=== PATIENT | male | born 1945 | race Caucasian/White ===

== ENCOUNTER → 2019-08-14 16:03 | Outpatient (CLI) | payer MEDICARE, SELFPAY ==
[2019-08-14 22:02] LABS: COVID19 -Nasal RAPID Negative (Negative)
== END ==
PROVIDERS: Family Provider Internal Medicine; PCP Internal Medicine; Visit Provider Family Medicine
DX: R06.02 Shortness of breath (principal)
CPT/HCPCS: 87635

== ENCOUNTER → 2019-08-14 16:20 | Outpatient (CLI) | payer MEDICARE, SELFPAY ==
--- NOTE | 2019-08-14 16:25 | DI.RAD.S_ITS ---
PROCEDURE: XR CHEST 2V INDICATIONS: shortness of breath, LE edema TECHNIQUE: 2 views of the chest were acquired. COMPARISON: None. FINDINGS: Surgical changes and devices: None. Lungs and pleura: Interstitial elements and small effusions suggesting pulmonary edema. No pneumothorax. Mediastinum: Mediastinal contours are normal. Heart size is normal. Bones and chest wall: No suspicious bony abnormalities. Soft tissues appear unremarkable. IMPRESSION: Suspect pulmonary edema. Dictated by: Edgar Lui M.D. on 08/14/2019 at 16:46 Approved by: Edgar Lui M.D. on 08/14/2019 at 16:48
== END ==
PROVIDERS: Family Provider Internal Medicine; PCP Internal Medicine; Referring Provider Family Medicine; Visit Provider Family Medicine
DX: R06.02 Shortness of breath (principal); R60.0 Localized edema
CPT/HCPCS: 71046

== ENCOUNTER 2019-08-14 16:48 | Inpatient (IN) | payer MEDICARE, SELFPAY ==
[2019-08-14] VITALS (8 sets, daily range): BP systolic 138–185; BP diastolic 65–117; PULSE 62–94; RESP 17–26; TEMP 36.2–36.8; O2SAT 92–96; BMI 33.2
--- NOTE | 2019-08-14 | DI.ECHO.S_ITS ---
[facility]---------+ [facility] +---------+ : : [address] : [address] : : : : [id number] : : : : Phone: [phone]+ Echocardiogram Report + + :Name: ISRRAEL ROSALES Study Date: 08/15/2019 Height: 69 in : :[facility] Weight: 225 lb : : Gender: Male BSA: 2.2 m2 : :: 1945 Age: 74 yrs BP: 138/65 mmHg: :Reason For Study: CHF : :Ordering Physician: Kena : :Hospitalist Performed By: Mishel Shah : :Referring: SON VEGA : + + Interpretation Summary Left ventricular systolic function is mildly reduced with an estimated ejection fraction of 45 to 55% with [id number] variability because of atrial fibrillation. There is mild global hypokinesis but no obvious focal abnormality. The left ventricle is mildly enlarged, with an end-diastolic volume of 151 mL and there is borderline concentric LVH. The right ventricle is mildly enlarged with mildly reduced systolic function. Right ventricular systolic pressure is estimated at 38 mmHg based on a right atrial pressure of 15 mmHg. There is severe left atrial enlargement. The mitral valve is heavily calcified but the leaflets appear to open adequately. There is likely moderate to severe mitral regurgitation. There is mild tricuspid and mild pulmonic valve regurgitation. The aortic valve is moderately calcified with significant reduction in leaflet mobility with at least moderately severe, perhaps severe, aortic stenosis with a peak transvalvular velocity of 3.0 m/s and a mean gradient of 22 mmHg although the calculated valve area is 0.7-0.8 body straightener? with a severity ratio is 0.19, suggesting severe aortic stenosis. Clinical correlation is recommended. The patient was in atrial fibrillation at 50 to 60 bpm during the study. Procedure: A two-dimensional transthoracic echocardiogram with color flow and Doppler was performed. The study quality was technically adequate. There is no prior echocardiogram noted for this patient. The patient was in atrial fibrillation with heart rates between 50-60 bpm during the exam. Left Ventricle: The left ventricle is mildly dilated. The estimated left ventricular end diastolic volume is 151 ml. There is borderline concentric left ventricular hypertrophy. Left ventricular ejection fraction is estimated to be 50 +/- 5%. Left ventricular systolic function is mildly reduced. Left ventricular ejection fraction is estimated to be 45 to 55% with [id number] variability because of atrial fibrillation. There is mild global hypokinesis of the left ventricle. There are no focal wall motion abnormalities. Diastolic function could not be accurately assessed due to atrial fibrillation. Right Ventricle: The right ventricle is mildly dilated. Right ventricular systolic function is mildly reduced. Atria: The left atrium is severely dilated. Right atrial size is normal. There is no Doppler evidence for an interatrial shunt. Mitral Valve: There is moderate mitral annular calcification. The mitral valve leaflets appear moderately thickened, but open well. The mitral valve leaflets are moderately calcified. There is moderate to severe mitral regurgitation. Aortic Valve: The aortic valve is trileaflet. The aortic valve is moderately calcified. There is moderate to severely reduced leaflet mobility. There is moderate to severe aortic stenosis. There is trace aortic regurgitation. Tricuspid Valve: The tricuspid valve is not well visualized, but is grossly normal. There is mild tricuspid regurgitation. The right ventricular systolic pressure is estimated to be at least 38 mmHg based on an estimated right atrial pressure of 15 mm Hg. Pulmonic Valve: The pulmonic valve is normal in structure and function. There is mild pulmonic regurgitation. Great Vessels: The aortic root is normal size. The dimensions of the ascending aorta are normal. The IVC is dilated (diameter is greater than 2.1 cm) and it collapses less than 50% with a sniff. This suggests a high right atrial pressure of 15 mm Hg. Pericardium/ Pleura There is no pericardial effusion. There is no pleural effusion. MMode/2D Measurements & Calculations LVIDd: 5.4 cm LVOT diam: 2.2 cm LVIDs: 4.3 cm Ao root diam: 3.1 cm FS: 21.0 % asc Aorta Diam: 3.0 cm IVSd: 1.3 cm LVPWd: 1.0 cm LV dempsey. diameter/BSA (cm/m^2): 2.5 LV sys. diameter/BSA (cm/m^2): 2.0 LA A2 area: 37.7 cm2 RA long axis: 6.2 cm LA A4 area: 30.5 cm2 RA area: 21.2 cm2 LA length (vol): 7.0 cm RA vol: 61.5 ml LA vol: 139.9 ml RA : 28.3 ml/m2 LA vol index: 64.4 ml/m2 IVC diam: 3.0 cm RVD1 (basal): 4.4 cm TAPSE: 2.0 cm Doppler Measurements & Calculations Ao V2 max: 304.0 cm/sec LVOT Max Michael: 62.9 cm/sec Ao V2 mean: 223.7 cm/sec LV V1 max P.6 mmHg Ao max P.0 mmHg LV V1 VTI: 13.6 cm Ao mean P.2 mmHg SUZAN(I,D): 0.71 cm2 Ao V2 VTI: 72.1 cm SUZAN(V,D): 0.78 cm2 sev ratio: 0.19 SUZAN indexed to BSA (cm^2/m^2): 0.33 MV E max michael: 91.6 cm/sec TR max michael: 241.6 cm/sec MV A max michael: 2.9 cm/sec TR max P.3 mmHg MV E/A: 32.0 Med Peak E' Michael: 8.3 cm/sec E/E' med: 11.1 Lat Peak E' Michael: 7.1 cm/sec E/E' lat: 12.9 E/e' average: 12.0 MV dec time: 0.19 sec MR ERO: 0.25 cm2 MR PISA: 4.0 cm2 SV(LVOT): 51.4 ml MR flow rate: 148.4 cm3/sec MR PISA radius: 0.80 cm Reading Physician:PM
--- NOTE | 2019-08-14 17:15 | ED_ITS ---
HPI - SOB/Dyspnea <Wendy Leung SPECIAL EVENTS FUNDRAISER-BC - Last Filed: 08/14/19 20:35> General Chief Complaint: Shortness of Breath/Dyspnea Stated Complaint: sent from DI Time Seen by Provider: 08/14/19 16:59 Source: patient Mode of arrival: Wheelchair Limitations: no limitations History of Present Illness HPI Narrative: The patient is a delightful 74-year-old male nonsmoker with history of type 2 diabetes and atrial fibrillation on Pradaxa presents with a chief complaint of fatigue, swollen legs, shortness of breath that is getting progressively worse over the past 2 weeks. He states he is having trouble sleeping lately, has been sleeping only 4 hours a night as opposed to 8. The patient does note that he has had some difficulty sleeping. He presents from the respiratory clinic, has already had a chest x-ray at this point time. He was swabbed for coronavirus. He denies any chest pain, fevers, nausea vomiting diarrhea or abdominal pain. He states he has been taking his medications. He presents with his of 37 years. Related Data Home Medications Medication Instructions Recorded Confirmed aspirin 81 mg tablet,delayed 81 mg PO QAM 08/14/19 08/14/19 release atenolol 50 mg tablet 50 mg PO BID 08/14/19 08/14/19 cholecalciferol (vitamin D3) 1,000 unit PO QPM 08/14/19 08/14/19 dabigatran etexilate 150 mg capsule 150 mg PO BID 08/14/19 08/15/19 digoxin 125 mcg (0.125 mg) tablet 125 mcg PO QPM 08/14/19 08/14/19 doxazosin 4 mg tablet 4 mg PO QPM 08/14/19 08/15/19 lisinopril 40 mg tablet 40 mg PO QPM 08/14/19 08/14/19 metformin 750 mg tablet,extended 750 mg PO BID 08/14/19 08/14/19 release 24 hr multivitamin 1 tab PO QPM 08/14/19 08/15/19 simvastatin 20 mg tablet 20 mg PO QPM 08/14/19 08/15/19 Previous Rx's Medication Instructions Recorded hydroxyzine HCl 25 mg tablet 25 mg PO TID PRN #30 tab 08/14/19 Allergies Allergy/AdvReac Type Severity Reaction Status Date / Time No Known Drug Allergies Allergy Verified 08/14/19 17:04 Review of Systems <Wendy Leung MARGE- - Last Filed: 08/14/19 20:35> Review of Systems Narrative: GENERAL: Denies chills, fatigue, malaise, fever, sweats. HEENT: Denies sinus pain, ear pain, sore throat, difficulty swallowing, dizziness. RESPIRATORY: See HPI CARDIOVASCULAR see HPI GASTROINTESTINAL: Denies nausea, vomiting, abdominal pain, diarrhea, constipati on, melena. : Denies dysuria, frequency, incontinence, hematuria, urinary retention. MUSCULOSKELETAL: denies weakness, joint pain, or bony pain SKIN: Denies rash, skin lesions, or other NEUROLOGIC: Denies weakness, headache, numbness, change in speech, confusion, seizures, incoordination. PSYCHIATRIC: No concerning psychosocial issues. 12 point review of systems is negative except for those stated above Patient History <Wendy LeungCANDY - Last Filed: 08/14/19 20:35> Medical History Atrial fibrillation, chronic (Acute) Diabetes type 2, controlled (Chronic) Essential hypertension (Chronic) Social History household members: spouse Smoking Status: Never smoker alcohol intake: current Smoking Status: Never smoker alcohol intake frequency: 3 or more drinks per day Substance Use Type: does not use Exam <Wendy LeungCANDY - Last Filed: 08/14/19 20:35> Narrative Exam Narrative: GENERAL: This is a well-nourished, well-developed patient, in no acute distress HEAD: Atraumatic. Normocephalic. No temporal or scalp tenderness. EYES: Pupils equal round and reactive. Extraocular motions intact. No scleral icterus. No injection or drainage. ENT: Nose without bleeding, purulent drainage or septal hematoma. Throat without erythema, tonsillar hypertrophy or exudate. Uvula midline. Airway patent. NECK: Trachea midline. No JVD or lymphadenopathy. Supple, nontender, no meningeal signs. CARDIOVASCULAR: Regular rate and irregular rhythm RESPIRATORY: Decreased bilaterally with crackles at the bases. Breath sounds eq ual bilaterally. No wheezes, rales, or rhonchi. No cough. No increased respiratory effort. No accessory muscle use. GASTROINTESTINAL: Abdomen soft, non-tender, nondistended. No hepato-splenomegaly, or palpable masses. No guarding. EXTREMITIES: 2+ edema bilateral lower legs. Positive pedal pulses bilaterally. BACK: Nontender without deformity or crepitance. No flank tenderness. NEURO: AOx3. SKIN: No rash or erythema on visible skin Initial Vital Signs Initial Vital Signs: Vital Signs Temperature 98.1 F 08/14/19 16:58 Pulse Rate 79 08/14/19 16:58 Respiratory Rate 26 H 08/14/19 16:58 Blood Pressure 167/92 H 08/14/19 16:58 Pulse Oximetry 96 08/14/19 16:58 <Terry Tracey MD - Last Filed: 09/15/19 07:09> Initial Vital Signs Initial Vital Signs: Vital Signs Temperature 98.1 F 08/14/19 16:58 Pulse Rate 79 08/14/19 16:58 Respiratory Rate 26 H 08/14/19 16:58 Blood Pressure 167/92 H 08/14/19 16:58 Pulse Oximetry 96 08/14/19 16:58 Scores <RAJIV Driver - Last Filed: 08/14/19 20:35> GCS Bowers coma scale eye opening: Spontaneous Bowers coma scale verbal response: Orientated Bowers coma scale motor response: Obey commands Sacha coma scale total score: 15 HEART Score Heart Score history: Slightly Suspicious Heart Score EKG: Non-Specific repolarization disturbance Heart Score Age: > or = 65 years old Heart Score risk factors: > 3 risk factors or hx of atherosclerotic disease Heart Score troponin: < or = to normal limit Heart Score Total: 5 Course <RAJIV Driver - Last Filed: 08/14/19 20:35> Orders Ordered: Discontinued Medications Acetaminophen (Tylenol) 650 mg PO Q6HR PRN PRN Reason: Fever/Mild Pain (1-3) Aspirin (Aspirin Ec) 81 mg PO DAILY [facility] Last Admin: 08/17/19 08:56 Dose: 81 mg Documented by: Admin: 08/16/19 08:50 Dose: 81 mg Documented by: Admin: 08/15/19 08:58 Dose: 81 mg Documented by: Admin: 08/15/19 00:58 Dose: 81 mg Documented by: MALICK Atenolol (Tenormin) 50 mg PO BID [facility] Last Admin: 08/16/19 12:00 Dose: Not Given Documented by: Admin: 08/15/19 20:46 Dose: 50 mg Documented by: Admin: 08/15/19 08:52 Dose: 50 mg Documented by: Admin: 08/15/19 01:15 Dose: Not Given Documented by: MALICK Dabigatran (Pradaxa) 150 mg PO BID [facility] Last Admin: 08/16/19 08:50 Dose: 150 mg Documented by: Admin: 08/15/19 20:45 Dose: 150 mg Documented by: Admin: 08/15/19 08:52 Dose: 150 mg Documented by: Admin: 08/15/19 00:58 Dose: 150 mg Documented by: MALICK Dextrose (D50w) 25 gm IV PRN PRN PRN Reason: Hypoglycemia Digoxin (Lanoxin) 0.125 mg PO DAILY [facility] Last Admin: 08/15/19 08:52 Dose: 0.125 mg Documented by: ALIVIA Doxazosin Mesylate (Cardura) 4 mg PO DAILY [facility] Last Admin: 08/17/19 08:56 Dose: 4 mg Documented by: Admin: 08/16/19 08:54 Dose: 4 mg Documented by: Admin: 08/15/19 09:08 Dose: 4 mg Documented by: ALIVIA Furosemide (Lasix) 10 mg IV NOW ONE Stop: 08/14/19 17:55 Last Admin: 08/14/19 19:03 Dose: 10 mg Documented by: MEISENLiliana Furosemide (Lasix) 20 mg IV NOW ONE Stop: 08/15/19 09:25 Last Admin: 08/15/19 08:54 Dose: 20 mg Documented by: ALIVIA Furosemide (Lasix) 40 mg IV NOW ONE Stop: 08/15/19 14:10 Last Admin: 08/15/19 15:07 Dose: 40 mg Documented by: ALIVIA Furosemide (Lasix) 40 mg IV BID [facility] Last Admin: 08/16/19 08:50 Dose: 40 mg Documented by: Admin: 08/15/19 20:46 Dose: 40 mg Documented by: RON Furosemide (Lasix) 40 mg IV DAILY [facility] Last Admin: 08/17/19 10:37 Dose: Not Given Documented by: MARANDA Hydroxyzine Pamoate (Vistaril) 25 mg PO TID PRN PRN Reason: anxiety Insulin Aspart (Novolog Flexpen) 0 unit SUBCUT ACHS [facility], [facility]; Protocol Last Admin: 08/17/19 08:43 Dose: Not Given Documented by: Admin: 08/16/19 20:49 Dose: Not Given Documented by: Admin: 08/16/19 17:40 Dose: Not Given Documented by: Admin: 08/16/19 12:02 Dose: 1 unit Documented by: ALIVIA Cosigned by: LARISA Admin: 08/16/19 08:33 Dose: Not Given Documented by: Admin: 08/15/19 20:45 Dose: Not Given Documented by: Admin: 08/15/19 17:02 Dose: Not Given Documented by: Admin: 08/15/19 13:30 Dose: Not Given Documented by: Admin: 08/15/19 13:30 Dose: Not Given Documented by: ALIVIA Lisinopril (Zestril) 40 mg PO DAILY [facility] Last Admin: 08/17/19 08:56 Dose: 40 mg Documented by: Admin: 08/16/19 08:50 Dose: 40 mg Documented by: Admin: 08/15/19 08:52 Dose: 40 mg Documented by: ALIVIA Metoprolol Succinate (Toprol Xl) 25 mg PO BID [facility] Last Admin: 08/17/19 08:55 Dose: 25 mg Documented by: Admin: 08/16/19 21:09 Dose: 25 mg Documented by: NOEMI Naloxone HCl (Narcan) 0.2 mg IV Q2MIN PRN PRN Reason: Opiate Reversal Simvastatin (Zocor) 20 mg PO BEDTIME [facility] Last Admin: 08/16/19 21:09 Dose: 20 mg Documented by: Admin: 08/15/19 20:45 Dose: 20 mg Documented by: Admin: 08/15/19 01:15 Dose: Not Given Documented by: MALICK Sodium Chloride (Normal Saline 0.9% Flush) 10 ml IV PRN PRN PRN Reason: Flush Sodium Chloride (Normal Saline 0.9% Flush) 10 ml IV BID [facility] Last Admin: 08/17/19 08:55 Dose: 10 ml Documented by: Admin: 08/16/19 21:10 Dose: 10 ml Documented by: Admin: 08/16/19 08:57 Dose: 10 ml Documented by: Admin: 08/15/19 21:01 Dose: 10 ml Documented by: RON Vital Signs Vital signs: Vital Signs - 8 hr 08/14/19 16:58 08/14/19 17:38 08/14/19 18:00 Temperature 98.1 F Pulse Rate 79 62 66 Respiratory Rate 26 H 17 18 Blood Pressure 167/92 H Blood Pressure [Left Arm] 178/87 H 143/85 H Blood Pressure [Right Arm] Pulse Oximetry 96 95 93 08/14/19 19:01 08/14/19 19:05 Temperature Pulse Rate 83 79 Respiratory Rate 23 24 Blood Pressure Blood Pressure [Left Arm] 185/91 H Blood Pressure [Right Arm] 182/101 H Pulse Oximetry 95 95 <Terry Tracey MD - Last Filed: 09/15/19 07:09> Orders Ordered: Discontinued Medications Acetaminophen (Tylenol) 650 mg PO Q6HR PRN PRN Reason: Fever/Mild Pain (1-3) Aspirin (Aspirin Ec) 81 mg PO DAILY [facility] Admin: 08/17/19 08:56 Dose: 81 mg Documented by: Admin: 08/16/19 08:50 Dose: 81 mg Documented by: Admin: 08/15/19 08:58 Dose: 81 mg Documented by: Admin: 08/15/19 00:58 Dose: 81 mg Documented by: MALICK Atenolol (Tenormin) 50 mg PO BID [facility] Admin: 08/16/19 12:00 Dose: Not Given Documented by: Admin: 08/15/19 20:46 Dose: 50 mg Documented by: Admin: 08/15/19 08:52 Dose: 50 mg Documented by: Admin: 08/15/19 01:15 Dose: Not Given Documented by: MALICK Dabigatran (Pradaxa) 150 mg PO BID [facility] Admin: 08/16/19 08:50 Dose: 150 mg Documented by: Admin: 08/15/19 20:45 Dose: 150 mg Documented by: Admin: 08/15/19 08:52 Dose: 150 mg Documented by: Admin: 08/15/19 00:58 Dose: 150 mg Documented by: MALICK Dextrose (D50w) 25 gm IV PRN PRN PRN Reason: Hypoglycemia Digoxin (Lanoxin) 0.125 mg PO DAILY [facility] Last Admin: 08/15/19 08:52 Dose: 0.125 mg Documented by: ALIVIA Doxazosin Mesylate (Cardura) 4 mg PO DAILY [facility] Last Admin: 08/17/19 08:56 Dose: 4 mg Documented by: Admin: 08/16/19 08:54 Dose: 4 mg Documented by: Admin: 08/15/19 09:08 Dose: 4 mg Documented by: ALIVIA Furosemide (Lasix) 10 mg IV NOW ONE Stop: 08/14/19 17:55 Last Admin: 08/14/19 19:03 Dose: 10 mg Documented by: KRISHNA Furosemide (Lasix) 20 mg IV NOW ONE Stop: 08/15/19 09:25 Last Admin: 08/15/19 08:54 Dose: 20 mg Documented by: ALIVIA Furosemide (Lasix) 40 mg IV NOW ONE Stop: 08/15/19 14:10 Last Admin: 08/15/19 15:07 Dose: 40 mg Documented by: ALIVIA Furosemide (Lasix) 40 mg IV BID [facility] Last Admin: 08/16/19 08:50 Dose: 40 mg Documented by: Admin: 08/15/19 20:46 Dose: 40 mg Documented by: RON Furosemide (Lasix) 40 mg IV DAILY [facility] Last Admin: 08/17/19 10:37 Dose: Not Given Documented by: MARANDA Hydroxyzine Pamoate (Vistaril) 25 mg PO TID PRN PRN Reason: anxiety Insulin Aspart (Novolog Flexpen) 0 unit SUBCUT ACHS [facility]; Protocol Last Admin: 08/17/19 08:43 Dose: Not Given Documented by: Admin: 08/16/19 20:49 Dose: Not Given Documented by: Admin: 08/16/19 17:40 Dose: Not Given Documented by: Admin: 08/16/19 12:02 Dose: 1 unit Documented by: ALIVIA Cosigned by: LARISA Admin: 08/16/19 08:33 Dose: Not Given Documented by: Admin: 08/15/19 20:45 Dose: Not Given Documented by: Admin: 08/15/19 17:02 Dose: Not Given Documented by: Admin: 08/15/19 13:30 Dose: Not Given Documented by: Admin: 08/15/19 13:30 Dose: Not Given Documented by: ALIVIA Lisinopril (Zestril) 40 mg PO DAILY [facility] Admin: 08/17/19 08:56 Dose: 40 mg Documented by: Admin: 08/16/19 08:50 Dose: 40 mg Documented by: Admin: 08/15/19 08:52 Dose: 40 mg Documented by: ALIVIA Metoprolol Succinate (Toprol Xl) 25 mg PO BID [facility] Admin: 08/17/19 08:55 Dose: 25 mg Documented by: Admin: 08/16/19 21:09 Dose: 25 mg Documented by: NOEMI Naloxone HCl (Narcan) 0.2 mg IV Q2MIN PRN PRN Reason: Opiate Reversal Simvastatin (Zocor) 20 mg PO BEDTIME [facility] Admin: 08/16/19 21:09 Dose: 20 mg Documented by: Admin: 08/15/19 20:45 Dose: 20 mg Documented by: Admin: 08/15/19 01:15 Dose: Not Given Documented by: MALICK Sodium Chloride (Normal Saline 0.9% Flush) 10 ml IV PRN PRN PRN Reason: Flush Sodium Chloride (Normal Saline 0.9% Flush) 10 ml IV BID [facility] Admin: 08/17/19 08:55 Dose: 10 ml Documented by: Admin: 08/16/19 21:10 Dose: 10 ml Documented by: Admin: 08/16/19 08:57 Dose: 10 ml Documented by: Admin: 08/15/19 21:01 Dose: 10 ml Documented by: RON Vital Signs Vital signs: Vital Signs - 8 hr 08/14/19 16:58 08/14/19 17:38 08/14/19 18:00 Temperature 98.1 F Pulse Rate 79 62 66 Respiratory Rate 26 H 17 18 Blood Pressure 167/92 H Blood Pressure [Left Arm] 178/87 H 143/85 H Blood Pressure [Right Arm] Pulse Oximetry 96 95 93 08/14/19 19:01 08/14/19 19:05 Temperature Pulse Rate 83 79 Respiratory Rate 23 24 Blood Pressure Blood Pressure [Left Arm] 185/91 H Blood Pressure [Right Arm] 182/101 H Pulse Oximetry 95 95 MDM - SOB/Dyspnea <Wendy LeungMINOP-BC - Last Filed: 08/14/19 20:35> Differential Diagnosis Differential diagnosis: Likely congestive heart failure, community acquired p neumonia and pulmonary embolism Lab Data Result diagrams: 08/16/19 06:07 08/17/19 08:07 Labs: Lab Results 08/14/19 08/14/19 08/14/19 Range/Units 17:05 17:05 17:05 WBC 5.4 (4.5-11.0) X10^3/uL RBC 3.70 L (4.5-5.9) X10^6/uL Hgb 12.7 L (13.5-17.5) g/dL Hct 37.4 L (41-53) % MCV 100.9 H (80-100) fL MCH 34.3 H (26-34) PG MCHC 34.0 (30-36) % RDW 14.0 (11.6-14.8) % Plt Count 281 (150-400) X10^3/uL Neut % (Auto) 72.3 (50-75) % Lymph % (Auto) 15.4 L (25-40) % [place] % (Auto) 11.2 (3-14) % Eos % (Auto) 0.7 L (2-4) % Baso % (Auto) 0.4 (0-2) % Neut # (Auto) 3900 (1096-7763) /uL Lymph # (Auto) 800 L (2533-0806) /uL [place] # (Auto) 600 (0-900) /uL Eos # (Auto) 0 (0-450) /uL Baso # (Auto) 0 (0-100) /uL PT 15.6 H (10.1-12.7) SECONDS INR 1.4 H (0.9-1.3) APTT 38 H (26.4-36.2) SECONDS D-Dimer < 200 (<230) ng/mL Sodium 125 L (137-145) mmol/L Potassium 4.6 (3.4-5.1) mmol/L Chloride 88 L (98-107) mmol/L Carbon Dioxide 27 (22-32) mmol/L BUN 10 (9-20) mg/dL Creatinine 0.53 L (0.66-1.25) mg/dL Estimated GFR > 60.0 (>60) mL/min BUN/Creatinine Ratio 18.9 (6-22) Glucose 139 H (80-110) mg/dL Hemoglobin A1c (4.0-6.0) % Lactate (0.7-2.1) mmol/L Calcium 9.1 (8.4-10.2) mg/dL Magnesium 1.7 (1.6-2.3) mg/dL Total Bilirubin 1.2 (0.2-1.3) mg/dL AST 35 (17-59) IU/L ALT 44 (<50) IU/L Alkaline Phosphatase 103 (38-126) U/L Total Creatine Kinase 66 (55-170) U/L CK-MB (CK-2) TNP CK-MB (CK-2) Rel Index TNP Troponin I < 0.012 (0.01-0.034) ng/mL NT-Pro-B Natriuret Pep 1700 H (<125) pg/mL Total Protein 7.5 (6.3-8.2) g/dL Albumin 4.4 (3.5-5.0) g/dL Globulin 3.1 (1.7-4.1) g/dL Albumin/Globulin Ratio 1.4 (1.0-2.8) Procalcitonin (<0.5) ng/mL 08/14/19 08/14/19 08/14/19 Range/Units 17:05 17:05 17:05 WBC (4.5-11.0) X10^3/uL RBC (4.5-5.9) X10^6/uL Hgb (13.5-17.5) g/dL Hct (41-53) % MCV (80-100) fL MCH (26-34) PG MCHC (30-36) % RDW (11.6-14.8) % Plt Count (150-400) X10^3/uL Neut % (Auto) (50-75) % Lymph % (Auto) (25-40) % [place] % (Auto) (3-14) % Eos % (Auto) (2-4) % Baso % (Auto) (0-2) % Neut # (Auto) (4607-0883) /uL Lymph # (Auto) (3940-3290) /uL [place] # (Auto) (0-900) /uL Eos # (Auto) (0-450) /uL Baso # (Auto) (0-100) /uL PT (10.1-12.7) SECONDS INR (0.9-1.3) APTT (26.4-36.2) SECONDS D-Dimer (<230) ng/mL Sodium (137-145) mmol/L Potassium (3.4-5.1) mmol/L Chloride (98-107) mmol/L Carbon Dioxide (22-32) mmol/L BUN (9-20) mg/dL Creatinine (0.66-1.25) mg/dL Estimated GFR (>60) mL/min BUN/Creatinine Ratio (6-22) Glucose (80-110) mg/dL Hemoglobin A1c 6.4 H (4.0-6.0) % Lactate 1.4 (0.7-2.1) mmol/L Calcium (8.4-10.2) mg/dL Magnesium (1.6-2.3) mg/dL Total Bilirubin (0.2-1.3) mg/dL AST (17-59) IU/L ALT (<50) IU/L Alkaline Phosphatase (38-126) U/L Total Creatine Kinase (55-170) U/L CK-MB (CK-2) CK-MB (CK-2) Rel Index Troponin I (0.01-0.034) ng/mL NT-Pro-B Natriuret Pep (<125) pg/mL Total Protein (6.3-8.2) g/dL Albumin (3.5-5.0) g/dL Globulin (1.7-4.1) g/dL Albumin/Globulin Ratio (1.0-2.8) Procalcitonin < 0.05 (<0.5) ng/mL Urine Dip Bedside Urine Glucose Negative Bedside Urine Bilirubin - Negative Bedside Urine Ketone - Negative Urine Specific [place] 1.020 Bedside Urine Occult Blood - Negative Bedside Urine pH 6.5 Bedside Urine Protein - Negative Bedside Urine Urobilinogen - Negative Bedside Urine Nitrite - Negative Bedside Urine Leukocytes - Negative Esterase Imaging Data Chest x-ray: Radiologist's Impression: [address] [place] [id number] XRay Report Signed Patient: Terry Pack RMR#: [id number] : 8Acct:[id number] Age/Sex: 74 / MDate of Service: 08/14/19 Loc: RAD Accession Number: [id number] Procedure: XR chest 2V Ordering Provider: Ana Sweeney MD PROCEDURE: XR CHEST 2V INDICATIONS: shortness of breath, LE edema TECHNIQUE: 2 views of the chest were acquired. COMPARISON: None. FINDINGS: Surgical changes and devices: None. Lungs and pleura: Interstitial elements and small effusions suggesting pulmonary edema. No pneumothorax. Mediastinum: Mediastinal contours are normal. Heart size is normal. Bones and chest wall: No suspicious bony abnormalities. Soft tissues appear unremarkable. IMPRESSION: Suspect pulmonary edema. Dictated by: Edgar Lui M.D. on 08/14/2019 at 16:46 Approved by: Edgar Lui M.D. on 08/14/2019 at 16:48 ECG Data Attestation: I personally reviewed and interpreted this ECG as follows: Interpretation: Atrial fibrillation. Ventricular rate 67. QRS 170. Left bundle branch block noted. Viewed by Dr. Tracey 17:50 Atrial fibrillation. Ventricular rate 69. QRS 105. viewed By Dr Tracey 17:00 [facility] Narrative Medical decision making narrative: The patient is a 74-year-old male with cardiac risk factors including hypertension, hyperlipidemia, type 2 diabetes who presents with a chief complaint of worsening shortness of breath as well as lower extremity edema. D-dimer helps rule out acute pulmonary embolism. The patient has slight crackles on exam, combined with +2 edema bilateral lower extremities, raising suspicion for CHF exacerbation. This is confirmed with elevated BNP 1700. The patient is noted to be hyponatremic, with low sodium at 125. As per Dr. Tracey the patient was given a 10 mg IV dose of Lasix in the emergency department as he has never had any diuretics before. EKGs viewed by Dr. Tracey as well. I spoke at length with the patient regarding further evaluation. Patient was kindly accepted by Hospitalist VALDO Manrique for observat ion. <Terry Tracey MD - Last Filed: 09/15/19 07:09> Lab Data Labs: Lab Results 08/14/19 08/14/19 08/14/19 Range/Units 17:05 17:05 17:05 WBC 5.4 (4.5-11.0) X10^3/uL RBC 3.70 L (4.5-5.9) X10^6/uL Hgb 12.7 L (13.5-17.5) g/dL Hct 37.4 L (41-53) % MCV 100.9 H (80-100) fL MCH 34.3 H (26-34) PG MCHC 34.0 (30-36) % RDW 14.0 (11.6-14.8) % Plt Count 281 (150-400) X10^3/uL Neut % (Auto) 72.3 (50-75) % Lymph % (Auto) 15.4 L (25-40) % [place] % (Auto) 11.2 (3-14) % Eos % (Auto) 0.7 L (2-4) % Baso % (Auto) 0.4 (0-2) % Neut # (Auto) 3900 (4966-7181) /uL Lymph # (Auto) 800 L (3915-3677) /uL [place] # (Auto) 600 (0-900) /uL Eos # (Auto) 0 (0-450) /uL Baso # (Auto) 0 (0-100) /uL PT 15.6 H (10.1-12.7) SECONDS INR 1.4 H (0.9-1.3) APTT 38 H (26.4-36.2) SECONDS D-Dimer < 200 (<230) ng/mL Sodium 125 L (137-145) mmol/L Potassium 4.6 (3.4-5.1) mmol/L Chloride 88 L (98-107) mmol/L Carbon Dioxide 27 (22-32) mmol/L BUN 10 (9-20) mg/dL Creatinine 0.53 L (0.66-1.25) mg/dL Estimated GFR > 60.0 (>60) mL/min BUN/Creatinine Ratio 18.9 (6-22) Glucose 139 H (80-110) mg/dL Hemoglobin A1c (4.0-6.0) % Lactate (0.7-2.1) mmol/L Calcium 9.1 (8.4-10.2) mg/dL Magnesium 1.7 (1.6-2.3) mg/dL Total Bilirubin 1.2 (0.2-1.3) mg/dL AST 35 (17-59) IU/L ALT 44 (<50) IU/L Alkaline Phosphatase 103 (38-126) U/L Total Creatine Kinase 66 (55-170) U/L CK-MB (CK-2) TNP CK-MB (CK-2) Rel Index TNP Troponin I < 0.012 (0.01-0.034) ng/mL NT-Pro-B Natriuret Pep 1700 H (<125) pg/mL Total Protein 7.5 (6.3-8.2) g/dL Albumin 4.4 (3.5-5.0) g/dL Globulin 3.1 (1.7-4.1) g/dL Albumin/Globulin Ratio 1.4 (1.0-2.8) Procalcitonin (<0.5) ng/mL 08/14/19 08/14/19 08/14/19 Range/Units 17:05 17:05 17:05 WBC (4.5-11.0) X10^3/uL RBC (4.5-5.9) X10^6/uL Hgb (13.5-17.5) g/dL Hct (41-53) % MCV (80-100) fL MCH (26-34) PG MCHC (30-36) % RDW (11.6-14.8) % Plt Count (150-400) X10^3/uL Neut % (Auto) (50-75) % Lymph % (Auto) (25-40) % [place] % (Auto) (3-14) % Eos % (Auto) (2-4) % Baso % (Auto) (0-2) % Neut # (Auto) (7857-0936) /uL Lymph # (Auto) (7659-6139) /uL [place] # (Auto) (0-900) /uL Eos # (Auto) (0-450) /uL Baso # (Auto) (0-100) /uL PT (10.1-12.7) SECONDS INR (0.9-1.3) APTT (26.4-36.2) SECONDS D-Dimer (<230) ng/mL Sodium (137-145) mmol/L Potassium (3.4-5.1) mmol/L Chloride (98-107) mmol/L Carbon Dioxide (22-32) mmol/L BUN (9-20) mg/dL Creatinine (0.66-1.25) mg/dL Estimated GFR (>60) mL/min BUN/Creatinine Ratio (6-22) Glucose (80-110) mg/dL Hemoglobin A1c 6.4 H (4.0-6.0) % Lactate 1.4 (0.7-2.1) mmol/L Calcium (8.4-10.2) mg/dL Magnesium (1.6-2.3) mg/dL Total Bilirubin (0.2-1.3) mg/dL AST (17-59) IU/L ALT (<50) IU/L Alkaline Phosphatase (38-126) U/L Total Creatine Kinase (55-170) U/L CK-MB (CK-2) CK-MB (CK-2) Rel Index Troponin I (0.01-0.034) ng/mL NT-Pro-B Natriuret Pep (<125) pg/mL Total Protein (6.3-8.2) g/dL Albumin (3.5-5.0) g/dL Globulin (1.7-4.1) g/dL Albumin/Globulin Ratio (1.0-2.8) Procalcitonin < 0.05 (<0.5) ng/mL Urine Dip Bedside Urine Glucose Negative Bedside Urine Bilirubin - Negative Bedside Urine Ketone - Negative Urine Specific [place] 1.020 Bedside Urine Occult Blood - Negative Bedside Urine pH 6.5 Bedside Urine Protein - Negative Bedside Urine Urobilinogen - Negative Bedside Urine Nitrite - Negative Bedside Urine Leukocytes - Negative Esterase Discharge Plan Departure Patient Disposition: Admitted as Observation Clinical Impression: Breath shortness, Elevated brain natriuretic peptide (BNP) level Edema Qualifiers: Edema type: unspecified Qualified Code(s): R60.9 - Edema, unspecified Discharge Date/Time: 08/14/19 20:31 Instructions: DI for Heart Failure, DI for Atrial Fibrillation Referrals: Stanton Louis MD [Primary Care Provider] - Admit Date/Time: 05/05/20 20:40 Admit Provider: Rowena Manrique <Terry Tracey MD - Last Filed: 09/15/19 07:09> Cosign ED Attending Cosignature Attestation: I was immediately available in the department for consultation. This documentation has been reviewed and I agree with assessment and plan. Supervised by Terry Tracey MD
[2019-08-14 17:20] LABS: Add Manual Diff / Slide Review NO; Basophils Absolute Auto 0 /uL (0-100); Basophils Percent Auto 0.4 % (0-2); Eosinophils Absolute Auto 0 /uL (0-450); Eosinophils Percent Auto 0.7 % (2-4); Hematocrit 37.4 % (41-53); Hemoglobin 12.7 g/dL (13.5-17.5); Lymphocytes Absolute Auto 800 /uL (1100-4500); Lymphocytes Percent Auto 15.4 % (25-40); Mean Corpuscular Hemoglobin 34.3 PG (26-34); Mean Corpuscular Volume 100.9 fL (80-100); Monocytes Absolute Auto 600 /uL (0-900); Monocytes Percent Auto 11.2 % (3-14); Neutrophils Absolute Auto 3900 /uL (1500-7000); Neutrophils Percent Auto 72.3 % (50-75); Platelet Count 281 X10^3/uL (150-400); White Blood Cell Count 5.4 X10^3/uL (4.5-11.0)
--- NOTE | 2019-08-14 17:24 | PC.NURSE ---
pt report shortness of breath at rest and on exertion, sxs for 2 weeks, with lower bilateral legs with edema. denies chest pain, denies feverr,coughing,vomiting, diarrhea. denies exposure to covid 19 before arrival, pt went to resp clinic, had covid swab,chest xray and ekg done .
[2019-08-14 17:25] LABS: INR 1.4 (0.9-1.3); Prothrombin Time 15.6 SECONDS (10.1-12.7)
[2019-08-14 17:26] LABS: Lactate (Lactic Acid) 1.4 mmol/L (0.7-2.1)
[2019-08-14 17:28] LABS: Alanine Aminotransferase 44 IU/L (<50); Albumin 4.4 g/dL (3.5-5.0); Albumin Globulin Ratio 1.4 (1.0-2.8); Alkaline Phosphatase 103 U/L (38-126); Aspartate Aminotransferase 35 IU/L (17-59); BUN Creatinine Ratio 18.9 (6-22); Bilirubin Total 1.2 mg/dL (0.2-1.3); Blood Urea Nitrogen 10 mg/dL (9-20); Calcium 9.1 mg/dL (8.4-10.2); Carbon Dioxide 27 mmol/L (22-32); Chloride 88 mmol/L (98-107); Creatine Kinase 66 U/L (55-170); Estimated Glomerular Filt Rate > 60.0 mL/min (>60); Globulin 3.1 g/dL (1.7-4.1); Glucose 139 mg/dL (80-110); HEMOLYSIS < 15 (0-50); Magnesium 1.7 mg/dL (1.6-2.3); PTT Partial Thromboplastin Tim 38 SECONDS (26.4-36.2); Potassium 4.6 mmol/L (3.4-5.1); Sodium 125 mmol/L (137-145); Total Protein 7.5 g/dL (6.3-8.2)
[2019-08-14 17:30] LABS: D Dimer < 200 ng/mL (<230)
[2019-08-14 17:40] LABS: NT-proBNP (BNP-Adult 18+) 1700 pg/mL (<125); Troponin I < 0.012 ng/mL (0.01-0.034)
[2019-08-14 17:44] LABS: Procalcitonin < 0.05 ng/mL (<0.5)
[2019-08-14] MEDS: FUROSEMIDE 20 MG/2 ML VIAL 10 MG IV (19:03)
[2019-08-14 23:00] LABS: Hemoglobin A1C% w Est Avg Glu 6.4 % (4.0-6.0)
--- NOTE | 2019-08-14 23:55 | PC.NURSE ---
A&OX4. SOB w/exertion. 94%RA. meds verified w/Jolie. 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 pt denied pain. independent in room. oriented pt to room. call light in reach.
[2019-08-15] VITALS (7 sets, daily range): BP systolic 137–159; BP diastolic 63–96; PULSE 53–85; RESP 18–20; TEMP 36.3–36.7; O2SAT 95–99
[2019-08-15] MEDS: DABIGATRAN 75 MG CAPSULE 150 MG PO ×3 (00:58→20:45)
[2019-08-15] MEDS: ASPIRIN EC 81 MG TABLET PO ×2 (00:58→08:58)
--- NOTE | 2019-08-15 04:42 | PM.HP.1 ---
History of Present Illness History of Present Illness Date Patient Seen: 08/14/19 Time Patient Seen: 22:00 Chief complaint: LE swelling, shortness of breath Narrative: Terry Pack is a 74-year-old male with a history of atrial fibrillation anticoagulation on Pradaxa, hypertension, hyperlipidemia, and diabetes type 2 who was seen at the respiratory clinic today for lower extremity swelling, shortness of breath with activity. He was seen by Dr. Higgins and referred to the emergency department for further evaluation of a new onset congestive heart failure. Patient states he has been feeling poorly for the past several weeks and has not improved. He states that he does not appear to get short of breath when at rest. He has some nasal congestion as well as isolated episodes of nausea. He denies vomiting, chest pain, weight gain even though he has had swelling in his lower extremities, dysuria, and diarrhea constipation, or neuropathy. In the Respiratory Clinic they swabbed him for COVID-19 and by the time he reached the floor the swab resulted negative. He was found to have a drainage retic peptide of 1700, negative D-dimer, and is requested for admission for further workup of a new onset CHF. Patient History Medical History Atrial fibrillation, chronic (Acute) Diabetes type 2, controlled (Chronic) Essential hypertension (Chronic) Family & Social History Social History: household members spouse Prior Living Arrangements House Safety & Behavioral: Feels Safe in Current Yes Environment Been Physically Hurt or No Threatened By a Person Suicidal Ideation Description None Suicide Plan Description No Plan Tobacco & Substance use: Smoking Status Never smoker alcohol intake current alcohol intake frequency 3 or more drinks per day Substance Use Type does not use Meds Home Medications and Allergies Home Medications Medication Instructions Recorded Confirmed Type aspirin 81 mg tablet,delayed 81 mg PO QAM 08/14/19 08/14/19 History release atenolol 50 mg tablet 50 mg PO BID 08/14/19 08/14/19 History cholecalciferol (vitamin D3) 1,000 1,000 unit PO QPM 08/14/19 08/14/19 History unit/drop oral drops dabigatran etexilate 150 mg capsule 150 mg PO BID 08/14/19 08/15/19 History digoxin 125 mcg (0.125 mg) tablet 125 mcg PO QPM 08/14/19 08/14/19 History doxazosin 4 mg tablet 4 mg PO QPM 08/14/19 08/15/19 History hydroxyzine HCl 25 mg tablet 25 mg PO TID PRN #30 tab 08/14/19 08/15/19 Rx lisinopril 40 mg tablet 40 mg PO QPM 08/14/19 08/14/19 History metformin 750 mg tablet,extended 750 mg PO BID 08/14/19 08/14/19 History release 24 hr multivitamin 1 tab PO QPM 08/14/19 08/15/19 History simvastatin 20 mg tablet 20 mg PO QPM 08/14/19 08/15/19 History Allergies Allergy/AdvReac Type Severity Reaction Status Date / Time No Known Drug Allergies Allergy Verified 08/14/19 17:04 Review of Systems Review of Systems ROS: Yes All systems reviewed with the patient and are negative except as otherwise documented Exam Vital Signs (past 8 hours): - 08/14/19 23:00 08/14/19 23:57 Temperature 97.2 F L Pulse Rate 94 H Respiratory Rate 18 Blood Pressure 138/65 Pulse Oximetry 92 92 Oxygen Delivery Method Room Air Oxygen Flow Rate 0 Narrative Exam Narrative: Gen: Alert, oriented, well-neuro 74 y.o. male, NAD HEENT: normocephalic, atraumatic, conjunctiva clear, sclera non-icteric, oral mucosa pink and moist Neck: supple, full ROM, no JVD Resp: Lungs CTA, non-labored breathing CV: RRR, no murmur or rubs Abd: soft, non-tender, normoactive BTs Skin: no lesions or rashes, dry and intact Neuro: Alert and oriented X 4 w/no focal deficits Extremities: Bilateral lower extremities with +2 pitting edema moves all 4 extremities, is ambulatory, negative Enedina?s sign Psyche: normal mood and affect. Objective Labs Result Diagrams: 08/14/19 17:05 08/14/19 17:05 Labs: Laboratory Results - last 24 hr 08/14/19 08/14/19 08/14/19 17:05 17:05 17:05 WBC 5.4 RBC 3.70 L Hgb 12.7 L Hct 37.4 L MCV 100.9 H MCH 34.3 H MCHC 34.0 RDW 14.0 Plt Count 281 Neut % (Auto) 72.3 Lymph % (Auto) 15.4 L Slope % (Auto) 11.2 Eos % (Auto) 0.7 L Baso % (Auto) 0.4 Neut # (Auto) 3900 Lymph # (Auto) 800 L Slope # (Auto) 600 Eos # (Auto) 0 Baso # (Auto) 0 PT 15.6 H INR 1.4 H APTT 38 H D-Dimer < 200 Sodium 125 L Potassium 4.6 Chloride 88 L Carbon Dioxide 27 BUN 10 Creatinine 0.53 L Estimated GFR > 60.0 BUN/Creatinine Ratio 18.9 Glucose 139 H Hemoglobin A1c Lactate Calcium 9.1 Magnesium 1.7 Total Bilirubin 1.2 AST 35 ALT 44 Alkaline Phosphatase 103 Total Creatine Kinase 66 CK-MB (CK-2) TNP CK-MB (CK-2) Rel Index TNP Troponin I < 0.012 NT-Pro-B Natriuret Pep 1700 H Total Protein 7.5 Albumin 4.4 Globulin 3.1 Albumin/Globulin Ratio 1.4 Procalcitonin 08/14/19 08/14/19 08/14/19 17:05 17:05 17:05 WBC RBC Hgb Hct MCV MCH MCHC RDW Plt Count Neut % (Auto) Lymph % (Auto) Slope % (Auto) Eos % (Auto) Baso % (Auto) Neut # (Auto) Lymph # (Auto) Slope # (Auto) Eos # (Auto) Baso # (Auto) PT INR APTT D-Dimer Sodium Potassium Chloride Carbon Dioxide BUN Creatinine Estimated GFR BUN/Creatinine Ratio Glucose Hemoglobin A1c 6.4 H Lactate 1.4 Calcium Magnesium Total Bilirubin AST ALT Alkaline Phosphatase Total Creatine Kinase CK-MB (CK-2) CK-MB (CK-2) Rel Index Troponin I NT-Pro-B Natriuret Pep Total Protein Albumin Globulin Albumin/Globulin Ratio Procalcitonin < 0.05 Assessment & Plan Assessment & Plan narrative: Terry Pack is a 74-year-old male who will be placed into observation for further assessment of a new onset CHF exacerbation. New onset CHF exacerbation, acute, present on admission -patient received IV Lasix 10 mg in the ED -he received another 20 mg of IV Lasix after he arrived to the floor -patient will be on telemetry over night -he is ordered for a echocardiogram in the morning Atrial fibrillation anticoagulated on a DOAC, chronic, present on admission -continue home dose of dabigatran 150 mg p.o. b.i.d. -continue home dose of atenolol 50 mg p.o. b.i.d. to start in the morning -continue home dose of digoxin 125 mcg p.o. at bedtime Essential hypertension, chronic, present on admission -continue home dose of lisinopril 40 mg p.o. at bedtime Diabetes type 2, chronic, present on admission -A1c is 6.4 -metformin is held and he will receive regular insulin correctional dosing at [facility] Hyperlipidemia, chronic, present on admission -continue home dose of simvastatin 20 mg p.o. at bedtime Anxiety, chronic, present on admission -Continue home dose of hydroxyzine 25 mg p.o. at bedtime BPH, chronic, present on admission -continue home dose of doxazosin 4 mg p.o. at bedtime Consults: none Patient is placed into an observation bed. Stay is not likely to exceed 2 midnights. FEN: IV saline lock, low-sodium diet with a 1500 mL fluid restriction, BMP in the am. VTE prophylaxis: Continue home anticoagulation Dispo: Probable discharge home with outpatient follow-up Code Status: Full code as discussed with patient COVID-19 COVID-19 status: Negative Result date/Date tested (Pos, Neg/Pending): 08/14/19
[2019-08-15 06:16] LABS: Add Manual Diff / Slide Review NO; Basophils Absolute Auto 0 /uL (0-100); Basophils Percent Auto 0.4 % (0-2); Eosinophils Absolute Auto 0 /uL (0-450); Eosinophils Percent Auto 0.6 % (2-4); Hematocrit 37.2 % (41-53); Hemoglobin 12.8 g/dL (13.5-17.5); Lymphocytes Absolute Auto 900 /uL (1100-4500); Lymphocytes Percent Auto 13.3 % (25-40); Mean Corpuscular HGB Conc 34.5 % (30-36); Mean Corpuscular Hemoglobin 34.6 PG (26-34); Mean Corpuscular Volume 100.3 fL (80-100); Monocytes Absolute Auto 700 /uL (0-900); Monocytes Percent Auto 10.1 % (3-14); Neutrophils Absolute Auto 5300 /uL (1500-7000); Neutrophils Percent Auto 75.6 % (50-75); Platelet Count 278 X10^3/uL (150-400); Red Cell Distribution Width 13.8 % (11.6-14.8); White Blood Cell Count 7.1 X10^3/uL (4.5-11.0)
[2019-08-15 06:26] LABS: BUN Creatinine Ratio 23.1 (6-22); Blood Urea Nitrogen 12 mg/dL (9-20); Calcium 9.1 mg/dL (8.4-10.2); Carbon Dioxide 29 mmol/L (22-32); Chloride 88 mmol/L (98-107); Estimated Glomerular Filt Rate > 60.0 mL/min (>60); Glucose 135 mg/dL (80-110); HEMOLYSIS < 15 (0-50); Potassium 4.3 mmol/L (3.4-5.1); Sodium 126 mmol/L (137-145)
[2019-08-15] MEDS: atenoloL 50 MG TABLET PO ×2 (08:52→20:46)
[2019-08-15] MEDS: DIGOXIN 0.125 MG TABLET PO (08:52)
[2019-08-15] MEDS: lisinopriL 20 MG TABLET 40 MG PO (08:52)
[2019-08-15] MEDS: FUROSEMIDE 20 MG/2 ML VIAL IV (08:54)
[2019-08-15] MEDS: DOXAZOSIN 4 MG TABLET PO (09:08)
--- NOTE | 2019-08-15 11:08 | PC.NURSE ---
Addendum entered by Michelle Duffy R.N. 08/15/19 15:42: Patient has voided about 1300cc of urine this shift. He just received another 40mg of iv lasix and has already starting to void. His bp runs around 150s/80s. Tele AFIB. Original Note: Assess- Patient is A&Ox3, he denies pain. Up with 1 person assist to use the bathroom or stand using the urinal. Given IV lasix 20mg, which did help patients sob. His lungs sounds are clear to auscultation. He is on tele and his heart rate did go down to 42 earlier. Patient was given his bp meds, and digoxin. His blood pressure was on the higher side. When digoxin given, patients heart rate 84.
--- NOTE | 2019-08-15 14:11 | PM.PN.1 ---
Subjective Subjective Date Patient Seen: 08/15/19 Interval history: Patient is a 74-year-old male with history of chronic AFib, type 2 diabetes, hypertension presented with dyspnea and lower extremity swelling. He was started on IV Lasix for CHF. Patient reports improvement in dyspnea though still has significant edema in his legs. Also noted to have low heart rate on tele with ventricular rate in the high 40s to 50 range persistently. Exam Vital Signs (past 8 hours): - 08/15/19 08:00 08/15/19 12:00 Temperature 97.9 F 97.6 F Pulse Rate 85 53 L Respiratory Rate 18 18 Blood Pressure 155/96 H 137/63 Pulse Oximetry 95 95 Oxygen Delivery Method Room Air Oxygen Flow Rate 0 Narrative Exam Narrative: General: Alert pleasant male no acute distress sitting in chair Lungs: Few bibasilar crackles, breathing nonlabored Heart: Irregularly irregular rhythm, systolic murmur Extremities: At least 2+ bilateral pitting edema lower legs Neurological: Sensorium intact, nonfocal Objective Labs Result Diagrams: 08/15/19 05:38 08/15/19 05:38 Labs: Laboratory Results - last 24 hr 08/14/19 08/14/19 08/14/19 17:05 17:05 17:05 WBC 5.4 RBC 3.70 L Hgb 12.7 L Hct 37.4 L MCV 100.9 H MCH 34.3 H MCHC 34.0 RDW 14.0 Plt Count 281 Neut % (Auto) 72.3 Lymph % (Auto) 15.4 L Carbon % (Auto) 11.2 Eos % (Auto) 0.7 L Baso % (Auto) 0.4 Neut # (Auto) 3900 Lymph # (Auto) 800 L Carbon # (Auto) 600 Eos # (Auto) 0 Baso # (Auto) 0 PT 15.6 H INR 1.4 H APTT 38 H D-Dimer < 200 Sodium 125 L Potassium 4.6 Chloride 88 L Carbon Dioxide 27 BUN 10 Creatinine 0.53 L Estimated GFR > 60.0 BUN/Creatinine Ratio 18.9 Glucose 139 H Hemoglobin A1c Lactate Calcium 9.1 Magnesium 1.7 Total Bilirubin 1.2 AST 35 ALT 44 Alkaline Phosphatase 103 Total Creatine Kinase 66 CK-MB (CK-2) TNP CK-MB (CK-2) Rel Index TNP Troponin I < 0.012 NT-Pro-B Natriuret Pep 1700 H Total Protein 7.5 Albumin 4.4 Globulin 3.1 Albumin/Globulin Ratio 1.4 Procalcitonin 08/14/19 08/14/19 08/14/19 17:05 17:05 17:05 WBC RBC Hgb Hct MCV MCH MCHC RDW Plt Count Neut % (Auto) Lymph % (Auto) Carbon % (Auto) Eos % (Auto) Baso % (Auto) Neut # (Auto) Lymph # (Auto) Carbon # (Auto) Eos # (Auto) Baso # (Auto) PT INR APTT D-Dimer Sodium Potassium Chloride Carbon Dioxide BUN Creatinine Estimated GFR BUN/Creatinine Ratio Glucose Hemoglobin A1c 6.4 H Lactate 1.4 Calcium Magnesium Total Bilirubin AST ALT Alkaline Phosphatase Total Creatine Kinase CK-MB (CK-2) CK-MB (CK-2) Rel Index Troponin I NT-Pro-B Natriuret Pep Total Protein Albumin Globulin Albumin/Globulin Ratio Procalcitonin < 0.05 08/15/19 08/15/19 08/15/19 05:38 05:38 05:38 WBC 7.1 RBC 3.70 L Hgb 12.8 L Hct 37.2 L MCV 100.3 H MCH 34.6 H MCHC 34.5 RDW 13.8 Plt Count 278 Neut % (Auto) 75.6 H Lymph % (Auto) 13.3 L Carbon % (Auto) 10.1 Eos % (Auto) 0.6 L Baso % (Auto) 0.4 Neut # (Auto) 5300 Lymph # (Auto) 900 L Carbon # (Auto) 700 Eos # (Auto) 0 Baso # (Auto) 0 PT INR APTT D-Dimer Sodium 126 L Potassium 4.3 Chloride 88 L Carbon Dioxide 29 BUN 12 Creatinine 0.52 L Estimated GFR > 60.0 BUN/Creatinine Ratio 23.1 H Glucose 135 H Hemoglobin A1c Lactate Calcium 9.1 Magnesium 2.0 Total Bilirubin AST ALT Alkaline Phosphatase Total Creatine Kinase CK-MB (CK-2) CK-MB (CK-2) Rel Index Troponin I NT-Pro-B Natriuret Pep Total Protein Albumin Globulin Albumin/Globulin Ratio Procalcitonin Assessment & Plan Assessment & Plan narrative: Patient is a 74-year-old male with history of chronic AFib, type 2 diabetes, hypertension presented with dyspnea and lower extremity swelling. 1. Acute systolic and diastolic congestive heart failure, present on admission -symptoms began 2 weeks [employer] -ECHO: LVEF 45-55%, mild global hypokinesis, mild decreased RV systolic function, moderate to severe MR, and severe aortic stenosis -severe valvular heart disease likely precipitating his heart failure -Lasix 40 mg IV b.i.d. through 08/15 a.m. -BMP in a.m. 2. Severe aortic stenosis, new diagnosis -patient will likely need a valve replacement in the near future -results of echo were related to patient, he will need to establish with a associate trainer 3. Chronic atrial fibrillation -noted persistently bradycardic with rate around 50 -check digoxin level -discontinue digoxin due to bradycardia -continue atenolol 50 mg b.i.d. for rate control -continue dabigatran 150 mg b.i.d. for anticoagulation 4. Diabetes type 2, chronic, present on admission -A1c is 6.4 -metformin is held and he will receive regular insulin correctional dosing at [facility] 5. Hypertension and hyperlipidemia, chronic -continue home routine of lisinopril 40 mg HS and simvastatin 20 mg HS 6. COVID-19 negative status on this admission Patient requires 1 more day in hospital for IV diuresis. Likely discharge tomorrow on oral Lasix. He will need close follow-up with PCP Dr. Louis and referral to associate trainer.
--- NOTE | 2019-08-15 14:17 | CM.DANOTE ---
Patient is a 74 year old male who was admitted on 08/14/19 for SOB. Pt has [facility] for insurance and his PCP is Dr. Stanton Louis. EMR was reviewed. Per MD, pt to have Echo today and pending results can likely d/c home later today. SW met bedside with pt after Echo complete and explained role and pt confirms that he lives at home in [place] with his spouse and is independent with ADL's at baseline and drives and spouse is his DPOA. Pt denies any hx of HH or SNF and preference is to d/c home today if possible and is available to provide transport home when discharged. Pt does not anticipate any needs. Plan: SW to follow after Echo results read to confirm pt safe for d/c home via spouse POV later today and any further identified discharge planning needs. RATNA Pelayo Discharge Planning/Care Management CM Discharge Assessment Start: 08/15/19 14:13 Freq: Status: Active Protocol: Document 08/15/19 14:13 BF (Rec: 08/15/19 14:17 BF [id number]) Discharge Planning Assessment Assigned Manager Integrated RATNA Garcai DPOA/Assigned Designee Name spouse Arianna Contact Information [phone] Advance Directives? No History Provided By Patient,Medical Record Has Patient been admitted in last 30 No days? Prior Living Arrangements House Household Members spouse Type of transporation used prior to Drives own vehicle admit Independent with ADL's Yes Is patient alert and oriented? Yes Caregiver for Another No Comment Likely home pending Echo results Barriers to Discharge No Discharge Plan Home Transportation Arrangement Spouse available and local to provide transport home at d/c Referrals Initiated None needed Review Status In Process Please Provide Date Initial DC 08/15/19 Assessment Was Performed Next Review Type Continued Stay Review
[2019-08-15] MEDS: FUROSEMIDE 40 MG/4 ML VIAL IV (15:07)
[2019-08-15 16:14] LABS: Digoxin 0.5 ng/mL (0.8-2.0)
--- NOTE | 2019-08-15 17:02 | CM.DPC ---
DCP continues: EMR reviewed: Patient had echo and d/c plan held off for one more day to help remove excess fluid. Patient requires 1 more day in hospital for IV diuresis. Likely discharge tomorrow on oral Lasix. Ina Rico RN
[2019-08-15] MEDS: SIMVASTATIN 20 MG TABLET PO (20:45)
[2019-08-15] MEDS: FUROSEMIDE 20 MG/2 ML VIAL 40 MG IV (20:46)
[2019-08-15] MEDS: SODIUM CHLORIDE 0.9% FLUSH 10 ML IV (21:01)
--- NOTE | 2019-08-15 21:33 | PC.NURSE ---
2100- Patient had sustained slow VTach at a rate of 99. Patient was sitting up eating ice cream not distress noted. Discussed with Portia STEARNS and ROSEMARY Manrique.
[2019-08-16] VITALS (12 sets, daily range): BP systolic 140–162; BP diastolic 71–99; PULSE 56–105; RESP 16–20; TEMP 36.1–36.8; O2SAT 96–99
--- NOTE | 2019-08-16 04:08 | PC.NURSE ---
AxOx3, can make needs known. Independent in the room, no hx of recent falls, does not use assistive device. Patient voiced irritation with this RN at time of assessment regarding being woken up. Explained the purpose of a shift assessment, patient answered questions appropriately. At time of Q4 vitals, DIGITAL STRATEGY DIRECTOR went into the room as patient was noted to be awake. Became verbally aggressive with DIGITAL STRATEGY DIRECTOR regarding her attempts to take vitals and check for voids, using profanity. DIGITAL STRATEGY DIRECTOR recorded vitals, performed safety checks and left room. Patient voiding directly into toilet despite need for accurate output, do not feel that patient would be receptive to education at this time and will attempt to approach later if opportunity presents. Tele: Afib with prolonged QT and Afib with BBB. No s/sx of cardiac dysfunction even with bradycardia, no complaints of chest pain or SOB. 3+ pitting edema to bilateral ankles and legs.
[2019-08-16 06:17] LABS: Add Manual Diff / Slide Review NO; Basophils Absolute Auto 0 /uL (0-100); Basophils Percent Auto 0.6 % (0-2); Eosinophils Absolute Auto 100 /uL (0-450); Eosinophils Percent Auto 1.4 % (2-4); Hematocrit 39.4 % (41-53); Hemoglobin 13.6 g/dL (13.5-17.5); Lymphocytes Absolute Auto 1000 /uL (1100-4500); Lymphocytes Percent Auto 17.9 % (25-40); Mean Corpuscular HGB Conc 34.5 % (30-36); Mean Corpuscular Hemoglobin 34.6 PG (26-34); Mean Corpuscular Volume 100.5 fL (80-100); Monocytes Absolute Auto 700 /uL (0-900); Monocytes Percent Auto 13.5 % (3-14); Neutrophils Absolute Auto 3600 /uL (1500-7000); Neutrophils Percent Auto 66.6 % (50-75); Platelet Count 281 X10^3/uL (150-400); Red Blood Cell Count 3.92 X10^6/uL (4.5-5.9); Red Cell Distribution Width 13.6 % (11.6-14.8); White Blood Cell Count 5.4 X10^3/uL (4.5-11.0)
[2019-08-16 06:27] LABS: BUN Creatinine Ratio 18.6 (6-22); Blood Urea Nitrogen 11 mg/dL (9-20); Calcium 9.3 mg/dL (8.4-10.2); Carbon Dioxide 32 mmol/L (22-32); Chloride 86 mmol/L (98-107); Estimated Glomerular Filt Rate > 60.0 mL/min (>60); Glucose 139 mg/dL (80-110); HEMOLYSIS < 15 (0-50); Sodium 129 mmol/L (137-145)
[2019-08-16] MEDS: FUROSEMIDE 20 MG/2 ML VIAL 40 MG IV (08:50)
[2019-08-16] MEDS: ASPIRIN EC 81 MG TABLET PO (08:50)
[2019-08-16] MEDS: lisinopriL 20 MG TABLET 40 MG PO (08:50)
[2019-08-16] MEDS: DABIGATRAN 75 MG CAPSULE 150 MG PO (08:50)
[2019-08-16] MEDS: DOXAZOSIN 4 MG TABLET PO (08:54)
[2019-08-16] MEDS: SODIUM CHLORIDE 0.9% FLUSH 10 ML IV ×2 (08:57→21:10)
--- NOTE | 2019-08-16 10:59 | PC.NURSE ---
Addendum entered by Michelle Duffy R.N. 08/16/19 14:12: Patient showered himself, new tele leads placed. Denies any sob or problems breathing. HR has been steady in the 70s-80s Original Note: Assess- Patient is given 40mg of iv lasix and has voided 1850cc of clear yellow urine. His heart rate has remained in the 80s. Yesterday after giving patient his medication his heart rate did go down in the 30s, is aware of this and she did talk to his nurse and patient will be transferring to [facility] either later today or tomorrow. He has been doing well today, bs cta, and he is on ra in the high 90s.
[2019-08-16] MEDS: INSULIN ASPART 100 UNIT/ML INSULN PEN SUBCUT (12:02)
--- NOTE | 2019-08-16 15:27 | P.PN_ITS ---
Subjective Subjective Date Patient Seen: 08/16/19 Interval history: The patient is a 74-year-old male who was admitted to the hospital for increasing shortness of breath. The patient was found to have new onset congestive heart failure. He has chronic atrial fibrillation for which she was on Pradaxa. Patient underwent cardiac echo. This revealed critical aortic stenosis, with valve area of about 0.7 cm. Case was discussed with Dr. Madrid. She reviewed the echo and confirmed critical aortic stenosis. The patient had Alexandro cardia last evening despite a atenolol at 50 b.i.d.. Recommendations were made for him to be transferred to another facility for definitive aortic valve replacement. Exam Vital Signs (past 8 hours): - 08/16/19 08:00 08/16/19 12:00 Temperature 97.5 F L 97.5 F L Pulse Rate 63 69 Respiratory Rate 16 16 Blood Pressure 155/87 H 156/85 H Pulse Oximetry 96 96 Oxygen Delivery Method Room Air Oxygen Flow Rate 0 Narrative Exam Narrative: Pleasant elderly male in no obvious distress, patient reports breathing is better today. Lungs: Clear to auscultation Cardiac exam: Irregularly irregular, normal S1-S2, 2/6 systolic ejection murmur Abdomen: Soft nontender nondistended Extremities: 2+ pitting edema bilaterally Objective Labs Result Diagrams: 08/16/19 06:07 08/16/19 06:07 Labs: Laboratory Results - last 24 hr 08/15/19 08/16/19 08/16/19 14:19 06:07 06:07 WBC 5.4 RBC 3.92 L Hgb 13.6 Hct 39.4 L MCV 100.5 H MCH 34.6 H MCHC 34.5 RDW 13.6 Plt Count 281 Neut % (Auto) 66.6 Lymph % (Auto) 17.9 L [place] % (Auto) 13.5 Eos % (Auto) 1.4 L Baso % (Auto) 0.6 Neut # (Auto) 3600 Lymph # (Auto) 1000 L [place] # (Auto) 700 Eos # (Auto) 100 Baso # (Auto) 0 Sodium 129 L Potassium 4.0 Chloride 86 L Carbon Dioxide 32 BUN 11 Creatinine 0.59 L Estimated GFR > 60.0 BUN/Creatinine Ratio 18.6 Glucose 139 H Calcium 9.3 Digoxin 0.5 L Assessment & Plan Assessment & Plan narrative: Acute systolic and diastolic congestive heart failure, present on admission -symptoms began 2 weeks [employer] -ECHO: LVEF 45-55%, mild global hypokinesis, mild decreased RV systolic function, moderate to severe MR, and severe aortic stenosis -severe valvular heart disease likely precipitating his heart failure -Lasix 40 mg IV b.i.d. through 08/15 a.m. -BMP in a.m. -given critical aortic stenosis patient to be transferred for definitive aortic valve replacement 2. Severe aortic stenosis, new diagnosis -transfer to [facility] tomorrow morning for aortic valve replacement 3. Chronic atrial fibrillation -noted persistently bradycardic with rate around 50 -check digoxin level -discontinue digoxin due to bradycardia -continue atenolol 50 mg daily -discontinue dabigatran 150 mg b.i.d. for anticoagulation given anticipation of cardiac catheterization and aortic valve replacement 4. Diabetes type 2, chronic, present on admission -A1c is 6.4 -metformin is held and he will receive regular insulin correctional dosing at [facility] 5. Hypertension and hyperlipidemia, chronic -continue home routine of lisinopril 40 mg HS and simvastatin 20 mg HS 6. COVID-19 negative status on this admission Patient has been accepted by Cardiovascular surgery at [facility], Sandra shen patient will be transferred in the morning once a bed is available
[2019-08-16] MEDS: SIMVASTATIN 20 MG TABLET PO (21:09)
[2019-08-16] MEDS: METOPROLOL ER 25 MG TABLET PO (21:09)
[2019-08-17 05:05] VITALS: BP 140/100; PULSE 72; RESP 19; TEMP 36.7; O2SAT 95
--- NOTE | 2019-08-17 08:09 | CM.DPC ---
DCP Hospital Transfer Per MD, pt's Echo showed new onset CHF and upon review and consultation decision made for pt to have a hospital transfer for higher level of care for cardiovascular surgery. secured bed at [facility] and will likely transfer today when bed available at [facility]. Plan: SW to follow for likely transfer to [facility] for higher level of care for cardiovascular surgery needs. RATNA Pelayo
[2019-08-17 08:31] LABS: Blood Urea Nitrogen 11 mg/dL (9-20); Calcium 9.4 mg/dL (8.4-10.2); Carbon Dioxide 32 mmol/L (22-32); Chloride 91 mmol/L (98-107); Estimated Glomerular Filt Rate > 60.0 mL/min (>60); Glucose 143 mg/dL (80-110); HEMOLYSIS < 15 (0-50); Potassium 3.9 mmol/L (3.4-5.1); Sodium 130 mmol/L (137-145)
[2019-08-17] MEDS: METOPROLOL ER 25 MG TABLET PO (08:55)
[2019-08-17] MEDS: SODIUM CHLORIDE 0.9% FLUSH 10 ML IV (08:55)
[2019-08-17] MEDS: ASPIRIN EC 81 MG TABLET PO (08:56)
[2019-08-17] MEDS: lisinopriL 20 MG TABLET 40 MG PO (08:56)
[2019-08-17] MEDS: DOXAZOSIN 4 MG TABLET PO (08:56)
[2019-08-17 09:00] VITALS: BP 116/86; PULSE 90; RESP 18; TEMP 36.7; O2SAT 97
[2019-08-17 09:08] VITALS: O2SAT 97
--- NOTE | 2019-08-17 10:19 | P.DS_ITS ---
History of Present Illness History of Present Illness Date Patient Seen: 08/17/19 Time Patient Seen: 10:20 Chief complaint: LE swelling, shortness of breath Narrative: As per VALDO Arellano: Terry Pack is a 74-year-old male with a history of atrial fibrillation anticoagulation on Pradaxa, hypertension, hyperlipidemia, and diabetes type 2 who was seen at the respiratory clinic today for lower extremity swelling, shortness of breath with activity. He was seen by Dr. Higgins and referred to the emergency department for further evaluation of a new onset congestive heart failure. Patient states he has been feeling poorly for the past several weeks and has not improved. He states that he does not appear to get short of breath when at rest. He has some nasal congestion as well as isolated episodes of nausea. He denies vomiting, chest pain, weight gain even though he has had swelling in his lower extremities, dysuria, and diarrhea constipation, or neuropathy. In the Respiratory Clinic they swabbed him for COVID-19 and by the time he reached the floor the swab resulted negative. He was found to have a drainage retic peptide of 1700, negative D-dimer, and is requested for admission for further workup of a new onset CHF. Discharge Providers Provider Date of admission: 08/14/19 20:40 Discharge Date: 08/17/19 Primary care physician: Stanton Louis MD Discharge provider: Jean Woody DO Summary Hospital Course Discharge Diagnosis: Please see hospital course by problem list noted below Hospital Course: Terry Pack is a 74-year-old male with a history of atrial fibrillation anticoagulation on Pradaxa, hypertension, hyperlipidemia, and diabetes type 2 who was admitted for shortness of breath over the past few weeks. He is found to have acute systolic heart failure and severe aortic stenosis. He was diuresed with IV Lasix and was net -4.3 L at the time of discharge. Patient is currently being transferred for aortic valve replacement evaluation at [facility]. Accepting physician is Dr. Hernandez. 1. Acute systolic and diastolic congestive heart failure, present on admission -symptoms began 2 weeks prior to arrival -ECHO: LVEF 45-55%, mild global hypokinesis, mild decreased RV systolic function, moderate to severe MR, and severe aortic stenosis -severe valvular heart disease likely precipitating his heart failure -patient has significant improvement in his shortness of breath with diuresis. He still has bibasilar crackles and lower extremity edema. He was diuresed with 40 mg b.i.d. while inpatient. He will receive a dose prior to transfer as well this morning. -given critical aortic stenosis patient to be transferred for definitive aortic valve replacement to [facility], accepting physician Dr. Hernandez 2. Severe aortic stenosis, new diagnosis -transfer to [facility] tomorrow morning for aortic valve replacement -Aortic Valve area 0.7 3. Chronic atrial fibrillation -noted persistently bradycardic with rate around 50 to as low as 38. -digoxin level 0.5 -discontinue digoxin due to bradycardia -atenolol was converted to metoprolol 25 mg b.i.d. -discontinued dabigatran 150 mg b.i.d. for anticoagulation given anticipation of cardiac catheterization and aortic valve replacement 4. Diabetes type 2, chronic, present on admission -A1c is 6.4 on admission -metformin is held and he will receive regular insulin correctional dosing at [facility] 5. Hypertension and hyperlipidemia, chronic -continue home routine of lisinopril 40 mg HS and simvastatin 20 mg HS 6. COVID-19 negative status on this admission Patient has been accepted by Cardiovascular surgery at [facility] with accepting physician Dr. Hernandez. Exam Vital Signs (past 8 hours): - 08/17/19 05:05 08/17/19 09:00 08/17/19 09:08 Temperature 98.0 F 98.0 F Pulse Rate 72 90 Respiratory Rate 19 18 Blood Pressure 140/100 H 116/86 Pulse Oximetry 95 97 97 Oxygen Delivery Method Room Air Oxygen Flow Rate 0 Narrative Exam Narrative: GENERAL APPEARANCE: Elderly male, Well developed, well nourished, in no acute distress. SKIN: Inspection of the skin reveals no rashes, ulcerations or petechiae. HEENT: Normocephalic atraumatic, extraocular muscles are intact, oropharynx is clear and mucous membranes are moist, neck is supple without adenopathy NECK: Supple and symmetric. There was no thyroid enlargement, and no tenderness, or masses were felt. CHEST: Normal AP diameter and normal contour without any kyphoscoliosis. LUNGS: Bibasilar rales, without wheezes. Upper lungs clear to auscultation bilaterally. CARDIOVASCULAR: Irregularly irregular with a 3/6 systolic murmur ABDOMEN: Soft and nontender with normal bowel sounds. No ascites was noted. MUSCULOSKELETAL: There was no tenderness or effusions noted. Muscle strength and tone were normal. EXTREMITIES: No cyanosis, clubbing. 2+ pitting edema bilaterally in the lower extremities NEUROLOGIC: Alert and oriented x 3. Normal affect. Gait was normal. Strength is +5/5 in the Upper Extremities and Lower Extremities Bilaterally. Sensation to touch was normal. Objective Labs Result Diagrams: 08/16/19 06:07 08/17/19 08:07 Labs: Laboratory Results - last 24 hr 08/17/19 08/17/19 08:07 08:07 Sodium 130 L Potassium 3.9 Chloride 91 L Carbon Dioxide 32 BUN 11 Creatinine 0.44 L Estimated GFR > 60.0 BUN/Creatinine Ratio 25.0 H Glucose 143 H Calcium 9.4 Magnesium 2.0 Discharge Plan Discharge Plan Disposition: [facility] Discharge orders & Medications Follow up/Referrals: Stanton Louis MD [Primary Care Provider] - Discharge Health Status Health Concerns: Systolic heart failure Severe Aortic Stenosis Discharge Data Primary Care Provider: Stanton Louis V
[2019-08-17 10:55] VITALS: BP 146/71; PULSE 68; RESP 18; TEMP 36.8; O2SAT 96
--- NOTE | 2019-08-17 11:01 | PC.NURSE ---
Addendum entered by Stephany Salazar R.N. 08/17/19 12:38: LATE ENTRY: @1100 REPORT GIVEN TO [facility] AND PATIENT DISCHARGED BY STRETCHER FOR TRANSF TO [facility] Original Note: REPORT GIVEN TO NURSE GILLIS AT [facility]. ALL QUESTIONS ANSWERED TO SATISFACTION. NOTIFIED PATIENT DECLINED AM [facility] WITH MD PERMISSION AND MAY NEED DIURESIS THERE. NOTIFIED PATIENT DID EAT BREAKFAST THIS AM. NOTIFIED OF ALL AM MEDS GIVEN.
== END 2019-08-17 11:00 | disposition short-term general hospital (02) | DRG 292 ==
LOC: ED 16:59 → AC 20:55
PROVIDERS: Internal Medicine; Admitting Provider Nurse Practitioner Family; Emergency Provider Nurse Practitioner Family; Family Provider Internal Medicine; PCP Internal Medicine; Referring Provider Nurse Practitioner Family; Visit Provider Nurse Practitioner Family
DX: I11.0 Hypertensive heart disease with heart failure (principal); I48.20 Chronic atrial fibrillation, unspecified; E87.1 Hypo-osmolality and hyponatremia; I50.41 Acute combined systolic (congestive) and diastolic (congestive) heart failure; Z79.01 Long term (current) use of anticoagulants; I35.0 Nonrheumatic aortic (valve) stenosis; R00.1 Bradycardia, unspecified; E78.5 Hyperlipidemia, unspecified; E11.9 Type 2 diabetes mellitus without complications; F41.9 Anxiety disorder, unspecified; N40.0 Benign prostatic hyperplasia without lower urinary tract symptoms; Z79.84 Long term (current) use of oral hypoglycemic drugs; Z03.818 Encounter for observation for suspected exposure to other biological agents ruled out
CPT/HCPCS: 36415; 71046; 80048; 80053; 80162; 81003; 82550; 82962; 83036; 83605; 83735; 83880; 84145; 84484; 85025; 85379; 85610; 85730; 87635; 93005; 93306; 96374; 99284; J1940

== ENCOUNTER → 2019-08-29 14:19 | Outpatient (CLI) | payer MEDICARE, SELFPAY ==
[2019-08-14 21:10] VITALS: BMI 33.2
[2019-08-29 16:10] LABS: BUN Creatinine Ratio 20.3 (6-22); Blood Urea Nitrogen 15 mg/dL (9-20); Calcium 9.7 mg/dL (8.4-10.2); Carbon Dioxide 30 mmol/L (22-32); Chloride 95 mmol/L (98-107); Estimated Glomerular Filt Rate > 60.0 mL/min (>60); Glucose 111 mg/dL (80-110); HEMOLYSIS < 15 (0-50); Potassium 4.2 mmol/L (3.4-5.1); Sodium 136 mmol/L (137-145)
== END ==
PROVIDERS: Family Provider Internal Medicine; PCP Internal Medicine; Referring Provider Internal Medicine; Visit Provider Internal Medicine
DX: I10 Essential (primary) hypertension (principal)
CPT/HCPCS: 36415; 80048

== ENCOUNTER → 2019-09-04 14:27 | Outpatient (CLI) | payer MEDICARE, SELFPAY ==
[2019-08-14 21:10] VITALS: BMI 33.2
[2019-09-04 16:36] LABS: BUN Creatinine Ratio 22.2 (6-22); Blood Urea Nitrogen 16 mg/dL (9-20); Calcium 10.1 mg/dL (8.4-10.2); Carbon Dioxide 28 mmol/L (22-32); Chloride 95 mmol/L (98-107); Estimated Glomerular Filt Rate > 60.0 mL/min (>60); Glucose 140 mg/dL (80-110); HEMOLYSIS < 15 (0-50); Potassium 5.2 mmol/L (3.4-5.1); Sodium 134 mmol/L (137-145)
[2019-09-04 16:43] LABS: NT-proBNP (BNP-Adult 18+) 653 pg/mL (<125)
== END ==
PROVIDERS: Family Provider Internal Medicine; PCP Internal Medicine; Visit Provider Internal Medicine Interventional Cardiology
DX: I48.21 Permanent atrial fibrillation (principal); I50.31 Acute diastolic (congestive) heart failure; I35.0 Nonrheumatic aortic (valve) stenosis
CPT/HCPCS: 36415; 80048; 83880

== ENCOUNTER → 2019-09-11 14:15 | Outpatient (CLI) | payer MEDICARE, SELFPAY ==
[2019-08-14 21:10] VITALS: BMI 33.2
[2019-09-11 15:51] LABS: BUN Creatinine Ratio 30.8 (6-22); Blood Urea Nitrogen 20 mg/dL (9-20); Calcium 9.8 mg/dL (8.4-10.2); Carbon Dioxide 26 mmol/L (22-32); Chloride 94 mmol/L (98-107); Estimated Glomerular Filt Rate > 60.0 mL/min (>60); Glucose 139 mg/dL (80-110); HEMOLYSIS < 15 (0-50); Potassium 4.6 mmol/L (3.4-5.1); Sodium 132 mmol/L (137-145)
== END ==
PROVIDERS: Family Provider Internal Medicine; PCP Internal Medicine; Referring Provider Internal Medicine Interventional Cardiology; Visit Provider Internal Medicine Interventional Cardiology
DX: I50.20 Unspecified systolic (congestive) heart failure (principal); I50.31 Acute diastolic (congestive) heart failure; I10 Essential (primary) hypertension
CPT/HCPCS: 36415; 80048

== ENCOUNTER → 2020-01-07 14:01 | Outpatient (CLI) | payer MEDICARE, SELFPAY ==
[2019-08-14 21:10] VITALS: BMI 33.2
[2020-01-09 08:22] LABS: COVID19 Sendout Not Detected (Not Detect)
== END ==
PROVIDERS: Family Provider Internal Medicine; PCP Internal Medicine; Visit Provider Physician Assistant
DX: Z11.59 Encounter for screening for other viral diseases (principal)
CPT/HCPCS: 87635

== ENCOUNTER 2020-01-10 07:27 | Day surgery (SDC) | payer MEDICARE, SELFPAY ==
[2019-08-14 21:10] VITALS: BMI 33.2
[2020-01-10] VITALS (9 sets, daily range): BP systolic 117–145; BP diastolic 78–98; PULSE 84–114; RESP 13–20; TEMP 36–36.7; O2SAT 93–99; BMI 32.5
--- NOTE | 2020-01-10 | PATH_ITS ---
[facility] Accession Number: [id number] . 01 Material submitted: . PART A: colon - RIGHT COLON POLYPS X3 PART B: colon - 70CM COLON POLYP PART C: colon - 15CM FLAT RED LESION COLON . 02 Diagnosis: A. Right Colon, Polyps x3, Biopsies: Tubular adenoma in 2 of 4 fragments. Inflammatory polyp in one fragment. . B. Colon, 70 cm Polyp, Biopsy: Benign lymphoid aggregate. . C. Colon, 15 cm Flat Red Lesion, Biopsy: Serrated lesion, favor hyperplastic polyp. Additional levels were examined. [facility] 01/15/2020 1533 Local . 02 Electronically signed: . Cat Mittal MD, Pathologist NPI- [id number] . 01 Gross description: . Part A: RIGHT COLON POLYPS X3: Received in formalin are 4 fragment(s) of bustamante, soft tissue measuring 0.1 x 0.1 x 0.1 cm to 0.4 x 0.4 x 0.2 cm submitted entirely in 1 cassette(s) Part B: 70CM COLON POLYP: Received in formalin is 1 fragment(s) of bustamante, soft tissue measuring 0.3 x 0.3 x 0.3 cm submitted entirely in 1 cassette(s) Part C: 15CM FLAT RED LESION COLON: Received in formalin are 2 fragment(s) of bustamante, soft tissue measuring 0.1 x 0.1 x 0.1 cm to 0.3 x 0.2 x 0.2 cm submitted entirely in 1 cassette(s) /[facility] 01/11/2020 0144 Local . 02 Pathologist provided ICD-10: D12.6 . 02 CPT . 676066, 484116, 937003 Performed at: [address] [place] [address] [address], [place], [place] [id number] MD Forest Diamond MD Phone: [phone] Performed at: [address] [id number] MD Cat Mittal MD Phone: [phone]
--- NOTE | 2020-01-10 08:49 | PM.HP.1 ---
History of Present Illness History of Present Illness Date Patient Seen: 01/10/20 Time Patient Seen: 08:49 Chief complaint: SCREENING COLONOSCOPY Narrative: The patient is a gentleman here for a screening colonoscopy. He has had polyps removed in the past. Last exam was 5 years ago. No family history of colon cancer. Patient History Medical History Atrial fibrillation, chronic (Acute) Diabetes type 2, controlled (Chronic) Enlarged prostate (Acute) Essential hypertension (Chronic) Heart failure (Acute) Wears glasses (Acute) Family & Social History Social History: household members spouse Tobacco & Substance use: Smoking Status Never smoker alcohol intake current alcohol intake frequency 0-2 drinks per day Substance Use Type does not use Meds Home Medications and Allergies Home Medications Medication Instructions Recorded Confirmed Type aspirin 81 mg tablet,delayed 81 mg PO QAM 08/14/19 01/10/20 History release cholecalciferol (vitamin D3) 1,000 unit PO QPM 08/14/19 01/10/20 History dabigatran etexilate 150 mg capsule 150 mg PO BID 08/14/19 01/10/20 History lisinopril 40 mg tablet 40 mg PO QPM 08/14/19 01/10/20 History metformin 750 mg tablet,extended 750 mg PO BID 08/14/19 01/10/20 History release 24 hr multivitamin 1 tab PO QPM 08/14/19 01/10/20 History atorvastatin 80 mg PO BEDTIME 01/10/20 01/10/20 History metoprolol succinate [Toprol XL] 50 mg PO BID 01/10/20 01/10/20 History potassium chloride 10 meq PO DAILY 01/10/20 01/10/20 History spironolactone [Aldactone] 25 mg PO DAILY 01/10/20 01/10/20 History torsemide 20 mg PO DAILY 01/10/20 01/10/20 History Allergies Allergy/AdvReac Type Severity Reaction Status Date / Time No Known Drug Allergies Allergy Verified 08/14/19 17:04 Review of Systems Review of Systems Narrative: Patient in AFib. He did not take his beta-maykel this morning and he stopped his Pradaxa 2 days ago last dose being taken on Tuesday. He wears glasses. He is diabetic and his sugar this morning was 153. ROS: Yes All systems reviewed with the patient and are negative except as otherwise documented Exam Vital Signs (past 8 hours): - 01/10/20 08:04 Temperature 96.8 F L Pulse Rate 114 H Respiratory Rate 17 Blood Pressure 145/91 H Pulse Oximetry 99 Oxygen Delivery Method Room Air Narrative Exam Narrative: Pleasant cooperative patient no apparent distress. Lungs are clear to auscultation. No rales or rhonchi. Heart irregular rate and rhythm. no murmur the patient appears to have a gallop. Abdomen is soft nontender without mass. Umbilical hernia and diastasis recti noted. Patient is alert and oriented x3. Assessment & Plan Assessment & Plan narrative: The patient for a screening colonoscopy. I have discussed the procedure with them. Risks of bleeding, perforation which would necessitate major operation, failure to find remove all lesions, the potential tattoo were all discussed. All questions were answered. They wished to proceed.
--- NOTE | 2020-01-10 08:52 | PM.PREOP ---
Pre-operative Note Interval Note History & Physical reviewed/Exam performed by Physician: Yes Changes to H&P: No ASA Class (for procedural sedation): III
--- NOTE | 2020-01-10 08:53 | PM.PREOP ---
Pre-operative Note COVID-19 COVID-19 status: Negative Result date/Date tested (Pos, Neg/Pending): 01/07/20 Interval Note History & Physical reviewed/Exam performed by Physician: Yes Changes to H&P: No ASA Class (for procedural sedation): III
[2020-01-10] MEDS: METOPROLOL TARTRATE 5 MG/5 ML INJ IV (08:58)
[2020-01-10] MEDS: MIDAZOLAM 5 MG/5 ML VIAL IV (09:02)
[2020-01-10] MEDS: fentaNYL 250 MCG/5 ML INJ IV (09:02)
--- NOTE | 2020-01-10 09:06 | SUR.OPER ---
oxygen sats in mid 80's O2 increased with verbal stimulations. Dr Mack placed nasal airway. sats returned into mid to upper 90's.
--- NOTE | 2020-01-10 09:26 | PM.OP.ENDO ---
Operative Date/Time/Diagnoses Date of procedure: 01/10/20 Time of procedure: 09:26 Pre-op diagnosis: Screening exam. Last exam 5 years ago. Patient has a history of polyps. Post-op diagnosis: same (Small polyps removed. Sigmoid diverticulosis. Narrowing of the anal verge.) Procedure & Clinicians Study performed: Colonoscopy with cold biopsy Same procedure as scheduled: Yes Indications: Screening Surgeon: Kunal Mack Procedure Notes SCOAP/Timeout: Performed Procedure in detail: The patient was placed in the left lateral decubitus position and underwent IV sedation directed by the surgeon consisting of fentanyl and Versed. Digital exam was remarkable for narrowing of the anal verge. The scope was inserted and advanced through the rectum into the sigmoid, descending, transverse, and ascending colon. Patient was noted to have sigmoid diverticulosis. There was a small red lesion in the transverse colon near the hepatic flexure which was biopsied and removed.. The cecum was reached identified by the ileocecal valve and the appendiceal opening. The ileocecal valve was not cannulated. The scope was gradually brought out. Additional Polyps were found at the ascending colon and it was placed with the 1st biopsy specimen. Polyps were also removed at 70 and 15 cm from the anal verge. All of these were small lesions and appeared to be completely removed.. The scope ultimately was retroflexed in the rectum. The appearance was normal. The scope was removed and the patient tolerated the procedure well. Bowel prep was good. Scope withdrawal time: 8 minutes(12 total) Sedation minutes: 25 Findings: diverticulosis (Sigmoid) and polyp (Very small lesions) Specimen(s): other (Polyps) Complications: none Post-procedure Recommendations: Colonscopy in 5 years Follow up: as needed Disposition: PACU
--- NOTE | 2020-01-10 10:01 | SUR.PHASEI ---
Acute onset of diaphoresis, pt denied pain pressure nausea, CBG checked- 141, cool wash rag to forehead and diaphoresis resolved.
--- NOTE | 2020-01-10 10:02 | SUR.PHASEI ---
To opd stable.
--- NOTE | 2020-01-10 10:03 | SUR.PHASEII ---
Pt brought to [facility], on arrival pt again had acute onset of diaphoresis and started dry heaving, no voming, pt's color paled. VSS- see flowchart, pt denied chest pain or pressure, cool wash rag to forehead and symptoms gradually resolved. Bed low, locked and call light placed with in reach.
[2020-01-10] MEDS: ONDANSETRON 4 MG/2 ML INJ IV (10:28)
--- NOTE | 2020-01-10 10:30 | SUR.PHASEII ---
pt c/o feeling nausated again. Received verbal order from Dr. Mack to give 4mg IV zofran no and if not effective may give compazine 10mg IV. IV Zofran given and pt appears comfortable at this time. Will continue to monitor.
== END 2020-01-10 10:58 | disposition home or self-care (01) ==
PROVIDERS: Family Provider Internal Medicine; PCP Internal Medicine; Referring Provider Internal Medicine; Visit Provider Specialist
PROC: 0DJD8ZZ Inspection of Lower Intestinal Tract, Via Natural or Artificial Opening Endoscopic (ICD-10-PCS; CPT 45378; principal; 2020-01-10 08:30)
DX: Z12.11 Encounter for screening for malignant neoplasm of colon (principal); Z86.010 Personal history of colon polyps; K57.30 Diverticulosis of large intestine without perforation or abscess without bleeding; I48.91 Unspecified atrial fibrillation; E11.9 Type 2 diabetes mellitus without complications; I10 Essential (primary) hypertension; I50.9 Heart failure, unspecified; Z79.84 Long term (current) use of oral hypoglycemic drugs; D12.6 Benign neoplasm of colon, unspecified
CPT/HCPCS: 45380; 99152; J2250; J2405; J3010

== ENCOUNTER 2020-01-12 15:51 | Inpatient (IN) | payer MEDICARE, SELFPAY ==
[2019-08-14 21:10] VITALS: BMI 33.2
[2020-01-12] VITALS (10 sets, daily range): BP systolic 117–133; BP diastolic 67–91; PULSE 61–102; RESP 10–20; TEMP 35.7–36.6; O2SAT 95–100; BMI 33.3
--- NOTE | 2020-01-12 16:10 | DI.RAD.S_ITS ---
PROCEDURE: XR CHEST 2V INDICATIONS: shortness of breath TECHNIQUE: 2 views of the chest were acquired. COMPARISON: [facility], CR, XR CHEST 2V, 08/14/2019, 16:20. FINDINGS: Surgical changes and devices: None. Lungs and pleura: Lungs are clear. No pleural effusions or pneumothorax. Mediastinum: Mild enlargement of the cardiac silhouette. Bones and chest wall: No acute bony abnormalities. Unchanged compression deformity yet the thoracolumbar junction. Soft tissues appear unremarkable. IMPRESSION: Mild cardiomegaly. No acute pulmonary findings. Dictated by: Philipp Vargas M.D. on 01/12/2020 at 15:59 Approved by: Philipp Vargas M.D. on 01/12/2020 at 16:00
[2020-01-12 16:38] LABS: Add Manual Diff / Slide Review NO; Basophils Absolute Auto 0 /uL (0-100); Basophils Percent Auto 0.4 % (0-2); Eosinophils Absolute Auto 0 /uL (0-450); Eosinophils Percent Auto 0.1 % (2-4); Hematocrit 42.8 % (41-53); Hemoglobin 14.3 g/dL (13.5-17.5); Lymphocytes Absolute Auto 900 /uL (1100-4500); Lymphocytes Percent Auto 8.9 % (25-40); Mean Corpuscular HGB Conc 33.4 % (30-36); Mean Corpuscular Hemoglobin 32.8 PG (26-34); Mean Corpuscular Volume 98.2 fL (80-100); Monocytes Absolute Auto 900 /uL (0-900); Monocytes Percent Auto 9.2 % (3-14); Neutrophils Absolute Auto 8400 /uL (1500-7000); Neutrophils Percent Auto 81.4 % (50-75); Platelet Count 325 X10^3/uL (150-400); Red Blood Cell Count 4.35 X10^6/uL (4.5-5.9); Red Cell Distribution Width 13.8 % (11.6-14.8); White Blood Cell Count 10.3 X10^3/uL (4.5-11.0)
[2020-01-12 16:57] LABS: Alanine Aminotransferase 512 IU/L (<50); Albumin 4.1 g/dL (3.5-5.0); Albumin Globulin Ratio 1.3 (1.0-2.8); Alkaline Phosphatase 220 U/L (38-126); Aspartate Aminotransferase 335 IU/L (17-59); BUN Creatinine Ratio 39.8 (6-22); Bilirubin Total 1.4 mg/dL (0.2-1.3); Blood Urea Nitrogen 35 mg/dL (9-20); Calcium 8.7 mg/dL (8.4-10.2); Carbon Dioxide 28 mmol/L (22-32); Chloride 81 mmol/L (98-107); Estimated Glomerular Filt Rate > 60.0 mL/min (>60); Globulin 3.2 g/dL (1.7-4.1); Glucose 161 mg/dL (80-110); HEMOLYSIS 17 (0-50); Potassium 4.3 mmol/L (3.4-5.1); Sodium 120 mmol/L (137-145); Total Protein 7.3 g/dL (6.3-8.2)
[2020-01-12 17:06] LABS: Lactate (Lactic Acid) 3.6 mmol/L (0.7-2.1); NT-proBNP (BNP-Adult 18+) 7340 pg/mL (<125)
--- NOTE | 2020-01-12 17:10 | ED.SOB ---
HPI - SOB/Dyspnea <Brooke SwainVALDO - Last Filed: 01/12/20 21:32> General Chief Complaint: Shortness of Breath/Dyspnea Stated Complaint: fluid build up in lwr legs Time Seen by Provider: 01/12/20 16:04 Source: patient Mode of arrival: Ambulatory Limitations: no limitations History of Present Illness HPI Narrative: 74-year-old male with a history of CHF, diabetes, AFib on Pradaxa, presenting to the emergency department for increased weight gain, loss of appetite, and swelling in his lower extremities. Patient states he was diagnosed with CHF in August and transported to [facility]. His furniture repairer at [facility] is initially concerning you may need an aortic valve replacement but then stated he can wait approximately 3-5 years. He reports they recently increased his toresmide to 2 times a day last week, he is supposed to call his furniture repairer on Tuesday for follow-up. However, he states his leg continued to swell and believes it is not working. Patient denies any other symptoms such as fevers, chills, chest pain, shortness of breath, cough, vomiting, diarrhea, or any other concerns. Related Data Home Medications Medication Instructions Recorded Confirmed aspirin 81 mg tablet,delayed 81 mg PO QAM 08/14/19 01/12/20 release cholecalciferol (vitamin D3) 1,000 unit PO QPM 08/14/19 01/12/20 lisinopril 40 mg tablet 10 mg PO QPM 08/14/19 01/12/20 metformin 750 mg tablet,extended 750 mg PO BID 08/14/19 01/12/20 release 24 hr atorvastatin 80 mg PO BEDTIME 01/10/20 01/12/20 potassium chloride 10 meq PO DAILY 01/10/20 01/12/20 torsemide 20 mg PO DAILY 01/10/20 01/12/20 cyanocobalamin (vitamin B-12) 2,500 mcg PO DAILY 01/12/20 01/12/20 dabigatran etexilate [Pradaxa] 150 mg PO BID 01/12/20 01/12/20 metoprolol succinate [Toprol XL] 50 mg PO DAILY 01/12/20 01/12/20 omega 4-ilh-nei-fish oil [Fish Oil] 1 cap PO TID 01/12/20 01/12/20 spironolactone [Aldactone] 25 mg PO DAILY 01/12/20 01/12/20 Allergies Allergy/AdvReac Type Severity Reaction Status Date / Time No Known Drug Allergies Allergy Verified 01/12/20 16:11 Review of Systems <VALDO Delvalle - Last Filed: 01/12/20 21:32> Review of Systems Narrative: REVIEW OF SYSTEMS: GENERAL: Denies fever or chills. HENT: No head trauma, hearing loss or sore throat. EYES: No loss of vision, double vision, eye pain, or irritation. CARDIOVASCULAR: No chest pain. Complains of bilateral lower extremity swelling, see HPI RESPIRATORY: No shortness of breath or cough. GASTROINTESTINAL: No nausea, vomiting, diarrhea, or constipation. GENITOURINARY: No flank pain. MUSCULOSKELETAL: No pain. INTEGUMENTARY: No rash, lesions, or pruritus. NEURO: No numbness, tingling. PSYCH: No behavior or mood changes. Patient History <VALDO Delvalle - Last Filed: 01/12/20 21:32> Medical History Atrial fibrillation, chronic (Acute) Diabetes type 2, controlled (Chronic) Enlarged prostate (Acute) Essential hypertension (Chronic) Heart failure (Acute) Wears glasses (Acute) Family History (Updated 01/13/20 @ 01:31 by VALDO Emanuel) Mother CVA (cerebral vascular accident) Father Heart disease Social History household members: spouse Smoking Status: Never smoker alcohol intake: current Smoking Status: Never smoker alcohol intake frequency: holidays/special occasions only Substance Use Type: does not use Exam <VALDO Delvalle - Last Filed: 01/12/20 21:32> Initial Vital Signs Initial Vital Signs: Vital Signs Temperature 96.3 F L 01/12/20 16:05 Pulse Rate 80 01/12/20 16:05 Respiratory Rate 18 01/12/20 16:05 Blood Pressure 133/89 01/12/20 16:05 Pulse Oximetry 100 01/12/20 16:05 PHYSICAL EXAMINATION: GENERAL: Well groomed, alert, and cooperative. Answers questions promptly and appropriately. Vital signs noted. HENT: Normocephalic, atraumatic. Ear canals patent. Oral mucosa is pink and moist. EYES: Conjunctiva pink, sclera white, no periorbital swelling. CHEST: Normal to inspection and without deformities. CARDIOVASCULAR: S1 and S2 sounds normal. Regular rate and rhythm, no murmurs, clicks, or bruits. No pedal edema. RESPIRATORY: Normal respiratory rate, trachea midline, airway patent. No stridor, nasal flaring or accessory muscle use. Lungs are clear in all jackson without wheeze, rhonchi, or crackles. GASTROINTESTINAL: Bowel sounds normoactive. Abdomen is soft and non-tender. No organomegaly. MUSCULOSKELETAL: Normal gait and coordination. Equal tone and mass bilaterally. EXTREMITIES: CMS intact. 3+ pitting edema bilaterally. SKIN: Warm, dry, soft, appropriate color for ethnicity. No lesions, rashes, or wounds. NEURO: Alert and Oriented X 3. Good coordination. No ataxia, or sensory deficits, or cognitive issues. PSYCH: Appropriate affect and mood. <Jennifer Vaz DO - Last Filed: 01/13/20 08:34> Initial Vital Signs Initial Vital Signs: Vital Signs Temperature 96.3 F L 01/12/20 16:05 Pulse Rate 80 01/12/20 16:05 Respiratory Rate 18 01/12/20 16:05 Blood Pressure 133/89 01/12/20 16:05 Pulse Oximetry 100 01/12/20 16:05 Course <VALDO Delvalle - Last Filed: 01/12/20 21:32> Course Course Narrative: 1816: I spoke with furniture repairer Dr. Pate who recommends a Lasix drip 10mg/hr and admission for hyponatremia. 1843: I spoke with Dr. Garza who except for inpatient admission, requesting repeat lactate, troponin, and procalcitonin. Labs ordered at this time Orders Ordered: Acetaminophen (Tylenol) 650 mg PO Q6HR PRN PRN Reason: Fever/Mild Pain (1-3) Aspirin (Aspirin Ec) 81 mg PO DAILY [facility] Last Admin: 01/12/20 22:05 Dose: 81 mg Documented by: LINDSAY Atorvastatin Calcium (Lipitor) 80 mg PO BEDTIME [facility] Last Admin: 01/12/20 22:04 Dose: 80 mg Documented by: LINDSAY Dabigatran (Pradaxa) 150 mg PO BID [facility] Last Admin: 01/12/20 22:04 Dose: 150 mg Documented by: LINDSAY Dextrose (D50w) 25 gm IV PRN PRN PRN Reason: Hypoglycemia Furosemide 100 mg/ Sodium (Chloride) 50 mls @ 5 mls/hr IV CONT [facility]; Protocol Last Admin: 01/12/20 22:46 Dose: 5 ml/hr, 5 mls/hr Documented by: LINDSAY Insulin Aspart (Novolog Flexpen) 0 unit SUBCUT [facility]; Protocol Lisinopril (Zestril) 10 mg PO QPM [facility] Metoprolol Succinate (Toprol Xl) 50 mg PO DAILY [facility] Last Admin: 01/12/20 22:04 Dose: 50 mg Documented by: LINDSAY Ondansetron HCl (Zofran) 4 mg IV Q8HR PRN PRN Reason: Nausea And Vomiting Consultations Consultation #1: Patient staffed with Dr. vaz discussed test, test results, and plan of care. Vital Signs Vital signs: Vital Signs - 8 hr 01/12/20 16:05 01/12/20 16:30 01/12/20 17:45 Temperature 96.3 F L Pulse Rate 80 95 H 97 H Respiratory Rate 18 18 18 Blood Pressure 133/89 133/89 121/81 Pulse Oximetry 100 99 98 <Jennifer Vaz, DO - Last Filed: 01/13/20 08:34> Orders Ordered: Acetaminophen (Tylenol) 650 mg PO Q6HR PRN PRN Reason: Fever/Mild Pain (1-3) Aspirin (Aspirin Ec) 81 mg PO DAILY [facility] Last Admin: 01/12/20 22:05 Dose: 81 mg Documented by: LINDSAY Atorvastatin Calcium (Lipitor) 80 mg PO BEDTIME [facility] Last Admin: 01/12/20 22:04 Dose: 80 mg Documented by: LINDSAY Dabigatran (Pradaxa) 150 mg PO BID [facility] Last Admin: 01/12/20 22:04 Dose: 150 mg Documented by: LINDSAY Dextrose (D50w) 25 gm IV PRN PRN PRN Reason: Hypoglycemia Furosemide 100 mg/ Sodium (Chloride) 50 mls @ 5 mls/hr IV CONT [facility]; Protocol Last Admin: 01/12/20 22:46 Dose: 5 ml/hr, 5 mls/hr Documented by: LINDSAY Insulin Aspart (Novolog Flexpen) 0 unit SUBCUT ACHS [facility]; Protocol Lisinopril (Zestril) 10 mg PO QPM [facility] Metoprolol Succinate (Toprol Xl) 50 mg PO DAILY [facility] Last Admin: 01/12/20 22:04 Dose: 50 mg Documented by: LINDSAY Ondansetron HCl (Zofran) 4 mg IV Q8HR PRN PRN Reason: Nausea And Vomiting Vital Signs Vital signs: Vital Signs - 8 hr 01/12/20 16:05 01/12/20 16:30 01/12/20 17:45 Temperature 96.3 F L Pulse Rate 80 95 H 97 H Respiratory Rate 18 18 18 Blood Pressure 133/89 133/89 121/81 Pulse Oximetry 100 99 98 MDM - SOB/Dyspnea <VALDO Delvalle - Last Filed: 01/12/20 21:32> Medical Records Attestation: I reviewed the patient's medical records. Lab Data Attestation: I reviewed the patient's lab results. Result diagrams: 01/13/20 05:00 01/13/20 05:00 Labs: Lab Results 01/12/20 01/12/20 01/12/20 Range/Units 16:25 16:25 16:25 WBC 10.3 (4.5-11.0) X10^3/uL RBC 4.35 L (4.5-5.9) X10^6/uL Hgb 14.3 (13.5-17.5) g/dL Hct 42.8 (41-53) % MCV 98.2 (80-100) fL MCH 32.8 (26-34) PG MCHC 33.4 (30-36) % RDW 13.8 (11.6-14.8) % Plt Count 325 (150-400) X10^3/uL Neut % (Auto) 81.4 H (50-75) % Lymph % (Auto) 8.9 L (25-40) % [place] % (Auto) 9.2 (3-14) % Eos % (Auto) 0.1 L (2-4) % Baso % (Auto) 0.4 (0-2) % Neut # (Auto) 8400 H (6103-0058) /uL Lymph # (Auto) 900 L (0475-3772) /uL [place] # (Auto) 900 (0-900) /uL Eos # (Auto) 0 (0-450) /uL Baso # (Auto) 0 (0-100) /uL Sodium 120 L (137-145) mmol/L Potassium 4.3 (3.4-5.1) mmol/L Chloride 81 L (98-107) mmol/L Carbon Dioxide 28 (22-32) mmol/L BUN 35 H (9-20) mg/dL Creatinine 0.88 (0.66-1.25) mg/dL Estimated GFR > 60.0 (>60) mL/min BUN/Creatinine Ratio 39.8 H (6-22) Glucose 161 H (80-110) mg/dL Hemoglobin A1c (4.0-6.0) % Lactate 3.6 H (0.7-2.1) mmol/L Calcium 8.7 (8.4-10.2) mg/dL Total Bilirubin 1.4 H (0.2-1.3) mg/dL AST 335 H (17-59) IU/L ALT 512 H (<50) IU/L Alkaline Phosphatase 220 H (38-126) U/L NT-Pro-B Natriuret Pep (<125) pg/mL Total Protein 7.3 (6.3-8.2) g/dL Albumin 4.1 (3.5-5.0) g/dL Globulin 3.2 (1.7-4.1) g/dL Albumin/Globulin Ratio 1.3 (1.0-2.8) COVID-19 PCR (Negative) 01/12/20 01/12/20 01/12/20 Range/Units 16:25 16:25 18:30 WBC (4.5-11.0) X10^3/uL RBC (4.5-5.9) X10^6/uL Hgb (13.5-17.5) g/dL Hct (41-53) % MCV (80-100) fL MCH (26-34) PG MCHC (30-36) % RDW (11.6-14.8) % Plt Count (150-400) X10^3/uL Neut % (Auto) (50-75) % Lymph % (Auto) (25-40) % [place] % (Auto) (3-14) % Eos % (Auto) (2-4) % Baso % (Auto) (0-2) % Neut # (Auto) (8945-6765) /uL Lymph # (Auto) (8877-4362) /uL [place] # (Auto) (0-900) /uL Eos # (Auto) (0-450) /uL Baso # (Auto) (0-100) /uL Sodium (137-145) mmol/L Potassium (3.4-5.1) mmol/L Chloride (98-107) mmol/L Carbon Dioxide (22-32) mmol/L BUN (9-20) mg/dL Creatinine (0.66-1.25) mg/dL Estimated GFR (>60) mL/min BUN/Creatinine Ratio (6-22) Glucose (80-110) mg/dL Hemoglobin A1c 6.3 H (4.0-6.0) % Lactate (0.7-2.1) mmol/L Calcium (8.4-10.2) mg/dL Total Bilirubin (0.2-1.3) mg/dL AST (17-59) IU/L ALT (<50) IU/L Alkaline Phosphatase (38-126) U/L NT-Pro-B Natriuret Pep 7340 H (<125) pg/mL Total Protein (6.3-8.2) g/dL Albumin (3.5-5.0) g/dL Globulin (1.7-4.1) g/dL Albumin/Globulin Ratio (1.0-2.8) COVID-19 PCR Negative (Negative) Imaging Data Chest x-ray: Radiologist's Impression: [address] [address] XRay Report Signed Patient: Terry Pack RMR#: [id number] : 8Acct:[id number] Age/Sex: 74 / MDate of Service: 01/12/20 Loc: ED Accession Number: [id number] Procedure: XR chest 2V Ordering Provider: Brooke Swain PROCEDURE: XR CHEST 2V INDICATIONS: shortness of breath TECHNIQUE: 2 views of the chest were acquired. COMPARISON: [facility], CR, XR CHEST 2V, 08/14/2019, 16:20. FINDINGS: Surgical changes and devices: None. Lungs and pleura: Lungs are clear. No pleural effusions or pneumothorax. Mediastinum: Mild enlargement of the cardiac silhouette. Bones and chest wall: No acute bony abnormalities. Unchanged compression deformity yet the thoracolumbar junction. Soft tissues appear unremarkable. IMPRESSION: Mild cardiomegaly. No acute pulmonary findings. Dictated by: Philipp Vargas M.D. on 01/12/2020 at 15:59 Approved by: Philipp Vargas M.D. on 01/12/2020 at 16:00 ECG Data Interpretation: 1616: Atrial fibrillation, rate 95, QTC 517. Left bundle-branch block which is consistent from past EKG on 08/2019. No ST elevation or ST depression. EKG also viewed by Dr. Vaz per protocol MDM Narrative Medical decision making narrative: 74yo male history of CHF and AFib, presents emergency department for increasing waking in swelling in his lower extremities. Patient is clinically fluid overloaded with pitting edema to his lower extremities, no concerns for pulmonary edema given clear lung sounds, no reports of shortness of breath, and clear x-ray. Patient has significant hyponatremia, Na 120, and BNP is significantly elevated despite taking his torsemide per instruction of his furniture repairer. Patient see Dr. Meera Caputo for cardiology in [place]. Dr. Pate was on-call for the service at that time, recommended admission and Lasix drip at 10mg/hr. Less concern for other acute etiology such as MN given unremarkable EKG and negative troponin. Lactate was elevated at 3.5, repeat was also elevated but no intervention was done at this time. I suspect this is most likely due to 3rd spacing versus infection given lack of white blood cell count or suspicious findings of infection such as shortness of breath, pneumonia chest x-ray, lack of abdominal pain, patient is afebrile non tachycardic. Additionally, I suspect liver enzymes are elevated due to hepatic congestion related to CHF, less likely cirrhosis given lack of history, less likely acute abdominal etiology given benign examination, no vomiting, no fevers. Patient was admitted to inpatient for further evaluation and treatment. <Jennifer Vaz, DO - Last Filed: 01/13/20 08:34> Lab Data Labs: Lab Results 01/12/20 01/12/20 01/12/20 Range/Units 16:25 16:25 16:25 WBC 10.3 (4.5-11.0) X10^3/uL RBC 4.35 L (4.5-5.9) X10^6/uL Hgb 14.3 (13.5-17.5) g/dL Hct 42.8 (41-53) % MCV 98.2 (80-100) fL MCH 32.8 (26-34) PG MCHC 33.4 (30-36) % RDW 13.8 (11.6-14.8) % Plt Count 325 (150-400) X10^3/uL Neut % (Auto) 81.4 H (50-75) % Lymph % (Auto) 8.9 L (25-40) % [place] % (Auto) 9.2 (3-14) % Eos % (Auto) 0.1 L (2-4) % Baso % (Auto) 0.4 (0-2) % Neut # (Auto) 8400 H (9679-9895) /uL Lymph # (Auto) 900 L (7507-3936) /uL [place] # (Auto) 900 (0-900) /uL Eos # (Auto) 0 (0-450) /uL Baso # (Auto) 0 (0-100) /uL Sodium 120 L (137-145) mmol/L Potassium 4.3 (3.4-5.1) mmol/L Chloride 81 L (98-107) mmol/L Carbon Dioxide 28 (22-32) mmol/L BUN 35 H (9-20) mg/dL Creatinine 0.88 (0.66-1.25) mg/dL Estimated GFR > 60.0 (>60) mL/min BUN/Creatinine Ratio 39.8 H (6-22) Glucose 161 H (80-110) mg/dL Hemoglobin A1c (4.0-6.0) % Lactate 3.6 H (0.7-2.1) mmol/L Calcium 8.7 (8.4-10.2) mg/dL Total Bilirubin 1.4 H (0.2-1.3) mg/dL AST 335 H (17-59) IU/L ALT 512 H (<50) IU/L Alkaline Phosphatase 220 H (38-126) U/L NT-Pro-B Natriuret Pep (<125) pg/mL Total Protein 7.3 (6.3-8.2) g/dL Albumin 4.1 (3.5-5.0) g/dL Globulin 3.2 (1.7-4.1) g/dL Albumin/Globulin Ratio 1.3 (1.0-2.8) COVID-19 PCR (Negative) 01/12/20 01/12/20 01/12/20 Range/Units 16:25 16:25 18:30 WBC (4.5-11.0) X10^3/uL RBC (4.5-5.9) X10^6/uL Hgb (13.5-17.5) g/dL Hct (41-53) % MCV (80-100) fL MCH (26-34) PG MCHC (30-36) % RDW (11.6-14.8) % Plt Count (150-400) X10^3/uL Neut % (Auto) (50-75) % Lymph % (Auto) (25-40) % [place] % (Auto) (3-14) % Eos % (Auto) (2-4) % Baso % (Auto) (0-2) % Neut # (Auto) (0213-1535) /uL Lymph # (Auto) (4712-6866) /uL [place] # (Auto) (0-900) /uL Eos # (Auto) (0-450) /uL Baso # (Auto) (0-100) /uL Sodium (137-145) mmol/L Potassium (3.4-5.1) mmol/L Chloride (98-107) mmol/L Carbon Dioxide (22-32) mmol/L BUN (9-20) mg/dL Creatinine (0.66-1.25) mg/dL Estimated GFR (>60) mL/min BUN/Creatinine Ratio (6-22) Glucose (80-110) mg/dL Hemoglobin A1c 6.3 H (4.0-6.0) % Lactate (0.7-2.1) mmol/L Calcium (8.4-10.2) mg/dL Total Bilirubin (0.2-1.3) mg/dL AST (17-59) IU/L ALT (<50) IU/L Alkaline Phosphatase (38-126) U/L NT-Pro-B Natriuret Pep 7340 H (<125) pg/mL Total Protein (6.3-8.2) g/dL Albumin (3.5-5.0) g/dL Globulin (1.7-4.1) g/dL Albumin/Globulin Ratio (1.0-2.8) COVID-19 PCR Negative (Negative) Discharge Plan Departure Patient Disposition: Admitted As Inpatient Clinical Impression: Acute hyperkalemia Acute CHF Qualifiers: Heart failure type: unspecified Qualified Code(s): I50.9 - Heart failure, unspecified Discharge Date/Time: 01/12/20 20:21 Referrals: Stanton Louis MD [Primary Care Provider] - Admit Date/Time: 01/12/20 18:44 Admit Provider: Cherie Garza <Jennifer Vaz DO - Last Filed: 01/13/20 08:34> Cosign ED Attending Cosignature Attestation: I was immediately available in the department for consultation. Documentation has been reviewed. I agree with assessment and plan.
[2020-01-12 18:34] LABS: Reflexed Lactate in 2 Hours Y
[2020-01-12 18:56] LABS: COVID19 -Nasal RAPID Negative (Negative)
[2020-01-12 19:22] LABS: Creatine Kinase 103 U/L (55-170)
[2020-01-12 19:23] LABS: Lactate 2HR (Lactic Acid Rflx) 3.5 mmol/L (0.7-2.1)
[2020-01-12 19:35] LABS: Troponin I 0.031 ng/mL (0.01-0.034)
[2020-01-12 19:37] LABS: CKMB % Relative Index 4.2 % (1.5-5.0); Creatine Kinase MB 4.33 ng/mL (<2.37)
[2020-01-12 19:43] LABS: Procalcitonin 0.12 ng/mL (<0.5)
--- NOTE | 2020-01-12 21:40 | PM.HP.1 ---
History of Present Illness History of Present Illness Date Patient Seen: 01/12/20 Time Patient Seen: 21:00 Chief complaint: fluid build up in lwr legs Narrative: Terry Pack is a 74-year-old male with a history of atrial fibrillation, hypertension, diabetes type 2, and hyperlipidemia, previously admitted by dc and early August for a new onset congestive heart failure diagnosis. He presents today to the ED with a 2-3 week history of lower extremity swelling. He was previously taking Lasix and changed over to torsemide and does not believe that has been helping. He is complaining of having low energy, diminished appetite and only eating 1 or 2 meals a day consisting of a smoothie in the morning and something light for dinner, since then, hiccups, nausea but no vomiting, he also complains of having mild constipation that he is having to take a stool softener 4. He denies chest pain but does have exertional dyspnea. On August 14 I admitted him for a new onset CHF exacerbation and he underwent an echocardiogram which showed that he had a dysfunction of the aortic valve. He was transferred to [facility] for further evaluation of having of valve replacement done and per his report was discharged home stating that he had another couple of years lasting on his aortic valve. We do not have those records at this time. Chest x-ray ordered in the ED indicated mild cardiomegaly. Patient is afebrile, blood pressure 132/79, heart rate of 102, respiratory rate 20, oxygen saturation 97% on room air, he weighs 97 kg with a BMI of 33.3. WBC 10.3, RBC 4.35, hemoglobin 14.3, hematocrit 42.8, platelet count 325, sodium 120, potassium 4.3, chloride 81, bicarb 28, BUN 35, creatinine 0.88, with a GFR of greater than 60, glucose 161, hemoglobin A1c 6.3, lactate 3.5, total bilirubin 1.4, AST 335, ALT 512, alk-phos 220, troponin at 0.031, BNP 73 40, procalcitonin is 0.12, and COVID-19 is negative. Just received records from [facility]. The patient was admitted to [facility] on August 16 day of our discharge and met with the cardiothoracic surgical team. They then transferred him for evaluation of surgical aortic valve replacement and this was not done and instead recommended medical optimization. They performed a limited echocardiogram which indicated and Aleve EF of 44% with pulmonary artery systolic pressures of 88 mm-Hg. He was volume overloaded and diuresed. He underwent coronary angiogram right and left cath that showed nonobstructive coronary disease and a hemodynamically significant lesion was noted and ostial OM 2 by pressure wire. He was recommended for a VATS left atrial appendage ligation and per their note, the patient wanted to defer this decision at the time of discharge. Per their history, the patient at that time was drinking 4 glasses of wine at that time, today he indicated in our social history he had greatly reduced his wine intake. Patient History Medical History Atrial fibrillation, chronic (Acute) Diabetes type 2, controlled (Chronic) Enlarged prostate (Acute) Essential hypertension (Chronic) Heart failure (Acute) Wears glasses (Acute) Family & Social History Family History (Updated 01/13/20 @ 01:31 by VALDO Emanuel) Mother CVA (cerebral vascular accident) Father Heart disease Social History: household members spouse Safety & Behavioral: Feels Safe in Current Yes Environment Been Physically Hurt or No Threatened By a Person Tobacco & Substance use: Smoking Status Never smoker alcohol intake current alcohol intake frequency holiday/special occasion Substance Use Type does not use Meds Home Medications and Allergies Home Medications Medication Instructions Recorded Confirmed Type aspirin 81 mg tablet,delayed 81 mg PO QAM 08/14/19 01/12/20 History release cholecalciferol (vitamin D3) 1,000 unit PO QPM 08/14/19 01/12/20 History lisinopril 40 mg tablet 10 mg PO QPM 08/14/19 01/12/20 History metformin 750 mg tablet,extended 750 mg PO BID 08/14/19 01/12/20 History release 24 hr atorvastatin 80 mg PO BEDTIME 01/10/20 01/12/20 History potassium chloride 10 meq PO DAILY 01/10/20 01/12/20 History torsemide 20 mg PO DAILY 01/10/20 01/12/20 History cyanocobalamin (vitamin B-12) 2,500 mcg PO DAILY 01/12/20 01/12/20 History dabigatran etexilate [Pradaxa] 150 mg PO BID 01/12/20 01/12/20 History metoprolol succinate [Toprol XL] 50 mg PO DAILY 01/12/20 01/12/20 History omega 9-[id number]-rty-fish oil [Fish Oil] 1 cap PO TID 01/12/20 01/12/20 History spironolactone [Aldactone] 25 mg PO DAILY 01/12/20 01/12/20 History Allergies Allergy/AdvReac Type Severity Reaction Status Date / Time No Known Drug Allergies Allergy Verified 01/12/20 16:11 Review of Systems Review of Systems ROS: Yes All systems reviewed with the patient and are negative except as otherwise documented Exam Vital Signs (past 8 hours): - 01/12/20 16:05 01/12/20 16:30 01/12/20 17:45 Temperature 96.3 F L Pulse Rate 80 95 H 97 H Respiratory Rate 18 18 18 Blood Pressure 133/89 133/89 121/81 Pulse Oximetry 100 99 98 01/12/20 18:48 01/12/20 18:49 01/12/20 19:00 Temperature Pulse Rate 98 H 93 H 97 H Respiratory Rate 10 L 20 Blood Pressure 117/79 Pulse Oximetry 95 97 100 01/12/20 19:05 Temperature Pulse Rate 97 H Respiratory Rate 14 Blood Pressure 125/91 H Pulse Oximetry 100 Oxygen Delivery Method Room Air Narrative Exam Narrative: Gen: Alert, oriented, well-developed 74 y.o. male, appears fatigued HEENT: normocephalic, atraumatic, conjunctiva clear, scleral icteris, oral mucosa pink and moist Neck: supple, full ROM, no JVD, trachea is midline Resp: Lungs CTA, non-labored breathing CV: RRR, no murmur or rubs Abd: obese, soft, non-tender, normoactive BTs, no hepatomegaly Skin: Mild jaundice, no lesions or rashes, dry and intact Neuro: Alert and oriented X 4 w/no focal deficits. Speech clear and coherent. Extremities: moves all 4 extremities, is ambulatory, negative Enedina?s sign Psyche: very pleasant, normal mood and affect. Objective Labs Result Diagrams: 01/12/20 16:25 01/12/20 16:25 Labs: Laboratory Results - last 24 hr 01/12/20 01/12/20 01/12/20 16:25 16:25 16:25 WBC 10.3 RBC 4.35 L Hgb 14.3 Hct 42.8 MCV 98.2 MCH 32.8 MCHC 33.4 RDW 13.8 Plt Count 325 Neut % (Auto) 81.4 H Lymph % (Auto) 8.9 L Roane % (Auto) 9.2 Eos % (Auto) 0.1 L Baso % (Auto) 0.4 Neut # (Auto) 8400 H Lymph # (Auto) 900 L Roane # (Auto) 900 Eos # (Auto) 0 Baso # (Auto) 0 Sodium 120 L Potassium 4.3 Chloride 81 L Carbon Dioxide 28 BUN 35 H Creatinine 0.88 Estimated GFR > 60.0 BUN/Creatinine Ratio 39.8 H Glucose 161 H Lactate 3.6 H Calcium 8.7 Total Bilirubin 1.4 H AST 335 H ALT 512 H Alkaline Phosphatase 220 H Total Creatine Kinase CK-MB (CK-2) CK-MB (CK-2) Rel Index Troponin I NT-Pro-B Natriuret Pep Total Protein 7.3 Albumin 4.1 Globulin 3.2 Albumin/Globulin Ratio 1.3 Procalcitonin COVID-19 PCR 01/12/20 01/12/20 01/12/20 16:25 18:30 19:05 WBC RBC Hgb Hct MCV MCH MCHC RDW Plt Count Neut % (Auto) Lymph % (Auto) Roane % (Auto) Eos % (Auto) Baso % (Auto) Neut # (Auto) Lymph # (Auto) Roane # (Auto) Eos # (Auto) Baso # (Auto) Sodium Potassium Chloride Carbon Dioxide BUN Creatinine Estimated GFR BUN/Creatinine Ratio Glucose Lactate 3.5 H Calcium Total Bilirubin AST ALT Alkaline Phosphatase Total Creatine Kinase CK-MB (CK-2) CK-MB (CK-2) Rel Index Troponin I NT-Pro-B Natriuret Pep 7340 H Total Protein Albumin Globulin Albumin/Globulin Ratio Procalcitonin COVID-19 PCR Negative 01/12/20 01/12/20 19:05 19:05 WBC RBC Hgb Hct MCV MCH MCHC RDW Plt Count Neut % (Auto) Lymph % (Auto) Roane % (Auto) Eos % (Auto) Baso % (Auto) Neut # (Auto) Lymph # (Auto) Roane # (Auto) Eos # (Auto) Baso # (Auto) Sodium Potassium Chloride Carbon Dioxide BUN Creatinine Estimated GFR BUN/Creatinine Ratio Glucose Lactate Calcium Total Bilirubin AST ALT Alkaline Phosphatase Total Creatine Kinase 103 CK-MB (CK-2) 4.33 H CK-MB (CK-2) Rel Index 4.2 Troponin I 0.031 NT-Pro-B Natriuret Pep Total Protein Albumin Globulin Albumin/Globulin Ratio Procalcitonin 0.12 COVID-19 PCR Assessment & Plan Assessment & Plan narrative: Terry Pack is admitted for further evaluation of a presumed congestive heart failure exacerbation. CHF exacerbation, acute, present on admission with a BNP of 7340 -he has chads Vasc 2 score 5 -troponin so far been negative -per cardiology he was put on a 10 mL/hour Lasix drip -I have held his spironolactone and torsemide -cardiac telemetry -1200 mL fluid restriction and strict I&Os -I have ordered limited echocardiogram for comparison with the 1 done in August -have requested records from [facility] Atrial fibrillation anticoagulated on dabigatran -continue dabigatran 150 mg p.o. b.i.d. -continue metoprolol succinate 50 mg p.o. daily Elevated transaminases, acute, present on admission -ordered a CT of the chest abdomen and pelvis for the morning -I have ordered a lipase and an acute hepatitis panel Diabetes type 2 well controlled with an hemoglobin A1c of 6.3, present on admission -he will have low-dose correctional insulin -I have held his metformin Essential hypertension, chronic -Continue home dose of lisinopril 40 mg p.o. daily -continue home dose of aspirin 81 mg p.o. daily Hyperlipidemia, chronic -continue home dose of atorvastatin 80 mg p.o. at bedtime VTE prophylaxis: Wells risk score: [] [] Enoxaparin 40 mg subQ daily [] Bilateral SCDs Consults: none. 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 FEN: IV saline lock w/a 1200 cc fluid restriction, low sodium low carb diet, CMP and magnesium in the am. Dispo: Unknown at this time Code Status: Full code as discussed with patient Scores CHADS-VASc Congestive heart failure: yes Hypertension: yes Age 75 years or older: no Diabetes mellitus: yes Stroke, TIA, or TE: no Vascular disease: yes Age 65 to 74 years: yes Sex category (female): Male CHADS-VASc Score: 5 Wells' Criteria for PE Clinical signs and symptoms of DVT: No PE is #1 Dx or equally likely: No Heart rate > 100: No Immobilization at least 3 days or surg in previous 4 weeks: No History of PE or DVT: No Hemoptysis: No Malignancy w/Treatment within 6 months or palliative: No Wells' PE Score total: 0 Quality VTE Deep Vein Thrombosis/Pulmonary Embolism Present on Admission: No
--- NOTE | 2020-01-12 21:47 | PC.NURSE ---
Pt arrived on unit from ER via stretcher. He is A and O x 4, VSS. He denies pain and N. He is I in the room. He has + 3 pitting edema bilat LE. LS clear, HRR. 2145 blood glucose = 158. Pt states he was unable to eat today, has an appetite now and has eaten one whole sandwich, some crackers and 1 cookie. He denies SOB and chest px.
[2020-01-12 21:52] LABS: Hemoglobin A1C% w Est Avg Glu 6.3 % (4.0-6.0)
[2020-01-12] MEDS: ATORVASTATIN 20 MG TABLET 80 MG PO (22:04)
[2020-01-12] MEDS: DABIGATRAN 75 MG CAPSULE 150 MG PO (22:04)
[2020-01-12] MEDS: METOPROLOL ER 50 MG TABLET PO (22:04)
[2020-01-12] MEDS: ASPIRIN EC 81 MG TABLET PO (22:05)
[2020-01-12] MEDS: SODIUM CHLORIDE 0.9% IV (22:46)
[2020-01-12] MEDS: FUROSEMIDE IV (22:46)
[2020-01-13] VITALS (7 sets, daily range): BP systolic 109–121; BP diastolic 61–79; PULSE 85–109; RESP 16–18; TEMP 36.1–36.8; O2SAT 97–99
[2020-01-13 01:16] LABS: Creatine Kinase 99 U/L (55-170)
[2020-01-13 01:29] LABS: Troponin I 0.025 ng/mL (0.01-0.034)
[2020-01-13 01:47] LABS: Lipase 209 U/L (23-300)
[2020-01-13 05:23] LABS: Add Manual Diff / Slide Review NO; Basophils Absolute Auto 0 /uL (0-100); Basophils Percent Auto 0.4 % (0-2); Eosinophils Absolute Auto 0 /uL (0-450); Eosinophils Percent Auto 0.4 % (2-4); Hematocrit 39.5 % (41-53); Hemoglobin 13.3 g/dL (13.5-17.5); Lymphocytes Absolute Auto 800 /uL (1100-4500); Lymphocytes Percent Auto 8.6 % (25-40); Mean Corpuscular HGB Conc 33.6 % (30-36); Mean Corpuscular Volume 98.2 fL (80-100); Monocytes Absolute Auto 1000 /uL (0-900); Monocytes Percent Auto 10.8 % (3-14); Neutrophils Absolute Auto 7200 /uL (1500-7000); Neutrophils Percent Auto 79.8 % (50-75); Platelet Count 269 X10^3/uL (150-400); Red Blood Cell Count 4.02 X10^6/uL (4.5-5.9); Red Cell Distribution Width 13.9 % (11.6-14.8)
[2020-01-13 05:28] LABS: Alanine Aminotransferase 489 IU/L (<50); Albumin 3.6 g/dL (3.5-5.0); Albumin Globulin Ratio 1.3 (1.0-2.8); Alkaline Phosphatase 183 U/L (38-126); Aspartate Aminotransferase 298 IU/L (17-59); Bilirubin Total 1.1 mg/dL (0.2-1.3); Bilirubin Unconjugated 0.7 mg/dL (0.0-1.1); Globulin 2.8 g/dL (1.7-4.1); HEMOLYSIS < 15 (0-50); Total Protein 6.4 g/dL (6.3-8.2)
[2020-01-13 05:29] LABS: Magnesium 1.9 mg/dL (1.6-2.3)
[2020-01-13 06:07] LABS: Cortisol AM (Before 10AM) 34.7 ug/dL (4.46-22.7)
[2020-01-13 06:30] LABS: BUN Creatinine Ratio 42.5 (6-22); Blood Urea Nitrogen 37 mg/dL (9-20); Calcium 8.4 mg/dL (8.4-10.2); Carbon Dioxide 28 mmol/L (22-32); Chloride 86 mmol/L (98-107); Estimated Glomerular Filt Rate > 60.0 mL/min (>60); Glucose 150 mg/dL (80-110); HEMOLYSIS < 15 (0-50); Potassium 4.2 mmol/L (3.4-5.1); Sodium 122 mmol/L (137-145)
[2020-01-13 08:07] LABS: Lactate (Lactic Acid) 2.3 mmol/L (0.7-2.1)
[2020-01-13] MEDS: DABIGATRAN 75 MG CAPSULE 150 MG PO ×2 (09:11→21:03)
[2020-01-13] MEDS: ASPIRIN EC 81 MG TABLET PO (09:11)
[2020-01-13] MEDS: METOPROLOL ER 50 MG TABLET PO (09:11)
[2020-01-13] MEDS: INSULIN ASPART 100 UNIT/ML INSULN PEN SUBCUT ×3 (09:12→16:33)
--- NOTE | 2020-01-13 09:16 | DI.ECHO.S_ITS ---
[facility] +---------+ [facility] +---------+ : : [address] : : : [place], [place] : : : : [id number] : : : : Phone: [phone] Echocardiogram Report + + :Name: ISRRAEL ROSALES Study Date: 01/13/2020 Height: 68 in : :[facility] Weight: 213 lb : : Gender: Male BSA: 2.1 m2 : :: 1945 Age: 74 yrs BP: 132/79 mmHg: :Reason For Study: Congestive heart fialure, aortic valve : :dysfunction : :Ordering Physician: SON VEGA : :[employer] Performed By: Mishel Shah : :Referring: Son Vega [employer] : + + Interpretation Summary 1) Moderately enlarged left ventricle with moderately to severely reduced systolic function (EF 30-35%). 2) The right ventricle is moderately dilated. Right ventricular systolic function is moderately reduced. 3) The left atrium is severely dilated. The right atrium is moderately dilated. 4) There is moderate to severe mitral regurgitation. 5) There is severe aortic stenosis (valve area 0.6cm2, mean gradient 26mmHg, severity ratio 0.17). 6) There is moderate tricuspid regurgitation. 7) The right ventricular systolic pressure is estimated to be at least 55 mmHg based on an estimated right atrial pressure of 15 mm Hg. 8) Atrial fibrillation with ventricular rates in the 88-102bpm range present on this study. 9) Compared to the Echo done 08/15/2019, LVEF has decreased from 45-55% to 30- 35% on this study. Recommend cardiology consult if consistent with goals of care. Procedure: A two-dimensional transthoracic echocardiogram with color flow and Doppler was performed. The study quality was technically adequate. Comparison is made with the echocardiogram of 08/15/2019. The patient was in atrial fibrillation with heart rates between 88-102 bpm during the exam. Left Ventricle: The estimated left ventricular end diastolic volume is 193 ml. The left ventricle is moderately dilated. The ejection fraction is estimated to be 30-35%. The interventricular septum is flattened, consistent with a right ventricular pressure/volume condition. Diastolic function could not be accurately assessed due to atrial fibrillation. Right Ventricle: The right ventricle is moderately dilated. Right ventricular systolic function is moderately reduced. Atria: The left atrium is severely dilated. The right atrium is moderately dilated. There is no Doppler evidence for an interatrial shunt. Mitral Valve: The mitral valve leaflets appear moderately thickened, but open well. There is moderate mitral annular calcification. There is moderate to severe mitral regurgitation. Aortic Valve: The aortic valve is severely calcified. The peak aortic velocity is 3.1 m/sec. The aortic valve mean gradient is 26 mmHg. The calculated aortic valve area is .61 cm2. There is severe aortic stenosis. No aortic regurgitation is present. Tricuspid Valve: The tricuspid valve is not well visualized, but is grossly normal. The right ventricular systolic pressure is estimated to be at least 55 mmHg based on an estimated right atrial pressure of 15 mm Hg. There is moderate tricuspid regurgitation. Pulmonic Valve: The pulmonic valve is not well seen, but is grossly normal. There is mild pulmonic regurgitation. Great Vessels: The aortic root is normal size. The dimensions of the ascending aorta are normal. The IVC is dilated (diameter is greater than 2.1 cm) and it collapses less than 50% with a sniff. This suggests a high right atrial pressure of 15 mm Hg. Pericardium/ Pleura There is no pericardial effusion. There is no pleural effusion. MMode/2D Measurements & Calculations LVIDd: 5.0 cm LVOT diam: 2.2 cm LVIDs: 4.2 cm Ao root diam: 3.1 cm FS: 16.5 % asc Aorta Diam: 3.2 cm EPSS: 1.8 cm IVSd: 1.3 cm LVPWd: 1.0 cm LV dempsey. diameter/BSA (cm/m^2): 2.4 LV sys. diameter/BSA (cm/m^2): 2.0 LA A2 area: 40.5 cm2 RA long axis: 6.5 cm LA A4 area: 40.3 cm2 RA area: 29.2 cm2 LA length (vol): 7.8 cm RA vol: 111.3 ml LA vol: 177.4 ml RA : 53.0 ml/m2 LA vol index: 84.5 ml/m2 IVC diam: 3.2 cm RVD1 (basal): 5.1 cm TAPSE: 1.6 cm Doppler Measurements & Calculations Ao V2 max: 313.9 cm/sec LVOT Max Joana: 63.5 cm/sec Ao V2 mean: 245.0 cm/sec LV V1 max P.6 mmHg Ao max P.4 mmHg LV V1 VTI: 10.3 cm Ao mean P.0 mmHg SUZAN(I,D): 0.61 cm2 Ao V2 VTI: 62.2 cm SUZAN(V,D): 0.74 cm2 sev ratio: 0.17 SUZAN indexed to BSA (cm^2/m^2): 0.29 MV E max joana: 120.8 cm/sec TR max joana: 277.9 cm/sec MV A max joana: 1.2 cm/sec TR max P.2 mmHg MV E/A: 100.6 PA V2 max: 48.9 cm/sec Med Peak E' Joana: 4.2 cm/sec PA V2 mean: 29.7 cm/sec E/E' med: 29.1 PA mean P.43 mmHg Lat Peak E' Joana: 11.1 cm/sec PA pr(Accel): 55.0 mmHg E/E' lat: 10.9 E/e' average: 20.0 MV dec time: 0.12 sec MVA(VTI): 1.3 cm2 MV V2 mean: 66.1 cm/sec SV(LVOT): 38.0 ml MV mean P.0 mmHg MV V2 VTI: 28.9 cm Reading Physician:11:[id number] AM
[2020-01-13 09:54] LABS: Reflexed Lactate in 2 Hours Y
[2020-01-13 10:53] LABS: Lactate 2HR (Lactic Acid Rflx) 3.9 mmol/L (0.7-2.1)
[2020-01-13] MEDS: SODIUM CHLORIDE 0.9% IV ×2 (11:04→22:48)
[2020-01-13] MEDS: FUROSEMIDE IV ×2 (11:04→22:48)
--- NOTE | 2020-01-13 11:17 | DI.US.S_ITS ---
PROCEDURE: US ABDOMEN COMPLETE INDICATIONS: Elevated LFTs, Ascites? Cholecystitis vs Cirrhosis? TECHNIQUE: Real-time scanning was performed of the abdominal and retroperitoneal organs, with image documentation. COMPARISON: None. FINDINGS: Liver: Liver is normal in size and homogeneous in echotexture. Gallbladder: Partially distended. Slightly thickened wall measuring 4 mm. No demonstrated gallstones. Sonographic Romo sign is negative. Biliary ducts: Intrahepatic bile ducts are non-dilated. Extrahepatic bile duct caliber measures 3.5 mm. Normal is 6-7 mm or less in diameter, or 10 mm or less post-cholecystectomy. Pancreas: Visualized portions of the pancreas are sonographically normal. Spleen: Spleen is normal in size and homogeneous in echotexture. Kidneys: Kidneys are normal in size and echotexture. Right kidney measures 14.6 cm long; left kidney measures 13.1 cm long. No hydronephrosis or nephrolithiasis. No solid masses. Aorta: Visualized aorta is normal in caliber at less than 3 cm. Distal aorta obscured by overlying bowel gas. Iliacs: Not well visualized due to overlying bowel gas. IVC: Intrahepatic inferior vena cava is patent. Miscellaneous: Small volume of ascites adjacent to the liver and spleen. IMPRESSION: Small volume of free fluid adjacent to the liver and spleen. Non-specific mild diffuse gallbladder wall thickening without additional findings of acute cholecystitis. Additional cause of gallbladder wall thickening in addition to acute cholecystitis include hepatitis, pancreatitis, or volume overload. Dictated by: Philipp Vargas M.D. on 01/13/2020 at 12:16 Approved by: Philipp Vargas M.D. on 01/13/2020 at 12:22
--- NOTE | 2020-01-13 11:18 | PM.PN.1 ---
Subjective Subjective Date Patient Seen: 01/13/20 Interval history: Terry Pack is a 74-year-old male with a past medical history significant for systolic congestive heart failure, severe aortic stenosis, atrial fibrillation on pradaxa, hypertension, hyperlipidemia, diabetes type mellitus type 2, non-insulin using and diet controlled who presented to the ED with a 2-3 week history of lower extremity swelling, weight gain, loss of appetite failed outpatient therapy. The patient is resting in bedside chair comfortably. He continues to have peripheral edema that has slightly improved. He denies shortness of breath, dyspnea on exertion, chest pain, orthopnea, paroxysmal nocturnal dyspnea, or scrotal edema. He endorses mild abdominal distention over the last several weeks. He denies abdominal pain and has no appreciable abdominal pain on exam. Plan for abdominal ultrasound to assess liver due to LFT elevation. He endorses some mild intermittent nausea and hiccups recently. He denies vomiting pre or postprandial pain, fever, chills, dysuria, diarrhea or constipation. He is voiding and eliminating without difficulty. He is up ambulating without assistance. Exam Vital Signs (past 8 hours): - 01/13/20 03:50 01/13/20 08:00 01/13/20 09:11 Temperature 98.2 F 97.4 F L Pulse Rate 85 98 H Respiratory Rate 16 16 Blood Pressure 111/67 109/61 109/61 Pulse Oximetry 97 97 Oxygen Delivery Method Room Air Oxygen Flow Rate 0 Narrative Exam Narrative: General: Older male sitting in bedside chair and in no acute distress, well-developed, well-nourished, appropriately interactive. HEENT: Normocephalic, atraumatic. External ears without defect. Pupils equal, round, and reactive to light. Mildly icteric sclera. Moist conjunctivae and no lid lag. Oropharynx free of erythema and cobble stoning with moist mucosa. Neck: Supple with full range of motion. JVD. No lymphadenopathy or thyromegaly. Cardiovascular: Heart sounds distant but irregularly irregular without murmurs, rubs, or gallops appreciated. Pulmonary: Clear to auscultation bilaterally without crackles, wheezes, or rhonchi. Normal respiratory effort with no use of accessory muscles. Abdomen: Soft, obese, bowel sounds present, nontender, nondistended. Possible ascites with slight fluid wave. Hiccups present. Extremities: No clubbing or cyanosis. Moderate bilateral pitting edema to knees. Skin: Normal temperature, turgor, and texture; no rash, ulcers, or subcutaneous nodules appreciated. Neurological: Cranial nerves grossly intact. Psychiatric: Normal mood and affect. Alert and oriented to person, place, and time. Objective Labs Result Diagrams: 01/13/20 05:00 01/13/20 20:15 Labs: Laboratory Results - last 24 hr 01/12/20 01/12/20 01/12/20 16:25 16:25 16:25 WBC 10.3 RBC 4.35 L Hgb 14.3 Hct 42.8 MCV 98.2 MCH 32.8 MCHC 33.4 RDW 13.8 Plt Count 325 Neut % (Auto) 81.4 H Lymph % (Auto) 8.9 L [place] % (Auto) 9.2 Eos % (Auto) 0.1 L Baso % (Auto) 0.4 Neut # (Auto) 8400 H Lymph # (Auto) 900 L [place] # (Auto) 900 Eos # (Auto) 0 Baso # (Auto) 0 Sodium 120 L Potassium 4.3 Chloride 81 L Carbon Dioxide 28 BUN 35 H Creatinine 0.88 Estimated GFR > 60.0 BUN/Creatinine Ratio 39.8 H Glucose 161 H Hemoglobin A1c Lactate 3.6 H Calcium 8.7 Magnesium Total Bilirubin 1.4 H Conjugated Bilirubin Unconjugated Bilirubin AST 335 H ALT 512 H Alkaline Phosphatase 220 H Total Creatine Kinase CK-MB (CK-2) CK-MB (CK-2) Rel Index Troponin I NT-Pro-B Natriuret Pep Total Protein 7.3 Albumin 4.1 Globulin 3.2 Albumin/Globulin Ratio 1.3 Lipase Procalcitonin Cortisol AM Sample COVID-19 PCR 01/12/20 01/12/20 01/12/20 16:25 16:25 18:30 WBC RBC Hgb Hct MCV MCH MCHC RDW Plt Count Neut % (Auto) Lymph % (Auto) Madison % (Auto) Eos % (Auto) Baso % (Auto) Neut # (Auto) Lymph # (Auto) [place] # (Auto) Eos # (Auto) Baso # (Auto) Sodium Potassium Chloride Carbon Dioxide BUN Creatinine Estimated GFR BUN/Creatinine Ratio Glucose Hemoglobin A1c 6.3 H Lactate Calcium Magnesium Total Bilirubin Conjugated Bilirubin Unconjugated Bilirubin AST ALT Alkaline Phosphatase Total Creatine Kinase CK-MB (CK-2) CK-MB (CK-2) Rel Index Troponin I NT-Pro-B Natriuret Pep 7340 H Total Protein Albumin Globulin Albumin/Globulin Ratio Lipase Procalcitonin Cortisol AM Sample COVID-19 PCR Negative 01/12/20 01/12/20 01/12/20 19:05 19:05 19:05 WBC RBC Hgb Hct MCV MCH MCHC RDW Plt Count Neut % (Auto) Lymph % (Auto) [place] % (Auto) Eos % (Auto) Baso % (Auto) Neut # (Auto) Lymph # (Auto) [place] # (Auto) Eos # (Auto) Baso # (Auto) Sodium Potassium Chloride Carbon Dioxide BUN Creatinine Estimated GFR BUN/Creatinine Ratio Glucose Hemoglobin A1c Lactate 3.5 H Calcium Magnesium Total Bilirubin Conjugated Bilirubin Unconjugated Bilirubin AST ALT Alkaline Phosphatase Total Creatine Kinase 103 CK-MB (CK-2) 4.33 H CK-MB (CK-2) Rel Index 4.2 Troponin I 0.031 NT-Pro-B Natriuret Pep Total Protein Albumin Globulin Albumin/Globulin Ratio Lipase Procalcitonin 0.12 Cortisol AM Sample COVID-19 PCR 01/13/20 01/13/20 01/13/20 01:00 01:00 05:00 WBC 9.0 RBC 4.02 L Hgb 13.3 L Hct 39.5 L MCV 98.2 MCH 33.0 MCHC 33.6 RDW 13.9 Plt Count 269 Neut % (Auto) 79.8 H Lymph % (Auto) 8.6 L Madison % (Auto) 10.8 Eos % (Auto) 0.4 L Baso % (Auto) 0.4 Neut # (Auto) 7200 H Lymph # (Auto) 800 L Madison # (Auto) 1000 H Eos # (Auto) 0 Baso # (Auto) 0 Sodium Potassium Chloride Carbon Dioxide BUN Creatinine Estimated GFR BUN/Creatinine Ratio Glucose Hemoglobin A1c Lactate Calcium Magnesium Total Bilirubin Conjugated Bilirubin Unconjugated Bilirubin AST ALT Alkaline Phosphatase Total Creatine Kinase 99 CK-MB (CK-2) TNP CK-MB (CK-2) Rel Index TNP Troponin I 0.025 NT-Pro-B Natriuret Pep Total Protein Albumin Globulin Albumin/Globulin Ratio Lipase 209 Procalcitonin Cortisol AM Sample COVID-19 PCR 01/13/20 01/13/20 01/13/20 05:00 05:00 05:00 WBC RBC Hgb Hct MCV MCH MCHC RDW Plt Count Neut % (Auto) Lymph % (Auto) Madison % (Auto) Eos % (Auto) Baso % (Auto) Neut # (Auto) Lymph # (Auto) [place] # (Auto) Eos # (Auto) Baso # (Auto) Sodium Potassium Chloride Carbon Dioxide BUN Creatinine Estimated GFR BUN/Creatinine Ratio Glucose Hemoglobin A1c Lactate Calcium Magnesium 1.9 Total Bilirubin 1.1 Conjugated Bilirubin 0.0 Unconjugated Bilirubin 0.7 AST 298 H ALT 489 H Alkaline Phosphatase 183 H Total Creatine Kinase CK-MB (CK-2) CK-MB (CK-2) Rel Index Troponin I NT-Pro-B Natriuret Pep Total Protein 6.4 Albumin 3.6 Globulin 2.8 Albumin/Globulin Ratio 1.3 Lipase Procalcitonin Cortisol AM Sample 34.7 H COVID-19 PCR 01/13/20 01/13/20 01/13/20 05:00 07:51 10:17 WBC RBC Hgb Hct MCV MCH MCHC RDW Plt Count Neut % (Auto) Lymph % (Auto) Madison % (Auto) Eos % (Auto) Baso % (Auto) Neut # (Auto) Lymph # (Auto) [place] # (Auto) Eos # (Auto) Baso # (Auto) Sodium 122 L Potassium 4.2 Chloride 86 L Carbon Dioxide 28 BUN 37 H Creatinine 0.87 Estimated GFR > 60.0 BUN/Creatinine Ratio 42.5 H Glucose 150 H Hemoglobin A1c Lactate 2.3 H 3.9 H Calcium 8.4 Magnesium Total Bilirubin Conjugated Bilirubin Unconjugated Bilirubin AST ALT Alkaline Phosphatase Total Creatine Kinase CK-MB (CK-2) CK-MB (CK-2) Rel Index Troponin I NT-Pro-B Natriuret Pep Total Protein Albumin Globulin Albumin/Globulin Ratio Lipase Procalcitonin Cortisol AM Sample COVID-19 PCR Assessment & Plan Assessment & Plan narrative: Terry Pack is a 74-year-old male with a past medical history significant for systolic congestive heart failure, severe aortic stenosis, atrial fibrillation on pradaxa, hypertension, hyperlipidemia, diabetes type mellitus type 2, non-insulin using and diet controlled who presented to the ED with a 2-3 week history of lower extremity swelling, weight gain, loss of appetite failed outpatient therapy. 1. Acute systolic CHF exacerbation, present on admission. Active. -Patient presented with persistent lower extremity edema and weight gain failing outpatient diuresis. Patient denies shortness of breath, chest pain, dyspnea on exertion, orthopnea or paroxysmal nocturnal dyspnea. Chest x-ray demonstrated mild cardiomegaly and increased pulmonary vascularity consistent with mild pulmonary edema/CHF. -ProBNP elevated at 7340. -EKG demonstrated atrial fibrillation controlled rate with left bundle-branch block unchanged from previous EKG and is not meet Sgarbossa criteria. Troponin negative at 0.031 and trended down with diuresis now 0.025. Continue to monitor closely on telemetry. -Patient is followed by Cardiology at [place], Dr. Saturnino Caputo. ED provider discussed patient and plan of care with on-call protective services case worker, Dr. Pate, who recommended a Lasix gtt at 10 mg/hr for slow correction of hypervolemia and hyponatremia. -Continue strict I&Os and daily weight. Net - 500 mL. -Continue low-sodium and 1.5 L fluid restriction diet. -Continue to monitor electrolytes and replete as necessary. Goal K > 4.0. and Mg > 2.0. -Ordered repeat echocardiogram with read pending. 2. Acute hyponatremia, secondary to hypervolemia, present on admission. Active. -Initial sodium level 120. Sodium level trending up now 122. Continue to diuresis as above. -Continue to monitor sodium level daily. 3. Acute congestive hepatopathy and lactic acidosis, secondary to hypervolemia, present on admission. Active. -Abdominal ultrasound demonstrated normal size liver with homogeneous in echotexture, small volume of free fluid adjacent to the liver and spleen and non-specific mild diffuse gallbladder wall thickening without additional findings of acute cholecystitis. -Initial LFT's: Total bilirubin 1.4, AST 335, ALT 512 and alkaline phosphatase 220. LFTs trending down with diuresis. -Lactic acid persistently elevated at 2-4 likely due to decreased clearance? Not hypoxemic and no infectious source identified. -Continue to monitor LFTs and lactic acid daily. 4. Severe aortic stensosis, chronic, present on admission. Presumed stable. -Patient is followed by Cardiology at [place], Dr. Saturnino Caputo. -Previous echocardiogram demonstrated aortic valve is moderately calcified with significant reduction in leaflet mobility with at least moderately severe aortic stenosis with a peak transvalvular velocity of 3.0 m/s and a mean gradient of 22 mmHg although the calculated valve area is 0.7-0.8 final inspector motorcyles? with a severity ratio is 0.19. Ordered repeat echocardiogram with read pending. -Patient recently evaluated for aortic valve replacement at [place] in 08/2019 which he reported he was told he does not need a TAVR at that time. -Continue IV diuresis as above. 5. Chronic atrial fibrillation anticoagulated on Pradaxa, present on admission.Stable. -Continue to monitor closely on telemetry. -Continue Pradaxa 150 mg twice daily and metoprolol succinate 50 mg daily. -Continue to monitor electrolytes and replete as necessary. Goal K > 4.0. and Mg > 2.0. 6. Diabetes mellitus type 2, non-insulin using, present on admission. Stable. -Hemoglobin A1c 6.3% indicative of excellent glycemic control. -Held home metformin. -Continue [facility] blood glucose checks and low-dose correctional scale insulin. -Continue heart healthy/carbohydrate consistent diet. 7. Hypertension, chronic, present on admission. Stable. -Continue home lisinopril 40 mg daily. 8. Hyperlipidemia, chronic, present on admission. Stable. -Continue home aspirin 81 mg daily and atorvastatin 80 mg daily at bedtime. Code Status: Full code as discussed with patient VTE prophylaxis: Pradaxa, SCDs Disposition:Patient remains hospitalized. Quality VTE Deep Vein Thrombosis/Pulmonary Embolism Present on Admission: No
--- NOTE | 2020-01-13 11:57 | CM.DANOTE ---
Addendum entered by Amber Julian LPN 01/13/20 12:09: Met with pt and his Arianna, at bedside and introductions made. Pt confirms he is still functionally independent at baseline as he was in August but that his appetite has been very diminished and I started filling up with fluid, that's why I came in. Did let him know that Dr. Garza has spoken with Dr. Springer and that she would be in later today for further discussion. Radiology arrived and are currently doing abdominal ultrasound in the room. DCP team will follow for prn assist as POC unfolds. Payer: [employer] Medicare Original Note: Discharge Planning/Care Management DCP: assessment: case received, EMR reviewed and discussed in Team Rounds. Pt was receiving nursing care during Bedside Rounds so meeting with pt was deferred. Pt is a 74 year old male who admitted last night to care of hospitalist team. PCP: Dr. Heriberto Garza is seeing pt today and stated pt was here iwth hyponatremia and exacerbation of CHF. OF note: pt was here in August and did transfer to [facility] for consideration of heart valve replacement: medical management was recommended instead of surgery at that time, per the EMR documentation. Dr. Garza stated in Rounds that she was consulting with orthotist prosthetist Dr. Springer today and POC would unfold from there. Will check in now with pt for introduction of the DCPlanning role and DCP team will be following to assist with any d/c needs that may arise. CM Discharge Assessment Start: 01/13/20 11:55 Freq: Status: Active Protocol: Document 01/13/20 11:55 ITV (Rec: 01/13/20 11:56 ITV [id number]) Discharge Planning Assessment Advance Directives? No History Provided By Patient,Medical Record Household Members spouse Independent with ADL's Yes Is patient alert and oriented? Yes Review Status In Process
[2020-01-13] MEDS: lisinopriL 20 MG TABLET 10 MG PO (16:32)
[2020-01-13 16:55] LABS: Procalcitonin 0.09 ng/mL (<0.5)
[2020-01-13] MEDS: SODIUM CHLORIDE 0.9% 250 ML 16 ML IV (17:35)
[2020-01-13 20:30] LABS: BUN Creatinine Ratio 44.3 (6-22); Blood Urea Nitrogen 31 mg/dL (9-20); Calcium 8.1 mg/dL (8.4-10.2); Carbon Dioxide 34 mmol/L (22-32); Chloride 85 mmol/L (98-107); Estimated Glomerular Filt Rate > 60.0 mL/min (>60); Glucose 155 mg/dL (80-110); Magnesium 1.9 mg/dL (1.6-2.3); Potassium 4.3 mmol/L (3.4-5.1); Sodium 124 mmol/L (137-145)
[2020-01-13 20:48] LABS: HEMOLYSIS 121 (0-50)
[2020-01-13] MEDS: ATORVASTATIN 20 MG TABLET 80 MG PO (21:03)
[2020-01-13] MEDS: DOCUSATE 100 MG CAPSULE PO (21:27)
[2020-01-14] VITALS (7 sets, daily range): BP systolic 92–117; BP diastolic 54–73; PULSE 69–95; RESP 17–20; TEMP 36.4–36.6; O2SAT 98–100
[2020-01-14 05:31] LABS: Add Manual Diff / Slide Review NO; Basophils Absolute Auto 100 /uL (0-100); Basophils Percent Auto 0.9 % (0-2); Eosinophils Absolute Auto 0 /uL (0-450); Eosinophils Percent Auto 0.4 % (2-4); Hematocrit 40.5 % (41-53); Hemoglobin 13.7 g/dL (13.5-17.5); Lymphocytes Absolute Auto 1300 /uL (1100-4500); Lymphocytes Percent Auto 12.4 % (25-40); Mean Corpuscular HGB Conc 33.8 % (30-36); Mean Corpuscular Hemoglobin 33.1 PG (26-34); Mean Corpuscular Volume 97.9 fL (80-100); Monocytes Absolute Auto 1000 /uL (0-900); Monocytes Percent Auto 9.9 % (3-14); Neutrophils Absolute Auto 7700 /uL (1500-7000); Neutrophils Percent Auto 76.4 % (50-75); Platelet Count 306 X10^3/uL (150-400); Red Blood Cell Count 4.14 X10^6/uL (4.5-5.9); Red Cell Distribution Width 13.7 % (11.6-14.8); White Blood Cell Count 10.1 X10^3/uL (4.5-11.0)
[2020-01-14 05:41] LABS: Alanine Aminotransferase 470 IU/L (<50); Albumin 3.6 g/dL (3.5-5.0); Albumin Globulin Ratio 1.2 (1.0-2.8); Alkaline Phosphatase 169 U/L (38-126); Aspartate Aminotransferase 218 IU/L (17-59); BUN Creatinine Ratio 32.4 (6-22); Bilirubin Total 1.3 mg/dL (0.2-1.3); Blood Urea Nitrogen 24 mg/dL (9-20); Calcium 8.3 mg/dL (8.4-10.2); Carbon Dioxide 36 mmol/L (22-32); Chloride 87 mmol/L (98-107); Estimated Glomerular Filt Rate > 60.0 mL/min (>60); Globulin 2.9 g/dL (1.7-4.1); Glucose 121 mg/dL (80-110); HEMOLYSIS < 15 (0-50); Lactate (Lactic Acid) 1.6 mmol/L (0.7-2.1); Magnesium 1.9 mg/dL (1.6-2.3); Potassium 3.4 mmol/L (3.4-5.1); Sodium 128 mmol/L (137-145); Total Protein 6.5 g/dL (6.3-8.2)
[2020-01-14 07:40] LABS: HBsAg Screen Negative (Negative); Hepatitis A Antibody IgM Negative (Negative); Hepatitis B Core Antibody IgM Negative (Negative); Hepatitis C Antibody 0.8 s/co ratio (0.0-0.9)
[2020-01-14] MEDS: METOPROLOL ER 50 MG TABLET PO (09:48)
[2020-01-14] MEDS: DABIGATRAN 75 MG CAPSULE 150 MG PO ×2 (09:49→20:30)
[2020-01-14] MEDS: DOCUSATE 100 MG CAPSULE PO ×3 (09:49→20:36)
[2020-01-14] MEDS: ASPIRIN EC 81 MG TABLET PO (09:49)
[2020-01-14] MEDS: SODIUM CHLORIDE 0.9% IV ×2 (10:12→20:20)
[2020-01-14] MEDS: FUROSEMIDE IV ×2 (10:12→20:20)
[2020-01-14] MEDS: INSULIN ASPART 100 UNIT/ML INSULN PEN SUBCUT ×2 (12:00→20:30)
[2020-01-14] MEDS: POTASSIUM CHLORIDE 20 MEQ TAB 40 MEQ PO (13:50)
--- NOTE | 2020-01-14 15:40 | P.PN_ITS ---
Subjective Subjective Date Patient Seen: 01/14/20 Time Patient Seen: 13:00 Interval history: Terry Pack is a 74-year-old male with a past medical history significant for systolic congestive heart failure, severe aortic stenosis, atrial fibrillation on pradaxa, hypertension, hyperlipidemia, diabetes type mellitus type 2, non-insulin using and diet controlled who presented to the ED with a 2-3 week history of lower extremity swelling, weight gain, loss of appetite failed outpatient therapy. The patient is resting in bedside chair comfortably. He continues to have peripheral edema that has slightly improved. He denies shortness of breath, dyspnea on exertion, chest pain, orthopnea, paroxysmal nocturnal dyspnea. He has mild abdominal distension and nausea vomiting that is now significantly improved this morning. He is net negative about 4 L so far on a Lasix infusion. He will remain on Lasix infusion at this time. Anticipate that he potentially has another 4-6 L of diuresis to go before euvolemic. He is slightly less hyponatremic today, improving symptomatically. His congestive hepatopathy is also improving his LFTs now slowly down trending. Exam Vital Signs (past 8 hours): - 01/14/20 08:00 01/14/20 10:26 01/14/20 12:00 Temperature 97.7 F 97.6 F Pulse Rate 81 71 69 Respiratory Rate 20 18 Blood Pressure 117/73 107/63 Pulse Oximetry 100 98 Oxygen Delivery Method Room Air Oxygen Flow Rate 0 Narrative Exam Narrative: General: Older male sitting in bedside chair and in no acute distress, well-developed, well-nourished, appropriately interactive. HEENT: Normocephalic, atraumatic. External ears without defect. Pupils equal, round, and reactive to light. Mildly icteric sclera. Moist conjunctivae and no lid lag. Oropharynx free of erythema and cobble stoning with moist mucosa. Neck: Supple with full range of motion. JVD. No lymphadenopathy or thyromegaly. Cardiovascular: Heart sounds distant but irregularly irregular without murmurs, rubs, or gallops appreciated. Pulmonary: Clear to auscultation bilaterally without crackles, wheezes, or rhonchi. Normal respiratory effort with no use of accessory muscles. Abdomen: Soft, obese, bowel sounds present, nontender, nondistended. Possible ascites with slight fluid wave. Hiccups present. Extremities: No clubbing or cyanosis. 2-3+ bilateral pitting edema to knees. Skin: Normal temperature, turgor, and texture; no rash, ulcers, or subcutaneous nodules appreciated. Neurological: Cranial nerves grossly intact. Psychiatric: Normal mood and affect. Alert and oriented to person, place, and time. Objective Labs Result Diagrams: 01/14/20 05:15 01/14/20 05:15 Labs: Laboratory Results - last 24 hr 01/13/20 01/13/20 01/13/20 05:00 05:00 20:15 WBC RBC Hgb Hct MCV MCH MCHC RDW Plt Count Neut % (Auto) Lymph % (Auto) [place]bert % (Auto) Eos % (Auto) Baso % (Auto) Neut # (Auto) Lymph # (Auto) [place] # (Auto) Eos # (Auto) Baso # (Auto) Sodium 124 L Potassium 4.3 Chloride 85 L Carbon Dioxide 34 H BUN 31 H Creatinine 0.70 Estimated GFR > 60.0 BUN/Creatinine Ratio 44.3 H Glucose 155 H Lactate Calcium 8.1 L Magnesium 1.9 Total Bilirubin AST ALT Alkaline Phosphatase Total Protein Albumin Globulin Albumin/Globulin Ratio Procalcitonin 0.09 Hepatitis A IgM Ab Negative Hep Bs Antigen Negative Hep B Core IgM Ab Negative Hepatitis C Antibody 0.8 Hep C Ab Signal/Cutoff Comment 01/14/20 01/14/20 01/14/20 05:15 05:15 05:15 WBC 10.1 RBC 4.14 L Hgb 13.7 Hct 40.5 L MCV 97.9 MCH 33.1 MCHC 33.8 RDW 13.7 Plt Count 306 Neut % (Auto) 76.4 H Lymph % (Auto) 12.4 L [place]bert % (Auto) 9.9 Eos % (Auto) 0.4 L Baso % (Auto) 0.9 Neut # (Auto) 7700 H Lymph # (Auto) 1300 [place] # (Auto) 1000 H Eos # (Auto) 0 Baso # (Auto) 100 Sodium 128 L Potassium 3.4 Chloride 87 L Carbon Dioxide 36 H BUN 24 H Creatinine 0.74 Estimated GFR > 60.0 BUN/Creatinine Ratio 32.4 H Glucose 121 H Lactate 1.6 Calcium 8.3 L Magnesium 1.9 Total Bilirubin 1.3 AST 218 H ALT 470 H Alkaline Phosphatase 169 H Total Protein 6.5 Albumin 3.6 Globulin 2.9 Albumin/Globulin Ratio 1.2 Procalcitonin Hepatitis A IgM Ab Hep Bs Antigen Hep B Core IgM Ab Hepatitis C Antibody Hep C Ab Signal/Cutoff Assessment & Plan Assessment & Plan narrative: Terry Pack is a 74-year-old male with a past medical history significant for systolic congestive heart failure, severe aortic stenosis, atrial fibrillation on pradaxa, hypertension, hyperlipidemia, diabetes type mellitus type 2, non-insulin using and diet controlled who presented to the ED with a 2-3 week history of lower extremity swelling, weight gain, loss of shanell etite failed outpatient therapy. 1. Acute systolic CHF exacerbation, present on admission. Active. -Patient presented with persistent lower extremity edema and weight gain failing outpatient diuresis. Patient denies shortness of breath, chest pain, dyspnea on exertion, orthopnea or paroxysmal nocturnal dyspnea. Chest x-ray demonstrated mild cardiomegaly and increased pulmonary vascularity consistent with mild pulmonary edema/CHF. -ProBNP elevated at 7340. -EKG demonstrated atrial fibrillation controlled rate with left bundle-branch block unchanged from previous EKG and is not meet Sgarbossa criteria. Troponin negative at 0.031 and trended down with diuresis now 0.025. Continue to monitor closely on telemetry. -Patient is followed by Cardiology at [place], Dr. Saturnino Caputo. ED provider discussed patient and plan of care with on-call electronic calibration technician, Dr. Pate, who recommended a Lasix gtt at 10 mg/hr for slow correction of hypervolemia and hyponatremia. Will continue. -Continue strict I&Os and daily weight. Net - 2900 mL since admission. -Continue low-sodium and 1.5 L fluid restriction diet. -Continue to monitor electrolytes and replete as necessary. Goal K > 4.0. and Mg > 2.0. -Repeat TTE with decreased EF of 30-35% and right ventricular systolic dysfunction. Will continue to diurese and medically optimize but needs urgent follow up with his electronic calibration technician for possible valve replacement. Reportedly unremarkable coronary arteries on angiogram previously. 2. Acute hyponatremia, secondary to hypervolemia, present on admission. Active. -Initial sodium level 120. Sodium level trending up now 128 likely due to hypervolemia. Continue to follow with daily BMP and continue diuresis. 3. Acute congestive hepatopathy and lactic acidosis, secondary to hypervolemia, present on admission. Active. -Abdominal ultrasound demonstrated normal size liver with homogeneous in echotexture, small volume of free fluid adjacent to the liver and spleen and non-specific mild diffuse gallbladder wall thickening without additional findings of acute cholecystitis. -Initial LFT's: Total bilirubin 1.4, AST 335, ALT 512 and alkaline phosphatase 220. LFTs trending down with diuresis. -Lactic acid persistently elevated at 2-4 likely due to decreased clearance? Not hypoxemic and no infectious source identified. Ultimately improved to normal today. -Continue to monitor LFTs and lactic acid daily. 4. Severe aortic stensosis, chronic, present on admission. Presumed stable. -Patient is followed by Cardiology at [place], Dr. Saturnino Caputo. -Previous echocardiogram demonstrated aortic valve is moderately calcified with significant reduction in leaflet mobility with at least moderately severe aortic stenosis with a peak transvalvular velocity of 3.0 m/s and a mean gradient of 22 mmHg although the calculated valve area is 0.7-0.8 cm. Repeat with valve area 0.6cm2, mean gradient 26mmHg, severity ratio 0.17 and decreased EF as noted above. -Patient recently evaluated for aortic valve replacement at [place] in 08/2019 which he reported he was told he does not need a TAVR at that time, now with decreased EF will need urgent follow up after additional diuresis. -Continue IV diuresis as above. 5. Chronic atrial fibrillation anticoagulated on Pradaxa, present on admission.Stable. -Continue to monitor closely on telemetry. -Continue Pradaxa 150 mg twice daily and metoprolol succinate 50 mg daily. -Continue to monitor electrolytes and replete as necessary. Goal K > 4.0. and Mg > 2.0. 6. Diabetes mellitus type 2, non-insulin using, present on admission. Stable. -Hemoglobin A1c 6.3% indicative of excellent glycemic control. -Held home metformin. -Continue [facility] blood glucose checks and low-dose correctional scale insulin. -Continue heart healthy/carbohydrate consistent diet. 7. Hypertension, chronic, present on admission. Stable. -Continue home lisinopril 40 mg daily. 8. Hyperlipidemia, chronic, present on admission. Stable. -Continue home aspirin 81 mg daily and atorvastatin 80 mg daily at bedtime. Code Status: Full code as discussed with patient VTE prophylaxis: Pradaxa, SCDs Disposition: Anticipate discharge home once medically optimized, potentially in 2-3 days. Code: Full Quality VTE Deep Vein Thrombosis/Pulmonary Embolism Present on Admission: No
[2020-01-14] MEDS: lisinopriL 20 MG TABLET 10 MG PO (16:54)
[2020-01-15] VITALS (9 sets, daily range): BP systolic 111–128; BP diastolic 56–73; PULSE 82–98; RESP 14–20; TEMP 35.8–36.6; O2SAT 96–100
[2020-01-15 05:52] LABS: Add Manual Diff / Slide Review NO; Basophils Absolute Auto 0 /uL (0-100); Basophils Percent Auto 0.4 % (0-2); Eosinophils Absolute Auto 100 /uL (0-450); Eosinophils Percent Auto 1.5 % (2-4); Hematocrit 37.6 % (41-53); Hemoglobin 12.6 g/dL (13.5-17.5); Lymphocytes Absolute Auto 1200 /uL (1100-4500); Lymphocytes Percent Auto 13.3 % (25-40); Mean Corpuscular HGB Conc 33.6 % (30-36); Mean Corpuscular Hemoglobin 32.7 PG (26-34); Mean Corpuscular Volume 97.4 fL (80-100); Monocytes Absolute Auto 1000 /uL (0-900); Monocytes Percent Auto 11.8 % (3-14); Neutrophils Absolute Auto 6400 /uL (1500-7000); Platelet Count 291 X10^3/uL (150-400); Red Blood Cell Count 3.86 X10^6/uL (4.5-5.9); Red Cell Distribution Width 13.6 % (11.6-14.8); White Blood Cell Count 8.7 X10^3/uL (4.5-11.0)
[2020-01-15 06:00] LABS: Alanine Aminotransferase 317 IU/L (<50); Albumin 3.2 g/dL (3.5-5.0); Albumin Globulin Ratio 1.2 (1.0-2.8); Alkaline Phosphatase 157 U/L (38-126); Aspartate Aminotransferase 94 IU/L (17-59); BUN Creatinine Ratio 23.5 (6-22); Bilirubin Total 1.1 mg/dL (0.2-1.3); Bilirubin Unconjugated 0.8 mg/dL (0.0-1.1); Blood Urea Nitrogen 19 mg/dL (9-20); Calcium 8.2 mg/dL (8.4-10.2); Carbon Dioxide 37 mmol/L (22-32); Chloride 89 mmol/L (98-107); Estimated Glomerular Filt Rate > 60.0 mL/min (>60); Globulin 2.7 g/dL (1.7-4.1); Glucose 118 mg/dL (80-110); HEMOLYSIS < 15 (0-50); Magnesium 1.9 mg/dL (1.6-2.3); Potassium 3.4 mmol/L (3.4-5.1); Sodium 129 mmol/L (137-145); Total Protein 5.9 g/dL (6.3-8.2)
[2020-01-15] MEDS: SODIUM CHLORIDE 0.9% IV ×2 (08:46→19:07)
[2020-01-15] MEDS: FUROSEMIDE IV ×2 (08:46→19:07)
[2020-01-15] MEDS: ASPIRIN EC 81 MG TABLET PO (08:50)
[2020-01-15] MEDS: METOPROLOL ER 50 MG TABLET PO (08:51)
[2020-01-15] MEDS: DOCUSATE 100 MG CAPSULE PO ×3 (08:51→21:04)
[2020-01-15] MEDS: DABIGATRAN 75 MG CAPSULE 150 MG PO ×2 (08:51→21:04)
[2020-01-15] MEDS: BISACODYL 10 MG SUPP PR (10:09)
--- NOTE | 2020-01-15 10:17 | CM.DPC ---
DCP Cont: Met with patient during team rounds. He was sitting up in chair. He has been ambulatory. He is here for CHF. Plan is for patient to be here another day to continue with diuresis. He is pleasant, alert and oriented. Patient could potentially go home. He has supportive , Arianna. P: DCP to continue to follow for any needs. Barbara Long RN/Complaint Inspector
--- NOTE | 2020-01-15 11:13 | PM.PN.1 ---
Subjective Subjective Date Patient Seen: 01/15/20 Time Patient Seen: 11:13 Interval history: Terry Pack is a 74-year-old male with a past medical history significant for systolic congestive heart failure, severe aortic stenosis, atrial fibrillation on pradaxa, hypertension, hyperlipidemia, diabetes type mellitus type 2, non-insulin using and diet controlled who presented to the ED with a 2-3 week history of lower extremity swelling, weight gain, loss of appetite failed outpatient therapy. The patient is resting in bedside chair comfortably. He continues to have peripheral edema that has slightly improved. He denies shortness of breath, dyspnea on exertion, chest pain, orthopnea, paroxysmal nocturnal dyspnea. He has mild abdominal distension and nausea vomiting that has resolved. He has not had a bowel movement in a few days and requested a suppository today, also started on senna at night. He was only net negative about 1 L yesterday, will increase lasix gtt to 7 mL per hour (14 mg / hr). Exam Vital Signs (past 8 hours): - 01/15/20 03:46 01/15/20 07:00 01/15/20 09:46 Temperature 96.4 F L 97.1 F L Pulse Rate 89 98 H 83 Respiratory Rate 17 18 Blood Pressure 117/70 116/68 Pulse Oximetry 98 97 01/15/20 10:08 Temperature Pulse Rate 82 Respiratory Rate 18 Blood Pressure Pulse Oximetry 96 Oxygen Delivery Method Room Air Oxygen Flow Rate 0 Narrative Exam Narrative: General: Older male sitting in bedside chair and in no acute distress, well-developed, well-nourished, appropriately interactive. HEENT: Normocephalic, atraumatic. External ears without defect. Pupils equal, round, and reactive to light. Mildly icteric sclera. Moist conjunctivae and no lid lag. Oropharynx free of erythema and cobble stoning with moist mucosa. Neck: Supple with full range of motion. JVD. No lymphadenopathy or thyromegaly. Cardiovascular: Heart sounds distant but irregularly irregular without murmurs, rubs, or gallops appreciated. Pulmonary: Clear to auscultation bilaterally without crackles, wheezes, or rhonchi. Normal respiratory effort with no use of accessory muscles. Abdomen: Soft, obese, bowel sounds present, nontender, nondistended. Possible ascites with slight fluid wave. Hiccups present. Extremities: No clubbing or cyanosis. 2-3+ bilateral pitting edema to knees. Skin: Normal temperature, turgor, and texture; no rash, ulcers, or subcutaneous nodules appreciated. Neurological: Cranial nerves grossly intact. Psychiatric: Normal mood and affect. Alert and oriented to person, place, and time. Objective Labs Result Diagrams: 01/15/20 05:35 01/15/20 05:35 Labs: Laboratory Results - last 24 hr 01/15/20 01/15/20 05:35 05:35 WBC 8.7 RBC 3.86 L Hgb 12.6 L Hct 37.6 L MCV 97.4 MCH 32.7 MCHC 33.6 RDW 13.6 Plt Count 291 Neut % (Auto) 73.0 Lymph % (Auto) 13.3 L [place] % (Auto) 11.8 Eos % (Auto) 1.5 L Baso % (Auto) 0.4 Neut # (Auto) 6400 Lymph # (Auto) 1200 [place] # (Auto) 1000 H Eos # (Auto) 100 Baso # (Auto) 0 Sodium 129 L Potassium 3.4 Chloride 89 L Carbon Dioxide 37 H BUN 19 Creatinine 0.81 Estimated GFR > 60.0 BUN/Creatinine Ratio 23.5 H Glucose 118 H Calcium 8.2 L Magnesium 1.9 Total Bilirubin 1.1 Conjugated Bilirubin 0.0 Unconjugated Bilirubin 0.8 AST 94 H ALT 317 H Alkaline Phosphatase 157 H Total Protein 5.9 L Albumin 3.2 L Globulin 2.7 Albumin/Globulin Ratio 1.2 Assessment & Plan Assessment & Plan narrative: Terry Pack is a 74-year-old male with a past medical history significant for systolic congestive heart failure, severe aortic stenosis, atrial fibrillation on pradaxa, hypertension, hyperlipidemia, diabetes type mellitus type 2, non-insulin using and diet controlled who presented to the ED with a 2-3 week history of lower extremity swelling, weight gain, loss of appetite failed outpatient therapy. 1. Acute systolic CHF exacerbation, present on admission. Active. -Patient presented with persistent lower extremity edema and weight gain failing outpatient diuresis. Patient denies shortness of breath, chest pain, dyspnea on exertion, orthopnea or paroxysmal nocturnal dyspnea. Chest x-ray demonstrated mild cardiomegaly and increased pulmonary vascularity consistent with mild pulmonary edema/CHF. -ProBNP elevated at 7340. -EKG demonstrated atrial fibrillation controlled rate with left bundle-branch block unchanged from previous EKG and is not meet Sgarbossa criteria. Troponin negative at 0.031 and trended down with diuresis now 0.025. Continue to monitor closely on telemetry. -Patient is followed by Cardiology at [place], Dr. Saturnino Caputo. ED provider discussed patient and plan of care with on-call psychiatric technician, Dr. Pate, who recommended a Lasix gtt at 10 mg/hr for slow correction of hypervolemia and hyponatremia. Have increased today given only net negative 1L yesterday to 14 mg per hour. -Continue strict I&Os and daily weight. Net -3370 mL since admission. -Continue low-sodium and 1.5 L fluid restriction diet. -Continue to monitor electrolytes and replete as necessary. Goal K > 4.0. and Mg > 2.0. -Repeat TTE with decreased EF of 30-35% and right ventricular systolic dysfunction. Will continue to diurese and medically optimize but needs urgent follow up with his psychiatric technician for possible valve replacement. Reportedly unremarkable coronary arteries on angiogram previously. 2. Acute hyponatremia, secondary to hypervolemia, present on admission. Active. -Initial sodium level 120. Sodium level trending up now 128 likely due to hypervolemia. Continue to follow with daily BMP and continue diuresis. 3. Acute congestive hepatopathy and lactic acidosis, secondary to hypervolemia, present on admission. Active. -Abdominal ultrasound demonstrated normal size liver with homogeneous in echotexture, small volume of free fluid adjacent to the liver and spleen and non-specific mild diffuse gallbladder wall thickening without additional findings of acute cholecystitis. -Initial LFT's: Total bilirubin 1.4, AST 335, ALT 512 and alkaline phosphatase 220. LFTs trending down with diuresis. -Lactic acid persistently elevated at 2-4 likely due to decreased clearance? Not hypoxemic and no infectious source identified. Ultimately improved to normal today. -Continue to monitor LFTs and lactic acid daily. 4. Severe aortic stensosis, chronic, present on admission. Presumed stable. -Patient is followed by Cardiology at [place], Dr. Saturnino Caputo. -Previous echocardiogram demonstrated aortic valve is moderately calcified with significant reduction in leaflet mobility with at least moderately severe aortic stenosis with a peak transvalvular velocity of 3.0 m/s and a mean gradient of 22 mmHg although the calculated valve area is 0.7-0.8 cm. Repeat with valve area 0.6cm2, mean gradient 26mmHg, severity ratio 0.17 and decreased EF as noted above. -Patient recently evaluated for aortic valve replacement at [place] in 08/2019 which he reported he was told he does not need a TAVR at that time, now with decreased EF will need urgent follow up after additional diuresis. -Continue IV diuresis as above. 5. Chronic atrial fibrillation anticoagulated on Pradaxa, present on admission.Stable. -Continue to monitor closely on telemetry. -Continue Pradaxa 150 mg twice daily and metoprolol succinate 50 mg daily. -Continue to monitor electrolytes and replete as necessary. Goal K > 4.0. and Mg > 2.0. 6. Diabetes mellitus type 2, non-insulin using, present on admission. Stable. -Hemoglobin A1c 6.3% indicative of excellent glycemic control. -Held home metformin. -Continue ACHS blood glucose checks and low-dose correctional scale insulin. -Continue heart healthy/carbohydrate consistent diet. 7. Hypertension, chronic, present on admission. Stable. -Continue home lisinopril 40 mg daily. 8. Hyperlipidemia, chronic, present on admission. Stable. -Continue home aspirin 81 mg daily and atorvastatin 80 mg daily at bedtime. Code Status: Full code as discussed with patient VTE prophylaxis: Pradaxa, SCDs Disposition: Anticipate discharge home once medically optimized, potentially in 2-3 days. Code: Full Quality VTE Deep Vein Thrombosis/Pulmonary Embolism Present on Admission: No
--- NOTE | 2020-01-15 12:41 | DIET.PN ---
Dietary Progress Note Assessment: 74y M admitted for CHF exacerbation referred to nutrition by video production specialist to assess recent weight loss. Pt reports 2-3w LLE c weight gain of 10# with poor appetite and N/V. Pt reports having similar episode in August 2019 and has since been trying to actively lose weight and be healthier, pt was 99kg and got down to 94kg with goal of . Pt and his not drinking etoh M- and limiting intake to 0-4 glasses red wine on weekends. Pts is good cook and is being mindful of both sodium and carbs in cooking. Pt reports not salting at the table, only on corn on the cob. HT: 172.7cm WT: 94.5kg BMI: 31.7 Pt appears to be making healthy lifestyle choices and weight loss indicated in [facility] records is intentional.
[2020-01-15] MEDS: INSULIN ASPART 100 UNIT/ML INSULN PEN SUBCUT (13:07)
[2020-01-15] MEDS: INFLUENZA HD VACCINE 0.7 ML SYRINGE IM (13:12)
[2020-01-15] MEDS: lisinopriL 20 MG TABLET 10 MG PO (17:00)
[2020-01-15] MEDS: SODIUM CHLORIDE 0.9% 250 ML 16 ML IV (17:09)
[2020-01-15] MEDS: SENNOSIDES 8.6 MG TABLET PO (21:04)
[2020-01-15] MEDS: chlorproMAZINE 25 MG TABLET PO (21:04)
[2020-01-16] MEDS: FUROSEMIDE IV ×3 (02:22→17:56)
[2020-01-16] MEDS: SODIUM CHLORIDE 0.9% IV ×3 (02:22→17:56)
[2020-01-16 03:35] VITALS: BP 110/58; PULSE 93; RESP 16; TEMP 36.2; O2SAT 97
[2020-01-16 06:20] LABS: Add Manual Diff / Slide Review NO; Basophils Absolute Auto 100 /uL (0-100); Basophils Percent Auto 0.7 % (0-2); Eosinophils Absolute Auto 100 /uL (0-450); Eosinophils Percent Auto 1.6 % (2-4); Hematocrit 42.8 % (41-53); Hemoglobin 14.3 g/dL (13.5-17.5); Lymphocytes Absolute Auto 1500 /uL (1100-4500); Lymphocytes Percent Auto 19.2 % (25-40); Mean Corpuscular HGB Conc 33.3 % (30-36); Mean Corpuscular Hemoglobin 32.7 PG (26-34); Mean Corpuscular Volume 98.2 fL (80-100); Monocytes Absolute Auto 700 /uL (0-900); Monocytes Percent Auto 9.6 % (3-14); Neutrophils Absolute Auto 5400 /uL (1500-7000); Neutrophils Percent Auto 68.9 % (50-75); Platelet Count 344 X10^3/uL (150-400); Red Blood Cell Count 4.36 X10^6/uL (4.5-5.9); Red Cell Distribution Width 13.8 % (11.6-14.8); White Blood Cell Count 7.8 X10^3/uL (4.5-11.0)
[2020-01-16 06:47] LABS: Alanine Aminotransferase 244 IU/L (<50); Albumin 3.7 g/dL (3.5-5.0); Albumin Globulin Ratio 1.2 (1.0-2.8); Alkaline Phosphatase 171 U/L (38-126); Aspartate Aminotransferase 60 IU/L (17-59); Bilirubin Total 1.3 mg/dL (0.2-1.3); Blood Urea Nitrogen 17 mg/dL (9-20); Calcium 8.6 mg/dL (8.4-10.2); Carbon Dioxide 35 mmol/L (22-32); Chloride 88 mmol/L (98-107); Estimated Glomerular Filt Rate > 60.0 mL/min (>60); Globulin 3.1 g/dL (1.7-4.1); Glucose 111 mg/dL (80-110); HEMOLYSIS < 15 (0-50); Magnesium 1.9 mg/dL (1.6-2.3); Potassium 3.1 mmol/L (3.4-5.1); Sodium 130 mmol/L (137-145); Total Protein 6.8 g/dL (6.3-8.2)
[2020-01-16 07:40] VITALS: BP 116/68; PULSE 78; RESP 16; TEMP 36; O2SAT 98
[2020-01-16 08:23] VITALS: BP 116/68; PULSE 78
[2020-01-16] MEDS: METOPROLOL ER 50 MG TABLET PO (08:23)
[2020-01-16] MEDS: DOCUSATE 100 MG CAPSULE PO ×3 (08:23→20:46)
[2020-01-16] MEDS: ASPIRIN EC 81 MG TABLET PO (08:23)
[2020-01-16] MEDS: chlorproMAZINE 25 MG TABLET PO ×2 (08:23→15:32)
[2020-01-16] MEDS: DABIGATRAN 75 MG CAPSULE 150 MG PO ×2 (08:23→20:46)
--- NOTE | 2020-01-16 09:36 | PC.NURSE ---
Addendum entered by Sarah Beth Reynolds R.N. 01/17/20 06:37: late entry for 01/15- noon blood glucose was reported by TACK DRILLER as 94, insulin not given per protocol, pt ate lunch. TACK DRILLER recorded blood glucose late in chart as 144. Due to time gap when pt had finished eating, insulin was not given. Addendum entered by Sarah Beth Reynolds R.N. 01/16/20 12:20: Pt has now had a total of 600 mls of water and coffee for day shift. Pt aware of fluid restriction. This RN during lunch found pt filling his water cup above the level that this RN gave to pt based on fluid restriction. Explained to pt that he cannot do that as we are following and measuring his intake and output closely. Pt stated well ok. Original Note: Day Shift- Pt A&OX4, able to make his needs known using call light. At shift change sitting in recliner chair towards end of bed. Ambulates indep in room with steady gait. Pt denies any shortness of breath with rest or ambulation. O2 sat 99% on RA. Pt stated last night was the first night he slept well. Denied any more hiccups. AE diminished to posterior lung jackson, clear throughout. Slightly more AE heard upon auscultation to bilateral upper lung jackson. BLE edema 3+ pitting from ankles to just below knee. Puffy dorsal foot edema. LLE edema slightly more compared to RLE. Pt states this is pt's normal at home due to previous trauma to LLE which has also caused skin discoloration. Pt also states that his leg edema appears better than yesterday. Lasix continuous infusion per order to right FA PIV. Pt aware staff is needing to measure his urine output. 2 urinals within reach. No other voiced concerns, pt very pleasant.
[2020-01-16] MEDS: SODIUM CHLORIDE 0.9% 250 ML 14 ML IV (10:24)
[2020-01-16 11:00] VITALS: BP 112/66; PULSE 89; RESP 19; TEMP 37; O2SAT 98
[2020-01-16] MEDS: POTASSIUM CHLORIDE 20 MEQ TAB 40 MEQ PO (12:16)
--- NOTE | 2020-01-16 14:37 | PM.PN.1 ---
Subjective Subjective Date Patient Seen: 01/16/20 Time Patient Seen: 14:37 Interval history: Terry Pack is a 74-year-old male with a past medical history significant for systolic congestive heart failure, severe aortic stenosis, atrial fibrillation on pradaxa, hypertension, hyperlipidemia, diabetes type mellitus type 2, non-insulin using and diet controlled who presented to the ED with a 2-3 week history of lower extremity swelling, weight gain, loss of appetite failed outpatient therapy. He was admitted for CHF exacerbation and has improved with diuresis. The patient is resting in bedside chair comfortably. He continues to have peripheral edema that has slightly improved. He denies shortness of breath, dyspnea on exertion, chest pain, orthopnea, paroxysmal nocturnal dyspnea. He had mild abdominal distension and nausea vomiting that has resolved. He had a good response to increased lasix infusion yesterday and will continue today. Exam Vital Signs (past 8 hours): - 01/16/20 07:40 01/16/20 08:23 01/16/20 11:00 Temperature 96.8 F L 98.6 F Pulse Rate 78 78 89 Respiratory Rate 16 19 Blood Pressure 116/68 116/68 112/66 Pulse Oximetry 98 98 Oxygen Delivery Method Room Air Oxygen Flow Rate 0 Narrative Exam Narrative: General: Older male sitting in bedside chair and in no acute distress, well-developed, well-nourished, appropriately interactive. HEENT: Normocephalic, atraumatic. External ears without defect. Pupils equal, round, and reactive to light. Mildly icteric sclera. Moist conjunctivae and no lid lag. Oropharynx free of erythema and cobble stoning with moist mucosa. Neck: Supple with full range of motion. JVD. No lymphadenopathy or thyromegaly. Cardiovascular: Heart sounds distant but irregularly irregular without murmurs, rubs, or gallops appreciated. Pulmonary: Clear to auscultation bilaterally without crackles, wheezes, or rhonchi. Normal respiratory effort with no use of accessory muscles. Abdomen: Soft, obese, bowel sounds present, nontender, nondistended. Possible ascites with slight fluid wave. Hiccups present. Extremities: No clubbing or cyanosis. 2-3+ bilateral pitting edema to mid-calf. Skin: Normal temperature, turgor, and texture; no rash, ulcers, or subcutaneous nodules appreciated. Neurological: Cranial nerves grossly intact. Psychiatric: Normal mood and affect. Alert and oriented to person, place, and time. Objective Labs Result Diagrams: 01/16/20 05:39 01/16/20 05:39 Labs: Laboratory Results - last 24 hr 01/16/20 01/16/20 05:39 05:39 WBC 7.8 RBC 4.36 L Hgb 14.3 Hct 42.8 MCV 98.2 MCH 32.7 MCHC 33.3 RDW 13.8 Plt Count 344 Neut % (Auto) 68.9 Lymph % (Auto) 19.2 L [place] % (Auto) 9.6 Eos % (Auto) 1.6 L Baso % (Auto) 0.7 Neut # (Auto) 5400 Lymph # (Auto) 1500 [place] # (Auto) 700 Eos # (Auto) 100 Baso # (Auto) 100 Sodium 130 L Potassium 3.1 L Chloride 88 L Carbon Dioxide 35 H BUN 17 Creatinine 0.74 Estimated GFR > 60.0 BUN/Creatinine Ratio 23.0 H Glucose 111 H Calcium 8.6 Magnesium 1.9 Total Bilirubin 1.3 Conjugated Bilirubin 0.0 Unconjugated Bilirubin 1.0 AST 60 H ALT 244 H Alkaline Phosphatase 171 H Total Protein 6.8 Albumin 3.7 Globulin 3.1 Albumin/Globulin Ratio 1.2 Assessment & Plan Assessment & Plan narrative: Terry Pack is a 74-year-old male with a past medical history significant for systolic congestive heart failure, severe aortic stenosis, atrial fibrillation on pradaxa, hypertension, hyperlipidemia, diabetes type mellitus type 2, non-insulin using and diet controlled who presented to the ED with a 2-3 week history of lower extremity swelling, weight gain, loss of appetite failed outpatient therapy. 1. Acute systolic CHF exacerbation, present on admission. Active. -Patient presented with persistent lower extremity edema and weight gain failing outpatient diuresis. Patient denies shortness of breath, chest pain, dyspnea on exertion, orthopnea or paroxysmal nocturnal dyspnea. Chest x-ray demonstrated mild cardiomegaly and increased pulmonary vascularity consistent with mild pulmonary edema/CHF. -ProBNP elevated at 7340. -EKG demonstrated atrial fibrillation controlled rate with left bundle-branch block unchanged from previous EKG and is not meet Sgarbossa criteria. Troponin negative at 0.031 and trended down with diuresis now 0.025. Continue to monitor closely on telemetry. -Patient is followed by Cardiology at [place], Dr. Saturnino Caputo. ED provider discussed patient and plan of care with on-call flatbed company driver, Dr. Pate, who recommended a Lasix gtt at 10 mg/hr for slow correction of hypervolemia and hyponatremia. Have increased today given only net negative 1L yesterday to 14 mg per hour. -Continue strict I&Os and daily weight. Net -5400 mL since admission. -Continue low-sodium and 1.5 L fluid restriction diet. -Continue to monitor electrolytes and replete as necessary. Goal K > 4.0. and Mg > 2.0. -Repeat TTE with decreased EF of 30-35% and right ventricular systolic dysfunction. Will continue to diurese and medically optimize but needs urgent follow up with his flatbed company driver for possible valve replacement. Reportedly unremarkable coronary arteries on angiogram previously. 2. Acute hyponatremia, secondary to hypervolemia, present on admission. Active. -Initial sodium level 120. Sodium level trending up now 128 likely due to hypervolemia. Continue to follow with daily BMP and continue diuresis. 3. Acute congestive hepatopathy and lactic acidosis, secondary to hypervolemia, present on admission. Active. -Abdominal ultrasound demonstrated normal size liver with homogeneous in echotexture, small volume of free fluid adjacent to the liver and spleen and non-specific mild diffuse gallbladder wall thickening without additional findings of acute cholecystitis. -Initial LFT's: Total bilirubin 1.4, AST 335, ALT 512 and alkaline phosphatase 220. LFTs trending down with diuresis. -Lactic acid persistently elevated at 2-4 likely due to decreased clearance? Not hypoxemic and no infectious source identified. Ultimately improved to normal today. -Continue to monitor LFTs and lactic acid daily. 4. Severe aortic stensosis, chronic, present on admission. -Patient is followed by Cardiology at [place], Dr. Saturnino Caputo. -Previous echocardiogram demonstrated aortic valve is moderately calcified with significant reduction in leaflet mobility with at least moderately severe aortic stenosis with a peak transvalvular velocity of 3.0 m/s and a mean gradient of 22 mmHg although the calculated valve area is 0.7-0.8 cm. Repeat with valve area 0.6cm2, mean gradient 26mmHg, severity ratio 0.17 and decreased EF as noted above. -Patient recently evaluated for aortic valve replacement at [place] in 08/2019 which he reported he was told he does not need a TAVR at that time, now with decreased EF will need urgent follow up after additional diuresis. -Continue IV diuresis as above. 5. Chronic atrial fibrillation anticoagulated on Pradaxa, present on admission.Stable. -Continue to monitor closely on telemetry. -Continue Pradaxa 150 mg twice daily and metoprolol succinate 50 mg daily. -Continue to monitor electrolytes and replete as necessary. Goal K > 4.0. and Mg > 2.0. 6. Diabetes mellitus type 2, non-insulin using, present on admission. Stable. -Hemoglobin A1c 6.3% indicative of excellent glycemic control. -Held home metformin. -Continue [facility] blood glucose checks and low-dose correctional scale insulin. -Continue heart healthy/carbohydrate consistent diet. 7. Hypertension, chronic, present on admission. Stable. -Continue home lisinopril 40 mg daily. 8. Hyperlipidemia, chronic, present on admission. Stable. -Continue home aspirin 81 mg daily and atorvastatin 80 mg daily at bedtime. Code Status: Full code as discussed with patient VTE prophylaxis: Pradaxa, SCDs Disposition: Anticipate discharge home once medically optimized, potentially in 2-3 days. Code: Full Quality VTE Deep Vein Thrombosis/Pulmonary Embolism Present on Admission: No
[2020-01-16 15:40] VITALS: BP 112/67; PULSE 89; RESP 20; TEMP 35.9; O2SAT 100
[2020-01-16] MEDS: INSULIN ASPART 100 UNIT/ML INSULN PEN SUBCUT (16:51)
[2020-01-16] MEDS: POTASSIUM CHLORIDE 20 MEQ TAB PO (16:51)
[2020-01-16] MEDS: lisinopriL 20 MG TABLET 10 MG PO (16:51)
[2020-01-16 20:05] VITALS: BP 104/58; PULSE 90; RESP 18; TEMP 36.3; O2SAT 98
[2020-01-16] MEDS: ATORVASTATIN 20 MG TABLET 80 MG PO (20:46)
[2020-01-16] MEDS: SENNOSIDES 8.6 MG TABLET PO (20:47)
[2020-01-17] VITALS: BP 109/47; PULSE 75; RESP 16; TEMP 36.6; O2SAT 98
[2020-01-17] MEDS: FUROSEMIDE IV ×2 (00:54→07:42)
[2020-01-17] MEDS: SODIUM CHLORIDE 0.9% IV ×2 (00:54→07:42)
[2020-01-17 04:00] VITALS: BP 99/65; PULSE 72; RESP 18; TEMP 36.6; O2SAT 100
[2020-01-17 06:13] LABS: Add Manual Diff / Slide Review NO; Basophils Absolute Auto 100 /uL (0-100); Basophils Percent Auto 1.2 % (0-2); Eosinophils Absolute Auto 200 /uL (0-450); Eosinophils Percent Auto 3.8 % (2-4); Hemoglobin 13.6 g/dL (13.5-17.5); Lymphocytes Absolute Auto 1500 /uL (1100-4500); Lymphocytes Percent Auto 24.5 % (25-40); Mean Corpuscular HGB Conc 33.2 % (30-36); Mean Corpuscular Hemoglobin 32.3 PG (26-34); Mean Corpuscular Volume 97.2 fL (80-100); Monocytes Absolute Auto 700 /uL (0-900); Monocytes Percent Auto 11.6 % (3-14); Neutrophils Absolute Auto 3500 /uL (1500-7000); Neutrophils Percent Auto 58.9 % (50-75); Platelet Count 321 X10^3/uL (150-400); Red Blood Cell Count 4.21 X10^6/uL (4.5-5.9); Red Cell Distribution Width 14.3 % (11.6-14.8)
[2020-01-17 06:22] LABS: Alanine Aminotransferase 188 IU/L (<50); Albumin 3.5 g/dL (3.5-5.0); Albumin Globulin Ratio 1.3 (1.0-2.8); Alkaline Phosphatase 159 U/L (38-126); Aspartate Aminotransferase 36 IU/L (17-59); BUN Creatinine Ratio 21.8 (6-22); Bilirubin Unconjugated 0.7 mg/dL (0.0-1.1); Blood Urea Nitrogen 17 mg/dL (9-20); Calcium 8.5 mg/dL (8.4-10.2); Carbon Dioxide 34 mmol/L (22-32); Chloride 92 mmol/L (98-107); Estimated Glomerular Filt Rate > 60.0 mL/min (>60); Globulin 2.8 g/dL (1.7-4.1); Glucose 121 mg/dL (80-110); HEMOLYSIS < 15 (0-50); Potassium 3.5 mmol/L (3.4-5.1); Sodium 132 mmol/L (137-145); Total Protein 6.3 g/dL (6.3-8.2)
[2020-01-17 07:30] VITALS: BP 120/83; PULSE 80; RESP 16; TEMP 36.1; O2SAT 99
[2020-01-17 09:04] VITALS: BP 120/83; PULSE 80
[2020-01-17] MEDS: POTASSIUM CHLORIDE 20 MEQ TAB PO (09:04)
[2020-01-17] MEDS: ASPIRIN EC 81 MG TABLET PO (09:04)
[2020-01-17] MEDS: METOPROLOL ER 50 MG TABLET PO (09:04)
[2020-01-17] MEDS: DABIGATRAN 75 MG CAPSULE 150 MG PO (09:04)
[2020-01-17] MEDS: DOCUSATE 100 MG CAPSULE PO (09:04)
--- NOTE | 2020-01-17 09:40 | PM.DS.1 ---
History of Present Illness History of Present Illness Date Patient Seen: 01/17/20 Time Patient Seen: 09:40 Chief complaint: fluid build up in lwr legs Narrative: As per VALDO Emanuel: Terry Pack is a 74-year-old male with a history of atrial fibrillation, hypertension, diabetes type 2, and hyperlipidemia, previously admitted by [place] and early August for a new onset congestive heart failure diagnosis. He presents today to the ED with a 2-3 week history of lower extremity swelling. He was previously taking Lasix and changed over to torsemide and does not believe that has been helping. He is complaining of having low energy, diminished appetite and only eating 1 or 2 meals a day consisting of a smoothie in the morning and something light for dinner, since then, hiccups, nausea but no vomiting, he also complains of having mild constipation that he is having to take a stool softener 4. He denies chest pain but does have exertional dyspnea. On August 14 I admitted him for a new onset CHF exacerbation and he underwent an echocardiogram which showed that he had a dysfunction of the aortic valve. He was transferred to [facility] for further evaluation of having of valve replacement done and per his report was discharged home stating that he had another couple of years lasting on his aortic valve. We do not have those records at this time. Chest x-ray ordered in the ED indicated mild cardiomegaly. Patient is afebrile, blood pressure 132/79, heart rate of 102, respiratory rate 20, oxygen saturation 97% on room air, he weighs 97 kg with a BMI of 33.3. WBC 10.3, RBC 4.35, hemoglobin 14.3, hematocrit 42.8, platelet count 325, sodium 120, potassium 4.3, chloride 81, bicarb 28, BUN 35, creatinine 0.88, with a GFR of greater than 60, glucose 161, hemoglobin A1c 6.3, lactate 3.5, total bilirubin 1.4, AST 335, ALT 512, alk-phos 220, troponin at 0.031, BNP 73 40, procalcitonin is 0.12, and COVID-19 is negative. Just received records from [facility]. The patient was admitted to [facility] on August 16 day of our discharge and met with the cardiothoracic surgical team. They then transferred him for evaluation of surgical aortic valve replacement and this was not done and instead recommended medical optimization. They performed a limited echocardiogram which indicated and Aleve EF of 44% with pulmonary artery systolic pressures of 88 mm-Hg. He was volume overloaded and diuresed. He underwent coronary angiogram right and left cath that showed nonobstructive coronary disease and a hemodynamically significant lesion was noted and ostial OM 2 by pressure wire. He was recommended for a VATS left atrial appendage ligation and per their note, the patient wanted to defer this decision at the time of discharge. Per their history, the patient at that time was drinking 4 glasses of wine at that time, today he indicated in our social history he had greatly reduced his wine intake. Discharge Providers Provider Date of admission: 01/12/20 18:44 Discharge Date: 01/17/20 Primary care physician: Stanton Louis MD Discharge provider: Jean Woody DO Summary Hospital Course Discharge Diagnosis: Please see hospital course by problem list noted below. Hospital Course: Terry Pack is a 74-year-old male with a past medical history significant for systolic congestive heart failure, severe aortic stenosis, atrial fibrillation on pradaxa, hypertension, hyperlipidemia, diabetes type mellitus type 2, non-insulin using and diet controlled who presented to the ED with a 2-3 week history of lower extremity swelling, weight gain, loss of appetite failed outpatient therapy. Patient was adequately diuresed on Lasix drip and improved symptomatically after removing approximately 7.5 L. He was discharged on an increased dose of torsemide. His echocardiogram again showed severe aortic stenosis with an EF of 30-35% and right ventricular systolic dysfunction. He needs urgent follow-up with his outpatient methods study analyst for possible valve replacement which the patient is to arrange. 1. Acute systolic CHF exacerbation, present on admission. Active. -Patient presented with persistent lower extremity edema and weight gain failing outpatient diuresis. Patient denied shortness of breath, chest pain, dyspnea on exertion, orthopnea or paroxysmal nocturnal dyspnea. Chest x-ray demonstrated mild cardiomegaly and increased pulmonary vascularity consistent with mild pulmonary edema/CHF. -ProBNP elevated at 7340 on admission. -EKG demonstrated atrial fibrillation controlled rate with left bundle-branch block unchanged from previous EKG and is not meet Sgarbossa criteria. Troponin negative at 0.031 and trended down with diuresis to 0.025. -Patient is followed by Cardiology at [facility], Dr. Saturnino Caputo. ED provider discussed patient and plan of care with on-call methods study analyst, Dr. Pate, who recommended a Lasix gtt at 10 mg/hr for slow correction of hypervolemia and hyponatremia. Increase dosing at 1 point given only net negative 1L to 14 mg per hour which continued into the patient was discharged. -Net 7.5 L negative since admission. -Repeat TTE with decreased EF of 30-35% and right ventricular systolic dysfunction. Will continue to diurese as an outpatient with increased doses of torsemide and medically optimize but needs urgent follow up with his methods study analyst for possible valve replacement. Reportedly unremarkable coronary arteries on angiogram previously. 2. Acute hyponatremia, secondary to hypervolemia, present on admission. Active. -Initial sodium level 120. Sodium level trended up likely due to hypervolemia. 3. Acute congestive hepatopathy and lactic acidosis, secondary to hypervolemia, present on admission. Active. -Abdominal ultrasound demonstrated normal size liver with homogeneous in echotexture, small volume of free fluid adjacent to the liver and spleen and non-specific mild diffuse gallbladder wall thickening without additional findings of acute cholecystitis. -Initial LFT's: Total bilirubin 1.4, AST 335, ALT 512 and alkaline phosphatase 220. LFTs trended down with diuresis. -Lactic acid persistently elevated on admission at 2-4 likely due to decreased clearance? Not hypoxemic and no infectious source identified. Ultimately improved to normal. 4. Severe aortic stensosis, chronic, present on admission. -Patient is followed by Cardiology at [facility], Dr. Saturnino Caputo. -Previous echocardiogram demonstrated aortic valve is moderately calcified with significant reduction in leaflet mobility with at least moderately severe aortic stenosis with a peak transvalvular velocity of 3.0 m/s and a mean gradient of 22 mmHg although the calculated valve area is 0.7-0.8 cm. Repeat with valve area 0.6cm2, mean gradient 26mmHg, severity ratio 0.17 and decreased EF as noted above. -Patient recently evaluated for aortic valve replacement at [facility] in 08/2019 which he reported he was told he does not need a TAVR at that time, now with decreased EF will need urgent follow up after additional diuresis as noted above. 5. Chronic atrial fibrillation anticoagulated on Pradaxa, present on admission.Stable. -Continue Pradaxa 150 mg twice daily and metoprolol succinate 50 mg daily. 6. Diabetes mellitus type 2, non-insulin using, present on admission. Stable. -Hemoglobin A1c 6.3% indicative of excellent glycemic control. -Held home metformin during admission and continued on insulin sliding scale. 7. Hypertension, chronic, present on admission. Stable. -Continue home lisinopril 40 mg daily. 8. Hyperlipidemia, chronic, present on admission. Stable. -Continue home aspirin 81 mg daily and atorvastatin 80 mg daily at bedtime. Time Spent with Patient Time spent: Greater than 30 minutes Exam Vital Signs (past 8 hours): - 01/17/20 04:00 01/17/20 07:30 01/17/20 09:04 Temperature 97.9 F 97.0 F L Pulse Rate 72 80 80 Respiratory Rate 18 16 Blood Pressure 99/65 120/83 120/83 Pulse Oximetry 100 99 Oxygen Delivery Method Room Air Oxygen Flow Rate 0 Narrative Exam Narrative: General: Older male sitting in bedside chair and in no acute distress, well-developed, well-nourished, appropriately interactive. HEENT: Normocephalic, atraumatic. External ears without defect. Pupils equal, round, and reactive to light. Mildly icteric sclera. Moist conjunctivae and no lid lag. Oropharynx free of erythema and cobble stoning with moist mucosa. Neck: Supple with full range of motion. JVD. No lymphadenopathy or thyromegaly. Cardiovascular: Heart sounds distant but irregularly irregular without murmurs, rubs, or gallops appreciated. Pulmonary: Clear to auscultation bilaterally without crackles, wheezes, or rhonchi. Normal respiratory effort with no use of accessory muscles. Abdomen: Soft, obese, bowel sounds present, nontender, nondistended. Extremities: No clubbing or cyanosis. 1+ pitting edema to ankles. Skin: Normal temperature, turgor, and texture; no rash, ulcers, or subcutaneous nodules appreciated. Neurological: Cranial nerves grossly intact. Psychiatric: Normal mood and affect. Alert and oriented to person, place, and time. Objective Labs Result Diagrams: 01/17/20 05:49 01/17/20 05:49 Labs: Laboratory Results - last 24 hr 01/17/20 01/17/20 05:49 05:49 WBC 6.0 RBC 4.21 L Hgb 13.6 Hct 41.0 MCV 97.2 MCH 32.3 MCHC 33.2 RDW 14.3 Plt Count 321 Neut % (Auto) 58.9 Lymph % (Auto) 24.5 L [place] % (Auto) 11.6 Eos % (Auto) 3.8 Baso % (Auto) 1.2 Neut # (Auto) 3500 Lymph # (Auto) 1500 [place] # (Auto) 700 Eos # (Auto) 200 Baso # (Auto) 100 Sodium 132 L Potassium 3.5 Chloride 92 L Carbon Dioxide 34 H BUN 17 Creatinine 0.78 Estimated GFR > 60.0 BUN/Creatinine Ratio 21.8 Glucose 121 H Calcium 8.5 Magnesium 2.0 Total Bilirubin 1.0 Conjugated Bilirubin 0.0 Unconjugated Bilirubin 0.7 AST 36 ALT 188 H Alkaline Phosphatase 159 H Total Protein 6.3 Albumin 3.5 Globulin 2.8 Albumin/Globulin Ratio 1.3 Discharge Plan Discharge Plan Patient Disposition: Home Discharge comment: You were admitted to the hospital with volume overload and heart failure secondary to your severe aortic stenosis. Please follow up with your PMD before your anniversary trip and try and schedule a follow up as soon as possible for another evaluation for possible valve replacement. Discharge orders & Medications Prescriptions: Continued metformin 750 mg tablet extended release 24 hr 750 mg PO BID RF: 0 lisinopril 40 mg tablet 10 mg PO QPM RF: 0 aspirin 81 mg tablet,delayed release (DR/EC) 81 mg PO QAM RF: 0 cholecalciferol (vitamin D3) 1,000 unit/drop drops 1,000 unit PO QPM RF: 0 atorvastatin 80 mg Tablet 80 mg PO BEDTIME RF: 0 potassium chloride 10 mEq Capsule, Extended Release 10 meq PO DAILY RF: 0 spironolactone [Aldactone] 25 mg Tablet 25 mg PO DAILY RF: 0 omega 4-qhb-dkg-fish oil [Fish Oil] 1,000 mg (120 mg-180 mg) Capsule 1 cap PO TID RF: 0 metoprolol succinate [Toprol XL] 50 mg Tablet Extended Release 24 Hr 50 mg PO DAILY RF: 0 Pradaxa 150 mg Capsule 150 mg PO BID RF: 0 cyanocobalamin (vitamin B-12) 2,500 mcg Tablet 2,500 mcg PO DAILY RF: 0 Changed torsemide 20 mg Tablet 40 mg PO BID 30 Days Qty: 120 RF: 0 Follow up/Referrals: Stanton Louis MD [Primary Care Provider] - (Follow up appointment as previously scheduled. Hospital-Lab draw on TuesdayJanuary 20.) Visit Report/Discharge Packet Instructions: Heart-Healthy Diet, DI for Heart Failure Visit Report Forms: Patient Portal/API, Stroke Signs & Symptoms Discharge Data Primary Care Provider: Stanton Louis V Discharges patient from system. Discharge Date/Time: 01/17/20 13:11 Quality VTE Deep Vein Thrombosis/Pulmonary Embolism Present on Admission: No
--- NOTE | 2020-01-17 11:55 | PC.NURSE ---
Addendum entered by Sarah Beth Reynolds R.N. 01/17/20 13:11: pt left unit at 1311 in no distress via wheelchair with POSTPARTUM NURSE escort and all personal belongings. Addendum entered by Sarah Beth Reynolds R.N. 01/17/20 12:46: Discharge summary packet reviewed with pt. Heart Failure Guideline Green/yellow/red. Reviewed monitoring blood pressure and heart rate at home, pt states he checks his blood pressure daily and weighs himself daily. Encouraged heart healthy, ADA diet. Pt states he has a lot of home cooked meals, low sodium foods. His does most of the cooking and states they eat healthy. No further voiced concerns. Pt's will be waiting at ER entrance around 1315 to chicken picker pt for discharge. Pt aware to chicken picker changed of prescription of his Torsemide from [facility]. Original Note: Day Shift- pt A&OX4, indep in room with steady gait. Able to make needs known using call light. Denies pain, chest pain or pressure, shortness of breath, nausea. States BLE edema appears better than yesterday. This RN agrees that pt has 2+ pitting edema to BLE from tellez to below knee and 3+ from tellez to foot with puffy dorsal feet. LLE>RLE is normal for pt. Pt adhering to fluid restriction this shift. Using urinal, voiding qs. Okay to keep lasix infusion continuing until discharge. Pt plans to have his pick him up at 1300 for discharge home. Pt states has all his belongings in his room. Pt has follow up appointment with Dr. Louis and aware to follow up on TuesdayJanuary 20 for lab draw at the hospital. No other voiced concerns.
[2020-01-17 12:00] VITALS: BP 95/74; PULSE 90; RESP 16; O2SAT 98
--- NOTE | 2020-01-17 12:21 | CM.DPC ---
DCP: continued: case received, EMR reviewed. Dr. Woody stated in Team Rounds that pt was ok'd for d/c home today and DARYN Burleson noted that pt's would be here at 1300 to take him home. Pt has a followup appt set with his PCP: Dr. Louis. P: home today as noted.
== END 2020-01-17 13:11 | disposition home or self-care (01) | DRG 291 ==
LOC: ED 16:04 → AC 18:45
PROVIDERS: Internal Medicine; Nurse Practitioner Family; Admitting Provider Internal Medicine; Emergency Provider Nurse Practitioner; Family Provider Internal Medicine; PCP Internal Medicine; Referring Provider Nurse Practitioner; Visit Provider Internal Medicine
DX: I11.0 Hypertensive heart disease with heart failure (principal); I50.21 Acute systolic (congestive) heart failure; E87.1 Hypo-osmolality and hyponatremia; I48.20 Chronic atrial fibrillation, unspecified; E87.2 Acidosis; E87.5 Hyperkalemia; I35.0 Nonrheumatic aortic (valve) stenosis; R74.01 Elevation of levels of liver transaminase levels; E11.9 Type 2 diabetes mellitus without complications; E78.5 Hyperlipidemia, unspecified; Z79.84 Long term (current) use of oral hypoglycemic drugs
CPT/HCPCS: 36415; 36592; 71046; 76700; 80048; 80053; 80074; 80076; 82533; 82550; 82553; 82962; 83036; 83605; 83690; 83735; 83880; 84145; 84484; 85025; 87635; 90471; 90662; 93005; 93306; 99284; J1940

== ENCOUNTER → 2020-01-22 19:38 | Outpatient (ROUT) | payer MEDICARE, SELFPAY ==
[2020-01-12 20:17] VITALS: BMI 33.3
[2020-01-22 20:01] LABS: BUN Creatinine Ratio 43.9 (6-22); Blood Urea Nitrogen 36 mg/dL (9-20); Calcium 9.2 mg/dL (8.4-10.2); Carbon Dioxide 30 mmol/L (22-32); Chloride 86 mmol/L (98-107); Estimated Glomerular Filt Rate > 60.0 mL/min (>60); Glucose 119 mg/dL (80-110); HEMOLYSIS 20 (0-50); Magnesium 1.8 mg/dL (1.6-2.3); Potassium 4.6 mmol/L (3.4-5.1); Sodium 126 mmol/L (137-145)
== END ==
PROVIDERS: Family Provider Internal Medicine; PCP Internal Medicine; Visit Provider Internal Medicine
DX: I50.22 Chronic systolic (congestive) heart failure (principal); E83.42 Hypomagnesemia
CPT/HCPCS: 80048; 83735

== ENCOUNTER → 2020-01-30 19:56 | Outpatient (ROUT) | payer MEDICARE, SELFPAY ==
[2020-01-12 20:17] VITALS: BMI 33.3
[2020-01-30 20:36] LABS: BUN Creatinine Ratio 48.8 (6-22); Blood Urea Nitrogen 39 mg/dL (9-20); Calcium 9.1 mg/dL (8.4-10.2); Estimated Glomerular Filt Rate > 60.0 mL/min (>60); Glucose 131 mg/dL (80-110); HEMOLYSIS < 15 (0-50); Magnesium 1.7 mg/dL (1.6-2.3); Sodium 122 mmol/L (137-145)
[2020-01-30 20:42] LABS: Carbon Dioxide 39 mmol/L (22-32)
[2020-01-30 21:58] LABS: Chloride 75 mmol/L (98-107)
== END ==
PROVIDERS: Family Provider Internal Medicine; PCP Internal Medicine; Visit Provider Internal Medicine
DX: I10 Essential (primary) hypertension (principal); E83.42 Hypomagnesemia
CPT/HCPCS: 80048; 83735

== ENCOUNTER 2020-01-30 22:52 | Inpatient (IN) | payer MEDICARE, SELFPAY ==
[2020-01-12 20:17] VITALS: BMI 33.3
[2020-01-30 23:01] VITALS: BP 103/63; PULSE 91; RESP 17; TEMP 36.5; O2SAT 100; BMI 29.6
--- NOTE | 2020-01-30 23:09 | DI.RAD.S_ITS ---
PROCEDURE: XR CHEST 1V INDICATIONS: fatigue, critical aortic stenosis TECHNIQUE: One view of the chest was acquired. COMPARISON: [facility], CR, XR CHEST 2V, 08/14/2019, 16:20. [facility], CR, XR CHEST 2V, 01/12/2020, 16:21. FINDINGS: Surgical changes and devices: None. Lungs and pleura: Lungs are clear. No pleural effusions or pneumothorax. Mediastinum: Mediastinal contours appear normal. Heart size is mildly increased. Bones and chest wall: No suspicious bony lesions. Overlying soft tissues appear unremarkable. IMPRESSION: Mild cardiomegaly. Dictated by: Edgar Lui M.D. on 01/31/2020 at 8:27 Approved by: Edgar Lui M.D. on 01/31/2020 at 8:28
--- NOTE | 2020-01-30 23:10 | ED.RECABL ---
HPI - Recheck/Abnormal Lab/Rx General Chief Complaint: Recheck/Abnormal Lab/Rx Stated Complaint: abnormal labs Time Seen by Provider: 01/30/20 22:58 Source: patient Mode of arrival: Ambulatory Limitations: no limitations History of Present Illness HPI narrative: 74-year-old male nonsmoker with history of critical aortic stenosis, hypertension, hyperlipidemia and CHF presents with his at the request of his primary care provider. He had routine labs drawn today and it was noted that his sodium was 122, potassium was 3.0, chloride was a bit down as well. The patient states that he feels at his baseline and has no complaints. He denies any dizziness, weakness or lightheadedness. He denies any chest pain or shortness of breath. He denies nausea, vomiting or diarrhea. He was admitted in the hospital few weeks ago for acute CHF and had been on a Lasix drip. He denies any change in his diuretics. He denies any dietary change. He was called at home by his PCP and encouraged to present to the emergency department for evaluation, stabilization and definitive care. He has been told that he is in need of a new aortic valve, his campaign developer is at [place] (Dr. Anish BALLARD complaint: abnormal lab Related Data Home Medications Medication Instructions Recorded Confirmed aspirin 81 mg tablet,delayed 81 mg PO QAM 08/14/19 01/30/20 release cholecalciferol (vitamin D3) 1,000 unit PO QPM 08/14/19 01/30/20 lisinopril 40 mg tablet 10 mg PO QPM 08/14/19 01/30/20 metformin 750 mg tablet,extended 750 mg PO BID 08/14/19 01/30/20 release 24 hr atorvastatin 80 mg PO BEDTIME 01/10/20 01/30/20 potassium chloride 10 meq PO DAILY 01/10/20 01/30/20 Pradaxa 150 mg PO BID 01/12/20 01/30/20 cyanocobalamin (vitamin B-12) 2,500 mcg PO DAILY 01/12/20 01/30/20 metoprolol succinate [Toprol XL] 50 mg PO DAILY 01/12/20 01/30/20 omega 1-ulw-byg-fish oil [Fish Oil] 1 cap PO TID 01/12/20 01/30/20 spironolactone [Aldactone] 25 mg PO DAILY 01/12/20 01/30/20 metolazone 5 mg PO DAILY 01/31/20 01/31/20 Previous Rx's Medication Instructions Recorded torsemide 40 mg PO BID 30 Days #120 tab 01/17/20 Allergies Allergy/AdvReac Type Severity Reaction Status Date / Time No Known Drug Allergies Allergy Verified 01/12/20 16:11 Review of Systems Constitutional Constitutional: Denies chills, Denies fatigue, Denies fever(s), Denies frequent falls, Denies lethargy and Denies weakness Eyes Eyes: Denies change in vision, Denies eye discharge, Denies irritation and Denies loss of vision ENT Ears, Nose, Mouth, and Throat: Denies change in voice, Denies dizziness, Denies neck pain, Denies sore throat and Denies throat swelling Cardiovascular Cardiovascular: Denies chest pain, Denies irregular heart rhythm, Denies lightheadedness, Denies palpitations, Denies dyspnea, Denies dyspnea on exertion and Denies orthopnea Respiratory Respiratory: Denies cough, Denies dyspnea, Denies dyspnea on exertion and Denies wheezing Gastrointestinal Gastrointestinal: Denies abdominal pain, Denies change in bowel habits, Denies diarrhea, Denies nausea and Denies vomiting Musculoskeletal Musculoskeletal: Denies neck pain and Denies numbness Integumentary/Breasts Skin/Breast: Denies pruritus, Denies erythema, Denies rash and Denies wounds Neurologic Neurologic: Denies behavioral changes, Denies confusion, Denies dizziness, Denies frequent falls, Denies loss of vision, Denies numbness and Denies weakness Psychiatric Psychiatric: Denies anxiety, Denies behavioral changes, Denies confusion, Denies depression, Denies homicidal ideation and Denies suicidal ideation Endocrine Endocrine: Denies fatigue, Denies flushing and Denies palpitations Hematologic/Lymphatic Hematologic/Lymphatic: Denies easy bruising Allergic/Immunologic Allergic/Immunologic: Denies urticaria, Denies throat swelling and Denies wheezing Patient History Medical History (Updated 01/31/20 @ 02:22 by Max Renner DO) Atrial fibrillation, chronic (Acute) Diabetes type 2, controlled (Chronic) Enlarged prostate (Acute) Essential hypertension (Chronic) Heart failure (Acute) Wears glasses (Acute) Family History (Updated 01/13/20 @ 01:31 by VALDO Emanuel) Mother CVA (cerebral vascular accident) Father Heart disease Social History household members: spouse Smoking Status: Never smoker alcohol intake: current Smoking Status: Never smoker alcohol intake frequency: a few times a week Substance Use Type: does not use Exam Narrative Exam Narrative: GENERAL: [74] year old patient appears stated age. Well-nourished, well-developed patient, in mild distress. HEAD: Atraumatic. Normocephalic. EYES: Pupils equal round and reactive. Extraocular motions intact. No scleral icterus. No injection or drainage. ENT: Dry mucous membranes Nose without bleeding, purulent drainage. Throat without erythema, tonsillar hypertrophy or exudate. Airway patent. NECK: Trachea midline. Non tender CARDIOVASCULAR: Regular rate and rhythm without murmurs, gallops, or rubs. RESPIRATORY: No respiratory distress, crackles noted in bilateral bases GASTROINTESTINAL: Abdomen soft, non-tender, nondistended. EXTREMITIES: 2+ pitting edema in bilateral lower extremities. BACK: Nontender without deformity or crepitance. No flank tenderness. NEURO: AOx3. SKIN: Poor skin turgor No rash or erythema of visible areas Initial Vital Signs Initial Vital Signs: Vital Signs Temperature 97.7 F 01/30/20 23:01 Pulse Rate 91 H 01/30/20 23:01 Respiratory Rate 17 01/30/20 23:01 Blood Pressure 103/63 01/30/20 23:01 Pulse Oximetry 100 01/30/20 23:01 Course Orders Ordered: ED Orders 01/30/20 23:09 XR chest 1V Stat 01/30/20 23:10 Complete Blood Count AUTO DIFF Stat Comprehensive Metabolic Panel Stat Magnesium Stat NT-proBNP (BNP-Adult 18+) Stat Procalcitonin Stat Prothrombin Time INR Stat Troponin & CK Cardiac Panel Stat EKG-12 Lead Stat 01/31/20 Comprehensive Metabolic Panel Routine 01/31/20 00:25 COVID19 -ED/INPAT/OR/L&D Stat 01/31/20 00:32 CT head/brain wo con Stat 01/31/20 01:48 Education, smoking cessation ONGOING 01/31/20 05:00 Magnesium Routine NT-proBNP (BNP-Adult 18+) Routine Acetaminophen (Tylenol) 650 mg PO Q6HR PRN PRN Reason: Fever/Mild Pain (1-3) Aspirin (Aspirin Ec) 81 mg PO QAM [facility] Atorvastatin Calcium (Lipitor) 80 mg PO BEDTIME [facility] Dextrose (D50w) 25 gm IV PRN PRN; Protocol PRN Reason: Hypoglycemia Sodium Chloride (Normal Saline 0.9%) 1,000 mls @ 75 mls/hr IV CONT [facility] Insulin Aspart (Novolog Flexpen) 0 unit SUBCUT ACHS SHEA; Protocol Lisinopril (Zestril) 10 mg PO QPM [facility] Magnesium Oxide (Mag Ox) 400 mg PO DAILY [facility] Metoprolol Succinate (Toprol Xl) 50 mg PO DAILY [facility] Naloxone HCl (Narcan) 0.2 mg IV Q2MIN PRN PRN Reason: Opiate Reversal Non-Formulary Medication (Dabigatran Etexilate [Pradaxa]) 150 mg PO BID SHEA Ondansetron HCl (Zofran) 4 mg IV Q8HR PRN PRN Reason: Nausea And Vomiting Discontinued Medications Potassium Chloride (Klor-Con M20) 40 meq PO NOW ONE Stop: 01/31/20 02:10 Consultations Consultation #1: call to hospitalist. Given complexity of history it may behoove patient to be at the facility where his campaign developer is given likely difficulty with fluid management in this complex patient Consultation #2: call to [facility]. Currently no beds. Patient largely refuses to go to another facility. Call to campaign developer solution spec at [place]. He recommends very gentle hydration, repeat echocardiogram, repeated labs. He is ok with patient staying here for admission. Consultation #3: call back to hospiatlist. Happy to keep patient here with above information. Vital Signs Vital signs: Vital Signs - 8 hr 01/30/20 23:01 Temperature 97.7 F Pulse Rate 91 H Respiratory Rate 17 Blood Pressure 103/63 Pulse Oximetry 100 MDM - Recheck/Abnormal Lab/Rx Lab Data Result diagrams: 01/30/20 23:10 01/30/20 23:10 Labs: Lab Results 01/30/20 01/30/20 01/30/20 Range/Units 23:10 23:10 23:10 WBC 9.1 (4.5-11.0) X10^3/uL RBC 4.40 L (4.5-5.9) X10^6/uL Hgb 13.9 (13.5-17.5) g/dL Hct 41.3 (41-53) % MCV 93.9 (80-100) fL MCH 31.7 (26-34) PG MCHC 33.7 (30-36) % RDW 15.2 H (11.6-14.8) % Plt Count 355 (150-400) X10^3/uL Neut % (Auto) 72.7 (50-75) % Lymph % (Auto) 14.4 L (25-40) % Jackson % (Auto) 11.1 (3-14) % Eos % (Auto) 1.1 L (2-4) % Baso % (Auto) 0.7 (0-2) % Neut # (Auto) 6600 (4147-1026) /uL Lymph # (Auto) 1300 (8603-3791) /uL Jackson # (Auto) 1000 H (0-900) /uL Eos # (Auto) 100 (0-450) /uL Baso # (Auto) 100 (0-100) /uL PT 16.0 H (10.1-12.7) SECONDS INR 1.4 H (0.9-1.3) Sodium 118 L* (137-145) mmol/L Potassium 3.2 L (3.4-5.1) mmol/L Chloride 72 L* (98-107) mmol/L Carbon Dioxide 36 H (22-32) mmol/L BUN 49 H (9-20) mg/dL Creatinine 0.92 (0.66-1.25) mg/dL Estimated GFR > 60.0 (>60) mL/min BUN/Creatinine Ratio 53.3 H (6-22) Glucose 159 H (80-110) mg/dL Calcium 8.9 (8.4-10.2) mg/dL Magnesium 1.8 (1.6-2.3) mg/dL Total Bilirubin 1.0 (0.2-1.3) mg/dL AST 36 (17-59) IU/L ALT 42 (<50) IU/L Alkaline Phosphatase 178 H (38-126) U/L Total Creatine Kinase 58 (55-170) U/L CK-MB (CK-2) TNP CK-MB (CK-2) Rel Index TNP Troponin I 0.035 H (0.01-0.034) ng/mL NT-Pro-B Natriuret Pep 2460 H (<125) pg/mL Total Protein 7.3 (6.3-8.2) g/dL Albumin 4.1 (3.5-5.0) g/dL Globulin 3.2 (1.7-4.1) g/dL Albumin/Globulin Ratio 1.3 (1.0-2.8) Procalcitonin (<0.5) ng/mL COVID-19 PCR (Negative) 01/30/20 01/31/20 Range/Units 23:10 00:25 WBC (4.5-11.0) X10^3/uL RBC (4.5-5.9) X10^6/uL Hgb (13.5-17.5) g/dL Hct (41-53) % MCV (80-100) fL MCH (26-34) PG MCHC (30-36) % RDW (11.6-14.8) % Plt Count (150-400) X10^3/uL Neut % (Auto) (50-75) % Lymph % (Auto) (25-40) % Jackson % (Auto) (3-14) % Eos % (Auto) (2-4) % Baso % (Auto) (0-2) % Neut # (Auto) (9856-1571) /uL Lymph # (Auto) (6024-8874) /uL Jackson # (Auto) (0-900) /uL Eos # (Auto) (0-450) /uL Baso # (Auto) (0-100) /uL PT (10.1-12.7) SECONDS INR (0.9-1.3) Sodium (137-145) mmol/L Potassium (3.4-5.1) mmol/L Chloride (98-107) mmol/L Carbon Dioxide (22-32) mmol/L BUN (9-20) mg/dL Creatinine (0.66-1.25) mg/dL Estimated GFR (>60) mL/min BUN/Creatinine Ratio (6-22) Glucose (80-110) mg/dL Calcium (8.4-10.2) mg/dL Magnesium (1.6-2.3) mg/dL Total Bilirubin (0.2-1.3) mg/dL AST (17-59) IU/L ALT (<50) IU/L Alkaline Phosphatase (38-126) U/L Total Creatine Kinase (55-170) U/L CK-MB (CK-2) CK-MB (CK-2) Rel Index Troponin I (0.01-0.034) ng/mL NT-Pro-B Natriuret Pep (<125) pg/mL Total Protein (6.3-8.2) g/dL Albumin (3.5-5.0) g/dL Globulin (1.7-4.1) g/dL Albumin/Globulin Ratio (1.0-2.8) Procalcitonin < 0.05 (<0.5) ng/mL COVID-19 PCR Negative (Negative) Imaging Data CT scan - head: Radiologist's Impression: No acute disease MDM Narrative Medical decision making narrative: Patient presents a difficult fluid and electrolyte management scenario. He has critical aortic stenosis and history of associated CHF. He was recently admitted for CHF and is now down 15 pounds from his admission weight, and shows some signs of overdiuresis including his lab abnormalities, dry mucous membranes and poor skin turgor. However, he has crackles in his lung bases and demonstrates 2+ pitting edema in lower extremities. He requires no supplemental oxygen and CXR is much improved over his last. He requires admission for stabilization of his condition and ongoing lab evaluation as well as echo. Discharge Plan Departure Patient Disposition: Admitted As Inpatient Clinical Impression: Acute hyponatremia Aortic stenosis Qualifiers: Cardiac valve disease etiology: etiology unspecified Qualified Code(s): I35.0 - Nonrheumatic aortic (valve) stenosis Admit Date/Time: 01/31/20 01:54 Admit Provider: Jean Vargas
[2020-01-30 23:18] LABS: Add Manual Diff / Slide Review NO; Basophils Absolute Auto 100 /uL (0-100); Basophils Percent Auto 0.7 % (0-2); Eosinophils Absolute Auto 100 /uL (0-450); Eosinophils Percent Auto 1.1 % (2-4); Hematocrit 41.3 % (41-53); Hemoglobin 13.9 g/dL (13.5-17.5); Lymphocytes Absolute Auto 1300 /uL (1100-4500); Lymphocytes Percent Auto 14.4 % (25-40); Mean Corpuscular HGB Conc 33.7 % (30-36); Mean Corpuscular Hemoglobin 31.7 PG (26-34); Mean Corpuscular Volume 93.9 fL (80-100); Monocytes Absolute Auto 1000 /uL (0-900); Monocytes Percent Auto 11.1 % (3-14); Neutrophils Absolute Auto 6600 /uL (1500-7000); Neutrophils Percent Auto 72.7 % (50-75); Platelet Count 355 X10^3/uL (150-400); Red Cell Distribution Width 15.2 % (11.6-14.8); White Blood Cell Count 9.1 X10^3/uL (4.5-11.0)
[2020-01-30 23:24] LABS: INR 1.4 (0.9-1.3)
[2020-01-30 23:31] LABS: Alanine Aminotransferase 42 IU/L (<50); Albumin 4.1 g/dL (3.5-5.0); Albumin Globulin Ratio 1.3 (1.0-2.8); Alkaline Phosphatase 178 U/L (38-126); Aspartate Aminotransferase 36 IU/L (17-59); BUN Creatinine Ratio 53.3 (6-22); Blood Urea Nitrogen 49 mg/dL (9-20); Calcium 8.9 mg/dL (8.4-10.2); Creatine Kinase 58 U/L (55-170); Estimated Glomerular Filt Rate > 60.0 mL/min (>60); Globulin 3.2 g/dL (1.7-4.1); Glucose 159 mg/dL (80-110); HEMOLYSIS < 15 (0-50); Magnesium 1.8 mg/dL (1.6-2.3); Potassium 3.2 mmol/L (3.4-5.1); Total Protein 7.3 g/dL (6.3-8.2)
[2020-01-30 23:37] LABS: Carbon Dioxide 36 mmol/L (22-32)
[2020-01-30 23:42] VITALS: PULSE 89; RESP 21; O2SAT 98
[2020-01-30 23:42] LABS: Sodium 118 mmol/L (137-145)
[2020-01-30 23:43] LABS: Chloride 72 mmol/L (98-107); NT-proBNP (BNP-Adult 18+) 2460 pg/mL (<125); Troponin I 0.035 ng/mL (0.01-0.034)
[2020-01-30 23:56] LABS: Procalcitonin < 0.05 ng/mL (<0.5)
[2020-01-31] VITALS (13 sets, daily range): BP systolic 91–126; BP diastolic 53–77; PULSE 77–99; RESP 13–31; TEMP 36.1–36.6; O2SAT 96–100
--- NOTE | 2020-01-31 | DI.ECHO.S_ITS ---
[facility] +---------+ [facility] +---------+ : : [address] : : : [place], [place] : : : : [id number] : : : : Phone: [phone]+ Echocardiogram Report + + :Name: ISRRAEL ROSALES Study Date: 01/31/2020 Height: 68 in : :[facility] Weight: 295 lb : : Gender: Male BSA: 2.4 m2 : :: 1945 Age: 74 yrs BP: 106/66 mmHg: :Reason For Study: AORTIC STENOSIS : :Ordering Physician: Kena : :Hospitalist Performed By: Mishel Shah : :Referring: ELLIOT WAYNE : + + Interpretation Summary This is a limited echo ordered to reassess aortic stenosis and left ventricular systolic function. The left ventricle remains moderately enlarged with an estimated left ventricular end-diastolic volume of 183 mL, similar to the 193 mL previously. There continues to be moderate to severely reduced left ventricular systolic function with an estimated ejection fraction of 30 to 35% with moderate to severe global hypokinesis and a significant dyssynchronous contraction pattern and abnormal septal motion, consistent with a conduction abnormality and unchanged from the previous study. There are no obvious focal wall motion abnormalities. There has been no significant change from the previous study. The right ventricle grossly appears moderately enlarged and moderately hypokinetic, similar to the previous exam. Right ventricular systolic pressure is estimated at 52 mmHg with a CVP of 15 mmHg, unchanged from the previous exam. There is severe biatrial enlargement. The left atrium has mildly decreased in size since the previous study. The aortic valve remains moderate to severely calcified with severely reduced leaflet mobility with a peak transvalvular velocity of 3.3 m/s with a mean gradient of 28 mmHg and a calculated valve area of around 0.7 job training specialist? with a severity ratio of 0.20, likely consistent with severe aortic stenosis, and is compared to 3.1 m/s, 26 mmHg, 0.6 job training specialist? and a severity ratio of 0.17, respectively, on the previous exam, suggesting the absence of significant change. While not fully evaluated, there continues to likely be moderate to severe mitral regurgitation and moderate tricuspid regurgitation. Procedure: A two-dimensional transthoracic echocardiogram with color flow and Doppler was performed in limited views only. The study quality was technically limited. Comparison is made with the echocardiogram of 01/13/2020. The study quality was technically adequate. The patient was in atrial fibrillation with heart rates between 82-97 bpm during the exam. Left Ventricle: The estimated left ventricular end diastolic volume is 183 ml. The left ventricle is moderately dilated. This is unchanged compared to the previous study. Left ventricular systolic function is moderate to severely reduced. The ejection fraction is estimated to be 30-35%. There is moderate to severe global hypokinesis of the left ventricle. Septal motion is consistent with conduction abnormality. There is a significant dyssynchronous contraction pattern, consistent with a conduction abnormality. There are no other obvious focal wall motion abnormalities. There has been no significant change since the previous study. Right Ventricle: The right ventricle is moderately dilated. Right ventricular systolic function is moderately reduced. This is unchanged compared to the previous study. Atria: There is severe biatrial enlargement. The left atrium has mildly decreased in size since the prior echo exam. Mitral Valve: There is moderate to severe mitral regurgitation. Aortic Valve: The aortic valve is severely calcified. There is severe aortic stenosis. The peak aortic velocity is 3.3 m/sec. The aortic valve mean gradient is 28 mmHg. The calculated aortic valve area is .66 cm2. No aortic regurgitation is present. Tricuspid Valve: The right ventricular systolic pressure is estimated to be at least 52 mmHg based on an estimated right atrial pressure of 15 mm Hg. This is unchanged compared to the previous study. Great Vessels: The IVC is dilated (diameter is greater than 2.1 cm) and it collapses less than 50% with a sniff. This suggests a high right atrial pressure of 15 mm Hg. Pericardium/ Pleura There is no pericardial effusion. There is no pleural effusion. MMode/2D Measurements & Calculations LVIDd: 5.7 cm LVOT diam: 2.1 cm LVIDs: 4.9 cm FS: 14.0 % EPSS: 1.3 cm IVSd: 1.3 cm LVPWd: 1.1 cm LV dempsey. diameter/BSA (cm/m^2): 2.4 LV sys. diameter/BSA (cm/m^2): 2.0 LA A2 area: 39.2 cm2 RA long axis: 7.2 cm LA A4 area: 32.3 cm2 RA area: 33.5 cm2 LA length (vol): 7.0 cm RA vol: 132.4 ml LA vol: 153.3 ml RA : 54.9 ml/m2 LA vol index: 63.6 ml/m2 IVC diam: 3.0 cm RVD1 (basal): 5.2 cm TAPSE: 1.5 cm Doppler Measurements & Calculations Ao V2 max: 327.7 cm/sec LVOT Max Michael: 69.0 cm/sec Ao V2 mean: 258.4 cm/sec LV V1 max P.9 mmHg Ao max P.0 mmHg LV V1 VTI: 12.3 cm Ao mean P.0 mmHg SUZAN(I,D): 0.66 cm2 Ao V2 VTI: 62.9 cm SUZAN(V,D): 0.71 cm2 sev ratio: 0.20 SUZAN indexed to BSA (cm^2/m^2): 0.27 TR max michael: 305.2 cm/sec SV(LVOT): 41.3 ml TR max P.3 mmHg Reading Physician:12:42 PM
--- NOTE | 2020-01-31 00:32 | DI.CT.S_ITS ---
PROCEDURE: CT HEAD/BRAIN WO CON INDICATIONS: confusion, hyponatremia, potential SIADH TECHNIQUE: Noncontrast 4.5 mm thick angled axial sections acquired from the foramen magnum to the vertex, with coronal and sagittal reformats. For radiation dose reduction, the following was used: automated exposure control, adjustment of mA and/or kV according to patient size. COMPARISON: None. FINDINGS: Image quality: Excellent. CSF spaces: Basal cisterns are patent. No extra-axial fluid collections. The ventricles are symmetric in size and shape. Brain: No intracranial bleeds or masses. There is cerebral volume loss for age, with resultant ventricular and sulcal prominence. There are periventricular and deep white matter chronic small vessel ischemic changes. There is intracranial internal carotid artery atherosclerosis. Skull and face: Calvarium and visualized facial bones appear intact, without suspicious lesions. Sinuses: Visualized sinuses and mastoids are clear. IMPRESSION: 1. CT head without acute intracranial abnormalities or acute calvarial fractures. 2. Age-related senescent changes and sequela of chronic small vessel ischemic disease. No significant discrepancy with the retail shift manager radiology preliminary report. Dictated by: Jeanmarie Linn M.D. on 01/31/2020 at 7:16 Approved by: Jeanmarie Linn M.D. on 01/31/2020 at 7:17
[2020-01-31 00:44] LABS: COVID19 -Nasal RAPID Negative (Negative)
[2020-01-31] MEDS: POTASSIUM CHLORIDE 20 MEQ TAB 40 MEQ PO ×2 (03:03→22:42)
[2020-01-31] MEDS: SODIUM CHLORIDE 0.9% 1,000 ML 75 ML IV ×2 (03:03→14:38)
[2020-01-31] MEDS: ASPIRIN EC 81 MG TABLET PO ×2 (03:04→08:26)
[2020-01-31] MEDS: MAGNESIUM OXIDE 400 MG TABLET PO ×2 (03:04→08:26)
--- NOTE | 2020-01-31 03:09 | P.HP_ITS ---
History of Present Illness History of Present Illness Date Patient Seen: 01/31/20 Time Patient Seen: 02:41 Chief complaint: abnormal labs Narrative: Mr. Terry Pack is a 74-year-old male with a history of atrial fibrillation (anticoagulated on Pradaxa), severe aortic stenosis, hypertension, diabetes type 2 hyperlipidemia and congestive heart failure with r educed ejection fraction presents to the ER for further evaluation of abnormal labs the request his primary care provider. The patient states that he was having a great day today with no complaints of pain or problems. He recent ports receiving a call this evening in follow-up to recent labs indicating that he had a severely sodium and potassium and was told he could have seizure into present to the ER for further evaluation and treatment. Patient was recently hospitalized at [facility] from 01/11/2022 01/17/2020 for acute exacerbation of congestive heart failure. At that time the patient extensive diuresis removing 7.5 L of fluid and being discharged on continuing diuretic therapy. Since discharge the patient states he has lost 15 lb. He denies any associated complaints stating he feels well and felt no untoward affects of his electrolyte derangement. He denies any recent illness, flu symptoms, fevers or chills. He denies complaints of chest pain and has had no palpitations. Denies complaints shortness of breath has a mild intermittent cough and denies wheezing. Denies abdominal pain, nausea vomiting, diarrhea or constipation. He is ambulatory without dizziness or weakness. Upon arrival to the ER he is afebrile with temperature 97.7?, heart rate 91, blood pressure 103/63, respiratory rate of 17 saturating 100% on room air. A chest x-ray is obtained finding enlarged cardiac silhouette but no overt infiltrates or pleural effusions. A CT of the head was and which was unremarkable. Twelve lead EKG finds atrial fibrillation with a controlled rate of 86, left bundle branch block with left axis shift, increased left ventricular voltage and increased QRS interval at 180 milliseconds and prolonged QTC at 572 milliseconds. On laboratory analysis has white count 9.1, hemoglobin of 13.9, hematocrit of 41.3, platelets of 355. He has a PT of 16.0 and INR 1.4. Admitting sodium was 122 which was checked 3 hours later and dropped to 118. His potassium is 3.2 and has a BUN of 49 and a creatinine is 0.92. His nonfasting glucose is 159. Has an EGFR greater than 60 and has a BUN creatinine ratio 53.3. His magnesium is 1.8. On liver function he has a total bilirubin of 1.0, AST of 36, ALT of 42 and alkaline phosphatase 178. He has a total CK of 58 and a tr oponin 0.035. His elevated proBNP at 2460. Procalcitonin is negative at less than 0.05. COVID-19 screening is negative. Discussions held with the ER provider current the patient's tenuous cardiac status with an EF of 30-35% on previous echo dated 01/13/2020. Also noted is severe aortic stenosis with a valvular area of 0.6 and a gradient of 261 with severity ratio 0.17. In light of rehydration in a patient that is intolerant of fluid due to his aortic stenosis the ER provider spoke with cardiology at [facility] or the patient receives his care. The patient does not wish transfer at this time and is admitted to the medicine service for cautious gentle rehydration following over- diuresis and hyponatremia and hypokalemia. Patient History Medical History Atrial fibrillation, chronic (Acute) Diabetes type 2, controlled (Chronic) Enlarged prostate (Acute) Essential hypertension (Chronic) Heart failure (Acute) Wears glasses (Acute) Family & Social History Family History Mother CVA (cerebral vascular accident) Father Heart disease Social History: household members spouse Safety & Behavioral: Feels Safe in Current Yes Environment Tobacco & Substance use: Smoking Status Never smoker alcohol intake current alcohol intake frequency a few times a week Substance Use Type does not use Meds Home Medications and Allergies Home Medications Medication Instructions Recorded Confirmed Type aspirin 81 mg tablet,delayed 81 mg PO QAM 08/14/19 01/30/20 History release cholecalciferol (vitamin D3) 1,000 unit PO QPM 08/14/19 01/30/20 History lisinopril 40 mg tablet 10 mg PO QPM 08/14/19 01/30/20 History metformin 750 mg tablet,extended 750 mg PO BID 08/14/19 01/30/20 History release 24 hr atorvastatin 80 mg PO BEDTIME 01/10/20 01/30/20 History potassium chloride 10 meq PO DAILY 01/10/20 01/30/20 History Pradaxa 150 mg PO BID 01/12/20 01/30/20 History cyanocobalamin (vitamin B-12) 2,500 mcg PO DAILY 01/12/20 01/30/20 History metoprolol succinate [Toprol XL] 50 mg PO DAILY 01/12/20 01/30/20 History omega 9-[id number]-[id number]-fish oil [Fish Oil] 1 cap PO TID 01/12/20 01/30/20 History spironolactone [Aldactone] 25 mg PO DAILY 01/12/20 01/30/20 History torsemide 40 mg PO BID 30 Days #120 tab 01/17/20 01/30/20 Rx metolazone 5 mg PO DAILY 01/31/20 01/31/20 History Allergies Allergy/AdvReac Type Severity Reaction Status Date / Time No Known Drug Allergies Allergy Verified 01/12/20 16:11 Review of Systems Review of Systems ROS: Yes All systems reviewed with the patient and are negative except as otherwise documented Exam Vital Signs (past 8 hours): - 01/30/20 23:01 01/30/20 23:42 01/31/20 00:00 Temperature 97.7 F Pulse Rate 91 H 89 91 H Respiratory Rate 17 21 28 H Blood Pressure 103/63 101/60 Pulse Oximetry 100 98 01/31/20 00:30 01/31/20 01:00 01/31/20 01:30 Temperature Pulse Rate 84 88 85 Respiratory Rate 13 15 14 Blood Pressure 110/70 Pulse Oximetry 100 99 01/31/20 02:00 01/31/20 02:30 Temperature Pulse Rate 86 83 Respiratory Rate 19 31 H Blood Pressure Pulse Oximetry 98 97 Oxygen Delivery Method Room Air Narrative Exam Narrative: GENERAL APPEARANCE: well developed, well nourished, sitting in a chair in no acute distress. HEENT: Normocephalic, PERRLA, conjunctiva clear, EOMs intact without nystagmus, mucous membranes are moist and pink. NECK/THYROID: neck supple, no JVD, no thyromegaly, trachea midline. LYMPH NODES: no cervical or supraclavicular lymphadenopathy. SKIN: Steward, warm and dry, no visible rashes or lesions. HEART: Irregularly irregular rhythm, S1-S2, systolic murmur, no rubs or gallops, brisk capillary refill, 2+ bilateral lower extremity edema the knees LUNGS: Breath sounds with right basilar fine crackles, no coarseness or wh eezing, nonproductive cough present CHEST: Symmetrical movement, no accessory muscle use, fair tidal volume. ABDOMEN: Soft, dull to percussion, slightly protuberant, no abdominal tenderness, no organomegaly, no flank tenderness, active bowel tones. BACK: Normal curvature, nontender to palpation, no CVA tenderness on percussion. EXTREMITIES: moves all extremities, strength is 5/5 and symmetrical, no deformities or joint effusions, negative Homans. NEUROLOGIC: AAO x4, no focal neurologic deficits, cranial nerves II-XII grossly intact, sensation intact to light touch. PSYCH: Good eye contact, cooperative, appropriate with stable behavior Objective Labs Result Diagrams: 01/30/20 23:10 01/30/20 23:10 Labs: Laboratory Results - last 24 hr 01/30/20 01/30/20 01/30/20 23:10 23:10 23:10 WBC 9.1 RBC 4.40 L Hgb 13.9 Hct 41.3 MCV 93.9 MCH 31.7 MCHC 33.7 RDW 15.2 H Plt Count 355 Neut % (Auto) 72.7 Lymph % (Auto) 14.4 L [place] % (Auto) 11.1 Eos % (Auto) 1.1 L Baso % (Auto) 0.7 Neut # (Auto) 6600 Lymph # (Auto) 1300 [place] # (Auto) 1000 H Eos # (Auto) 100 Baso # (Auto) 100 PT 16.0 H INR 1.4 H Sodium 118 L* Potassium 3.2 L Chloride 72 L* Carbon Dioxide 36 H BUN 49 H Creatinine 0.92 Estimated GFR > 60.0 BUN/Creatinine Ratio 53.3 H Glucose 159 H Calcium 8.9 Magnesium 1.8 Total Bilirubin 1.0 AST 36 ALT 42 Alkaline Phosphatase 178 H Total Creatine Kinase 58 CK-MB (CK-2) TNP CK-MB (CK-2) Rel Index TNP Troponin I 0.035 H NT-Pro-B Natriuret Pep 2460 H Total Protein 7.3 Albumin 4.1 Globulin 3.2 Albumin/Globulin Ratio 1.3 Procalcitonin COVID-19 PCR 01/30/20 01/31/20 23:10 00:25 WBC RBC Hgb Hct MCV MCH MCHC RDW Plt Count Neut % (Auto) Lymph % (Auto) [place] % (Auto) Eos % (Auto) Baso % (Auto) Neut # (Auto) Lymph # (Auto) [place] # (Auto) Eos # (Auto) Baso # (Auto) PT INR Sodium Potassium Chloride Carbon Dioxide BUN Creatinine Estimated GFR BUN/Creatinine Ratio Glucose Calcium Magnesium Total Bilirubin AST ALT Alkaline Phosphatase Total Creatine Kinase CK-MB (CK-2) CK-MB (CK-2) Rel Index Troponin I NT-Pro-B Natriuret Pep Total Protein Albumin Globulin Albumin/Globulin Ratio Procalcitonin < 0.05 COVID-19 PCR Negative Assessment & Plan Assessment & Plan narrative: This is a 74-year-old male patient was discharged from the hospital 2 weeks ago following diuresis for exacerbation of congestive heart failure secondary to aortic stenosis. The patient continued his diuresis in the outpatient setting in presents now as over diuresed with hyponatremia and hypokalemia. 1. Severe aortic stenosis, chronic, present on admission, active. -the patient was discharged on torsemide 40 mg twice daily and spironolactone 25 mg daily. He has since had metolazone 5 mg daily added. All diuretics are held pending re-evaluation of follow-up labs. -patient with right basilar crackles but no overt pulmonary edema on chest x-ray and 2+ peripheral edema. -previous echocardiogram 01/24/2020 found EF to 30 35%, severe aortic stenosis with a valvular area of 0.6 and a gradient of 26. At this level stenosis the patient cannot effectively increases cardiac output. -the patient presents today over diuresed evidence by electrolyte derangement with hyponatremia 118, hypokalemia at 2.3 and a BUN creatinine ratio of 53.3, however the patient has an elevated proBNP at 2460. -will cautiously rehydrate the patient with normal saline at 75 cc/hour. The ER physician spoke with [facility] police detective regarding possible transfer considering the patient's tenuous fluid status. No bed is available and patient is not wishing transfer at this time. Concern related to worsening aortic stenosis and increasing urgency for aortic valve replacement. -will recheck with [facility] in the morning regarding pending bed request. -ordered limited echocardiogram the morning. 2. Hyponatremia, acute on chronic, present on admission, active -sodium level on labs prompting the patient to recent port to the ER was 122. His sodium is 118 on ER admission labs. On prior admission on 01/12/2020 his sodium was 120. His baseline sodium is 120s to 130s. -will gently replete with normal saline 75 cc/hour. -will recheck electrolytes in the morning 3. Hypokalemia, acute, present on admission, active -patient potassium on admission is 3.2 consistent with over diuresis with thiazide diuretics. -will replete with 40 mEq oral potassium and recheck level in the morning. 4. Congestive heart failure with reduced ejection fraction, chronic, stable. -patient continues to have 2+ peripheral edema and right basilar crackles without evidence of pulmonary edema on chest x-ray. -patient admitted 01/12/2020 to 01/17/2020 for acute heart failure with fluid overload and adequately diuresed removing 7.5 L by discharge. -the patient has a proBNP of 2460 and a slight elevation of troponin at 0. 035. Twelve lead EKG presents signs of increased LV dysfunction with increased LV QRS voltage, prolonged QRS now to 180 milliseconds and QTC at 572 milliseconds. 5. Chronic atrial fibrillation, controlled rate, stable -12 lead EKG shows atrial fibrillation with a controlled rate of 86, left bundle-branch block, no ectopy, signs of ischemia. -potassium is low at 3.2 and magnesium is low 1.8. -order potassium 40 mEq p.o. x1 now and magnesium oxide 400 mg p.o. x1 now. -continue home regimen of metoprolol succinate 50 mg daily. -continue long-term anticoagulation with Pradaxa. -will recheck electrolytes in the morning. 6. Diabetes type 2, non insulin dependent, controlled, stable -patient's blood sugar on admission is 159, last A1c was 6.3 on 01/12/2020. -ordered fingerstick blood sugar checks a.c. and HS, coverage with low-dose scale correctional insulin. 7. Essential hypertension, chronic, stable -will continue routine dose lisinopril 40 mg daily VTE prophylaxis: Patient anticoagulated on Pradaxa IV fluid: Normal saline 75 cc/hour Diet: Heart healthy Code status: Full code, patient's Arianna is a surrogate decision maker. The patient is admitted to the hospital due to the severity of his electrolyte derangement complicated by his comorbid conditions of heart failure and severe aortic stenosis. The patient is admitted as an inpatient with expected length of stay to be greater than 2 midnights. COVID-19 COVID-19 status: Negative Result date/Date tested (Pos, Neg/Pending): 01/31/20 Scores GCS [place] coma scale eye opening: Spontaneous [place] coma scale verbal response: Orientated [place] coma scale motor response: Obey commands [place] coma scale total score: 15
--- NOTE | 2020-01-31 04:55 | PC.ADMIT ---
Patient admitted to room 208 per wheelchair from ER. Had lab work done yesterday a.m. and then received call from stating electrolytes were off and he needed to be assessed in the ER. Was found to have hyponatremia and hypokalemia. Is alert and oriented. Breath sounds CTA with RA sat of 96%; on continuous oximetry. HR irregular w/hx of afib and telemetry reading was afib CVR. Denies nausea. BT present and abdomen is soft. Denies dysuria frequency or urgency with urination. Able to move himself in bed. Is independent with mobility but impulsive and not safety conscious regarding IV tubing so instructed to call for staff assistance when getting out of bed and bed alarm activated. Has rash on all extremities which he states has been present since last admission to hospital. Has been noticeably scratching at rash and has multiple pinpoint scabbed spots. Venous stasis discoloration on bilateral LE and skin is dry. Posterior left leg is reddened with multiple scabbed spots. 2+ bilateral LE edema noted and GENET stockings applied. Denies pain. Fall risk score is moderate and alarm is activated. Oriented to call light and bed controls. Declines placing any valuables in hospital safe. [address] [facility] Admission Note: The patient,Terry Pack,74 y/o, was given written information regarding hospital policies, unit procedures and contact persons. Patient's smoking status: Never smoker. Vital Signs - 8 hr 01/30/20 23:01 01/30/20 23:42 01/31/20 00:00 Temperature 97.7 F Pulse Rate 91 H 89 91 H Respiratory Rate 17 21 28 H Blood Pressure 103/63 101/60 Pulse Oximetry 100 98 01/31/20 00:30 01/31/20 01:00 01/31/20 01:30 Temperature Pulse Rate 84 88 85 Respiratory Rate 13 15 14 Blood Pressure 110/70 Pulse Oximetry 100 99 01/31/20 02:00 01/31/20 02:30 01/31/20 03:00 Temperature 96.9 F L Pulse Rate 86 83 94 H Respiratory Rate 19 31 H 18 Blood Pressure 126/77 Pulse Oximetry 98 97 96
[2020-01-31] MEDS: METOPROLOL ER 50 MG TABLET PO (08:26)
[2020-01-31 08:53] LABS: Alanine Aminotransferase 37 IU/L (<50); Albumin 3.9 g/dL (3.5-5.0); Albumin Globulin Ratio 1.3 (1.0-2.8); Alkaline Phosphatase 160 U/L (38-126); Aspartate Aminotransferase 35 IU/L (17-59); BUN Creatinine Ratio 62.7 (6-22); Bilirubin Total 1.5 mg/dL (0.2-1.3); Blood Urea Nitrogen 42 mg/dL (9-20); Calcium 8.7 mg/dL (8.4-10.2); Estimated Glomerular Filt Rate > 60.0 mL/min (>60); Glucose 121 mg/dL (80-110); HEMOLYSIS < 15 (0-50); Potassium 2.8 mmol/L (3.4-5.1); Sodium 121 mmol/L (137-145); Total Protein 6.9 g/dL (6.3-8.2)
[2020-01-31] MEDS: DOCUSATE 100 MG CAPSULE PO ×3 (08:56→21:29)
[2020-01-31 09:00] LABS: Carbon Dioxide 39 mmol/L (22-32)
[2020-01-31 09:07] LABS: Chloride 74 mmol/L (98-107)
--- NOTE | 2020-01-31 09:07 | PC.NURSE ---
Day shift: Dr Woody notified about Chloride of 74 at this time.
[2020-01-31] MEDS: DABIGATRAN 75 MG CAPSULE 150 MG PO ×2 (10:00→21:29)
[2020-01-31 11:28] LABS: Magnesium 1.9 mg/dL (1.6-2.3)
--- NOTE | 2020-01-31 11:44 | PC.NURSE ---
Day shift: Pt c/o rt leg cramp at approx 1135. GENET liu pulled down and felt for any warmth on the leg/calf. No warmth felt and no raised area. Dr Woody informed. Pt sitting in chair and stated that his cramp is feeling better. Call light in reach. Pt's spouse in room now as well.
[2020-01-31] MEDS: INSULIN ASPART 100 UNIT/ML INSULN PEN SUBCUT (12:33)
--- NOTE | 2020-01-31 12:36 | CM.DANOTE ---
Discharge Planning/Care Management DCP: assessment: case received, EMR reviewed and met with pt during Team Bedside Rounds. Introduced self and role. PT is a 74 year old male who admitted early this morning to care of hospitalist team. PCP: Dr. Miguelina Louis PT is followed by cardiology at [facility]. READMIT: noted: see details in template below. Dr. Woody explained to all that pt was admitted with hyponatremia and hypokalemia in the setting of severe aortic stenosis and likely related to diuretic therapy. He stated that cardiology at [facility] had been contacted with some discussion of a transfer for higher level of care. P: will follow as POC unfolds to assist with d/c issues and options. CM Discharge Assessment Start: 01/31/20 12:34 Freq: Status: Active Protocol: Document 01/31/20 12:34 ITV (Rec: 01/31/20 12:35 ITV [id number]) Discharge Planning Assessment Advance Directives? No History Provided By Patient,Medical Record Has Patient been admitted in last 30 Yes days? Comment pt here 01/11 to 01/16 with a d/ c to home setting and PCP followup planned. Prior Living Arrangements House Household Members spouse Is patient alert and oriented? Yes Review Status In Process
--- NOTE | 2020-01-31 12:37 | DIET.PN ---
Dietary Progress Note Assessment: 74yo male admitted c abnormal labs presenting hypokalemia and hyponatremia. Pt was discharged from the hospital 2 weeks ago following diuresis for exacerbation of congestive heart failure secondary to aortic stenosis. The patient continued his diuresis in the outpatient setting and presents now as over diuresed with hyponatremia and hypokalemia. Referred to RD for abnormal labs and heart failure with diuresis. Pt previously in hospital 01/12/20-01/17/20 for acute exacerbation of congestive heart failure. RD consult with pt during this admission. During previous consultation, Pt reported he and his were not drinking etoh - and limiting intake to 0-4 glasses red wine on weekends. Pts is good cook and is being mindful of both sodium and carbs in cooking. Pt reports not salting at the table, only on corn on the cob. Pt appeared to be making healthy lifestyle choices and weight loss indicated in [facility] records is intentional. During consult today pt reports feeling good and having no changes in appetite, food intake or nutrition. Pt has no questions regarding nutrition. Pt indicated that what this really comes down to is him needing to get a heart valve replacement. Educated pt on role of cardiac rehab post surgery. Pt is looking forward to the process. Pts current admission diagnosis requires no nutrition intervention at this time.
--- NOTE | 2020-01-31 14:22 | PC.NURSE ---
Addendum entered by Scot Seals R.N. 02/01/20 07:32: This original not does not pertain to this Pt. Please disregard. Original Note: Day shift: Per Dr Mcconnell d/c tele and d/c NIH stroke scale.
[2020-01-31] MEDS: lisinopriL 20 MG TABLET 10 MG PO (16:42)
[2020-01-31] MEDS: ATORVASTATIN 20 MG TABLET 80 MG PO (21:29)
[2020-01-31 22:06] LABS: BUN Creatinine Ratio 51.3 (6-22); Blood Urea Nitrogen 40 mg/dL (9-20); Calcium 8.4 mg/dL (8.4-10.2); Chloride 77 mmol/L (98-107); Estimated Glomerular Filt Rate > 60.0 mL/min (>60); Glucose 146 mg/dL (80-110); HEMOLYSIS < 15 (0-50); Potassium 3.2 mmol/L (3.4-5.1); Sodium 121 mmol/L (137-145)
[2020-01-31 22:14] LABS: Carbon Dioxide 41 mmol/L (22-32)
[2020-01-31] MEDS: KCL 20 MEQ IN NS 1,000 ML 75 MEQ IV (22:42)
[2020-02-01] VITALS (14 sets, daily range): BP systolic 89–111; BP diastolic 53–73; PULSE 83–98; RESP 16–20; TEMP 36.1–36.7; O2SAT 92–100
--- NOTE | 2020-02-01 03:42 | PC.NURSE ---
Addendum entered by Beatriz Mcintyre R.N. 02/01/20 06:28: BP earlier was 89/58 and RESPIRATORY SERVICES MANAGER was informed and fluid bolus ordered after which BP was 94/55. RESPIRATORY SERVICES MANAGER reviewed patient status at this time and stated since patient had bolus IVF rate should now be decreased back to 75cc/hr. Original Note: Patient initially seen and assessed at 0134. Is alert and oriented but with restless behavior and doesn't attend well to safety precautions. Breath sounds diminished but CTA with RA sat of 100%. HR irregular and telemetry reading was afib CVR w/BBB. BP low at 95/62 but is asymptomatic and states he normally runs low. RESPIRATORY SERVICES MANAGER, Sam, informed and order to increase fluids to 100cc/h until 0700. Denies nausea. BT present and abdomen is soft. Denies dysuria, frequency or urgency; using urinal at bedside. 2+ bilateral LE edema; wearing GENET stockings. Denies pain. Fall risk score is moderate and because of safety concerns, bed alarm is activated.
[2020-02-01] MEDS: SODIUM CHLORIDE 0.9% 250 ML 500 ML IV (05:10)
[2020-02-01 06:54] LABS: Alanine Aminotransferase 31 IU/L (<50); Albumin 3.7 g/dL (3.5-5.0); Albumin Globulin Ratio 1.2 (1.0-2.8); Alkaline Phosphatase 131 U/L (38-126); Aspartate Aminotransferase 27 IU/L (17-59); BUN Creatinine Ratio 46.5 (6-22); Bilirubin Total 1.6 mg/dL (0.2-1.3); Bilirubin Unconjugated 1.3 mg/dL (0.0-1.1); Blood Urea Nitrogen 33 mg/dL (9-20); Calcium 8.6 mg/dL (8.4-10.2); Carbon Dioxide 39 mmol/L (22-32); Chloride 80 mmol/L (98-107); Estimated Glomerular Filt Rate > 60.0 mL/min (>60); Glucose 131 mg/dL (80-110); HEMOLYSIS < 15 (0-50); Potassium 3.8 mmol/L (3.4-5.1); Sodium 122 mmol/L (137-145); Total Protein 6.7 g/dL (6.3-8.2)
[2020-02-01] MEDS: INSULIN ASPART 100 UNIT/ML INSULN PEN SUBCUT ×2 (08:57→11:47)
[2020-02-01] MEDS: DOCUSATE 100 MG CAPSULE PO ×3 (08:59→21:10)
[2020-02-01] MEDS: ASPIRIN EC 81 MG TABLET PO (08:59)
[2020-02-01] MEDS: MAGNESIUM OXIDE 400 MG TABLET PO (09:01)
[2020-02-01] MEDS: DABIGATRAN 75 MG CAPSULE 150 MG PO ×2 (09:01→21:11)
[2020-02-01] MEDS: SODIUM CHLORIDE 0.9% FLUSH 10 ML IV ×2 (09:02→21:12)
[2020-02-01] MEDS: METOPROLOL ER 25 MG TABLET 12.5 MG PO (10:35)
[2020-02-01] MEDS: KCL 20 MEQ IN NS 1,000 ML 75 MEQ IV (12:11)
--- NOTE | 2020-02-01 14:38 | CM.DPC ---
DCP: continued: met again with pt during Team Bedside Rounds. 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 Dr. Woody noted he was improving but was not yet ready for a d/c to home yet. P: home with and cardiology followup when stable for same.
--- NOTE | 2020-02-01 14:55 | P.PN_ITS ---
Subjective Subjective Date Patient Seen: 02/01/20 Time Patient Seen: 14:55 Interval history: Mr. Terry Pack is a 74-year-old male with a history of atrial fibrillation (anticoagulated on Pradaxa), severe aortic stenosis, hypertension, diabetes type 2 hyperlipidemia and congestive heart failure with reduced ejection fraction presents to the ER for further evaluation of abnormal labs the request his primary care provider. He was admitted for hyponatremia with a sodium of 118 on admission. This was likely due to over-diuresis from torsemide. He has been on gentle fluid resuscitation and he continues to feel well. His sodium has slowly up trended to 122 today. He denies any chest pain, shortness of breath, orthopnea, or lower extremity edema today. He is wearing compression stockings. He continues to deny symptoms of confusion, headache, vision changes, dizziness, weakness from his hyponatremia. He is eating and tolerating a diet. He has a chronically low sodium in the upper 120s, but ideally I would like him at least above 125 before discharge home. Will continue gentle fluid rehydration today. If he develops symptoms of volume overload during fluid rehydration will consider transfer for valve replacement. Exam Vital Signs (past 8 hours): - 02/01/20 08:15 02/01/20 08:30 02/01/20 10:35 Temperature 98.0 F Pulse Rate 88 89 Respiratory Rate 20 Blood Pressure 93/53 L Pulse Oximetry 96 94 02/01/20 11:22 02/01/20 11:37 02/01/20 12:07 Temperature 97.2 F L Pulse Rate 83 86 Respiratory Rate 19 Blood Pressure 97/59 L Pulse Oximetry 98 96 Oxygen Delivery Method Room Air Oxygen Flow Rate 0 Narrative Exam Narrative: GENERAL APPEARANCE: well developed, well nourished, sitting in a chair in no acute distress. HEENT: Normocephalic, PERRLA, conjunctiva clear, EOMs intact without nystagmus, mucous membranes are moist and pink. NECK/THYROID: neck supple, no JVD, no thyromegaly, trachea midline. LYMPH NODES: no cervical or supraclavicular lymphadenopathy. SKIN: [place], warm and dry, no visible rashes or lesions. HEART: Irregularly irregular rhythm, S1-S2, systolic murmur, no rubs or gallops, brisk capillary refill, trace bilateral lower extremities with compression stockings, pedal edema present. LUNGS: Breath sounds with right basilar fine crackles, no coarseness or wheezing, nonproductive cough present CHEST: Symmetrical movement, no accessory muscle use, fair tidal volume. ABDOMEN: Soft, dull to percussion, slightly protuberant, no abdominal tenderness, no organomegaly, no flank tenderness, active bowel tones. BACK: Normal curvature, nontender to palpation, no CVA tenderness on percu ssion. EXTREMITIES: moves all extremities, strength is 5/5 and symmetrical, no deformities or joint effusions NEUROLOGIC: AAO x4, no focal neurologic deficits, cranial nerves II-XII grossly intact, sensation intact to light touch. PSYCH: Good eye contact, cooperative, appropriate with stable behavior Objective Labs Result Diagrams: 01/30/20 23:10 02/01/20 06:21 Labs: Laboratory Results - last 24 hr 01/31/20 02/01/20 21:42 06:21 Sodium 121 L 122 L Potassium 3.2 L 3.8 Chloride 77 L 80 L Carbon Dioxide 41 H* 39 H BUN 40 H 33 H Creatinine 0.78 0.71 Estimated GFR > 60.0 > 60.0 BUN/Creatinine Ratio 51.3 H 46.5 H Glucose 146 H 131 H Calcium 8.4 8.6 Magnesium 2.0 Total Bilirubin 1.6 H Conjugated Bilirubin 0.0 Unconjugated Bilirubin 1.3 H AST 27 ALT 31 Alkaline Phosphatase 131 H Total Protein 6.7 Albumin 3.7 Globulin 3.0 Albumin/Globulin Ratio 1.2 Assessment & Plan Assessment & Plan narrative: This is a 74-year-old male patient was discharged from the hospital 2 weeks ago following diuresis for exacerbation of congestive heart failure secondary to aortic stenosis. The patient continued his diuresis in the outpatient setting in presents now as over diuresed with hyponatremia and hypokalemia. He is slowly improving with rehydration and will continue this today. 1. Severe aortic stenosis, chronic, present on admission, active. -the patient was discharged on torsemide 40 mg twice daily and spironolactone 25 mg daily. He has since had metolazone 5 mg daily added. All diuretics are held given hyponatremia. -patient with right basilar crackles but no overt pulmonary edema on chest x- ray.. -previous echocardiogram 01/24/2020 found EF to 30 35%, severe aortic stenosis with a valvular area of 0.6 and a gradient of 26. At this level stenosis the patient cannot effectively increases cardiac output. -the patient presents today over diuresed evidence by electrolyte derangement with hyponatremia 118, hypokalemia at 2.3 and a BUN creatinine ratio of 53.3, however the patient has an elevated proBNP at 2460. -will cautiously rehydrate the patient with normal saline at 75 cc/hour. Should he develop symptoms of volume overload with still hyponatremia will likely need transfer for possible valvular replacement given tenuous volume status. -ordered limited echocardiogram which was not significantly changed comparent to prior. -patient was called by his seismograph observer today and will follow up very shortly after discharge per patient and spouse report. 2. Hyponatremia, acute on chronic, present on admission, active -sodium level on labs prompting the patient to recent port to the ER was 122. His sodium is 118 on ER admission labs. On prior admission on 01/12/2020 his sodium was 120 in setting of hypervolemia. His baseline sodium is in the upper 120s to 132 was his max. -will gently replete with normal saline 75 cc/hour. -given asymptomatic and slow improvement will check BMP daily. 3. Hypokalemia, acute, present on admission, resolved -patient potassium on admission is 3.2 consistent with over diuresis with thiazi de diuretics. Repleted and now improved. -continue IV fluids with potassium. 4. Congestive heart failure with reduced ejection fraction, chronic, stable. -patient continues to have some edema and right basilar crackles without evidence of pulmonary edema on chest x-ray. -patient admitted 01/12/2020 to 01/17/2020 for acute heart failure with fluid overload and adequately diuresed removing 7.5 L by discharge. -the patient has a proBNP of 2460 and a slight elevation of troponin at 0. 035. Twelve lead EKG presents signs of increased LV dysfunction with increased LV QRS voltage, prolonged QRS now to 180 milliseconds and QTC at 572 milliseconds. 5. Chronic atrial fibrillation, controlled rate, stable -12 lead EKG shows atrial fibrillation with a controlled rate of 86, left bundle-branch block, no ectopy, signs of ischemia. -reduced metoprolol today for slightly low blood pressures to 12.5 mg BID from 50. -continue long-term anticoagulation with Pradaxa. 6. Diabetes type 2, non insulin dependent, controlled, stable -patient's blood sugar on admission is 159, last A1c was 6.3 on 01/12/2020. -ordered fingerstick blood sugar checks a.c. and HS, coverage with low-dose scale correctional insulin. 7. Essential hypertension, chronic, stable -will continue routine dose lisinopril 40 mg daily VTE prophylaxis: Patient anticoagulated on Pradaxa IV fluid: Normal saline 75 cc/hour Diet: Heart healthy Code status: Full code, patient's Arianna is a surrogate decision maker. The patient is admitted to the hospital due to the severity of his electrolyte derangement complicated by his comorbid conditions of heart failure and severe aortic stenosis. The patient is admitted as an inpatient with expected length of stay to be greater than 2 midnights. Code: Full Dispo: anticipate discharge home in the next 1-2 days, if develops symptoms of volume overload may necessitate transfer to [place] for valve replacement. Quality VTE Deep Vein Thrombosis/Pulmonary Embolism Present on Admission: No
[2020-02-01] MEDS: lisinopriL 5 MG TABLET PO (16:50)
[2020-02-01] MEDS: ATORVASTATIN 20 MG TABLET 80 MG PO (21:10)
[2020-02-02] VITALS (10 sets, daily range): BP systolic 94–121; BP diastolic 41–79; PULSE 87–95; RESP 14–18; TEMP 36.1–36.6; O2SAT 95–100
[2020-02-02] MEDS: KCL 20 MEQ IN NS 1,000 ML 75 MEQ IV (01:10)
[2020-02-02 05:54] LABS: Alanine Aminotransferase 30 IU/L (<50); Albumin 3.6 g/dL (3.5-5.0); Albumin Globulin Ratio 1.2 (1.0-2.8); Alkaline Phosphatase 128 U/L (38-126); Aspartate Aminotransferase 25 IU/L (17-59); BUN Creatinine Ratio 51.5 (6-22); Bilirubin Total 1.6 mg/dL (0.2-1.3); Bilirubin Unconjugated 1.2 mg/dL (0.0-1.1); Blood Urea Nitrogen 34 mg/dL (9-20); Calcium 8.3 mg/dL (8.4-10.2); Carbon Dioxide 33 mmol/L (22-32); Chloride 82 mmol/L (98-107); Estimated Glomerular Filt Rate > 60.0 mL/min (>60); Glucose 138 mg/dL (80-110); HEMOLYSIS < 15 (0-50); Magnesium 2.2 mg/dL (1.6-2.3); Potassium 4.2 mmol/L (3.4-5.1); Sodium 120 mmol/L (137-145); Total Protein 6.6 g/dL (6.3-8.2)
[2020-02-02] MEDS: DABIGATRAN 75 MG CAPSULE 150 MG PO ×2 (07:51→21:13)
[2020-02-02] MEDS: DOCUSATE 100 MG CAPSULE PO ×3 (07:51→21:13)
[2020-02-02] MEDS: MAGNESIUM OXIDE 400 MG TABLET PO (07:51)
[2020-02-02] MEDS: METOPROLOL ER 25 MG TABLET 12.5 MG PO (09:00)
[2020-02-02] MEDS: ASPIRIN EC 81 MG TABLET PO (09:00)
[2020-02-02 11:06] LABS: Sodium Urine Random < 5 mmol/L (30-90)
[2020-02-02] MEDS: SODIUM CHLORIDE 0.9% FLUSH 10 ML IV (11:06)
[2020-02-02] MEDS: INSULIN ASPART 100 UNIT/ML INSULN PEN SUBCUT ×3 (11:48→21:13)
--- NOTE | 2020-02-02 11:57 | PC.NURSE ---
DAY SHIFT Report received, care assumed 0700. Pt. reports little sleep last night and is sleepy, but awake and appropriate. VSS. Blood sodium level dropped slightly again today; physician aware and orders placed.
[2020-02-02] MEDS: SODIUM CHLORIDE 0.9% 1,000 ML 125 ML IV (12:01)
--- NOTE | 2020-02-02 14:07 | PM.PN.1 ---
Subjective Subjective Date Patient Seen: 02/02/20 Time Patient Seen: 12:15 Interval history: Mr. Terry Pack is a 74-year-old male with a history of atrial fibrillation (anticoagulated on Pradaxa), severe aortic stenosis, hypertension, diabetes type 2 hyperlipidemia and congestive heart failure with reduced ejection fraction presents to the ER for further evaluation of abnormal labs the request his primary care provider. He was admitted for hyponatremia with a sodium of 118 on admission. This was likely due to over-diuresis from torsemide. He has been on gentle fluid resuscitation and he continues to feel well. His sodium continue to trend up to 122 until today when it down trended to 120. Fluids were briefly held and urine studies were checked. His urine sodium was less than 5 consistent still with hypovolemia. Fluids were then restarted at 125 cc per hour increased from 75 cc previously. He still remains asymptomatic and has no shortness of breath or worsening lower extremity edema. Exam Vital Signs (past 8 hours): - 02/02/20 08:00 02/02/20 11:30 02/02/20 12:00 Temperature 97.0 F L 97.4 F L Pulse Rate 87 88 88 Respiratory Rate 16 14 Blood Pressure 103/70 97/75 97/75 Pulse Oximetry 98 99 Oxygen Delivery Method Room Air Oxygen Flow Rate 0 Narrative Exam Narrative: GENERAL APPEARANCE: well developed, well nourished, sitting in a chair in no acute distress. HEENT: Normocephalic, PERRLA, conjunctiva clear, EOMs intact without nystagmus, mucous membranes are moist and pink. NECK/THYROID: neck supple, no JVD, no thyromegaly, trachea midline. LYMPH NODES: no cervical or supraclavicular lymphadenopathy. SKIN: [place], warm and dry, no visible rashes or lesions. HEART: Irregularly irregular rhythm, S1-S2, systolic murmur, no rubs or gallops, brisk capillary refill, trace bilateral lower extremities with compression stockings, pedal edema present. LUNGS: Breath sounds with right basilar fine crackles, no coarseness or wheezing, nonproductive cough present CHEST: Symmetrical movement, no accessory muscle use, fair tidal volume. ABDOMEN: Soft, dull to percussion, slightly protuberant, no abdominal tenderness, no organomegaly, no flank tenderness, active bowel tones. BACK: Normal curvature, nontender to palpation, no CVA tenderness on percussion. EXTREMITIES: moves all extremities, strength is 5/5 and symmetrical, no deformities or joint effusions NEUROLOGIC: AAO x4, no focal neurologic deficits, cranial nerves II-XII grossly intact, sensation intact to light touch. PSYCH: Good eye contact, cooperative, appropriate with stable behavior Objective Labs Result Diagrams: 01/30/20 23:10 02/02/20 05:30 Labs: Laboratory Results - last 24 hr 02/02/20 02/02/20 05:30 10:00 Sodium 120 L Potassium 4.2 Chloride 82 L Carbon Dioxide 33 H BUN 34 H Creatinine 0.66 Estimated GFR > 60.0 BUN/Creatinine Ratio 51.5 H Glucose 138 H Calcium 8.3 L Magnesium 2.2 Total Bilirubin 1.6 H Conjugated Bilirubin 0.0 Unconjugated Bilirubin 1.2 H AST 25 ALT 30 Alkaline Phosphatase 128 H Total Protein 6.6 Albumin 3.6 Globulin 3.0 Albumin/Globulin Ratio 1.2 Ur Random Sodium < 5 L Assessment & Plan Assessment & Plan narrative: This is a 74-year-old male patient was discharged from the hospital 2 weeks ago following diuresis for exacerbation of congestive heart failure secondary to aortic stenosis. The patient continued his diuresis in the outpatient setting but was over diuresed with hyponatremia and hypokalemia. His sodium dropped slightly today, repeat urine studies were again consistent with hypovolemia. Normal saline infusion was increased to 125 cc/hour. 1. Severe aortic stenosis, chronic, present on admission, active. -the patient was discharged on torsemide 40 mg twice daily and spironolactone 25 mg daily. He has since had metolazone 5 mg daily added. All diuretics are held given hyponatremia. -previous echocardiogram 01/24/2020 found EF to 30 35%, severe aortic stenosis with a valvular area of 0.6 and a gradient of 26. At this level stenosis the patient cannot effectively increases cardiac output. -the patient presented over diuresed evidence by electrolyte derangement with hyponatremia 118, hypokalemia at 2.3 and a BUN creatinine ratio of 53.3, however the patient has an elevated proBNP at 2460. -cautiously continued to rehydrate the patient with normal saline at 75 cc/hour, briefly stopped and urine studies were checked which were still consistent with hypovolemia. Have increased normal saline 125 cc/hour. -ordered limited echocardiogram which was not significantly changed comparent to prior. -patient was called by his explosives truck driver during admission and will follow up very shortly after discharge per patient and spouse report. 2. Hyponatremia, acute on chronic, present on admission, active -sodium level on labs prompting the patient to recent port to the ER was 122. His sodium is 118 on ER admission labs. On prior admission on 01/12/2020 his sodium was 120 in setting of hypervolemia. His baseline sodium is in the upper 120s to 132 was his max. -fluid repletion is being cautiously given as noted above. Urine sodium today was <5, urine osm pending. will repeat bmp this evening. 3. Hypokalemia, acute, present on admission, resolved -patient potassium on admission is 3.2 consistent with over diuresis with thiazide diuretics. Repleted and now improved. -continue IV fluids with potassium. 4. Congestive heart failure with reduced ejection fraction, chronic, stable. -patient continues to have some edema and right basilar crackles without evidence of pulmonary edema on chest x-ray. -patient admitted 01/12/2020 to 01/17/2020 for acute heart failure with fluid overload and adequately diuresed removing 7.5 L by discharge. -the patient has a proBNP of 2460 and a slight elevation of troponin at 0. 035. Twelve lead EKG presents signs of increased LV dysfunction with increased LV QRS voltage, prolonged QRS now to 180 milliseconds and QTC at 572 milliseconds. 5. Chronic atrial fibrillation, controlled rate, stable -12 lead EKG shows atrial fibrillation with a controlled rate of 86, left bundle-branch block, no ectopy, signs of ischemia. -continue reduced metoprolol today for slightly low blood pressures to 12.5 mg BID from 50. -continue long-term anticoagulation with Pradaxa. 6. Diabetes type 2, non insulin dependent, controlled, stable -patient's blood sugar on admission is 159, last A1c was 6.3 on 01/12/2020. -ordered fingerstick blood sugar checks a.c. and HS, coverage with low-dose scale correctional insulin. 7. Essential hypertension, chronic, stable -have decreased lisinopril to minimal dosing given borderline low blood pressures. VTE prophylaxis: Patient anticoagulated on Pradaxa IV fluid: Normal saline 75 cc/hour Diet: Heart healthy Code status: Full code, patient's Arianna is a surrogate decision maker. Code: Full Dispo: anticipate discharge home once improvement in hyponatremia, if develops symptoms of volume overload may necessitate transfer to [place] for valve replacement. Quality VTE Deep Vein Thrombosis/Pulmonary Embolism Present on Admission: No
[2020-02-02] MEDS: lisinopriL 5 MG TABLET PO (16:42)
[2020-02-02 19:15] LABS: BUN Creatinine Ratio 55.6 (6-22); Blood Urea Nitrogen 40 mg/dL (9-20); Calcium 8.1 mg/dL (8.4-10.2); Carbon Dioxide 29 mmol/L (22-32); Chloride 83 mmol/L (98-107); Estimated Glomerular Filt Rate > 60.0 mL/min (>60); Glucose 254 mg/dL (80-110); HEMOLYSIS < 15 (0-50); Potassium 4.4 mmol/L (3.4-5.1); Sodium 120 mmol/L (137-145)
[2020-02-02] MEDS: ATORVASTATIN 20 MG TABLET 80 MG PO (21:13)
[2020-02-03] VITALS (10 sets, daily range): BP systolic 106–121; BP diastolic 66–79; PULSE 84–92; RESP 15–18; TEMP 36.1–36.6; O2SAT 96–100
[2020-02-03] MEDS: SODIUM CHLORIDE 0.9% 1,000 ML 125 ML IV ×3 (03:22→20:50)
[2020-02-03 08:10] LABS: Alanine Aminotransferase 28 IU/L (<50); Albumin 3.5 g/dL (3.5-5.0); Albumin Globulin Ratio 1.2 (1.0-2.8); Alkaline Phosphatase 137 U/L (38-126); Aspartate Aminotransferase 24 IU/L (17-59); BUN Creatinine Ratio 55.4 (6-22); Bilirubin Total 1.2 mg/dL (0.2-1.3); Bilirubin Unconjugated 0.8 mg/dL (0.0-1.1); Blood Urea Nitrogen 36 mg/dL (9-20); Calcium 8.6 mg/dL (8.4-10.2); Carbon Dioxide 29 mmol/L (22-32); Chloride 87 mmol/L (98-107); Estimated Glomerular Filt Rate > 60.0 mL/min (>60); Globulin 2.9 g/dL (1.7-4.1); Glucose 139 mg/dL (80-110); HEMOLYSIS < 15 (0-50); Magnesium 2.1 mg/dL (1.6-2.3); Potassium 4.1 mmol/L (3.4-5.1); Sodium 122 mmol/L (137-145); Total Protein 6.4 g/dL (6.3-8.2)
[2020-02-03] MEDS: INSULIN ASPART 100 UNIT/ML INSULN PEN SUBCUT ×4 (09:24→20:52)
[2020-02-03] MEDS: DABIGATRAN 75 MG CAPSULE 150 MG PO ×2 (09:24→20:50)
[2020-02-03] MEDS: ASPIRIN EC 81 MG TABLET PO (09:24)
[2020-02-03] MEDS: MAGNESIUM OXIDE 400 MG TABLET PO (09:25)
[2020-02-03] MEDS: SODIUM CHLORIDE 0.9% FLUSH 10 ML IV ×2 (09:25→20:55)
[2020-02-03] MEDS: METOPROLOL ER 25 MG TABLET 12.5 MG PO (09:25)
[2020-02-03] MEDS: DOCUSATE 100 MG CAPSULE PO ×3 (09:25→20:50)
--- NOTE | 2020-02-03 11:52 | PC.NURSE ---
Patient up IND in room. A/O x 4. Denies SOB, dizziness, N/V, pain, weakness, numbness or tingling in the extremities. Tele on, pulses equal bilateral, irregularly irregular. 2-3+ Edema noted in bilaterally lower extremities, darío hose on, cap refill>3, toes are dusky, patient denies decreased sensation, numbness or tingling. Patient voiding, reports BM 02/01, bowel tones active x4. LUE IV discontinued at 0845, new IV access in LUE wrist, patient tolerated, secured with coban, NS infusing at 125cc/hr.
--- NOTE | 2020-02-03 14:18 | PM.PN.1 ---
Subjective Subjective Date Patient Seen: 02/03/20 Time Patient Seen: 14:18 Interval history: Mr. Terry Pack is a 74-year-old male with a history of atrial fibrillation (anticoagulated on Pradaxa), severe aortic stenosis, hypertension, diabetes type 2 hyperlipidemia and congestive heart failure with reduced ejection fraction presents to the ER for further evaluation of abnormal labs the request his primary care provider. He was admitted for hyponatremia with a sodium of 118 on admission. This was likely due to over-diuresis from torsemide. He has been on gentle fluid resuscitation and he continues to feel well. His sodium continued to trend up to 122 until today when it down trended to 120. Fluids were briefly held and urine studies were checked. His urine sodium was less than 5 consistent still with hypovolemia. Fluids were then restarted at 125 cc per hour increased from 75 cc previously. He still remains asymptomatic and has no shortness of breath or worsening lower extremity edema. Sodium has again increased to 122. [address] with Dr[address] Herman, computer support specialist, at [facility] today over the phone who agreed with current management. Recommended continuing fluids at this time. Exam Vital Signs (past 8 hours): - 02/03/20 07:00 02/03/20 11:00 02/03/20 11:33 Temperature 97.0 F L 97.0 F L Pulse Rate 84 90 Respiratory Rate 15 16 Blood Pressure 110/66 106/72 106/72 Pulse Oximetry 98 100 Oxygen Delivery Method Room Air Oxygen Flow Rate 0 Narrative Exam Narrative: GENERAL APPEARANCE: well developed, well nourished, sitting in a chair in no acute distress. HEENT: Normocephalic, PERRLA, conjunctiva clear, EOMs intact without nystagmus, mucous membranes are moist and pink. NECK/THYROID: neck supple, no JVD, no thyromegaly, trachea midline. LYMPH NODES: no cervical or supraclavicular lymphadenopathy. SKIN: [place], warm and dry, no visible rashes or lesions. HEART: Irregularly irregular rhythm, S1-S2, systolic murmur, no rubs or gallops, brisk capillary refill, trace bilateral lower extremities with compression stockings, pedal edema present. LUNGS: Breath sounds with right basilar fine crackles, no coarseness or wheezing, nonproductive cough present CHEST: Symmetrical movement, no accessory muscle use, fair tidal volume. ABDOMEN: Soft, dull to percussion, slightly protuberant, no abdominal tenderness, no organomegaly, no flank tenderness, active bowel tones. BACK: Normal curvature, nontender to palpation, no CVA tenderness on percussion. EXTREMITIES: moves all extremities, strength is 5/5 and symmetrical, no deformities or joint effusions NEUROLOGIC: AAO x4, no focal neurologic deficits, cranial nerves II-XII grossly intact, sensation intact to light touch. PSYCH: Good eye contact, cooperative, appropriate with stable behavior Objective Labs Result Diagrams: 01/30/20 23:10 02/03/20 07:25 Labs: Laboratory Results - last 24 hr 02/02/20 02/03/20 18:03 07:25 Sodium 120 L 122 L Potassium 4.4 4.1 Chloride 83 L 87 L Carbon Dioxide 29 29 BUN 40 H 36 H Creatinine 0.72 0.65 L Estimated GFR > 60.0 > 60.0 BUN/Creatinine Ratio 55.6 H 55.4 H Glucose 254 H D 139 H D Calcium 8.1 L 8.6 Magnesium 2.1 Total Bilirubin 1.2 Conjugated Bilirubin 0.0 Unconjugated Bilirubin 0.8 AST 24 ALT 28 Alkaline Phosphatase 137 H Total Protein 6.4 Albumin 3.5 Globulin 2.9 Albumin/Globulin Ratio 1.2 Assessment & Plan Assessment & Plan narrative: This is a 74-year-old male patient was discharged from the hospital 2 weeks ago following diuresis for exacerbation of congestive heart failure secondary to aortic stenosis. The patient continued his diuresis in the outpatient setting but was over diuresed with hyponatremia and hypokalemia. His sodium dropped slightly today, repeat urine studies were again consistent with hypovolemia. Normal saline infusion was increased to 125 cc/hour. 1. Severe aortic stenosis, chronic, present on admission, active. -the patient was discharged on torsemide 40 mg twice daily and spironolactone 25 mg daily. He has since had metolazone 5 mg daily added. All diuretics are held given hyponatremia. -previous echocardiogram 01/24/2020 found EF to 30 35%, severe aortic stenosis with a valvular area of 0.6 and a gradient of 26. At this level stenosis the patient cannot effectively increases cardiac output. -the patient presented over diuresed evidence by electrolyte derangement with hyponatremia 118, hypokalemia at 2.3 and a BUN creatinine ratio of 53.3, however the patient has an elevated proBNP at 2460. -cautiously continued to rehydrate the patient with normal saline at 75 cc/hour, briefly stopped and urine studies were checked which were still consistent with hypovolemia. Have increased normal saline 125 cc/hour. -ordered limited echocardiogram which was not significantly changed comparent to prior. -patient was called by his home specialist during admission and will follow up very shortly after discharge per patient and spouse report. 2. Hyponatremia, acute on chronic, present on admission, active -sodium level on labs prompting the patient to recent port to the ER was 122. His sodium is 118 on ER admission labs. On prior admission on 01/12/2020 his sodium was 120 in setting of hypervolemia. His baseline sodium is in the upper 120s to 132 was his max. -fluid repletion is being cautiously given as noted above. Urine sodium today was <5, urine osm pending. Has again increased to 122 with increased fluids. -discussed case with Dr. Herman at [facility] whom agreed with current management. 3. Hypokalemia, acute, present on admission, resolved -patient potassium on admission was 3.2 consistent with over diuresis from diuretics. Repleted and now improved. -continue IV fluids with potassium. 4. Congestive heart failure with reduced ejection fraction, chronic, stable. -patient continues to have some edema and right basilar crackles without evidence of pulmonary edema on chest x-ray. -patient admitted 01/12/2020 to 01/17/2020 for acute heart failure with fluid overload and adequately diuresed removing 7.5 L by discharge. -the patient has a proBNP of 2460 and a slight elevation of troponin at 0. 035. Twelve lead EKG presents signs of increased LV dysfunction with increased LV QRS voltage, prolonged QRS now to 180 milliseconds and QTC at 572 milliseconds. 5. Chronic atrial fibrillation, controlled rate, stable -12 lead EKG shows atrial fibrillation with a controlled rate of 86, left bundle-branch block, no ectopy, signs of ischemia. -continue reduced metoprolol today for slightly low blood pressures at 12.5 mg BID from 50. -continue long-term anticoagulation with Pradaxa. 6. Diabetes type 2, non insulin dependent, controlled, stable -patient's blood sugar on admission is 159, last A1c was 6.3 on 01/12/2020. -ordered fingerstick blood sugar checks a.c. and HS, coverage with low-dose scale correctional insulin. 7. Essential hypertension, chronic, stable -have decreased lisinopril to minimal dosing given borderline low blood pressures. VTE prophylaxis: Patient anticoagulated on Pradaxa IV fluid: Normal saline 125 cc/hour Diet: Heart healthy Code status: Full code, patient's Arianna is a surrogate decision maker. Code: Full Dispo: anticipate discharge home once improvement in hyponatremia, if develops symptoms of volume overload may necessitate transfer. Quality VTE Deep Vein Thrombosis/Pulmonary Embolism Present on Admission: No
[2020-02-03] MEDS: lisinopriL 5 MG TABLET PO (16:44)
[2020-02-03 17:32] LABS: BUN Creatinine Ratio 58.5 (6-22); Blood Urea Nitrogen 38 mg/dL (9-20); Calcium 8.5 mg/dL (8.4-10.2); Carbon Dioxide 29 mmol/L (22-32); Chloride 88 mmol/L (98-107); Estimated Glomerular Filt Rate > 60.0 mL/min (>60); Glucose 125 mg/dL (80-110); HEMOLYSIS < 15 (0-50); Potassium 4.4 mmol/L (3.4-5.1); Sodium 122 mmol/L (137-145)
[2020-02-03] MEDS: ATORVASTATIN 20 MG TABLET 80 MG PO (20:50)
[2020-02-04] VITALS (7 sets, daily range): BP systolic 104–127; BP diastolic 71–75; PULSE 84–109; RESP 14–19; TEMP 35.6–36.9; O2SAT 96–98
--- NOTE | 2020-02-04 02:23 | PC.NURSE ---
Patient is alert and oriented. Breath sounds CTA with RA sat of 97%. HR irregular w/hx of afib and telemetry reading of afib CVR w/BBB. Denies nausea. BT present and abdomen is soft. Denies dysuria, frequency or urgency; using urinal to void. Independent with mobility. Denies pain. Still with 1+ bilateral LE edema; wearing GENET stockings. Fall risk score is moderate; patient is steady on his feet.
[2020-02-04] MEDS: SODIUM CHLORIDE 0.9% 1,000 ML 150 ML IV (03:49)
[2020-02-04 05:56] LABS: BUN Creatinine Ratio 52.5 (6-22); Blood Urea Nitrogen 32 mg/dL (9-20); Calcium 8.3 mg/dL (8.4-10.2); Carbon Dioxide 28 mmol/L (22-32); Chloride 91 mmol/L (98-107); Estimated Glomerular Filt Rate > 60.0 mL/min (>60); Glucose 131 mg/dL (80-110); Potassium 4.4 mmol/L (3.4-5.1); Sodium 122 mmol/L (137-145)
[2020-02-04 06:03] LABS: HEMOLYSIS 57 (0-50)
[2020-02-04] MEDS: INSULIN ASPART 100 UNIT/ML INSULN PEN SUBCUT (08:10)
[2020-02-04] MEDS: DOCUSATE 100 MG CAPSULE PO (08:12)
[2020-02-04] MEDS: DABIGATRAN 75 MG CAPSULE 150 MG PO (08:12)
[2020-02-04] MEDS: METOPROLOL ER 25 MG TABLET 12.5 MG PO (08:12)
[2020-02-04] MEDS: ASPIRIN EC 81 MG TABLET PO (08:13)
[2020-02-04] MEDS: MAGNESIUM OXIDE 400 MG TABLET PO (08:13)
--- NOTE | 2020-02-04 08:14 | PM.DS.1 ---
History of Present Illness History of Present Illness Date Patient Seen: 02/04/20 Time Patient Seen: 08:15 Chief complaint: abnormal labs Narrative: As per VALDO Younger: Mr. Terry Pack is a 74-year-old male with a history of atrial fibrillation (anticoagulated on Pradaxa), severe aortic stenosis, hypertension, diabetes type 2 hyperlipidemia and congestive heart failure with reduced ejection fraction presents to the ER for further evaluation of abnormal labs the request his primary care provider. The patient states that he was having a great day today with no complaints of pain or problems. He recent ports receiving a call this evening in follow-up to recent labs indicating that he had a severely sodium and potassium and was told he could have seizure into present to the ER for further evaluation and treatment. Patient was recently hospitalized at [facility] from 01/11/2022 01/17/2020 for acute exacerbation of congestive heart failure. At that time the patient extensive diuresis removing 7.5 L of fluid and being discharged on continuing diuretic therapy. Since discharge the patient states he has lost 15 lb. He denies any associated complaints stating he feels well and felt no untoward affects of his electrolyte derangement. He denies any recent illness, flu symptoms, fevers or chills. He denies complaints of chest pain and has had no palpitations. Denies complaints shortness of breath has a mild intermittent cough and denies wheezing. Denies abdominal pain, nausea vomiting, diarrhea or constipation. He is ambulatory without dizziness or weakness. Upon arrival to the ER he is afebrile with temperature 97.7?, heart rate 91, blood pressure 103/63, respiratory rate of 17 saturating 100% on room air. A chest x-ray is obtained finding enlarged cardiac silhouette but no overt infiltrates or pleural effusions. A CT of the head was and which was unremarkable. Twelve lead EKG finds atrial fibrillation with a controlled rate of 86, left bundle branch block with left axis shift, increased left ventricular voltage and increased QRS interval at 180 milliseconds and prolonged QTC at 572 milliseconds. On laboratory analysis has white count 9.1, hemoglobin of 13.9, hematocrit of 41.3, platelets of 355. He has a PT of 16.0 and INR 1.4. Admitting sodium was 122 which was checked 3 hours later and dropped to 118. His potassium is 3.2 and has a BUN of 49 and a creatinine is 0.92. His nonfasting glucose is 159. Has an EGFR greater than 60 and has a BUN creatinine ratio 53.3. His magnesium is 1.8. On liver function he has a total bilirubin of 1.0, AST of 36, ALT of 42 and alkaline phosphatase 178. He has a total CK of 58 and a troponin 0.035. His elevated proBNP at 2460. Procalcitonin is negative at less than 0.05. COVID-19 screening is negative. Discussions held with the ER provider current the patient's tenuous cardiac status with an EF of 30-35% on previous echo dated 01/13/2020. Also noted is severe aortic stenosis with a valvular area of 0.6 and a gradient of 261 with severity ratio 0.17. In light of rehydration in a patient that is intolerant of fluid due to his aortic stenosis the ER provider spoke with cardiology at [facility] or the patient receives his care. The patient does not wish transfer at this time and is admitted to the medicine service for cautious gentle rehydration following over-diuresis and hyponatremia and hypokalemia. Discharge Providers Provider Date of admission: 01/31/20 01:54 Discharge Date: 02/04/20 Primary care physician: Stanton Louis MD Consults: 01/31/20 02:02 Consult to Dietitian, Adult Routine Comment: Reason For Exam: Marked hyponatremia, heart failure with diuresis Consult to Discharge Planning Routine Comment: Discharge provider: Jean Woody DO Summary Hospital Course Discharge Diagnosis: 1. Severe aortic stenosis, chronic, present on admission, active. 2. Hyponatremia, acute on chronic, present on admission, active 3. Hypokalemia, acute, present on admission, resolved 4. Congestive heart failure with reduced ejection fraction, chronic, stable. 5. Chronic atrial fibrillation, controlled rate, stable 6. Diabetes type 2, non insulin dependent, controlled, stable 7. Essential hypertension, chronic, stable Hospital Course: This is a 74-year-old male patient was discharged from the hospital 2 weeks ago following diuresis for exacerbation of congestive heart failure secondary to aortic stenosis. The patient continued his diuresis in the outpatient setting but was over diuresed apparently and admitted with hyponatremia and hypokalemia. He had an admission sodium of 118 and appeared clinically dry. He was initially started on slow fluid repletion with 75 cc/hour and his blood pressure medications were reduced given borderline low blood pressures throughout admission. He also had a hypokalemia on admission that improved with repletion. He was never symptomatic from his hyponatremia. He continued on slow repletion, and ultimately sodium stayed stable around 122. There was a brief drop for which is fluids were held and urine studies were sent. This showed a low urine sodium of less than 5 and fluids restarted at 125 cc per hour. His sodium again return to 122, fluids were again increased to 150 cc per with no change in his sodium level. Discussed the case with Nephrology, Dr. Herman, at [facility] who agreed with management. Ultimately given no significant change, and that the patient remained asymptomatic, and his intense desire to go home it was felt to be safe to do so. His diuretics were held upon discharge and his blood pressure medications were lowered. The patient has a planned follow-up with his business division chair tomorrow whom will recheck his labs. Time Spent with Patient Time spent: Greater than 30 minutes Exam Vital Signs (past 8 hours): - 02/04/20 02:18 02/04/20 02:20 02/04/20 05:10 Temperature 96.6 F L 96.1 F L Pulse Rate 91 H 84 Respiratory Rate 16 14 Blood Pressure 104/75 108/74 Pulse Oximetry 97 97 98 Oxygen Delivery Method Room Air Oxygen Flow Rate 0 Narrative Exam Narrative: GENERAL APPEARANCE: well developed, well nourished, sitting in a chair in no acute distress. HEENT: Normocephalic, PERRLA, conjunctiva clear, EOMs intact without nystagmus, mucous membranes are moist and pink. NECK/THYROID: neck supple, no JVD, no thyromegaly, trachea midline. LYMPH NODES: no cervical or supraclavicular lymphadenopathy. SKIN: Bol[place], warm and dry, no visible rashes or lesions. HEART: Irregularly irregular rhythm, S1-S2, systolic murmur, no rubs or gallops, brisk capillary refill, trace bilateral lower extremities with compression stockings, pedal edema present. LUNGS: Breath sounds with right basilar fine crackles, no coarseness or wheezing, nonproductive cough present CHEST: Symmetrical movement, no accessory muscle use, fair tidal volume. ABDOMEN: Soft, dull to percussion, slightly protuberant, no abdominal tenderness, no organomegaly, no flank tenderness, active bowel tones. BACK: Normal curvature, nontender to palpation, no CVA tenderness on percussion. EXTREMITIES: moves all extremities, strength is 5/5 and symmetrical, no deformities or joint effusions NEUROLOGIC: AAO x4, no focal neurologic deficits, cranial nerves II-XII grossly intact, sensation intact to light touch. PSYCH: Good eye contact, cooperative, appropriate with stable behavior Objective Labs Result Diagrams: 01/30/20 23:10 02/04/20 05:00 Labs: Laboratory Results - last 24 hr 02/03/20 02/03/20 02/04/20 07:25 17:15 05:00 Sodium 122 L 122 L 122 L Potassium 4.1 4.4 4.4 Chloride 87 L 88 L 91 L Carbon Dioxide 29 29 28 BUN 36 H 38 H 32 H Creatinine 0.65 L 0.65 L 0.61 L Estimated GFR > 60.0 > 60.0 > 60.0 BUN/Creatinine Ratio 55.4 H 58.5 H 52.5 H Glucose 139 H D 125 H 131 H Calcium 8.6 8.5 8.3 L Magnesium 2.1 2.0 Total Bilirubin 1.2 Conjugated Bilirubin 0.0 Unconjugated Bilirubin 0.8 AST 24 ALT 28 Alkaline Phosphatase 137 H Total Protein 6.4 Albumin 3.5 Globulin 2.9 Albumin/Globulin Ratio 1.2 Discharge Plan Discharge Plan Patient Disposition: Home Provider Discharge Comment: You were admitted to the hospital with hyponatremia, or low sodium value. Based on workup it appears that we had you on to high of a diuretic dose. You were never symptomatic from this low salt level, despite coming in with a value of 118 which is very low. You only improved to 122, however you again were never symptomatic. I did discuss this with the catalyst manufacturing operator to said that you could go home but that you need close follow-up. Please have your business division chair draw labs again tomorrow. I am holding your diuretics. Your blood pressure is also slightly low so some of your blood pressure medications were decreased. Discharge orders & Medications Prescriptions: New lisinopril 5 mg Tablet 5 mg PO QPM 30 Days Qty: 30 RF: 0 metoprolol succinate 25 mg tablet extended release 24 hr 25 mg PO DAILY 30 Days Qty: 30 RF: 0 Continued metformin 750 mg tablet extended release 24 hr 750 mg PO BID RF: 0 aspirin 81 mg tablet,delayed release (DR/EC) 81 mg PO QAM RF: 0 cholecalciferol (vitamin D3) 1,000 unit/drop drops 1,000 unit PO QPM RF: 0 atorvastatin 80 mg Tablet 80 mg PO BEDTIME RF: 0 potassium chloride 10 mEq Capsule, Extended Release 10 meq PO DAILY RF: 0 omega 6-smv-dtj-fish oil [Fish Oil] 1,000 mg (120 mg-180 mg) Capsule 1 cap PO TID RF: 0 Pradaxa 150 mg Capsule 150 mg PO BID RF: 0 cyanocobalamin (vitamin B-12) 2,500 mcg Tablet 2,500 mcg PO DAILY RF: 0 Discontinued lisinopril 40 mg tablet 10 mg PO QPM RF: 0 metolazone 5 mg tablet 5 mg PO DAILY RF: 0 spironolactone [Aldactone] 25 mg Tablet 25 mg PO DAILY RF: 0 metoprolol succinate [Toprol XL] 50 mg Tablet Extended Release 24 Hr 50 mg PO DAILY RF: 0 torsemide 20 mg Tablet 40 mg PO BID 30 Days Qty: 120 RF: 0 Follow up/Referrals: Stanton Louis MD [Primary Care Provider] - Discharge Health Status Health Concerns: Hyponatremia Diet/Activity/Treatments Diet: Diet as Tolerated Activity: As tolerated Visit Report/Discharge Packet Instructions: DI for Heart Failure, How to Prevent Falls, Hyponatremia-Adult, Metoprolol, Lisinopril Visit Report Forms: Patient Portal/API, Stroke Signs & Symptoms Discharge Data Primary Care Provider: Stanton Louis V Discharges patient from system. Discharge Date/Time: 02/04/20 10:32 Quality VTE Deep Vein Thrombosis/Pulmonary Embolism Present on Admission: No
--- NOTE | 2020-02-04 08:55 | CM.DPC ---
DCP Discharge Home Per MD, pt is medically stable to d/c home today with no identified barriers to discharge. SW met bedside with pt and explained role and pt confirms he is agreeable with d/c home and spouse will be bedside around 1030 today to provide transport and no concerns at this time. SW provided pt's Medicare Message and pt acknowledged understanding and signed his Medicare Message. Plan: Patient to d/c home today via spouse POV and no SW needs at this time. RATNA Pelayo
--- NOTE | 2020-02-04 10:22 | PC.NURSE ---
Day shift: Paperwork signed and all questions answered. scripts sent electronic. Discussed the meds w/ Terry that he is to stop taking. He has dealer compliance representative appointment tomorrow. Pt has all personal belongings. Tele is off and IV is out. Pt taken to car in that will be driven by his spouse. Went over w/ Terry what to do if his symptoms worsen and he stated that he understands.
[2020-02-04 15:40] LABS: Osmolality Urine 607 mOsmol/kg (.)
== END 2020-02-04 10:32 | disposition home or self-care (01) | DRG 641 ==
LOC: ED 23:08 → AC 01-31 01:54
PROVIDERS: Internal Medicine; Admitting Provider Nurse Practitioner Adult Health; Emergency Provider Emergency Medicine; Family Provider Internal Medicine; PCP Internal Medicine; Referring Provider Emergency Medicine; Visit Provider Nurse Practitioner Adult Health
DX: E87.1 Hypo-osmolality and hyponatremia (principal); I50.22 Chronic systolic (congestive) heart failure; I48.20 Chronic atrial fibrillation, unspecified; E87.6 Hypokalemia; I35.0 Nonrheumatic aortic (valve) stenosis; I11.0 Hypertensive heart disease with heart failure; I44.7 Left bundle-branch block, unspecified; I95.9 Hypotension, unspecified; E83.42 Hypomagnesemia; E11.9 Type 2 diabetes mellitus without complications; E78.5 Hyperlipidemia, unspecified; Z79.84 Long term (current) use of oral hypoglycemic drugs; Z79.01 Long term (current) use of anticoagulants; Z11.59 Encounter for screening for other viral diseases
CPT/HCPCS: 36415; 36592; 70450; 71045; 80048; 80053; 80076; 82550; 82962; 83735; 83880; 83935; 84145; 84300; 84484; 85025; 85610; 87635; 93005; 93010; 93307; 99284

== ENCOUNTER → 2020-02-29 09:43 | Outpatient (CLI) | payer MEDICARE, SELFPAY ==
[2020-02-29 10:53] LABS: Hemoglobin A1C% w Est Avg Glu 7.6 % (4.0-6.0)
[2020-02-29 11:09] LABS: BUN Creatinine Ratio 42.6 (6-22); Blood Urea Nitrogen 26 mg/dL (9-20); Calcium 9.3 mg/dL (8.4-10.2); Carbon Dioxide 27 mmol/L (22-32); Chloride 96 mmol/L (98-107); Estimated Glomerular Filt Rate > 60.0 mL/min (>60); Glucose 144 mg/dL (80-110); HEMOLYSIS < 15 (0-50); Potassium 4.4 mmol/L (3.4-5.1); Sodium 129 mmol/L (137-145)
== END ==
PROVIDERS: Family Provider Internal Medicine; PCP Internal Medicine; Referring Provider Student in an Organized Health Care Education/Training Program; Visit Provider Student in an Organized Health Care Education/Training Program
DX: E87.1 Hypo-osmolality and hyponatremia (principal); E11.9 Type 2 diabetes mellitus without complications; E26.1 Secondary hyperaldosteronism; I50.23 Acute on chronic systolic (congestive) heart failure
CPT/HCPCS: 36415; 80048; 83036

== ENCOUNTER → 2020-03-25 14:49 | Outpatient (ROUT) | payer MEDICARE, SELFPAY ==
[2020-03-25 15:25] LABS: BUN Creatinine Ratio 21.2 (6-22); Blood Urea Nitrogen 14 mg/dL (9-20); Calcium 9.6 mg/dL (8.4-10.2); Carbon Dioxide 32 mmol/L (22-32); Chloride 97 mmol/L (98-107); Estimated Glomerular Filt Rate > 60.0 mL/min (>60); Glucose 135 mg/dL (80-110); HEMOLYSIS < 15 (0-50); Potassium 4.4 mmol/L (3.4-5.1); Sodium 135 mmol/L (137-145)
[2020-03-25 15:39] LABS: NT-proBNP (BNP-Adult 18+) 1690 pg/mL (<125)
== END ==
PROVIDERS: Family Provider Internal Medicine; PCP Internal Medicine; Visit Provider Internal Medicine
DX: I50.23 Acute on chronic systolic (congestive) heart failure (principal); E11.9 Type 2 diabetes mellitus without complications; E87.1 Hypo-osmolality and hyponatremia; I10 Essential (primary) hypertension; E26.1 Secondary hyperaldosteronism; I50.20 Unspecified systolic (congestive) heart failure
CPT/HCPCS: 80048; 83880

== ENCOUNTER → 2020-03-27 14:34 | Outpatient (ROUT) | payer MEDICARE, SELFPAY ==
[2020-03-27 14:57] LABS: Add Manual Diff / Slide Review NO; Basophils Absolute Auto 100 /uL (0-100); Basophils Percent Auto 0.9 % (0-2); Eosinophils Absolute Auto 100 /uL (0-450); Eosinophils Percent Auto 1.8 % (2-4); Hematocrit 38.4 % (41-53); Hemoglobin 12.8 g/dL (13.5-17.5); Lymphocytes Absolute Auto 1200 /uL (1100-4500); Lymphocytes Percent Auto 15.1 % (25-40); Mean Corpuscular HGB Conc 33.3 % (30-36); Mean Corpuscular Hemoglobin 30.4 PG (26-34); Mean Corpuscular Volume 91.3 fL (80-100); Monocytes Absolute Auto 800 /uL (0-900); Monocytes Percent Auto 10.2 % (3-14); Neutrophils Absolute Auto 5500 /uL (1500-7000); Platelet Count 429 X10^3/uL (150-400); Red Blood Cell Count 4.21 X10^6/uL (4.5-5.9); White Blood Cell Count 7.7 X10^3/uL (4.5-11.0)
[2020-03-27 15:11] LABS: Alanine Aminotransferase 18 IU/L (<50); Albumin Globulin Ratio 1.3 (1.0-2.8); Alkaline Phosphatase 146 U/L (38-126); Aspartate Aminotransferase 23 IU/L (17-59); BUN Creatinine Ratio 34.4 (6-22); Bilirubin Total 0.8 mg/dL (0.2-1.3); Blood Urea Nitrogen 21 mg/dL (9-20); Calcium 9.5 mg/dL (8.4-10.2); Carbon Dioxide 28 mmol/L (22-32); Chloride 98 mmol/L (98-107); Cholesterol 118 mg/dL (140-199); Estimated Glomerular Filt Rate > 60.0 mL/min (>60); Globulin 3.1 g/dL (1.7-4.1); Glucose 113 mg/dL (80-110); HDL Cholesterol 36 mg/dL (40-60); HEMOLYSIS < 15 (0-50); LDL Cholesterol Calculated 71 mg/dL (<100); Potassium 4.6 mmol/L (3.4-5.1); Sodium 134 mmol/L (137-145); Total Protein 7.1 g/dL (6.3-8.2); Triglycerides 53 mg/dL (35-150)
[2020-03-27 15:35] LABS: TSH w/ Reflex to FT4 1.24 uIU/mL (0.47-4.68)
[2020-03-27 15:53] LABS: Vitamin B12 680 pg/mL (239-931)
== END ==
PROVIDERS: Family Provider Internal Medicine; PCP Internal Medicine; Visit Provider Internal Medicine
DX: I48.20 Chronic atrial fibrillation, unspecified (principal); E53.8 Deficiency of other specified B group vitamins
CPT/HCPCS: 80053; 80061; 82607; 84443; 85025

== ENCOUNTER → 2020-04-07 11:13 | Outpatient (CLI) | payer MEDICARE, SELFPAY ==
[2020-04-07 12:34] LABS: COVID19 -Nasal RAPID Negative (Negative)
== END ==
PROVIDERS: Family Provider Internal Medicine; PCP Internal Medicine; Visit Provider Physician Assistant
DX: Z01.812 Encounter for preprocedural laboratory examination (principal); Z20.828 Contact with and (suspected) exposure to other viral communicable diseases
CPT/HCPCS: 87635; C9803

== ENCOUNTER → 2020-04-08 15:07 | Outpatient (CLI) | payer MEDICARE, SELFPAY ==
--- NOTE | 2020-04-08 | DI.MRI.S_ITS ---
PROCEDURE: MR STROKE Pre- and post-contrast brain MRI, non-contrast brain MR angiogram, pre- and postcontrast neck MR angiogram INDICATIONS: Mild cognitive impairment, so stated TECHNIQUE: Brain: Noncontrast axial T1 spin echo, axial T2 fast spin echo, sagittal and axial FLAIR, coronal T2 fast spin echo, axial gradient echo, axial diffusion and ADC through the brain. After the administration of contrast, axial 3D VIBE of the cranial vasculature and brain. Brain MRA: Non-contrast 3-D time of flight MR angiogram, with multiple dyyeqdw-pmocbvgls-cabqwpetzh (MIP) reformats performed. Neck MRA: Axial and sagittal TruFISP through the neck. Coronal dynamic MR angiogram during administration of contrast in the arterial and venous phases, with 3-dimenstional vxczpvb-ezhesxktz-izcmabigrz (MIP) reformats constructed from subtraction images. COMPARISON: [facility], CT, CT HEAD/BRAIN WO CON, 01/31/2020, 0:33. FINDINGS: Image quality: Excellent. BRAIN: CSF spaces: Ventricles are normal in size and shape. Basal cisterns are patent. No extra-axial fluid collections. Brain: No intracranial bleeds or mass effects. Agudelo-white matter interface is normal. Diffusion weighted images show no acute ischemic insults. Brainstem appears normal. Normal intravascular flow voids are present. No abnormal intracranial enhancement. Skull and face: Calvarial marrow signal is normal. Orbits appear normal. Sinuses: Sinuses and mastoids are clear. BRAIN MR ANGIOGRAM: Anterior circulation: Intracranial internal carotid arteries are normal in size and enhancement. The flow within the paired anterior cerebral arteries is normal and symmetric. The flow within the middle cerebral arteries is normal and symmetric. The anterior communicating artery is seen. No stenoses, occlusions, or aneurysms. Posterior circulation: The visualized portions of the vertebral arteries demonstrate normal caliber inferiorly but the right vertebral artery is diminutive superiorly and extends into the right posterior inferior cerebellar artery. The left vertebral artery extend cephalad to form a normal appearing basilar artery. The flow within the posterior cerebral arteries is normal and symmetric. No stenoses, occlusions, or aneurysms. NECK MR ANGIOGRAM: Carotids: Great vessels demonstrate a conventional anatomy as they arise from the aortic arch. The origins of the common carotid arteries appear patent. The calibers and courses of both common carotid arteries are normal. The bifurcation regions appear normal bilaterally. The internal carotid arteries demonstrate normal course and caliber. Posterior circulation: The origins of the vertebral arteries appear patent. More superior portions extend as discussed above, with formation of a normal appearing basilar artery. Miscellaneous: Subclavian arteries appear patent. Pre-contrast images through the neck show no soft tissue abnormalities. IMPRESSION: BRAIN MRI: Mild microvascular atherosclerotic change in the deep white matter of each hemisphere but no sign of acute or subacute stroke. BRAIN MR ANGIOGRAM: Normal intracranial MR angiogram. 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 The left vertebral artery is dominant and extends as a normal caliber basilar artery into the posterior fossa. NECK MR ANGIOGRAM: The brachiocephalic artery origins appear normal. As discussed above the left vertebral artery is dominant, and the right vertebral artery appears to extend as a diminutive vessel into the posterior inferior cerebellar artery on the right. More superiorly the normal extension of the left vertebral artery through the basilar artery appears normal and uqncrl-mi-Vgbbqu vessels are patent, with no sign of aneurysm or embolus. Mild asymmetric atherosclerotic narrowing of the right proximal internal carotid artery but no significant focal stenosis is found. Dictated by: Sam Sandoval M.D. on 04/08/2020 at 16:20 Approved by: Sam Sandoval M.D. on 04/08/2020 at 16:24
== END ==
PROVIDERS: Family Provider Internal Medicine; PCP Internal Medicine; Referring Provider Internal Medicine; Visit Provider Internal Medicine
DX: G31.84 Mild cognitive impairment of uncertain or unknown etiology (principal)
CPT/HCPCS: 70548; 70553

== ENCOUNTER → 2020-04-10 18:27 | Outpatient (ROUT) | payer MEDICARE, SELFPAY ==
[2020-04-10 18:36] LABS: BUN Creatinine Ratio 38.8 (6-22); Blood Urea Nitrogen 26 mg/dL (9-20); Calcium 9.7 mg/dL (8.4-10.2); Carbon Dioxide 29 mmol/L (22-32); Chloride 95 mmol/L (98-107); Estimated Glomerular Filt Rate > 60.0 mL/min (>60); Glucose 126 mg/dL (80-110); HEMOLYSIS 16 (0-50); Potassium 4.6 mmol/L (3.4-5.1); Sodium 132 mmol/L (137-145)
== END ==
PROVIDERS: Family Provider Internal Medicine; PCP Internal Medicine; Visit Provider Internal Medicine
DX: I25.10 Atherosclerotic heart disease of native coronary artery without angina pectoris (principal)
CPT/HCPCS: 80048

== ENCOUNTER → 2020-07-10 18:48 | Outpatient (ROUT) | payer OTHER, SELFPAY ==
[2020-07-10 19:09] LABS: Alanine Aminotransferase 20 IU/L (<50); Albumin 4.5 g/dL (3.5-5.0); Albumin Globulin Ratio 1.6 (1.0-2.8); Alkaline Phosphatase 90 U/L (38-126); Aspartate Aminotransferase 26 IU/L (17-59); Bilirubin Total 1.4 mg/dL (0.2-1.3); Blood Urea Nitrogen 20 mg/dL (9-20); Calcium 9.9 mg/dL (8.4-10.2); Carbon Dioxide 30 mmol/L (22-32); Chloride 94 mmol/L (98-107); Estimated Glomerular Filt Rate > 60.0 mL/min (>60); Globulin 2.8 g/dL (1.7-4.1); Glucose 127 mg/dL (80-110); HEMOLYSIS < 15 (0-50); Potassium 4.8 mmol/L (3.4-5.1); Sodium 135 mmol/L (137-145); Total Protein 7.3 g/dL (6.3-8.2)
[2020-07-10 19:12] LABS: Add Manual Diff / Slide Review NO; Basophils Absolute Auto 0 /uL (0-100); Basophils Percent Auto 0.6 % (0-2); Eosinophils Absolute Auto 100 /uL (0-450); Eosinophils Percent Auto 1.6 % (2-4); Hematocrit 44.1 % (41-53); Hemoglobin 14.6 g/dL (13.5-17.5); Lymphocytes Absolute Auto 1400 /uL (1100-4500); Lymphocytes Percent Auto 17.9 % (25-40); Mean Corpuscular HGB Conc 33.1 % (30-36); Mean Corpuscular Hemoglobin 33.2 PG (26-34); Mean Corpuscular Volume 100.3 fL (80-100); Monocytes Absolute Auto 700 /uL (0-900); Monocytes Percent Auto 9.7 % (3-14); Neutrophils Absolute Auto 5400 /uL (1500-7000); Neutrophils Percent Auto 70.2 % (50-75); Platelet Count 280 X10^3/uL (150-400); Red Cell Distribution Width 14.4 % (11.6-14.8); White Blood Cell Count 7.6 X10^3/uL (4.5-11.0)
== END ==
PROVIDERS: PCP Internal Medicine; Visit Provider Internal Medicine
DX: I25.10 Atherosclerotic heart disease of native coronary artery without angina pectoris (principal)
CPT/HCPCS: 80053; 85025

== ENCOUNTER 2020-07-15 13:14 | Outpatient (RCR) | payer OTHER, SELFPAY ==
--- NOTE | 2020-10-27 15:49 | ST-OP ANOTE ---
Physical, Occupational & Speech Therapy At [facility] Speech Therapy Note pt did not return to clinic after evaluation
--- NOTE | 2020-10-28 10:00 | ST.OPIE ---
Visit Care Team Role Provider Type Stanton Louis MD Primary Care Provider Physician Specialty: Internal Medicine Address: [address] [place] [address], [id number] Email: [email or web address] Young Maurer MD Attending Provider Non-Staff Referring Provider Specialty: Psychiatry Address: [address] [place] [address], [id number] Email: Speech-Language Pathology Initial Evaluation [employer] OPERATOR Adult Cognitive Linguistic Eval Start: 07/15/20 16:33 Freq: Status: Active Protocol: Document 07/15/20 16:35 LNK (Rec: 07/15/20 17:09 LNK [id number]) Adult Cognitive Linguistic Evaluation Session Time Visit Start Time 13:30 Visit Stop Time 14:30 Total Visit Minutes 60 Referral Referring Provider Young Maurer MD Reason for Referral cognitive complaints Setting Assessment Location Outpatient Care Visit Type Note Type Initial evaluation Patient Information Identification Type Name,Date of Medical History Terry Pack was seen for cognitive assessment at the referral of Dr. Maurer, Neurology, [facility]. According to Terry, he did not know why he was here, noting that his was unsure about the reason for the appointment. His was not in attendance for this appointment. When pointed out that Dr. Maurere referred for cognitive assessment, and explaining what that meant, the pt indicated his memory was not as good as it used to be. he further reported that in August 2019, he spent a long time in the hospital secondary to heart surgery. According to Terry, Dr Maurer thought there my be a connection to the reported memory loss and his long hospitalization. pt remarked that he though his memory problems were normal for his age. Subjective Mental Status Alert,Responsive,Cooperative Assessment Oral Motor Examination Completed No Informal Assessment Receptive Language Normal No: Needed instructions repeated 1-2x. Expressive Language Normal No: Several repetitions of previously provided information Expressive Language Impairment(s) Expression of complex thoughts /ideas Pragmatic Language Normal Yes Speech Normal Yes Cognition Normal No: Memory Cognitive Impairment(s) Attention,Short-term memory, Problem solving Formal Assessment Standardized Test/Screener Type [facility] Mental Status ([facility]) Administration Complete Results The results of the [facility] indicated that Terry was able to state the day, year and the state he lives in. He was able to list 13 animals within 1 minute, remembered 5 items listed verbally immediately after hearing them. After a 1 -2 minute delay he was able to list 4/5 items. He correctly answered 2/4 questions after listening to a paragraph read to him. Mental math and digit manipulation was difficult for Terry. Drawing a clock with a specified time was also challenging: Terry's placement of the hour markers were spaced inconsistently and his clock hand positions were not correct for specified time. Overall Terry's score on the SLUMS was 17/30 indicating mild-moderate cognitive deficits. The SLUMS scoring would be within the category of dementia (range = 1-20). The results of t bijan SLUMS indicate the need for further assessment. Referral for a complete neuropsychological assessment is recommended. Findings/Results Language Function Mildly impaired Cognitive Function Mild-moderately impaired Findings The above results were described to Terry. He asked if the s/sx described would imrove without therapy. Options for treatment were presented; oupt patient cognitive therapy or wait a couple of months to see if he notices improvement and then return for further assessment if he notices no change. Terry chose to wait and see if he improves. Different cognitive activities that are available in word puzzles, different apps ([employer], [employer], etc) were provided for the pt. Cognitive Communication Deficits Self-awareness of Cognitive- Situational awareness ( Communication Deficits recognition of problem in context;in real time) Concomitant Factors Concomitant Factors Other (comment) Comment Pt had right side resting tremor of right hand/fingers, foot and eye twitch Impact on Functioning Comment More information needed Prognosis Prognosis Fair Based on Cognitive status Plan of Care Speech-Language Treatment No Frequency Pt decided he would wait and see if things improve without therapy Patient/Caregiver Education Described results of evaluation,Patient expressed understanding of evaluation, Patient expressed understanding of eval, but refused treatment,Patient requires further education/ training Short Term Goals Recommend neuropsycholigical assessment secondary to low SLUMS score and right side tremor/eye twitch.
--- NOTE | 2020-10-28 10:09 | ST.OPDS ---
Visit Care Team Role Provider Type Stanton Louis MD Primary Care Provider Physician Address: [address] [place] [address], [id number] Young Maurer MD Attending Provider Non-Staff Referring Provider Address: [address] [place] [address], [id number] [employer] LE[employer]ER Treatment Note [employer] Treatment Note Start: 10/28/20 10:02 Freq: Status: Active Protocol: Document 10/28/20 10:04 LNK (Rec: 10/28/20 10:08 LNK [id number]) Speech Pathology Treatment Note Visit Information Plan of Care Dates 07/15/20-10/14/20 Setting Treatment Setting Outpatient Care Visit Type Note Type Discharge Summary General Information General Information Terry Pack was seen for cognitive assessment at the referral of Dr. Maurer, Neurology, [facility]. According to Terry, he did not know why he was here, noting that his was unsure about the reason for the appointment. His was not in attendance for this appointment. When pointed out that Dr. Corey referred for cognitive assessment, and explaining what that meant, the pt indicated his memory was not as good as it used to be. he further reported that in August 2019, he spent a long time in the hospital secondary to heart surgery. According to Terry, Dr Maurer thought there my be a connection to the reported memory loss and his long hospitalization. pt remarked that he thought his memory problems were normal for his age. [ E Subjective Chief Complaint(s) Cognitive Objective Short Term Goals pt will return to review findings of cog assessment and determine POC Treatment Activities Pt cancelled follow up appointment on 07/28/20. Pt indicated that they were told therapy was not needed. This DAY CAMP UNIT LEADER does not remember telling them they did not need therapy as the 07/28/20 appointment was scheduled to review assessment results. Pt has not been seen since the initial evaluation. Will discharge at this time Assessment Progress Towards Goals Appropriate for Discharge Plan Amount of Therapy Recommended No Further Therapy Frequency of Treatment No Further Therapy Therapy Recommendations Discharge to Home Exercise Program
== END 2020-10-29 08:04 | disposition home or self-care (01) ==
LOC: SP 13:14
PROVIDERS: PCP Internal Medicine; Referring Provider Psychiatry & Neurology Neurology; Visit Provider Psychiatry & Neurology Neurology
DX: R41.9 Unspecified symptoms and signs involving cognitive functions and awareness (principal)
CPT/HCPCS: 92523

== ENCOUNTER 2020-07-21 14:00 | Outpatient (RCR) | payer MEDICARE, OTHER, SELFPAY | END 2020-07-21 16:00 | LOC: CAR 14:00 | PROVIDERS: Family Provider Internal Medicine; PCP Internal Medicine; Referring Provider Internal Medicine Interventional Cardiology; Visit Provider Internal Medicine Interventional Cardiology | DX: Z95.2 Presence of prosthetic heart valve (principal) | CPT/HCPCS: 93798 ==

== ENCOUNTER → 2020-07-30 11:24 | Outpatient (CLI) | payer OTHER, SELFPAY ==
[2020-07-30 13:11] LABS: Folate 10.5 ng/mL (2.76-20.0)
[2020-08-03 02:08] LABS: Vitamin B1 114.9 nmol/L (66.5-200.0)
== END ==
PROVIDERS: PCP Internal Medicine; Referring Provider Psychiatry & Neurology Neurology; Visit Provider Psychiatry & Neurology Neurology
DX: R41.9 Unspecified symptoms and signs involving cognitive functions and awareness (principal)
CPT/HCPCS: 36415; 82746; 84425

== ENCOUNTER → 2020-09-15 12:46 | Outpatient (CLI) | payer OTHER, SELFPAY ==
--- NOTE | 2020-09-15 12:48 | DI.RAD.S_ITS ---
PROCEDURE: XR LUMBAR SPINE 2-3V INDICATIONS: LOW BACK PAIN TECHNIQUE: 3 views of the lumbar spine were acquired. COMPARISON: [facility], CR, XR CHEST 2V, 01/12/2020, 16:21. [facility], CR, XR CHEST 1V, 01/30/2020, 23:12. [facility], US, US ABDOMEN COMPLETE, 01/13/2020, 12:13. FINDINGS: Bones: 5 cfi-kcg-ozaxomg vertebrae are present. There is normal bony alignment. A compression fracture of T12 with 50 percent anterior height loss is seen. There is severe facet arthrosis from L3 through S1. There is grade 1 anterolisthesis of L4 over L5. There is leftward curvature of the lumbar spine. Soft tissues: Overlying bowel gas pattern is normal. No suspicious soft tissue calcifications. The aorta has atherosclerotic calcifications. IMPRESSION: 1. Multilevel lumbar spondylosis with facet arthrosis most severe from L4 through S1. 2. Grade 1 anterolisthesis of L4 over L5 due to underlying facet arthrosis. 3. Compression fracture of T12 is unchanged compared to prior remote x-rays. 4. Mild leftward curvature of the lumbar spine. Dictated by: Rigoberto Wyatt M.D. on 09/15/2020 at 14:23 Approved by: Rigoberto Wyatt M.D. on 09/15/2020 at 14:26
== END ==
PROVIDERS: PCP Internal Medicine; Referring Provider Internal Medicine; Visit Provider Internal Medicine
DX: M54.5 Low back pain (principal); M47.816 Spondylosis without myelopathy or radiculopathy, lumbar region; M47.817 Spondylosis without myelopathy or radiculopathy, lumbosacral region; M43.16 Spondylolisthesis, lumbar region; M48.56XS Collapsed vertebra, not elsewhere classified, lumbar region, sequela of fracture
CPT/HCPCS: 72100

== ENCOUNTER → 2021-08-19 11:07 | Outpatient (CLI) | payer MEDICARE, SELFPAY ==
[2021-08-19 11:25] LABS: Hematocrit 45.5 % (41-53); Hemoglobin 15.5 g/dL (13.5-17.5); Mean Corpuscular HGB Conc 33.9 % (30-36); Mean Corpuscular Hemoglobin 34.9 PG (26-34); Mean Corpuscular Volume 102.9 fL (80-100); Platelet Count 260 X10^3/uL (150-400); Red Blood Cell Count 4.43 X10^6/uL (4.5-5.9); Red Cell Distribution Width 14.1 % (11.6-14.8); White Blood Cell Count 6.5 X10^3/uL (4.5-11.0)
[2021-08-19 11:40] LABS: Alanine Aminotransferase 23 IU/L (<50); Albumin 4.5 g/dL (3.5-5.0); Albumin Globulin Ratio 1.7 (1.0-2.8); Alkaline Phosphatase 66 U/L (38-126); Aspartate Aminotransferase 26 IU/L (17-59); Blood Urea Nitrogen 19 mg/dL (9-20); Calcium 9.4 mg/dL (8.4-10.2); Carbon Dioxide 30 mmol/L (22-32); Chloride 101 mmol/L (98-107); Cholesterol 147 mg/dL (140-199); Estimated Glomerular Filt Rate > 60 mL/min (>60); Globulin 2.7 g/dL (1.7-4.1); Glucose 135 mg/dL (80-110); HDL Cholesterol 40 mg/dL (40-60); HEMOLYSIS < 15 (0-50); LDL Cholesterol Calculated 88 mg/dL (<100); Sodium 137 mmol/L (137-145); Total Protein 7.2 g/dL (6.3-8.2); Triglycerides 95 mg/dL (35-150)
[2021-08-19 12:09] LABS: Prostate Specific Antigen 2.42 ng/mL (0.10-4.00)
[2021-08-19 12:12] LABS: Hemoglobin A1C% w Est Avg Glu 6.3 % (4.0-6.0)
== END ==
PROVIDERS: PCP Internal Medicine; Referring Provider Internal Medicine; Visit Provider Internal Medicine
DX: I10 Essential (primary) hypertension (principal); E11.69 Type 2 diabetes mellitus with other specified complication; N40.1 Benign prostatic hyperplasia with lower urinary tract symptoms; E78.2 Mixed hyperlipidemia; I35.0 Nonrheumatic aortic (valve) stenosis; I48.0 Paroxysmal atrial fibrillation; I50.22 Chronic systolic (congestive) heart failure; N13.8 Other obstructive and reflux uropathy; Z79.01 Long term (current) use of anticoagulants; E78.5 Hyperlipidemia, unspecified
CPT/HCPCS: 36415; 80053; 80061; 83036; 84153; 84443; 85027

== ENCOUNTER 2022-01-21 08:53 | Inpatient (IN) | payer MEDICARE, SELFPAY ==
[2022-01-21] VITALS (38 sets, daily range): BP systolic 77–139; BP diastolic 47–71; PULSE 97–154; RESP 16–39; TEMP 36.8–37.3; O2SAT 73–98; BMI 34.9
--- NOTE | 2022-01-21 09:46 | PC.NURSE ---
pt noted to be having intermittent episode of vtach on monitor; Dr. Hussein notified. Pt remains on all monitoring equipment. EKG at bedside. pt denies CP/SOB/dizziness/pain. call light in reach.
[2022-01-21 09:47] LABS: RBC Urine 1-5/HPF (0-5/HPF); WBC Urine 1-5/HPF (0-5/HPF)
[2022-01-21 09:48] LABS: Amorphous Sediment Urine 2+; Bacteria Urine Occasional (0-1); Culture Indicated Urine Specimen Cultured; Hyaline Casts Urine 0-1/LPF; Mucus Urine 1+ (Negative); Squamous Epithelial Cell Urine 0-1 /HPF (0-5/HPF)
--- NOTE | 2022-01-21 09:49 | DI.RAD.S_ITS ---
PROCEDURE: XR CHEST 1V INDICATIONS: pneumonia TECHNIQUE: One view of the chest was acquired. COMPARISON: [facility], CR, XR CHEST 1V, 01/30/2020, 23:12. FINDINGS: Surgical changes and devices: None. Lungs and pleura: Lungs are clear. No pleural effusions or pneumothorax. Mediastinum: Mediastinal contours appear normal. Heart size is normal. Bones and chest wall: No suspicious bony lesions. Overlying soft tissues appear unremarkable. IMPRESSION: No acute cardiopulmonary findings. Dictated by: Shannon Hdez M.D. on 01/21/2022 at 10:53 Approved by: Shannon Hdez M.D. on 01/21/2022 at 10:53
--- NOTE | 2022-01-21 09:49 | ED.GENADULT ---
HPI - General Adult General Chief complaint: Urogenital-Male Stated complaint: Bladder control issues Time Seen by Provider: 01/21/22 09:41 Source: patient Mode of arrival: Ambulatory History of Present Illness HPI narrative: [age] year old male here for evaluation of ?flu-like illness? since the beginning of the week to include malaise generally not feeling well. Overnight patient has lost control of his bladder. He states that he did not even wake up. He woke up with urine all over the bed. This morning he tried to make it to the bathroom to urinate but could not. He is also soiled himself. He denies chest pain. No shortness of breath. No change in medications. No recent travel antibiotics Related Data Home Medications Medication Instructions Recorded Confirmed aspirin 81 mg tablet,delayed 81 mg PO QAM 08/14/19 08/19/21 release cholecalciferol (vitamin D3) 25 1,000 unit PO QPM 08/14/19 08/19/21 mcg/drop (1,000 unit/drop) oral drops metformin 750 mg tablet,extended 750 mg PO BID 08/14/19 08/19/21 release 24 hr atorvastatin 80 mg tablet 80 mg PO BEDTIME 01/10/20 08/19/21 dabigatran etexilate 150 mg 150 mg PO BID 01/12/20 08/19/21 capsule (Pradaxa) omega [id number]-dvk-[id number]-fish oil 1,000 mg 1 cap PO TID 01/12/20 08/19/21 (120 mg-180 mg) capsule (Fish Oil) dapagliflozin 10 mg tablet 10 mg PO DAILY 08/19/21 08/19/21 (Farxiga) metoprolol succinate 25 mg 25 mg PO BID 08/19/21 08/19/21 tablet,extended release 24 hr (Toprol XL) sacubitril 24 mg-valsartan 26 mg 1 tab PO BID 08/19/21 08/19/21 tablet (Entresto) spironolactone 25 mg tablet 25 mg PO DAILY 08/19/21 08/19/21 (Aldactone) torsemide 20 mg tablet 20 mg PO DAILY 08/19/21 08/19/21 Previous Rx's Medication Instructions Recorded tamsulosin 0.4 mg capsule 0.4 mg PO BEDTIME #90 caps 08/19/21 Allergies Allergy/AdvReac Type Severity Reaction Status Date / Time No Known Drug Allergies Allergy Verified 01/21/22 09:06 Review of Systems Constitutional Constitutional: Reports system reviewed and no additional complaints, except as documented Cardiovascular Cardiovascular: Reports system reviewed and no additional complaints, except as documented Respiratory Respiratory: Reports system reviewed and no additional complaints, except as documented Gastrointestinal Gastrointestinal: Reports system reviewed and no additional complaints, except as documented Genitourinary Genitourinary: Reports system reviewed and no additional complaints, except as documented Musculoskeletal Musculoskeletal: Reports system reviewed and no additional complaints, except as documented Integumentary/Breasts Skin/Breast: Reports system reviewed and no additional complaints, except as documented Neurologic Neurologic: Reports system reviewed and no additional complaints, except as documented Hematologic/Lymphatic Hematologic/Lymphatic: Reports system reviewed and no additional complaints, except as documented Patient History Medical History Alcohol use disorder BPH w urinary obs/LUTS Chronic anticoagulation 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 Enlarged prostate Essential hypertension Heart failure Mild cognitive impairment Mixed hyperlipidemia Paroxysmal atrial fibrillation Systolic CHF, chronic Wears glasses Surgical History S/P TAVR (transcatheter aortic valve replacement) Family History Mother CVA (cerebral vascular accident) Father Heart disease Social History household members: spouse Smoking Status: Never smoker alcohol intake: current Smoking Status: Never smoker alcohol intake frequency: a few times a week Substance Use Type: does not use Exam Initial Vital Signs Initial Vital Signs: Vital Signs Temperature 98.4 F 01/21/22 09:04 Pulse Rate 105 H 01/21/22 09:04 Respiratory Rate 17 01/21/22 09:04 Blood Pressure 98/60 01/21/22 09:04 Pulse Oximetry 97 01/21/22 09:04 Oxygen Delivery Method 01/21/22 09:04 Const General: cooperative, comfortable and well developed HENMA Head: normal to inspection and normocephalic Resp Effort & Inspection: normal respiratory effort Auscultation: clear to auscultation bilaterally Cardio Rate: regular rate Rhythm: regular rhythm GI Inspection: normal to inspection Skin General: no rashes or lesions noted Neuro General: patient alert, patient awake, patient oriented x3 and moves all extremities Extrem General: normal to inspection and capillary refill normal Psych Appearance: grossly normal and well kempt Course Orders Ordered: ED Orders 01/21/22 09:37 Urine Culture Stat Urine Microscopic Stat 01/21/22 09:38 Complete Blood Count AUTO DIFF Stat Comprehensive Metabolic Panel Stat Ethanol (ETOH) Stat Lactate (Lactic Acid) Stat Lipase Stat Partial Thromboplastin Time Stat Procalcitonin Stat Prothrombin Time INR Stat Troponin & CK Cardiac Panel Stat 01/21/22 09:39 COVID19 - ADMIT ([employer] swab/PCR) Stat 01/21/22 09:41 EKG-12 Lead Stat 01/21/22 09:49 XR chest 1V Stat 01/21/22 10:10 Blood Culture Stat 01/21/22 12:18 NT-proBNP (BNP-Adult 18+) Stat Troponin I Stat 01/21/22 12:35 Influenza A & B (PCR) Stat 01/21/22 14:03 US abdomen limited Stat 01/21/22 14:24 CT angio abdomen pelvis Stat Acetaminophen (Acetaminophen 325 Mg Tablet) 975 mg PO Q8H PRN PRN Reason: Pain, Mild (1-3) Folic Acid (Folic Acid 1 Mg Tablet) 1 mg PO DAILY [facility] Ceftriaxone Sodium 1,000 mg/ (Sodium Chloride) 100 mls @ 200 mls/hr IV Q24H SHEA Stop: 01/29/22 09:59 Lorazepam (Lorazepam 2 Mg/Ml Inj) 0 mg IV CIWAPRN PRN; Protocol PRN Reason: Alcohol Withdrawal Metoprolol Succinate (Metoprolol Er 25 Mg Tablet) 25 mg PO BID [facility] Multivitamins (Multivitamin 1 Tablet) 1 tab PO DAILY [facility] Ondansetron HCl (Ondansetron 4 Mg/2 Ml Inj) 4 mg IV Q8HR PRN PRN Reason: Nausea And Vomiting Thiamine HCl (Thiamine 100 Mg Tablet) 100 mg PO DAILY SHEA Stop: 01/25/22 09:01 Discontinued Medications Aspirin (Aspirin 81 Mg Chew Tab) 324 mg PO NOW ONE Stop: 01/21/22 10:23 Last Admin: 01/21/22 11:20 Dose: 324 mg Documented By: ANDIE Sodium Chloride (Normal Saline 0.9%) 1,000 mls @ 1,000 mls/hr IV BOLUS ONE Stop: 01/21/22 11:09 Last Infusion: 01/21/22 11:24 Dose: 0 mls/hr Documented By: Admin: 01/21/22 10:14 Dose: 1,000 mls/hr Documented By: ANDIE Ceftriaxone Sodium 1,000 mg/ (Sodium Chloride) 100 mls @ 200 mls/hr IV NOW ONE Stop: 01/21/22 10:28 Last Infusion: 01/21/22 11:57 Dose: 0 mls/hr Documented By: Admin: 01/21/22 11:20 Dose: 200 mls/hr Documented By: ANDIE Vancomycin HCl (Vancomycin) 1,000 mg in 200 mls @ 200 mls/hr IV NOW ONE Stop: 01/21/22 13:38 Last Infusion: 01/21/22 15:10 Dose: 0 mls/hr Documented By: Admin: 01/21/22 12:48 Dose: 200 mls/hr Documented By: ANDIE Sodium Chloride (Normal Saline 0.9%) 1,000 mls @ 1,000 mls/hr IV BOLUS ONE Stop: 01/21/22 13:38 Last Infusion: 01/21/22 15:10 Dose: 0 mls/hr Documented By: Admin: 01/21/22 12:48 Dose: 1,000 mls/hr Documented By: ANDIE Sodium Chloride (Normal Saline 0.9%) 1,000 mls @ 125 mls/hr IV CONT SHEA Last Infusion: 01/21/22 16:20 Dose: 125 mls/hr Documented By: Admin: 01/21/22 12:48 Dose: 125 mls/hr Documented By: ANDIE Thiamine HCl 100 mg/ Sodium (Chloride) 101 mls @ 404 mls/hr IV NOW ONE Stop: 01/21/22 14:25 Last Infusion: 01/21/22 16:17 Dose: 0 mls/hr Documented By: Admin: 01/21/22 15:09 Dose: 404 mls/hr Documented By: ANDIE Vital Signs Vital signs: Vital Signs - 8 hr 01/21/22 10:00 01/21/22 10:00 01/21/22 10:01 Pulse Rate 107 H 109 H Respiratory Rate 24 24 Blood Pressure 101/60 Pulse Oximetry 94 93 01/21/22 10:01 01/21/22 10:07 01/21/22 10:07 Pulse Rate 102 H Respiratory Rate 24 Blood Pressure 99/64 110/59 L Pulse Oximetry 94 01/21/22 10:30 01/21/22 10:30 01/21/22 11:00 Pulse Rate 110 H 106 H Respiratory Rate 30 H 30 H Blood Pressure 122/69 Pulse Oximetry 75 L 94 01/21/22 11:30 01/21/22 12:00 01/21/22 12:30 Pulse Rate 108 H 104 H 108 H Respiratory Rate 33 H 20 31 H Blood Pressure Pulse Oximetry 93 91 82 L 01/21/22 13:00 01/21/22 13:57 01/21/22 14:00 Pulse Rate 111 H 143 H 126 H Respiratory Rate 36 H 39 H Blood Pressure Pulse Oximetry 95 88 L 93 01/21/22 14:49 01/21/22 14:51 01/21/22 14:51 Pulse Rate 115 H 127 H Respiratory Rate Blood Pressure 135/69 Pulse Oximetry 94 93 01/21/22 15:00 01/21/22 15:00 01/21/22 15:30 Pulse Rate 116 H Respiratory Rate Blood Pressure 139/71 113/60 Pulse Oximetry 91 01/21/22 15:30 Pulse Rate 121 H Respiratory Rate Blood Pressure Pulse Oximetry 96 Medical Decision Making Lab Data Lab results reviewed: Yes I reviewed the patient's lab results. Result diagrams: 01/21/22 09:38 01/21/22 09:38 Labs: Lab Results 01/21/22 01/21/22 01/21/22 Range/Units 09:37 09:38 09:38 WBC 9.1 (4.5-11.0) X10^3/uL RBC 3.69 L (4.5-5.9) X10^6/uL Hgb 12.8 L (13.5-17.5) g/dL Hct 37.2 L (41-53) % MCV 100.9 H (80-100) fL MCH 34.7 H (26-34) PG MCHC 34.4 (30-36) % RDW 14.5 (11.6-14.8) % Plt Count 110 L (150-400) X10^3/uL Neut % (Auto) Not Reportable Lymph % (Auto) Not Reportable [place] % (Auto) Not Reportable Eos % (Auto) Not Reportable Baso % (Auto) Not Reportable Lymph # (Auto) Not Reportable [place] # (Auto) Not Reportable Baso # (Auto) Not Reportable Total Counted 100 Seg Neutrophils % 88.0 H (38-70) % Band Neutrophils % 7.0 (3-7) % Lymphocytes % (Manual) 2.0 L (25-45) % Monocytes % (Manual) 3.0 (2-11) % Neutrophils # (Manual) 8645 H (2443-5046) /uL RBC Morphology See below Macrocytosis 1+ H PT (10.1-12.7) SECONDS INR (0.9-1.3) APTT (26-36) SECONDS Sodium 128 L (137-145) mmol/L Potassium 3.9 (3.4-5.1) mmol/L Chloride 92 L (98-107) mmol/L Carbon Dioxide 22 (22-32) mmol/L BUN 24 H (9-20) mg/dL Creatinine 0.94 (0.66-1.25) mg/dL Estimated GFR > 60 (>60) mL/min BUN/Creatinine Ratio 25.5 H (6-22) Glucose 195 H (80-110) mg/dL Lactate (0.7-2.1) mmol/L Calcium 8.0 L (8.4-10.2) mg/dL Total Bilirubin 1.7 H (0.2-1.3) mg/dL AST 89 H (17-59) IU/L ALT 53 H (<50) IU/L Alkaline Phosphatase 61 (38-126) U/L Total Creatine Kinase (55-170) U/L CK-MB (CK-2) (<2.37) ng/mL CK-MB (CK-2) Rel Index (1.5-5.0) % Troponin I (0.01-0.034) ng/mL NT-Pro-B Natriuret Pep (<125) pg/mL Total Protein 6.6 (6.3-8.2) g/dL Albumin 3.7 (3.5-5.0) g/dL Globulin 2.9 (1.7-4.1) g/dL Albumin/Globulin Ratio 1.3 (1.0-2.8) Lipase (23-300) U/L Procalcitonin (<0.5) ng/mL Urine RBC 1-5/hpf (0-5/HPF) Urine WBC 1-5/hpf (0-5/HPF) Ur Squamous Epith Cells 0-1 /hpf (0-5/HPF) Amorphous Sediment 2+ Urine Bacteria Occasional (0-1) (None) Hyaline Casts 0-1/lpf (None) Urine Mucus 1+ H (Negative) Ur Culture Indicated? Specimen cultured Ethyl Alcohol ( - 10) mg/dL SARS-CoV-2 (PCR) (Negative) Influenza A (RT-PCR) (NEGATIVE) Influenza B (RT-PCR) (NEGATIVE) 01/21/22 01/21/22 01/21/22 Range/Units 09:38 09:38 09:38 WBC (4.5-11.0) X10^3/uL RBC (4.5-5.9) X10^6/uL Hgb (13.5-17.5) g/dL Hct (41-53) % MCV (80-100) fL MCH (26-34) PG MCHC (30-36) % RDW (11.6-14.8) % Plt Count (150-400) X10^3/uL Neut % (Auto) Lymph % (Auto) [place] % (Auto) Eos % (Auto) Baso % (Auto) Lymph # (Auto) [place] # (Auto) Baso # (Auto) Total Counted Seg Neutrophils % (38-70) % Band Neutrophils % (3-7) % Lymphocytes % (Manual) (25-45) % Monocytes % (Manual) (2-11) % Neutrophils # (Manual) (0144-9497) /uL RBC Morphology Macrocytosis PT 17.4 H (10.1-12.7) SECONDS INR 1.5 H (0.9-1.3) APTT 42 H (26-36) SECONDS Sodium (137-145) mmol/L Potassium (3.4-5.1) mmol/L Chloride (98-107) mmol/L Carbon Dioxide (22-32) mmol/L BUN (9-20) mg/dL Creatinine (0.66-1.25) mg/dL Estimated GFR (>60) mL/min BUN/Creatinine Ratio (6-22) Glucose (80-110) mg/dL Lactate 3.9 H (0.7-2.1) mmol/L Calcium (8.4-10.2) mg/dL Total Bilirubin (0.2-1.3) mg/dL AST (17-59) IU/L ALT (<50) IU/L Alkaline Phosphatase (38-126) U/L Total Creatine Kinase 459 H (55-170) U/L CK-MB (CK-2) 5.27 H (<2.37) ng/mL CK-MB (CK-2) Rel Index 1.1 L (1.5-5.0) % Troponin I 0.360 H* (0.01-0.034) ng/mL NT-Pro-B Natriuret Pep (<125) pg/mL Total Protein (6.3-8.2) g/dL Albumin (3.5-5.0) g/dL Globulin (1.7-4.1) g/dL Albumin/Globulin Ratio (1.0-2.8) Lipase 18 L (23-300) U/L Procalcitonin 25.0 H (<0.5) ng/mL Urine RBC (0-5/HPF) Urine WBC (0-5/HPF) Ur Squamous Epith Cells (0-5/HPF) Amorphous Sediment Urine Bacteria (None) Hyaline Casts (None) Urine Mucus (Negative) Ur Culture Indicated? Ethyl Alcohol < 10 ( - 10) mg/dL SARS-CoV-2 (PCR) (Negative) Influenza A (RT-PCR) (NEGATIVE) Influenza B (RT-PCR) (NEGATIVE) 01/21/22 01/21/22 01/21/22 Range/Units 09:39 12:18 12:18 WBC (4.5-11.0) X10^3/uL RBC (4.5-5.9) X10^6/uL Hgb (13.5-17.5) g/dL Hct (41-53) % MCV (80-100) fL MCH (26-34) PG MCHC (30-36) % RDW (11.6-14.8) % Plt Count (150-400) X10^3/uL Neut % (Auto) Lymph % (Auto) [place] % (Auto) Eos % (Auto) Baso % (Auto) Lymph # (Auto) [place] # (Auto) Baso # (Auto) Total Counted Seg Neutrophils % (38-70) % Band Neutrophils % (3-7) % Lymphocytes % (Manual) (25-45) % Monocytes % (Manual) (2-11) % Neutrophils # (Manual) (3596-6813) /uL RBC Morphology Macrocytosis PT (10.1-12.7) SECONDS INR (0.9-1.3) APTT (26-36) SECONDS Sodium (137-145) mmol/L Potassium (3.4-5.1) mmol/L Chloride (98-107) mmol/L Carbon Dioxide (22-32) mmol/L BUN (9-20) mg/dL Creatinine (0.66-1.25) mg/dL Estimated GFR (>60) mL/min BUN/Creatinine Ratio (6-22) Glucose (80-110) mg/dL Lactate 4.4 H* (0.7-2.1) mmol/L Calcium (8.4-10.2) mg/dL Total Bilirubin (0.2-1.3) mg/dL AST (17-59) IU/L ALT (<50) IU/L Alkaline Phosphatase (38-126) U/L Total Creatine Kinase (55-170) U/L CK-MB (CK-2) (<2.37) ng/mL CK-MB (CK-2) Rel Index (1.5-5.0) % Troponin I 0.283 H* (0.01-0.034) ng/mL NT-Pro-B Natriuret Pep (<125) pg/mL Total Protein (6.3-8.2) g/dL Albumin (3.5-5.0) g/dL Globulin (1.7-4.1) g/dL Albumin/Globulin Ratio (1.0-2.8) Lipase (23-300) U/L Procalcitonin (<0.5) ng/mL Urine RBC (0-5/HPF) Urine WBC (0-5/HPF) Ur Squamous Epith Cells (0-5/HPF) Amorphous Sediment Urine Bacteria (None) Hyaline Casts (None) Urine Mucus (Negative) Ur Culture Indicated? Ethyl Alcohol ( - 10) mg/dL SARS-CoV-2 (PCR) Negative (Negative) Influenza A (RT-PCR) (NEGATIVE) Influenza B (RT-PCR) (NEGATIVE) 01/21/22 01/21/22 Range/Units 12:18 12:35 WBC (4.5-11.0) X10^3/uL RBC (4.5-5.9) X10^6/uL Hgb (13.5-17.5) g/dL Hct (41-53) % MCV (80-100) fL MCH (26-34) PG MCHC (30-36) % RDW (11.6-14.8) % Plt Count (150-400) X10^3/uL Neut % (Auto) Lymph % (Auto) [place] % (Auto) Eos % (Auto) Baso % (Auto) Lymph # (Auto) [place] # (Auto) Baso # (Auto) Total Counted Seg Neutrophils % (38-70) % Band Neutrophils % (3-7) % Lymphocytes % (Manual) (25-45) % Monocytes % (Manual) (2-11) % Neutrophils # (Manual) (3707-2050) /uL RBC Morphology Macrocytosis PT (10.1-12.7) SECONDS INR (0.9-1.3) APTT (26-36) SECONDS Sodium (137-145) mmol/L Potassium (3.4-5.1) mmol/L Chloride (98-107) mmol/L Carbon Dioxide (22-32) mmol/L BUN (9-20) mg/dL Creatinine (0.66-1.25) mg/dL Estimated GFR (>60) mL/min BUN/Creatinine Ratio (6-22) Glucose (80-110) mg/dL Lactate (0.7-2.1) mmol/L Calcium (8.4-10.2) mg/dL Total Bilirubin (0.2-1.3) mg/dL AST (17-59) IU/L ALT (<50) IU/L Alkaline Phosphatase (38-126) U/L Total Creatine Kinase (55-170) U/L CK-MB (CK-2) (<2.37) ng/mL CK-MB (CK-2) Rel Index (1.5-5.0) % Troponin I (0.01-0.034) ng/mL NT-Pro-B Natriuret Pep 9210 H (<125) pg/mL Total Protein (6.3-8.2) g/dL Albumin (3.5-5.0) g/dL Globulin (1.7-4.1) g/dL Albumin/Globulin Ratio (1.0-2.8) Lipase (23-300) U/L Procalcitonin (<0.5) ng/mL Urine RBC (0-5/HPF) Urine WBC (0-5/HPF) Ur Squamous Epith Cells (0-5/HPF) Amorphous Sediment Urine Bacteria (None) Hyaline Casts (None) Urine Mucus (Negative) Ur Culture Indicated? Ethyl Alcohol ( - 10) mg/dL SARS-CoV-2 (PCR) (Negative) Influenza A (RT-PCR) Flu a negative (NEGATIVE) Influenza B (RT-PCR) Flu b negative (NEGATIVE) Urine Dip Bedside Urine Glucose 1000 mg/dl Bedside Urine Bilirubin - Negative Bedside Urine Ketone +/- 5 Urine Specific [place] 1.020 Bedside Urine Occult Blood ++ Bedside Urine pH 6.0 Bedside Urine Protein - Negative Bedside Urine Urobilinogen - Negative Bedside Urine Nitrite - Negative Bedside Urine Leukocytes - Negative Esterase Point of care testing: Urine Dip Bedside Urine Glucose 1000 mg/dl Bedside Urine Bilirubin - Negative Bedside Urine Ketone +/- 5 Urine Specific [place] 1.020 Bedside Urine Occult Blood ++ Bedside Urine pH 6.0 Bedside Urine Protein - Negative Bedside Urine Urobilinogen - Negative Bedside Urine Nitrite - Negative Bedside Urine Leukocytes - Negative Esterase Imaging Data US - abdomen: Radiologist's Impression: [place] [address] Ultrasound Report Signed Patient: Terry Pack MR#: [id number] : 1945 Acct:[id number] Age/Sex: 76 / M Date of Service: 01/21/22 Loc: ED Accession Number: [id number] ?? Procedure: US abdomen limited Ordering Provider: Gary Hussein D.O. PROCEDURE: US ABDOMEN LIMITED ? INDICATIONS:? RUQ us eval for gb path ? TECHNIQUE:? Real-time focused scanning was performed of the abdomen, with image documentation.? ? COMPARISON:? [facility], US, US ABDOMEN COMPLETE, 01/13/2020, 12:13. ? FINDINGS:? Liver length of 19.1 centimeters.? No suspicious focal liver lesion identified sonographically. ? No gallstones visualized.? No gallbladder wall thickening or sonographic Romo sign. ? No biliary ductal dilation demonstrated.? Extrahepatic bile duct measures 2 millimeters. ? Pancreas not visualized due to bowel gas. ? IMPRESSION:? No cholelithiasis or evidence of acute cholecystitis. ? ? Dictated by: Montez Christopher M.D. on 01/21/2022 at 15:10 ? ? Approved by: Montez Christopher M.D. on 01/21/2022 at 15:14? Chest x-ray: Radiologist's Impression: [address] [address] XRay Report Signed Patient: Terry Pack MR#: [id number] : 1945 Acct:[id number] Age/Sex: 76 / M Date of Service: 01/21/22 Loc: ED Accession Number: [id number] ?? Procedure: XR chest 1V Ordering Provider: Gary Hussein D.O. PROCEDURE:? XR CHEST 1V ? INDICATIONS:? pneumonia ? TECHNIQUE:? One view of the chest was acquired.? ? COMPARISON:? [facility], , XR CHEST 1V, 01/30/2020, 23:12. ? FINDINGS:? ? Surgical changes and devices:? None.? ? Lungs and pleura:? Lungs are clear.? No pleural effusions or pneumothorax.? ? Mediastinum:? Mediastinal contours appear normal.? Heart size is normal.? ? Bones and chest wall:? No suspicious bony lesions.? Overlying soft tissues appear unremarkable.? ? IMPRESSION:? No acute cardiopulmonary findings. ? ? Dictated by: Shannon Hdez M.D. on 01/21/2022 at 10:53 ? ? Approved by: Shannon Hdez M.D. on 01/21/2022 at 10:53? ABD pelvis CTA: Radiologist's Impression: [address] [address] [address] Scan Report Signed Patient: Terry Pack MR#: [id number] : 1945 Acct:[id number] Age/Sex: 76 / M Date of Service: 01/21/22 Loc: ED Accession Number: [id number] ?? Procedure: CT angio abdomen pelvis Ordering Provider: Gary Hussein D.O. PROCEDURE:? CT ANGIO ABDOMEN PELVIS ? INDICATIONS:? elevated lacate, a fib, abd pain ? TECHNIQUE:? After the administration of intravenous contrast, 2.5 mm sections acquired from the diaphragm to the iliac crests.? 10 mm maximum intensity projection (MIP) coronal and sagittal reformats were then performed.? For radiation dose reduction, the following was used:? automated exposure control.? ? COMPARISON:? [facility], CR, XR CHEST 2V, 01/12/2020, 16:21. ? FINDINGS: ? Image quality:? Excellent.? ? Extravascular tissues:? Lung bases are clear.? There is likely left-sided gynecomastia.? Heart size is normal.? Liver is normal in size and enhancement.? Gallbladder is unremarkable .? Biliary system is non dilated.? Pancreas enhances normally.? Spleen is normal in size and enhancement.? No adrenal nodules.? Kidneys are normal in size and enhancement, without hydronephrosis.? A low-density cystic lesion is present within the left kidney.? Non-opacified bowel loops demonstrate normal wall thickness and caliber. There are scattered sigmoid diverticula. No evidence for diverticulitis.? No free fluid or air.? No retroperitoneal or mesenteric adenopathy.? There is a fat containing umbilical hernia.? There are bilateral fat containing inguinal hernias.? No suspicious bony abnormalities.? No new vertebral body compression fractures.? Stable compression deformity is noted at T12. ? Abdominal aorta:? The descending thoracic aorta is mildly tortuous with scattered foci of atheromatous calcification.? No aneurysmal dilatation, mural hematoma, wall thickening or periaortic fat stranding.? The abdominal aorta demonstrates normal course and caliber with mild scattered atheromatous calcifications.? Visualized portions of the iliac and femoral arteries are widely patent without hemodynamically significant stenosis. ? Mesenteric arteries:? The celiac axis, SMA and ERIK are widely patent.? ? Renal arteries:? The solitary right and 2 left renal arteries are widely patent. ? IMPRESSION:? ? 1. Wide patency of the mesenteric and renal arteries.? No findings to suggest mesenteric ischemia or mesenteric arterial insufficiency. ? 2. No acute intra-abdominal findings. ? 3. Bilateral fat containing inguinal hernias and umbilical hernia. ? ? Dictated by: Shannon Hdez M.D. on 01/21/2022 at 15:40 ? ? Approved by: Shannon Hdez M.D. on 01/21/2022 at 15:46?? ECG Data Attestation: I personally reviewed and interpreted this ECG as follows: Interpretation: Atrial fibrillation Ventricular rate 104 Normal axis Normal QRS Normal QTC Occasional PVC Nonspecific ST T wave changes MDM Narrative Medical decision making narrative: Patient is obviously confused about why he is here. His initial complaint was urinary incontinence this morning and also in the inability to get to the restroom in time and having diarrhea. He is also been having flu-like illness since the beginning of the week. He denies chest pain and shortness of breath. He is in AFib. Has a history of AFib. Is on Pradaxa. Initial troponin elevated. I did discuss the case with his sustainable landscape architect at [facility] Dr. Shaver who is well aware the patient. We did discuss the frequent PVCs that he was having. Cardiology states that if his repeat troponin is the same or lower than he will follow him as an outpatient and was going to order a ZIO patch for the patient. Repeat troponin for did decrease. Patient had no leukocytosis but does have an elevated prolactin and elevated lactate. Was given fluids. Antibiotics. Blood cultures obtained. His lactate increased. Right upper quadrant ultrasound shows no signs of gallbladder pathology. Given his elevated lactate and also his atrial fibrillation CT a of his abdomen is obtained. There was no signs of any acute surgical pathology/bowel ischemia. Chest x-ray shows no signs of pneumonia. Urinalysis shows no signs of urinary tract infection. Unsure exactly where infection would be originating from. Patient's states that he does have a history of alcohol abuse. She states he has not drank for the past couple days as he is not been feeling very well. I do have concern about alcohol withdrawal. He was given thiamine. Given his presentation and abnormal labs patient will be admitted to the hospital for further evaluation treatment. Discussed the case with Dr. Woody with Internal Medicine who will admit for further evaluation. Discussed this with the patient and his . They expressed understanding and agreement. Discharge Plan Departure Patient Disposition: Admitted as Observation Clinical Impression: Atrial fibrillation with RVR, Elevated LDH, Urinary incontinence Admit Date/Time: 01/21/22 15:55 Admit Provider: Jean Woody
[2022-01-21 10:02] LABS: Hematocrit 37.2 % (41-53); Hemoglobin 12.8 g/dL (13.5-17.5); Mean Corpuscular HGB Conc 34.4 % (30-36); Mean Corpuscular Hemoglobin 34.7 PG (26-34); Mean Corpuscular Volume 100.9 fL (80-100); Platelet Count 110 X10^3/uL (150-400); Red Blood Cell Count 3.69 X10^6/uL (4.5-5.9); Red Cell Distribution Width 14.5 % (11.6-14.8); White Blood Cell Count 9.1 X10^3/uL (4.5-11.0)
[2022-01-21 10:03] LABS: Add Manual Diff / Slide Review YES
[2022-01-21 10:04] LABS: Creatine Kinase 459 U/L (55-170); Ethanol (ETOH) < 10 mg/dL; Lactate (Lactic Acid) 3.9 mmol/L (0.7-2.1); Lipase 18 U/L (23-300)
[2022-01-21 10:05] LABS: Alanine Aminotransferase 53 IU/L (<50); Albumin 3.7 g/dL (3.5-5.0); Albumin Globulin Ratio 1.3 (1.0-2.8); Alkaline Phosphatase 61 U/L (38-126); Aspartate Aminotransferase 89 IU/L (17-59); BUN Creatinine Ratio 25.5 (6-22); Bilirubin Total 1.7 mg/dL (0.2-1.3); Blood Urea Nitrogen 24 mg/dL (9-20); Carbon Dioxide 22 mmol/L (22-32); Chloride 92 mmol/L (98-107); Estimated Glomerular Filt Rate > 60 mL/min (>60); Globulin 2.9 g/dL (1.7-4.1); Glucose 195 mg/dL (80-110); HEMOLYSIS 16 (0-50); Potassium 3.9 mmol/L (3.4-5.1); Sodium 128 mmol/L (137-145); Total Protein 6.6 g/dL (6.3-8.2)
[2022-01-21] MEDS: SODIUM CHLORIDE 0.9% 1,000 ML 1000 ML IV ×3 (10:14→21:56)
[2022-01-21 10:18] LABS: CKMB % Relative Index 1.1 % (1.5-5.0); Creatine Kinase MB 5.27 ng/mL (<2.37)
[2022-01-21 10:32] LABS: Macrocytosis 1+; Neutrophils Absolute Manual 8645 /uL (3000-5900); Total Cells Counted 100
[2022-01-21 10:44] LABS: INR 1.5 (0.9-1.3); Prothrombin Time 17.4 SECONDS (10.1-12.7)
[2022-01-21 10:46] LABS: PTT Partial Thromboplastin Tim 42 SECONDS (26-36)
[2022-01-21] MEDS: ASPIRIN 81 MG CHEW TAB 324 MG PO (11:20)
[2022-01-21] MEDS: cefTRIAXone 1,000 MG in SODIUM CHLORIDE 0.9% 100 ML 200 MG IV (11:20)
[2022-01-21 11:26] LABS: COVID19 - ADMIT (NP swab/PCR) Negative (Negative)
[2022-01-21 11:53] LABS: Reflexed Lactate in 2 Hours Y
[2022-01-21 12:39] LABS: Lactate 2HR (Lactic Acid Rflx) 4.4 mmol/L (0.7-2.1)
[2022-01-21 12:48] LABS: Troponin I 0.283 ng/mL (0.01-0.034)
[2022-01-21] MEDS: VANCOMYCIN 1,000 MG/200 ML PIGGYBACK 200 MG IV (12:48)
[2022-01-21] MEDS: SODIUM CHLORIDE 0.9% 1,000 ML 125 ML IV (12:48)
--- NOTE | 2022-01-21 13:12 | PC.NURSE ---
Dr. hussein at bedside. notified of pt's O2 sat 87% on RA; placed on 2L NC, improved to 94%, Dr. Hussein aware. per verbal order from Dr. hussein, remove pt from 5 lead cardiac telemetry and keep on pulse ox. discharge specialist kimba notified. pt requesting to ambulate to for Bm, ambulatory with stand by assistance.
[2022-01-21 13:15] LABS: Influenza A - CEPHEID Flu A NEGATIVE (NEGATIVE); Influenza B - CEPHEID Flu B NEGATIVE (NEGATIVE)
--- NOTE | 2022-01-21 14:03 | DI.US.S_ITS ---
PROCEDURE: US ABDOMEN LIMITED INDICATIONS: RUQ us eval for gb path TECHNIQUE: Real-time focused scanning was performed of the abdomen, with image documentation. COMPARISON: [facility], US, US ABDOMEN COMPLETE, 01/13/2020, 12:13. FINDINGS: Liver length of 19.1 centimeters. No suspicious focal liver lesion identified sonographically. No gallstones visualized. No gallbladder wall thickening or sonographic Romo sign. No biliary ductal dilation demonstrated. Extrahepatic bile duct measures 2 millimeters. Pancreas not visualized due to bowel gas. IMPRESSION: No cholelithiasis or evidence of acute cholecystitis. Dictated by: Montez Christopher M.D. on 01/21/2022 at 15:10 Approved by: Montez Christopher M.D. on 01/21/2022 at 15:14
--- NOTE | 2022-01-21 14:24 | DI.CT.S_ITS ---
PROCEDURE: CT ANGIO ABDOMEN PELVIS INDICATIONS: elevated lacate, a fib, abd pain TECHNIQUE: After the administration of intravenous contrast, 2.5 mm sections acquired from the diaphragm to the iliac crests. 10 mm maximum intensity projection (MIP) coronal and sagittal reformats were then performed. For radiation dose reduction, the following was used: automated exposure control. COMPARISON: [facility], CR, XR CHEST 2V, 01/12/2020, 16:21. FINDINGS: Image quality: Excellent. Extravascular tissues: Lung bases are clear. There is likely left-sided gynecomastia. Heart size is normal. Liver is normal in size and enhancement. Gallbladder is unremarkable . Biliary system is non dilated. Pancreas enhances normally. Spleen is normal in size and enhancement. No adrenal nodules. Kidneys are normal in size and enhancement, without hydronephrosis. A low-density cystic lesion is present within the left kidney. Non-opacified bowel loops demonstrate normal wall thickness and caliber. There are scattered sigmoid diverticula. No evidence for diverticulitis. No free fluid or air. No retroperitoneal or mesenteric adenopathy. There is a fat containing umbilical hernia. There are bilateral fat containing inguinal hernias. No suspicious bony abnormalities. No new vertebral body compression fractures. Stable compression deformity is noted at T12. Abdominal aorta: The descending thoracic aorta is mildly tortuous with scattered foci of atheromatous calcification. No aneurysmal dilatation, mural hematoma, wall thickening or periaortic fat stranding. The abdominal aorta demonstrates normal course and caliber with mild scattered atheromatous calcifications. Visualized portions of the iliac and femoral arteries are widely patent without hemodynamically significant stenosis. Mesenteric arteries: The celiac axis, SMA and ERIK are widely patent. Renal arteries: The solitary right and 2 left renal arteries are widely patent. IMPRESSION: 1. Wide patency of the mesenteric and renal arteries. No findings to suggest mesenteric ischemia or mesenteric arterial insufficiency. 2. No acute intra-abdominal findings. 3. Bilateral fat containing inguinal hernias and umbilical hernia. Dictated by: Shannon Hdez M.D. on 01/21/2022 at 15:40 Approved by: Shannon Hdez M.D. on 01/21/2022 at 15:46
[2022-01-21 14:26] LABS: NT-proBNP (BNP-Adult 18+) 9210 pg/mL (<125)
[2022-01-21] MEDS: THIAMINE 100 MG in SODIUM CHLORIDE 0.9% 100 ML 404 MG IV (15:09)
--- NOTE | 2022-01-21 16:52 | P.HP_ITS ---
History of Present Illness History of Present Illness Date Patient Seen: 01/21/22 Time Patient Seen: 17:30 Chief complaint: Bladder control issues Narrative: This is a 76 year old male, PMH of paroxysmal atrial fribillation, Aortic stenosis S/p TAVR in 2019, non-occlusive CAD, CHFrEF (EF 35%) with R heart failure, mild cognitive impairment, DM, HTN, HLD, BPH who presents with generalized malaise over the past week. He also wet his bed overnight and soiled himself during his sleep. He has been having 2-3 episodes of diarrhea and hasn't eaten well in about 5 days he thinks. He denies any chest pain or shortness of breath. He denies palpitations, fever, chills, cough, nausea, vomiting, abdominal pain, shortness of breath more than normal, sick contacts. He denies melena or hematemesis.Drinks a few glasses of daily, will split a bottle with his , last drink was 5-6 days ago, no prior EtOH withdrawal symptoms reported. In the ER he was in afib with RVR, he had not taken his home medications this morning. Laboratory evaluation showed mild anemia and thrombocytopenia. INR slightly elevated at 1.5. He has a hyponatremia with Na of 128, has a history of hyponatremia, LA was elevated and increased to 4.4. Tbili was 1.7 with mild transaminitis. Trop 0.36 improved to 0.283. ProBNP was 9210. Procalcitonin was 25. UA had 1-5 WBC and RBC, ocassional bacterial and mucus and was sent for culture. EtOH was negative. Flu and COVID testing were negative. Patient History Medical History Alcohol use disorder BPH w urinary obs/LUTS Chronic anticoagulation 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 Enlarged prostate Essential hypertension Heart failure Mild cognitive impairment Mixed hyperlipidemia Paroxysmal atrial fibrillation Systolic CHF, chronic Wears glasses Surgical History S/P TAVR (transcatheter aortic valve replacement) Family & Social History Family History Mother CVA (cerebral vascular accident) Father Heart disease Social History: household members spouse Safety & Behavioral: Feels Safe in Current Yes Environment Been Physically Hurt or No Threatened By a Person Tobacco & Substance use: Smoking Status Never smoker alcohol intake current alcohol intake frequency a few times a week Substance Use Type does not use Meds Home Medications and Allergies Home Medications Medication Instructions Recorded Confirmed Type aspirin 81 mg tablet,delayed 81 mg PO QAM 08/14/19 08/19/21 History release cholecalciferol (vitamin D3) 25 1,000 unit PO QPM 08/14/19 08/19/21 History mcg/drop (1,000 unit/drop) oral drops metformin 750 mg tablet,extended 750 mg PO BID 08/14/19 08/19/21 History release 24 hr atorvastatin 80 mg tablet 80 mg PO BEDTIME 01/10/20 08/19/21 History dabigatran etexilate 150 mg 150 mg PO BID 01/12/20 08/19/21 History capsule (Pradaxa) omega [id number]-azd-[id number]-fish oil 1,000 mg 1 cap PO TID 01/12/20 08/19/21 History (120 mg-180 mg) capsule (Fish Oil) dapagliflozin 10 mg tablet 10 mg PO DAILY 08/19/21 08/19/21 History (Farxiga) metoprolol succinate 25 mg 25 mg PO BID 08/19/21 08/19/21 History tablet,extended release 24 hr (Toprol XL) sacubitril 24 mg-valsartan 26 mg 1 tab PO BID 08/19/21 08/19/21 History tablet (Entresto) spironolactone 25 mg tablet 25 mg PO DAILY 08/19/21 08/19/21 History (Aldactone) tamsulosin 0.4 mg capsule 0.4 mg PO BEDTIME #90 caps 08/19/21 08/19/21 Rx torsemide 20 mg tablet 20 mg PO DAILY 08/19/21 08/19/21 History Allergies Allergy/AdvReac Type Severity Reaction Status Date / Time No Known Drug Allergies Allergy Verified 01/21/22 09:06 Review of Systems Review of Systems Narrative: All other systems reviewed with the patient and are negative unless otherwise stated. Exam Vital Signs (past 8 hours): - 01/21/22 09:04 01/21/22 09:23 01/21/22 09:24 Temperature 98.4 F Pulse Rate 105 H 97 H 110 H Respiratory Rate 17 22 27 H Blood Pressure 98/60 Pulse Oximetry 97 95 Oxygen Delivery Method Room Air 01/21/22 09:24 01/21/22 09:30 01/21/22 09:30 Temperature Pulse Rate 108 H Respiratory Rate 29 H Blood Pressure 104/56 L 102/58 L Pulse Oximetry 96 Oxygen Delivery Method 01/21/22 10:00 01/21/22 10:00 01/21/22 10:01 Temperature Pulse Rate 107 H 109 H Respiratory Rate 24 24 Blood Pressure 101/60 Pulse Oximetry 94 93 Oxygen Delivery Method 01/21/22 10:01 01/21/22 10:07 01/21/22 10:07 Temperature Pulse Rate 102 H Respiratory Rate 24 Blood Pressure 99/64 110/59 L Pulse Oximetry 94 Oxygen Delivery Method 01/21/22 10:30 01/21/22 10:30 01/21/22 11:00 Temperature Pulse Rate 110 H 106 H Respiratory Rate 30 H 30 H Blood Pressure 122/69 Pulse Oximetry 75 L 94 Oxygen Delivery Method 01/21/22 11:30 01/21/22 12:00 01/21/22 12:30 Temperature Pulse Rate 108 H 104 H 108 H Respiratory Rate 33 H 20 31 H Blood Pressure Pulse Oximetry 93 91 82 L Oxygen Delivery Method 01/21/22 13:00 01/21/22 13:57 01/21/22 14:00 Temperature Pulse Rate 111 H 143 H 126 H Respiratory Rate 36 H 39 H Blood Pressure Pulse Oximetry 95 88 L 93 Oxygen Delivery Method 01/21/22 14:49 01/21/22 14:51 01/21/22 14:51 Temperature Pulse Rate 115 H 127 H Respiratory Rate Blood Pressure 135/69 Pulse Oximetry 94 93 Oxygen Delivery Method 01/21/22 15:00 01/21/22 15:00 01/21/22 15:30 Temperature Pulse Rate 116 H Respiratory Rate Blood Pressure 139/71 113/60 Pulse Oximetry 91 Oxygen Delivery Method 01/21/22 15:30 01/21/22 16:00 01/21/22 16:03 Temperature Pulse Rate 121 H 126 H 120 H Respiratory Rate Blood Pressure Pulse Oximetry 96 95 95 Oxygen Delivery Method 01/21/22 16:04 Temperature Pulse Rate Respiratory Rate Blood Pressure 100/59 L Pulse Oximetry Oxygen Delivery Method Oxygen Delivery Method Room Air Narrative Exam Narrative: General:?Patient is an ill appearing male in no acute distress. HEENT:? Normocephalic, atraumatic, extraocular muscles intact, oral pharynx is clear and mucous membranes are moist. Neck: supple and symmetric, trachea is midline, no cervical adenopathy. Negative for JVD Chest:? Normal AP diameter and contour without kyphoscoliosis, no tachypnea, equal chest rise bilaterally. Lungs:?bibasilar rales, mild, mild tachypnea Cardio: tachycardic and irregularly irregular, no m/r/g. Abdomen: S NT ND. Musculoskeletal:? Muscle strength and tone are equal within normal limits, no deformity. Extremities: No edema or joint effusions. No cyanosis or clubbing. Skin:? Pale, faint yellow tinge.? Warm to touch,dry and intact without rashes, ulcerations or petechiae.? Neuro:? Alert and orientated x3,? sensation to touch intact in all extremities, no gross deficits noted of cranial nerves. Mild tremulousness without tongue fasciculations. Psych:? Patient has a well-kept appearance, appropriate affect, mental status attitude thought context and judgment are appropriate for age. Objective ECG Impression: Atrial fibrillation with rapid ventricular response with premature ventricular or aberrantly conducted complexes ST & T wave abnormality, consider anterior ischemia Labs Result Diagrams: 01/21/22 09:38 01/21/22 09:38 Labs: Laboratory Results - last 24 hr 01/21/22 01/21/22 01/21/22 09:37 09:38 09:38 WBC 9.1 RBC 3.69 L Hgb 12.8 L Hct 37.2 L MCV 100.9 H MCH 34.7 H MCHC 34.4 RDW 14.5 Plt Count 110 L Neut % (Auto) Not Reportable Lymph % (Auto) Not Reportable [place] % (Auto) Not Reportable Eos % (Auto) Not Reportable Baso % (Auto) Not Reportable Lymph # (Auto) Not Reportable [place] # (Auto) Not Reportable Baso # (Auto) Not Reportable Total Counted 100 Seg Neutrophils % 88.0 H Band Neutrophils % 7.0 Lymphocytes % (Manual) 2.0 L Monocytes % (Manual) 3.0 Neutrophils # (Manual) 8645 H RBC Morphology See below Macrocytosis 1+ H PT INR APTT Sodium 128 L Potassium 3.9 Chloride 92 L Carbon Dioxide 22 BUN 24 H Creatinine 0.94 Estimated GFR > 60 BUN/Creatinine Ratio 25.5 H Glucose 195 H Lactate Calcium 8.0 L Total Bilirubin 1.7 H AST 89 H ALT 53 H Alkaline Phosphatase 61 Total Creatine Kinase CK-MB (CK-2) CK-MB (CK-2) Rel Index Troponin I NT-Pro-B Natriuret Pep Total Protein 6.6 Albumin 3.7 Globulin 2.9 Albumin/Globulin Ratio 1.3 Lipase Procalcitonin Urine RBC 1-5/hpf Urine WBC 1-5/hpf Ur Squamous Epith Cells 0-1 /hpf Amorphous Sediment 2+ Urine Bacteria Occasional (0-1) Hyaline Casts 0-1/lpf Urine Mucus 1+ H Ur Culture Indicated? Specimen cultured Ethyl Alcohol SARS-CoV-2 (PCR) Influenza A (RT-PCR) Influenza B (RT-PCR) 01/21/22 01/21/22 01/21/22 09:38 09:38 09:38 WBC RBC Hgb Hct MCV MCH MCHC RDW Plt Count Neut % (Auto) Lymph % (Auto) [place] % (Auto) Eos % (Auto) Baso % (Auto) Lymph # (Auto) [place] # (Auto) Baso # (Auto) Total Counted Seg Neutrophils % Band Neutrophils % Lymphocytes % (Manual) Monocytes % (Manual) Neutrophils # (Manual) RBC Morphology Macrocytosis PT 17.4 H INR 1.5 H APTT 42 H Sodium Potassium Chloride Carbon Dioxide BUN Creatinine Estimated GFR BUN/Creatinine Ratio Glucose Lactate 3.9 H Calcium Total Bilirubin AST ALT Alkaline Phosphatase Total Creatine Kinase 459 H CK-MB (CK-2) 5.27 H CK-MB (CK-2) Rel Index 1.1 L Troponin I 0.360 H* NT-Pro-B Natriuret Pep Total Protein Albumin Globulin Albumin/Globulin Ratio Lipase 18 L Procalcitonin 25.0 H Urine RBC Urine WBC Ur Squamous Epith Cells Amorphous Sediment Urine Bacteria Hyaline Casts Urine Mucus Ur Culture Indicated? Ethyl Alcohol < 10 SARS-CoV-2 (PCR) Influenza A (RT-PCR) Influenza B (RT-PCR) 01/21/22 01/21/22 01/21/22 09:39 12:18 12:18 WBC RBC Hgb Hct MCV MCH MCHC RDW Plt Count Neut % (Auto) Lymph % (Auto) [place] % (Auto) Eos % (Auto) Baso % (Auto) Lymph # (Auto) [place] # (Auto) Baso # (Auto) Total Counted Seg Neutrophils % Band Neutrophils % Lymphocytes % (Manual) Monocytes % (Manual) Neutrophils # (Manual) RBC Morphology Macrocytosis PT INR APTT Sodium Potassium Chloride Carbon Dioxide BUN Creatinine Estimated GFR BUN/Creatinine Ratio Glucose Lactate 4.4 H* Calcium Total Bilirubin AST ALT Alkaline Phosphatase Total Creatine Kinase CK-MB (CK-2) CK-MB (CK-2) Rel Index Troponin I 0.283 H* NT-Pro-B Natriuret Pep Total Protein Albumin Globulin Albumin/Globulin Ratio Lipase Procalcitonin Urine RBC Urine WBC Ur Squamous Epith Cells Amorphous Sediment Urine Bacteria Hyaline Casts Urine Mucus Ur Culture Indicated? Ethyl Alcohol SARS-CoV-2 (PCR) Negative Influenza A (RT-PCR) Influenza B (RT-PCR) 01/21/22 01/21/22 12:18 12:35 WBC RBC Hgb Hct MCV MCH MCHC RDW Plt Count Neut % (Auto) Lymph % (Auto) [place] % (Auto) Eos % (Auto) Baso % (Auto) Lymph # (Auto) [place] # (Auto) Baso # (Auto) Total Counted Seg Neutrophils % Band Neutrophils % Lymphocytes % (Manual) Monocytes % (Manual) Neutrophils # (Manual) RBC Morphology Macrocytosis PT INR APTT Sodium Potassium Chloride Carbon Dioxide BUN Creatinine Estimated GFR BUN/Creatinine Ratio Glucose Lactate Calcium Total Bilirubin AST ALT Alkaline Phosphatase Total Creatine Kinase CK-MB (CK-2) CK-MB (CK-2) Rel Index Troponin I NT-Pro-B Natriuret Pep 9210 H Total Protein Albumin Globulin Albumin/Globulin Ratio Lipase Procalcitonin Urine RBC Urine WBC Ur Squamous Epith Cells Amorphous Sediment Urine Bacteria Hyaline Casts Urine Mucus Ur Culture Indicated? Ethyl Alcohol SARS-CoV-2 (PCR) Influenza A (RT-PCR) Flu a negative Influenza B (RT-PCR) Flu b negative Assessment & Plan Assessment & Plan narrative: This is a 76 year old male, PMH of paroxysmal atrial fribillation, Aortic stenosis S/p TAVR in 2019, non-occlusive CAD, CHFrEF (EF 35%) with R heart failure, mild cognitive impairment, DM, HTN, HLD, BPH who presents with gene ralized malaise over the past week 1. Possible Acute cystitis in the setting of BPH with LUTS, concern for sepsis with metabolic encephalopathy and acute hepatic dysfunction - given ceftriaxone and vanco in the ER for concern for sepsis along with fluid bolus - Lactate elevated, also on metformin may be D-lactate. Continue to trend. - UA with mild 1-5 WBC and mucus, sent for culture. CXR negative for infection. No other obvious source at this time. Elevated procalcitonin at 29. - with elevated bilirubin CT abdomen negative for biliary pathology. May be in setting of infection or ? hepatic congestion with heart failure. - reported confusion, weakness, lethargy as well as voiding difficulties suspected in setting of probable infection. Appears improved now, and no focal deficits on exam, but if recurrence consider CT head. - follow up cultures. - bladder scan for urinary retention, voiding in bed may be related to overflow with corresponding reason for UTI. 2. chronic atrial fibrillation with RVR - skipped home medications this AM, will resume home beta maykel and anticoagu lation. 3. Chronic systolic heart failure - hold home entresto with mild hypotension. Continue beta maykel as noted above. - hold aldactone for now and torsemide. Current volume status unclear as appears dry on exam but labs could be consistent with a congestive hepatopathy. - consider echocardiogram. 4. DM - diabetic diet with FS ACHS and sliding scale 7. Diarrhea - send a respiratory panel for evaluation of possible viral causes given tachypnea. Flu and COVID negative. Consider C. diff though no recent antibiotic use. 8. Chronic alcohol use, with possible mild withdrawal - CIWA protocol 9. Hyponatremia, acute, present on admission. - history of severe hyponatremia, predominantly in setting of dehydration - was given IV fluids for sepsis, hold on additional fluids at this time given HF history. 10. Myocardial injury, known CAD with non-occlusive disease on [facility] in 2020. - discussed with cardiology given elevated troponin, EKG appears markedly different compared to prior after TAVR with ? ST depressions, but lack of chest pain. State this is in the setting of demand and does not indicate NSTEMI. EKG was not concerning to cardiology. - continue ASA, statin, and pradaxa. Code: Full, surrogate is patient's spouse DVT: On AC I have utilized all available immediate resources to obtain, update, or review the patient's current medications. Dispo: admit under observation status at this time, pending further evaluation. COVID-19 COVID-19 status: Negative Time Spent With Patient Critical Care time: I spent a total of [] minutes of critical care time on this patient's care today; this time is exclusive of procedural time. Quality MIPS - Admit I confirm the patient?s Advance Care Plan is present, Code status is documented, Surrogate decision maker is in patient?s record [If Yes, STOP here]: Yes
[2022-01-21] MEDS: METOPROLOL ER 25 MG TABLET PO ×2 (17:56→19:55)
--- NOTE | 2022-01-21 18:18 | PC.NURSE ---
Pt arrived from ED at 1740. He is A&Ox2-3 forgetful, impulsive. CIWA 4-5, denies feeling anxious. Moderate tremors. He denies nausea but very little appetite he reports. BG =188. He is saline locked, placed on telemetry, cleaned of incontinent urine. He attempts to void in urinal while standing but unable. Bladder scan results<100cc. Pt HR is 120's-140's afib. given scheduled metoprolol. Continuous monitoring.
--- NOTE | 2022-01-21 20:00 | PC.NURSE ---
Spoke with on patient's status and plan. On initial assessment, patient A&Ox1, only knowing himself. Patient very impulsive and getting out of bed. CIWA 9, was given 1mg IV ativan. Patient's BP rechecked and was soft with MAP's high 50's to low 60's. TRUCK OPERATOR Sebastián made aware. 1L bolus NS given. Will continue to monitor.
[2022-01-21] MEDS: LORazepam 2 MG/ML INJ IV (21:06)
[2022-01-21 21:45] LABS: Adenovirus Not Detected (Not Detect); B. parapertussis Not Detected (Not Detecte); Bordetella pertussis Not Detected (Not Detecte); Chlamydophila pneumoniae Not Detected (Not Detect); Coronavirus 229E Not Detected (Not Detect); Coronavirus HKU1 Not Detected (Not Detect); Coronavirus NL 63 Not Detected (Not Detect); Coronavirus OC43 Not Detected (Not Detect); Human Metapneumovirus Not Detected (Not Detect); Human Rhinovirus/Enterovirus Not Detected (Not Detect); Influenza A Not Detected (Not Detect); Influenza B Not Detected (Not Detect); Mycoplasma pneumoniae Not Detected (Not Detect); Parainfluenza Virus 1 Not Detected (Not Detect); Parainfluenza Virus 2 Not Detected (Not Detect); Parainfluenza Virus 3 Not Detected (Not Detect); Parainfluenza Virus 4 Not Detected (Not Detect); Respiratory Syncytial Virus Not Detected (Not Detect); SARS- CoV-2 Not Detected (Not Detecte)
--- NOTE | 2022-01-21 23:12 | DI.ECHO.S_ITS ---
[facility] +---------+ : : [address] : [place] : : : : [id number] : : : : Phone: [phone]+ Echocardiogram Report + + :Name: ISRRAEL ROSALES Study Date: 01/22/2022 Height: 68 in : :[facility] ReadingLocation: Weight: 230 lb : : Gender: Male BSA: 2.2 m2 : :: 1945 Age: 76 yrs BP: 117/58 mmHg: :Reason For Study: Atrial fibrillation : :Ordering Physician: SARWAT, : :GIANNI Performed By: Yandel Aaron : :Referring: GIANNI FAM : + + Interpretation Summary The left ventricle is mildly dilated. The LVEDV based on modified bi-plane Masters scale is 150 mL. This has improved/decreased since prior study. Left ventricular systolic function is moderately reduced. Left ventricular ejection fraction is estimated to be 35%. There has been no significant change since the previous exam. There is moderate global hypokinesis of the left ventricle. Diastolic function could not be accurately assessed due to atrial fibrillation. The right ventricle is moderately dilated. Right ventricular systolic function is moderately reduced. There has been no significant change since the previous exam. The right ventricular systolic pressure is estimated to be at least 32 mmHg based on an estimated right atrial pressure of 8 mm Hg. Compared to the prior echo exam, there has been a decrease in the severity of pulmonary hypertension. Both atria are severely dilated. There is moderate mitral regurgitation. There is a TAVR aortic valve whic is new since proir study. The prosthetic aortic valve is well-seated. The gradients through the prosthetic aortic valve are within the normal range for this type of valve. There is no other significant valvular heart disease. The aortic root is not well visualized. The dimensions of the ascending aorta are normal. Procedure: A two-dimensional transthoracic echocardiogram with color flow and Doppler was performed. The study quality was technically difficult. Comparison is made with the echocardiogram of 01/31/2020. A contrast injection of Definity was performed to improve assessment of LV function. Left Ventricle: The left ventricle is mildly dilated. There is normal left ventricular wall thickness. The LVEDV based on modified bi-plane Masters scale is 150 mL. This has improved/decreased since prior study. Left ventricular systolic function is moderately reduced. Left ventricular ejection fraction is estimated to be 35%. There has been no significant change since the previous exam. There is moderate global hypokinesis of the left ventricle. Diastolic function could not be accurately assessed due to atrial fibrillation. Right Ventricle: The right ventricle is moderately dilated. Right ventricular systolic function is moderately reduced. There has been no significant change since the previous exam. Atria: Both atria are severely dilated. The interatrial septum grossly appears intact with no obvious evidence for an atrial septal defect. Mitral Valve: The mitral valve leaflets are moderately calcified. There is moderate mitral regurgitation. Aortic Valve: There is a TAVR aortic valve whic is new since proir study. The prosthetic aortic valve is well-seated. The gradients through the prosthetic aortic valve are within the normal range for this type of valve. No aortic regurgitation is present. Tricuspid Valve: The tricuspid valve is normal in structure and function. There is mild tricuspid regurgitation. The right ventricular systolic pressure is estimated to be at least 32 mmHg based on an estimated right atrial pressure of 8 mm Hg. Compared to the prior echo exam, there has been a decrease in the severity of pulmonary hypertension. Pulmonic Valve: The pulmonic valve is normal in structure and function. There is mild pulmonic regurgitation. There is no other significant valvular heart disease. Great Vessels: The aortic root is not well visualized. The dimensions of the ascending aorta are normal. The IVC is dilated (diameter is greater than 2.1 cm) yet it collapses greater than 50% with a sniff. This suggests a right atrial pressure of 8 mm Hg. Pericardium/ Pleura There is no pericardial effusion. There is no pleural effusion. MMode/2D Measurements & Calculations LVIDd: 5.7 cm asc Aorta Diam: 3.4 cm LVIDs: 4.8 cm FS: 16.3 % IVSd: 1.1 cm LVPWd: 0.99 cm LV dempsey. diameter/BSA (cm/m^2): 2.6 LV sys. diameter/BSA (cm/m^2): 2.2 LA A2 area: 39.2 cm2 RA long axis: 7.0 cm LA A4 area: 38.1 cm2 RA area: 33.1 cm2 LA length (vol): 8.3 cm RA vol: 132.9 ml LA vol: 153.5 ml RA : 61.3 ml/m2 LA vol index: 70.8 ml/m2 IVC diam: 3.1 cm TAPSE: 1.3 cm Doppler Measurements & Calculations Ao V2 max: 169.6 cm/sec LVOT Max Michael: 63.9 cm/sec Ao V2 mean: 132.2 cm/sec LV V1 max P.6 mmHg Ao max P.5 mmHg LV V1 VTI: 11.6 cm Ao mean P.6 mmHg sev ratio: 0.40 Ao V2 VTI: 28.9 cm TR max michael: 243.4 cm/sec MR VTI: 151.9 cm TR max P.7 mmHg Reading Physician:08:34 AM
[2022-01-21 23:40] LABS: Add Manual Diff / Slide Review YES; Hematocrit 36.3 % (41-53); Hemoglobin 12.3 g/dL (13.5-17.5); Mean Corpuscular HGB Conc 33.8 % (30-36); Mean Corpuscular Hemoglobin 34.2 PG (26-34); Mean Corpuscular Volume 101.2 fL (80-100); Platelet Count 62 X10^3/uL (150-400); Red Blood Cell Count 3.59 X10^6/uL (4.5-5.9); Red Cell Distribution Width 14.4 % (11.6-14.8); White Blood Cell Count 8.3 X10^3/uL (4.5-11.0)
[2022-01-21 23:42] LABS: Alanine Aminotransferase 536 IU/L (<50); Albumin 3.1 g/dL (3.5-5.0); Albumin Globulin Ratio 1.1 (1.0-2.8); Alkaline Phosphatase 64 U/L (38-126); BUN Creatinine Ratio 18.9 (6-22); Bilirubin Total 1.9 mg/dL (0.2-1.3); Blood Urea Nitrogen 32 mg/dL (9-20); Calcium 7.2 mg/dL (8.4-10.2); Carbon Dioxide 19 mmol/L (22-32); Chloride 94 mmol/L (98-107); Estimated Glomerular Filt Rate 42 mL/min (>60); Globulin 2.8 g/dL (1.7-4.1); Glucose 210 mg/dL (80-110); HEMOLYSIS < 15 (0-50); Magnesium 2.1 mg/dL (1.6-2.3); Potassium 3.6 mmol/L (3.4-5.1); Sodium 128 mmol/L (137-145); Total Protein 5.9 g/dL (6.3-8.2)
[2022-01-21 23:51] LABS: Aspartate Aminotransferase 1118 IU/L (17-59)
[2022-01-21 23:56] LABS: Lactate (Lactic Acid) 4.3 mmol/L (0.7-2.1)
[2022-01-22] VITALS (121 sets, daily range): BP systolic 74–189; BP diastolic 48–92; PULSE 78–119; RESP 14–43; TEMP 36.3–36.9; O2SAT 82–100
[2022-01-22] MEDS: MIDODRINE HCL 5 MG TABLET 10 MG PO ×4 (00:07→21:07)
[2022-01-22 00:38] LABS: Neutrophils Absolute Manual 7470 /uL (3000-5900); RBC Morphology Normal Morphology; Total Cells Counted 100
[2022-01-22 01:26] LABS: Reflexed Lactate in 2 Hours Y
[2022-01-22] MEDS: NOREPINEPHRINE BITARTRATE/D5W 4 MG/250 ML PLAST..BAG 30 MG IV (01:37)
[2022-01-22] MEDS: HYDROCORTISONE 100 MG/2 ML VIAL 50 MG IV ×5 (01:38→23:46)
[2022-01-22 01:39] LABS: Amylase 40 U/L (30-110); Gamma Glutamyl Transpeptidase 90 U/L (15-73)
--- NOTE | 2022-01-22 01:46 | PC.NURSE ---
Patient transferred to ICU for sustained hypotension and was placed on a norepinephrine drip. Per CAROL Mccall to start drip through peripheral line until PICC team able to place central line in the AM. Patient continues to be in afib with HR's 80-100's. Placed on 2L NC saturating 91-93%. Patient very lethargic on assessment. Able to answer questions when physically stimulated. He is noticeably diaphoretic but maintaining normothermia.
[2022-01-22 02:09] LABS: Ammonia (NH3) 16 umol/L (9-30); Lactate 2HR (Lactic Acid Rflx) 2.9 mmol/L (0.7-2.1)
--- NOTE | 2022-01-22 02:16 | P.TELICUCN_ITS ---
History of Present Illness Consult details IF CAMERA ACTIVATED, patient seen via real-time interactive audiovisual communication: Camera activated Chief complaint: Bladder control issues Consent obtained for tele-registered art therapist care: Yes Patient Location: ICU Provider location (State): [place] Other participants/roles: RN, SHARA Lowery Narrative: 76 y.o. male upgraded from step down status for vasopressors. Admitted 01/21 dayshift when he presented w/ malaise. He had urinary incontinence. Inital labs notable for lactate of 4.3 but WMC was normal. Na+ was 128 and he had an JANEL w/ creatinine 1.69 (baseline 0.94). TB was 1.9; AST was 1118;, ALT was 536. Abd USG did not show any evidence of cholelithiasis/cholecystitis. Initial troponin-I was 0.360. Respiratory panel was (-). Urine studies were mildly abnormal; culture was reflexed. pCXR and abd/pelvic CT were unimpressive. He was cultured and started on vancomycin and ceftriaxone. PMHx notable for EtOH, HFrEF @ 35%, AF on Pradaxa, TAVR in 2019, nonobstructive CAD, T2DM, HTN, HLD,. Tonight, he worsened and required norepinephrine initiation; in additional, BNP returned @ 9210 and troponin-I august to 1.620. ECG was done and did not show any acute changes. [facility] Medical History Alcohol use disorder BPH w urinary obs/LUTS Chronic anticoagulation 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 Enlarged prostate Essential hypertension Heart failure Mild cognitive impairment Mixed hyperlipidemia Paroxysmal atrial fibrillation Systolic CHF, chronic Wears glasses Surgical History S/P TAVR (transcatheter aortic valve replacement) Family History Mother CVA (cerebral vascular accident) Father Heart disease Social History household members: spouse Smoking Status: Never smoker alcohol intake: current Current Medications Current Medications Medications: Home Medications aspirin 81 mg tablet,delayed release 81 mg PO QAM 08/14/19 [History Confirmed 01/21/22] cholecalciferol (vitamin D3) 25 mcg/drop (1,000 unit/drop) oral drops 1,000 unit PO QPM 08/14/19 [History Confirmed 01/21/22] metformin 750 mg tablet,extended release 24 hr 750 mg PO BID 08/14/19 [History Confirmed 01/21/22] atorvastatin 80 mg tablet 80 mg PO BEDTIME 01/10/20 [History Confirmed 01/21/22] dabigatran etexilate 150 mg capsule (Pradaxa) 150 mg PO BID 01/12/20 [History Confirmed 01/21/22] omega 2-nat-jkq-fish oil 1,000 mg (120 mg-180 mg) capsule (Fish Oil) 1 cap PO TID 01/12/20 [History Confirmed 01/21/22] dapagliflozin 10 mg tablet (Farxiga) 10 mg PO DAILY 08/19/21 [History Confirmed 01/21/22] metoprolol succinate 25 mg tablet,extended release 24 hr (Toprol XL) 25 mg PO BID 08/19/21 [History Confirmed 01/21/22] sacubitril 24 mg-valsartan 26 mg tablet (Entresto) 1 tab PO BID 08/19/21 [History Confirmed 01/21/22] spironolactone 25 mg tablet (Aldactone) 25 mg PO DAILY 08/19/21 [History Confirmed 01/21/22] tamsulosin 0.4 mg capsule 0.4 mg PO BEDTIME #90 caps 08/19/21 [Rx Confirmed 01/21/22] torsemide 20 mg tablet 20 mg PO DAILY 08/19/21 [History Confirmed 01/21/22] Visit Medications (administered) Generic Name Dose Route Start Last Admin Trade Name Freq PRN Reason Stop Dose Admin Hydrocortisone 50 mg 01/22/22 01:00 01/22/22 01:38 Hydrocortisone 100 Mg/2 Ml Vial IV 50 mg Q6HR SHEA Administration NOREPINEPHRINE BITARTRATE/D5W 4 mg in 250 mls @ 30 mls/hr 01/22/22 01:15 01/22/22 02:04 Levophed IV 6 mcg/min TITRATE SHEA 22.5 mls/hr Titration Protocol 8 MCG/MIN Lorazepam 0 mg 01/21/22 17:13 01/21/22 21:06 Lorazepam 2 Mg/Ml Inj IV 1 mg CIWAPRN PRN Administration Alcohol Withdrawal Protocol Metoprolol Succinate 25 mg 01/21/22 17:20 01/21/22 19:55 Metoprolol Er 25 Mg Tablet PO 25 mg BID SHEA Administration Midodrine 10 mg 01/21/22 23:45 01/22/22 00:07 Midodrine Hcl 5 Mg Tablet PO 10 mg Q8HR SHEA Administration Exam Vital Signs (past 8 hours): - 01/21/22 19:55 01/21/22 20:28 01/21/22 21:08 Temperature 98.3 F Pulse Rate 114 H 115 H 111 H Respiratory Rate 18 Blood Pressure 128/71 128/71 115/55 L Pulse Oximetry 97 Oxygen Delivery Method 01/21/22 21:32 01/21/22 21:45 01/21/22 22:23 Temperature Pulse Rate 101 H Respiratory Rate 16 Blood Pressure 81/49 L 87/47 L 93/51 L Pulse Oximetry Oxygen Delivery Method 01/21/22 20:00 01/22/22 01:20 01/22/22 01:17 Temperature 98.4 F Pulse Rate 96 H 91 H Respiratory Rate 30 H Blood Pressure 91/65 Pulse Oximetry 94 85 L Oxygen Delivery Method Room Air 01/22/22 01:19 01/22/22 01:19 01/22/22 02:00 Temperature Pulse Rate 96 H Respiratory Rate 34 H Blood Pressure 91/65 Pulse Oximetry 94 Oxygen Delivery Method Oximask 01/22/22 01:30 01/22/22 01:30 01/22/22 01:32 Temperature Pulse Rate 91 H 91 H Respiratory Rate 20 39 H Blood Pressure 74/52 L Pulse Oximetry 92 91 Oxygen Delivery Method 01/22/22 01:32 01/22/22 01:45 01/22/22 01:45 Temperature Pulse Rate 87 Respiratory Rate 36 H Blood Pressure 74/50 L 102/69 Pulse Oximetry 95 Oxygen Delivery Method 01/22/22 02:00 01/22/22 02:00 Temperature Pulse Rate 94 H Respiratory Rate 34 H Blood Pressure 137/71 Pulse Oximetry 98 Oxygen Delivery Method Oxygen Delivery Method Oximask Oxygen Flow Rate 3 Const General: comfortable Resp Effort & Inspection: normal respiratory effort Objective Labs Result Diagrams: 01/21/22 23:20 01/21/22 23:20 Labs: Laboratory Results - last 24 hr 01/21/22 01/21/22 01/21/22 09:37 09:38 09:38 WBC 9.1 RBC 3.69 L Hgb 12.8 L Hct 37.2 L MCV 100.9 H MCH 34.7 H MCHC 34.4 RDW 14.5 Plt Count 110 L Neut % (Auto) Not Reportable Lymph % (Auto) Not Reportable Forest % (Auto) Not Reportable Eos % (Auto) Not Reportable Baso % (Auto) Not Reportable Lymph # (Auto) Not Reportable Forest # (Auto) Not Reportable Baso # (Auto) Not Reportable Total Counted 100 Seg Neutrophils % 88.0 H Band Neutrophils % 7.0 Lymphocytes % (Manual) 2.0 L Monocytes % (Manual) 3.0 Neutrophils # (Manual) 8645 H RBC Morphology See below Macrocytosis 1+ H PT INR APTT Sodium 128 L Potassium 3.9 Chloride 92 L Carbon Dioxide 22 BUN 24 H Creatinine 0.94 Estimated GFR > 60 BUN/Creatinine Ratio 25.5 H Glucose 195 H Lactate Calcium 8.0 L Magnesium Total Bilirubin 1.7 H GGT AST 89 H ALT 53 H Alkaline Phosphatase 61 Ammonia Total Creatine Kinase CK-MB (CK-2) CK-MB (CK-2) Rel Index Troponin I NT-Pro-B Natriuret Pep Total Protein 6.6 Albumin 3.7 Globulin 2.9 Albumin/Globulin Ratio 1.3 Amylase Lipase Procalcitonin Urine RBC 1-5/hpf Urine WBC 1-5/hpf Ur Squamous Epith Cells 0-1 /hpf Amorphous Sediment 2+ Urine Bacteria Occasional (0-1) Hyaline Casts 0-1/lpf Urine Mucus 1+ H Ur Culture Indicated? Specimen cultured Ethyl Alcohol Chlamy pneumoniae PCR Adenovirus (PCR) B. pertussis DNA (PCR) B.parapertussis DNA PCR Coronavirus OC43 (PCR) Coronavirus HKU1 (PCR) Coronavirus 229E (PCR) SARS-CoV-2 (PCR) Coronavirus NL63 (PCR) Human Metapneumovir PCR Influenza A (RT-PCR) Influenza Type A (PCR) Influenza B (RT-PCR) Influenza Type B (PCR) M. pneumoniae (PCR) Parainfluenza 1 (PCR) Parainfluenza 2 (PCR) Parainfluenza 3 (PCR) Parainfluenza 4 (PCR) RSV (PCR) Entero/Rhino (PCR) 1001/21/22 01/21/22 09:38 09:38 09:38 WBC RBC Hgb Hct MCV MCH MCHC RDW Plt Count Neut % (Auto) Lymph % (Auto) Forest % (Auto) Eos % (Auto) Baso % (Auto) Lymph # (Auto) Forest # (Auto) Baso # (Auto) Total Counted Seg Neutrophils % Band Neutrophils % Lymphocytes % (Manual) Monocytes % (Manual) Neutrophils # (Manual) RBC Morphology Macrocytosis PT 17.4 H INR 1.5 H APTT 42 H Sodium Potassium Chloride Carbon Dioxide BUN Creatinine Estimated GFR BUN/Creatinine Ratio Glucose Lactate 3.9 H Calcium Magnesium Total Bilirubin GGT AST ALT Alkaline Phosphatase Ammonia Total Creatine Kinase 459 H CK-MB (CK-2) 5.27 H CK-MB (CK-2) Rel Index 1.1 L Troponin I 0.360 H* NT-Pro-B Natriuret Pep Total Protein Albumin Globulin Albumin/Globulin Ratio Amylase Lipase 18 L Procalcitonin 25.0 H Urine RBC Urine WBC Ur Squamous Epith Cells Amorphous Sediment Urine Bacteria Hyaline Casts Urine Mucus Ur Culture Indicated? Ethyl Alcohol < 10 Chlamy pneumoniae PCR Adenovirus (PCR) B. pertussis DNA (PCR) B.parapertussis DNA PCR Coronavirus OC43 (PCR) Coronavirus HKU1 (PCR) Coronavirus 229E (PCR) SARS-CoV-2 (PCR) Coronavirus NL63 (PCR) Human Metapneumovir PCR Influenza A (RT-PCR) Influenza Type A (PCR) Influenza B (RT-PCR) Influenza Type B (PCR) M. pneumoniae (PCR) Parainfluenza 1 (PCR) Parainfluenza 2 (PCR) Parainfluenza 3 (PCR) Parainfluenza 4 (PCR) RSV (PCR) Entero/Rhino (PCR) 01/21/22 01/21/22 01/21/22 09:39 12:18 12:18 WBC RBC Hgb Hct MCV MCH MCHC RDW Plt Count Neut % (Auto) Lymph % (Auto) Forest % (Auto) Eos % (Auto) Baso % (Auto) Lymph # (Auto) Forest # (Auto) Baso # (Auto) Total Counted Seg Neutrophils % Band Neutrophils % Lymphocytes % (Manual) Monocytes % (Manual) Neutrophils # (Manual) RBC Morphology Macrocytosis PT INR APTT Sodium Potassium Chloride Carbon Dioxide BUN Creatinine Estimated GFR BUN/Creatinine Ratio Glucose Lactate 4.4 H* Calcium Magnesium Total Bilirubin GGT AST ALT Alkaline Phosphatase Ammonia Total Creatine Kinase CK-MB (CK-2) CK-MB (CK-2) Rel Index Troponin I 0.283 H* NT-Pro-B Natriuret Pep Total Protein Albumin Globulin Albumin/Globulin Ratio Amylase Lipase Procalcitonin Urine RBC Urine WBC Ur Squamous Epith Cells Amorphous Sediment Urine Bacteria Hyaline Casts Urine Mucus Ur Culture Indicated? Ethyl Alcohol Chlamy pneumoniae PCR Adenovirus (PCR) B. pertussis DNA (PCR) B.parapertussis DNA PCR Coronavirus OC43 (PCR) Coronavirus HKU1 (PCR) Coronavirus 229E (PCR) SARS-CoV-2 (PCR) Negative Coronavirus NL63 (PCR) Human Metapneumovir PCR Influenza A (RT-PCR) Influenza Type A (PCR) Influenza B (RT-PCR) Influenza Type B (PCR) M. pneumoniae (PCR) Parainfluenza 1 (PCR) Parainfluenza 2 (PCR) Parainfluenza 3 (PCR) Parainfluenza 4 (PCR) RSV (PCR) Entero/Rhino (PCR) 01/21/22 01/21/22 01/21/22 12:18 12:35 18:35 WBC RBC Hgb Hct MCV MCH MCHC RDW Plt Count Neut % (Auto) Lymph % (Auto) Forest % (Auto) Eos % (Auto) Baso % (Auto) Lymph # (Auto) Forest # (Auto) Baso # (Auto) Total Counted Seg Neutrophils % Band Neutrophils % Lymphocytes % (Manual) Monocytes % (Manual) Neutrophils # (Manual) RBC Morphology Macrocytosis PT INR APTT Sodium Potassium Chloride Carbon Dioxide BUN Creatinine Estimated GFR BUN/Creatinine Ratio Glucose Lactate Calcium Magnesium Total Bilirubin GGT AST ALT Alkaline Phosphatase Ammonia Total Creatine Kinase CK-MB (CK-2) CK-MB (CK-2) Rel Index Troponin I NT-Pro-B Natriuret Pep 9210 H Total Protein Albumin Globulin Albumin/Globulin Ratio Amylase Lipase Procalcitonin Urine RBC Urine WBC Ur Squamous Epith Cells Amorphous Sediment Urine Bacteria Hyaline Casts Urine Mucus Ur Culture Indicated? Ethyl Alcohol Chlamy pneumoniae PCR Not detected Adenovirus (PCR) Not detected B. pertussis DNA (PCR) Not detected B.parapertussis DNA PCR Not detected Coronavirus OC43 (PCR) Not detected Coronavirus HKU1 (PCR) Not detected Coronavirus 229E (PCR) Not detected SARS-CoV-2 (PCR) Not detected Coronavirus NL63 (PCR) Not detected Human Metapneumovir PCR Not detected Influenza A (RT-PCR) Flu a negative Influenza Type A (PCR) Not detected Influenza B (RT-PCR) Flu b negative Influenza Type B (PCR) Not detected M. pneumoniae (PCR) Not detected Parainfluenza 1 (PCR) Not detected Parainfluenza 2 (PCR) Not detected Parainfluenza 3 (PCR) Not detected Parainfluenza 4 (PCR) Not detected RSV (PCR) Not detected Entero/Rhino (PCR) Not detected 01/21/22 01/21/22 01/21/22 23:20 23:20 23:20 WBC 8.3 RBC 3.59 L Hgb 12.3 L Hct 36.3 L MCV 101.2 H MCH 34.2 H MCHC 33.8 RDW 14.4 Plt Count 62 L Neut % (Auto) Not Reportable Lymph % (Auto) Not Reportable Forest % (Auto) Not Reportable Eos % (Auto) Not Reportable Baso % (Auto) Not Reportable Lymph # (Auto) Not Reportable Forest # (Auto) Not Reportable Baso # (Auto) Not Reportable Total Counted 100 Seg Neutrophils % 75.0 H Band Neutrophils % 15.0 H Lymphocytes % (Manual) 3.0 L Monocytes % (Manual) 7.0 Neutrophils # (Manual) 7470 H RBC Morphology Normal morphology Macrocytosis PT INR APTT Sodium 128 L Potassium 3.6 Chloride 94 L Carbon Dioxide 19 L BUN 32 H Creatinine 1.69 H Estimated GFR 42 L BUN/Creatinine Ratio 18.9 Glucose 210 H Lactate 4.3 H* Calcium 7.2 L Magnesium 2.1 Total Bilirubin 1.9 H GGT AST 1118 H ALT 536 H Alkaline Phosphatase 64 Ammonia Total Creatine Kinase CK-MB (CK-2) CK-MB (CK-2) Rel Index Troponin I 1.620 H* NT-Pro-B Natriuret Pep Total Protein 5.9 L Albumin 3.1 L Globulin 2.8 Albumin/Globulin Ratio 1.1 Amylase Lipase Procalcitonin Urine RBC Urine WBC Ur Squamous Epith Cells Amorphous Sediment Urine Bacteria Hyaline Casts Urine Mucus Ur Culture Indicated? Ethyl Alcohol Chlamy pneumoniae PCR Adenovirus (PCR) B. pertussis DNA (PCR) B.parapertussis DNA PCR Coronavirus OC43 (PCR) Coronavirus HKU1 (PCR) Coronavirus 229E (PCR) SARS-CoV-2 (PCR) Coronavirus NL63 (PCR) Human Metapneumovir PCR Influenza A (RT-PCR) Influenza Type A (PCR) Influenza B (RT-PCR) Influenza Type B (PCR) M. pneumoniae (PCR) Parainfluenza 1 (PCR) Parainfluenza 2 (PCR) Parainfluenza 3 (PCR) Parainfluenza 4 (PCR) RSV (PCR) Entero/Rhino (PCR) 01/21/22 01/21/22 01/22/22 23:30 23:30 01:40 WBC RBC Hgb Hct MCV MCH MCHC RDW Plt Count Neut % (Auto) Lymph % (Auto) Forest % (Auto) Eos % (Auto) Baso % (Auto) Lymph # (Auto) Forest # (Auto) Baso # (Auto) Total Counted Seg Neutrophils % Band Neutrophils % Lymphocytes % (Manual) Monocytes % (Manual) Neutrophils # (Manual) RBC Morphology Macrocytosis PT INR APTT Sodium Potassium Chloride Carbon Dioxide BUN Creatinine Estimated GFR BUN/Creatinine Ratio Glucose Lactate Calcium Magnesium Total Bilirubin GGT 90 H AST ALT Alkaline Phosphatase Ammonia 16 Total Creatine Kinase CK-MB (CK-2) CK-MB (CK-2) Rel Index Troponin I NT-Pro-B Natriuret Pep Total Protein Albumin Globulin Albumin/Globulin Ratio Amylase 40 Lipase Procalcitonin Urine RBC Urine WBC Ur Squamous Epith Cells Amorphous Sediment Urine Bacteria Hyaline Casts Urine Mucus Ur Culture Indicated? Ethyl Alcohol Chlamy pneumoniae PCR Adenovirus (PCR) B. pertussis DNA (PCR) B.parapertussis DNA PCR Coronavirus OC43 (PCR) Coronavirus HKU1 (PCR) Coronavirus 229E (PCR) SARS-CoV-2 (PCR) Coronavirus NL63 (PCR) Human Metapneumovir PCR Influenza A (RT-PCR) Influenza Type A (PCR) Influenza B (RT-PCR) Influenza Type B (PCR) M. pneumoniae (PCR) Parainfluenza 1 (PCR) Parainfluenza 2 (PCR) Parainfluenza 3 (PCR) Parainfluenza 4 (PCR) RSV (PCR) Entero/Rhino (PCR) 01/22/22 01:40 WBC RBC Hgb Hct MCV MCH MCHC RDW Plt Count Neut % (Auto) Lymph % (Auto) Forest % (Auto) Eos % (Auto) Baso % (Auto) Lymph # (Auto) Forest # (Auto) Baso # (Auto) Total Counted Seg Neutrophils % Band Neutrophils % Lymphocytes % (Manual) Monocytes % (Manual) Neutrophils # (Manual) RBC Morphology Macrocytosis PT INR APTT Sodium Potassium Chloride Carbon Dioxide BUN Creatinine Estimated GFR BUN/Creatinine Ratio Glucose Lactate 2.9 H Calcium Magnesium Total Bilirubin GGT AST ALT Alkaline Phosphatase Ammonia Total Creatine Kinase CK-MB (CK-2) CK-MB (CK-2) Rel Index Troponin I NT-Pro-B Natriuret Pep Total Protein Albumin Globulin Albumin/Globulin Ratio Amylase Lipase Procalcitonin Urine RBC Urine WBC Ur Squamous Epith Cells Amorphous Sediment Urine Bacteria Hyaline Casts Urine Mucus Ur Culture Indicated? Ethyl Alcohol Chlamy pneumoniae PCR Adenovirus (PCR) B. pertussis DNA (PCR) B.parapertussis DNA PCR Coronavirus OC43 (PCR) Coronavirus HKU1 (PCR) Coronavirus 229E (PCR) SARS-CoV-2 (PCR) Coronavirus NL63 (PCR) Human Metapneumovir PCR Influenza A (RT-PCR) Influenza Type A (PCR) Influenza B (RT-PCR) Influenza Type B (PCR) M. pneumoniae (PCR) Parainfluenza 1 (PCR) Parainfluenza 2 (PCR) Parainfluenza 3 (PCR) Parainfluenza 4 (PCR) RSV (PCR) Entero/Rhino (PCR) Assessment & Plan Assessment and plan (1) Septic shock: Problem details: Presumptive UTI Status: Acute Plan: -Continue NE, hydrocortisone, vancomycin/ceftriaxone (2) Atrial fibrillation with RVR: Status: Acute Plan: -Metoprolol -Was on Pradaxa until day of admission; will need therapeutic anticoagulation withine 24-36H (3) Alcohol use disorder: Status: Acute Plan: -Thiamine/folate/CIWA (4) S/P TAVR (transcatheter aortic valve replacement): Status: Acute Plan: -Hx of; follow (5) Chronic anticoagulation: Status: Acute Plan: -See above (6) Systolic CHF, acute on chronic: Status: Acute Plan: -Keep even fluid balance for now given JANEL; would diurese gentle soon (7) JANEL (acute kidney injury): Status: Acute Plan: -Due to problem #1; follow (8) Elevated troponin: Status: Acute Plan: -May be due to HFrEF exacerbation; continue ASA -No statin given transaminitis (9) Transaminitis: Problem details: Possible congestive hepatopathy Status: Acute Plan: -Trend Time Spent With Patient Critical Care time: I spent a total of 35 minutes of critical care time on this patient's care today; this time is exclusive of procedural time.
--- NOTE | 2022-01-22 03:11 | PC.NURSE ---
At approx 2200 rec'd report from DARYN Werner on pt, careful monitoring of BP and withdrawal symptoms continued. At approx 2230 after 1L bolus complete, low BP was noted, MAP at 65. Recheck in 30 min at 23:00 noted BP 81/49 MAP 57. Patient asymptomatic. Placed in trendelenberg. CIWA at 2. HR afib 90s, SPO2 >90% RA, RR 18-20s. Alert and oriented- change from prior RN's assessment. Pt presenting w/ symptoms of fluid overload. Provider informed, ordered BP checks q15 min and if MAP <65 sustained for >30 minutes, to inform her. Labs drawn. 23:07 BP 84/54 MAP 64. 23:18 BP 81/54 MAP 64. 23:35 BP 89/49 MAP 60. 23:52 BP 77/48 MAP 58. Critical lab value troponin 1.620 and lactate 4.3. AST/ALT increased from 89 & 53 to 1118 & 536. GFR reduced to 40. Provider informed. Order for midodrine 10 mg and EKG. Placed in trendelenberg. 23:57 BP 89/55 MAP 68. 00:09 BP 79/48 MAP 58. Midodrine approved by pharmacy, administered. 00:20 BP 89/55 MAP 62. 00:35 Pt stood to urinate, immediately after getting back into bed BP 91/54 MAP 63. 00:49 BP 83/55 MAP 63. Provider informed. Status change to ICU. Report given to DARYN Werner.
[2022-01-22 03:29] LABS: Acinetobacter baumannii Not Detected (Not Detect); Candida albicans Not Detected (Not Detect); Candida glabrata Not Detected (Not Detect); Candida krusei Not Detected (Not Detect); Candida parapsilosis Not Detected (Not Detect); Candida tropicalis Not Detected (Not Detect); E. coli Not Detected (Not Detect); Enterobacter cloacae complex Not Detected (Not Detect); Enterobacteriaceae species Not Detected (Not Detect); Enterococcus species Not Detected (Not Detect); Haemophilus influenzae Not Detected (Not Detect); Listeria monocytogenes Not Detected (Not Detect); Neisseria meningitidis Not Detected (Not Detect); Proteus species Not Detected (Not Detect); Pseudomonas aeruginosa Not Detected (Not Detect); Serratia marcescens Not Detected (Not Detect); Staphylococcus species Not Detected (Not Detect); Streptococcus agalactiae (Gr B Detected (Not Detect); Streptococcus pneumonia Not Detected (Not Detect); Streptococcus pyogenes (Gr A) Not Detected (Not Detect); Streptococcus species Detected (Not Detect)
[2022-01-22] MEDS: PENICILLIN G POTASSIUM 3,000,000 UNIT/50 ML FROZ.PIGGY 100 UNIT IV ×6 (04:48→23:46)
[2022-01-22 06:25] LABS: Add Manual Diff / Slide Review NO; Basophils Absolute Auto 0 /uL (0-100); Basophils Percent Auto 0.1 % (0-2); Eosinophils Absolute Auto 0 /uL (0-450); Eosinophils Percent Auto 0.3 % (2-4); Hematocrit 33.6 % (41-53); Hemoglobin 11.5 g/dL (13.5-17.5); Lymphocytes Absolute Auto 300 /uL (1100-4500); Lymphocytes Percent Auto 4.9 % (25-40); Mean Corpuscular HGB Conc 34.1 % (30-36); Mean Corpuscular Volume 99.5 fL (80-100); Monocytes Absolute Auto 200 /uL (0-900); Monocytes Percent Auto 3.3 % (3-14); Neutrophils Absolute Auto 6200 /uL (1500-7000); Neutrophils Percent Auto 91.4 % (50-75); Platelet Count 59 X10^3/uL (150-400); Red Blood Cell Count 3.38 X10^6/uL (4.5-5.9); Red Cell Distribution Width 14.4 % (11.6-14.8); White Blood Cell Count 6.8 X10^3/uL (4.5-11.0)
[2022-01-22 06:26] LABS: Ammonia (NH3) < 9 umol/L (9-30)
[2022-01-22 06:27] LABS: Albumin 2.9 g/dL (3.5-5.0); Alkaline Phosphatase 63 U/L (38-126); BUN Creatinine Ratio 23.6 (6-22); Bilirubin Total 1.9 mg/dL (0.2-1.3); Blood Urea Nitrogen 34 mg/dL (9-20); Carbon Dioxide 21 mmol/L (22-32); Chloride 98 mmol/L (98-107); Estimated Glomerular Filt Rate 51 mL/min (>60); Globulin 2.8 g/dL (1.7-4.1); Glucose 173 mg/dL (80-110); HEMOLYSIS < 15 (0-50); Magnesium 2.1 mg/dL (1.6-2.3); Potassium 3.4 mmol/L (3.4-5.1); Sodium 131 mmol/L (137-145); Total Protein 5.7 g/dL (6.3-8.2)
[2022-01-22 06:43] LABS: Alanine Aminotransferase 801 IU/L (<50)
[2022-01-22 06:54] LABS: Aspartate Aminotransferase 1974 IU/L (17-59)
[2022-01-22 07:06] LABS: TSH w/ Reflex to FT4 0.99 uIU/mL (0.47-4.68)
[2022-01-22] MEDS: MULTIVITAMIN 1 TABLET 1 TAB PO (08:33)
[2022-01-22] MEDS: THIAMINE 100 MG TABLET PO (08:33)
[2022-01-22] MEDS: FOLIC ACID 1 MG TABLET PO (08:33)
[2022-01-22] MEDS: SODIUM CHLORIDE 0.9% 500 ML 1000 ML IV (10:12)
--- NOTE | 2022-01-22 10:15 | DIET.CONS2 ---
Dietary Inpatient Consultation Note Admission Date: 01/21/2022 15:55 Diet: Pt not appropriate for nutrition care at this time. Pt on transfer list to [facility] for [facility]. Please contact if pt becomes appropriate in the future. 01/21/22 Dinner Carbohydrate Consistent Diet Diet Modifications: Carbohydrate level: Large (4 CHO) Nutrition Percent Meal Consumed 75% 01/22/22 09:28 Percent Meal Consumed 0% 01/21/22 17:33 Electronically Signed by: Urmila Harrell 01/22/22 10:15 Clinical Dietitian [address] [id number]
--- NOTE | 2022-01-22 10:41 | PM.ICURNDS ---
- :: This patient was seen via real time interactive two-way audiovisual telecommunication. Patient remains on phenylephrine, to be started on milrinone and goal to wean off phenylephrine. He has been having runs of vtach, cannot tolerate amiodaorne, and given his current LFT, would avoid if possible. if there contuued runs of VT, may need lidocaine ( only if pressor load is releived and is essentially oput of cardiogenic shock)
--- NOTE | 2022-01-22 10:48 | PM.ICURNDS ---
- :: This patient was seen via real time interactive two-way audiovisual telecommunication. patient pending trasnfer for [facility], goal to wean off pressors today. Currently only n 2 mcg of levophed, will receive albumin bolus x2 today, and may need midrodrine as well. trend labs, and if there is any conduction abnomalities would transfer emergently as opposed ro urgent/routine.
[2022-01-22] MEDS: MIDAZOLAM 2 MG/2 ML VIAL IV (11:19)
--- NOTE | 2022-01-22 11:39 | DI.RAD.S_ITS ---
PROCEDURE: XR CHEST FOR PICC 1V INDICATIONS: TLC R IJ placement verification COMPARISON: None. FINDINGS/ IMPRESSION: Right IJ central venous port catheter terminates in the inferior segment of the SVC. Dictated by: Steve Brownlee M.D. on 01/22/2022 at 12:05 Approved by: Steve Brownlee M.D. on 01/22/2022 at 12:06
[2022-01-22] MEDS: NOREPINEPHRINE BITARTRATE/D5W 4 MG/250 ML PLAST..BAG 11.25 MG IV (12:30)
[2022-01-22 12:38] LABS: Clostridium Difficile Tox PCR Negative for C. diff (Negative)
--- NOTE | 2022-01-22 13:00 | CM.DANOTE ---
Initial DCP Assessment Note Pt is a 76 yo male, resident of [place], arrives 01.21.22 with general malaise this week and new bladder control issues admitted for further w/u; according to morning rounds- patient in liver failure, now w/epi drip, septic, CIWA, NSTEMI, afib with pending transfer for [facility] PMH includes: atrial fribillation, Aortic stenosis S/p TAVR in 2019, non-occlusive CAD, CHFrEF (EF 35%) with R heart failure, mild cognitive impairment, DM, HTN, HLD, BPH, ETOH Admitted to ICU for management of heart failure, hepatic failure, vtach, on bipap awaiting transfer for higher level of care PCP: Stanton Louis Payer: [facility] Patient awaiting transfer for [facility] RATNA Boucher Discharge Planning/Care Management CM Discharge Assessment Start: 01/22/22 12:49 Freq: Status: Active Protocol: Document 01/22/22 12:49 RAMON (Rec: 01/22/22 13:00 ARMON [id number]) Discharge Planning Assessment 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 No History Provided By Patient,Medical Record Prior Living Arrangements House Household Members spouse Independent with ADL's Yes Is patient alert and oriented? Yes: Mild cog impairment per chart Needs Assistance With Managing Medications,Home Chores / Shopping Comment Transfer for [facility] in progress Discharge Plan Transfer to Higher Level of Care Transportation Arrangement Medical transport Referrals Initiated None needed
[2022-01-22 14:24] LABS: Creatine Kinase 881 U/L (55-170)
[2022-01-22 14:39] LABS: CKMB % Relative Index 1.4 % (1.5-5.0)
[2022-01-22] MEDS: INSULIN LISPRO 100 UNIT/ML 3ML VIAL SUBCUT ×2 (17:45→21:02)
--- NOTE | 2022-01-22 19:10 | P.PN_ITS ---
Subjective Subjective Interval history: Patient started feeling better, breathing status improving, denies any active chest pain at this time. Had a very long conversation with the , explained care process. Other review of systems done, negative. Exam Vital Signs (past 8 hours): - 01/22/22 11:13 01/22/22 11:13 01/22/22 11:15 Temperature Pulse Rate 85 93 H Respiratory Rate 21 21 Blood Pressure 107/68 Pulse Oximetry 100 100 Oxygen Delivery Method 01/22/22 11:15 01/22/22 11:18 01/22/22 11:18 Temperature Pulse Rate 91 H Respiratory Rate 23 Blood Pressure 125/69 122/65 Pulse Oximetry 100 Oxygen Delivery Method 01/22/22 11:20 01/22/22 11:20 01/22/22 11:23 Temperature Pulse Rate 90 Respiratory Rate 21 Blood Pressure 118/63 112/63 Pulse Oximetry 100 Oxygen Delivery Method 01/22/22 11:23 01/22/22 11:25 01/22/22 11:25 Temperature Pulse Rate 92 H 82 Respiratory Rate 22 23 Blood Pressure 114/59 L Pulse Oximetry 100 100 Oxygen Delivery Method 01/22/22 11:28 01/22/22 11:28 01/22/22 11:30 Temperature Pulse Rate 99 H Respiratory Rate 24 Blood Pressure 110/72 115/71 Pulse Oximetry 100 Oxygen Delivery Method 01/22/22 11:30 01/22/22 11:33 01/22/22 11:33 Temperature Pulse Rate 87 92 H Respiratory Rate 23 22 Blood Pressure 112/79 Pulse Oximetry 100 100 Oxygen Delivery Method 01/22/22 11:35 01/22/22 11:35 01/22/22 11:38 Temperature Pulse Rate 84 Respiratory Rate 21 Blood Pressure 105/70 110/75 Pulse Oximetry 100 Oxygen Delivery Method 01/22/22 11:38 01/22/22 11:40 01/22/22 11:40 Temperature Pulse Rate 85 84 Respiratory Rate 19 16 Blood Pressure 110/81 Pulse Oximetry 100 100 Oxygen Delivery Method 01/22/22 11:43 01/22/22 11:43 01/22/22 11:45 Temperature Pulse Rate 82 Respiratory Rate 15 Blood Pressure 112/69 106/64 Pulse Oximetry 100 Oxygen Delivery Method 01/22/22 11:45 01/22/22 11:56 01/22/22 11:56 Temperature Pulse Rate 83 82 Respiratory Rate 15 16 Blood Pressure 84/56 L Pulse Oximetry 100 97 Oxygen Delivery Method 01/22/22 12:00 01/22/22 12:00 01/22/22 12:00 Temperature 98.5 F 97.8 F Pulse Rate 82 Respiratory Rate 15 Blood Pressure 97/65 Pulse Oximetry 95 Oxygen Delivery Method 01/22/22 12:15 01/22/22 12:15 01/22/22 12:30 Temperature Pulse Rate 82 Respiratory Rate 14 Blood Pressure 102/63 121/73 Pulse Oximetry 95 Oxygen Delivery Method 01/22/22 12:30 01/22/22 12:39 01/22/22 12:39 Temperature Pulse Rate 95 H 97 H Respiratory Rate 26 H 23 Blood Pressure 128/68 Pulse Oximetry 96 95 Oxygen Delivery Method 01/22/22 12:00 01/22/22 12:45 01/22/22 12:45 Temperature Pulse Rate 95 H Respiratory Rate 26 H Blood Pressure 124/77 Pulse Oximetry 96 Oxygen Delivery Method Room Air 01/22/22 13:00 01/22/22 13:00 01/22/22 13:15 Temperature Pulse Rate 93 H Respiratory Rate 23 Blood Pressure 127/72 108/70 Pulse Oximetry 96 Oxygen Delivery Method 01/22/22 13:15 01/22/22 13:30 01/22/22 13:30 Temperature Pulse Rate 90 88 Respiratory Rate 25 H 23 Blood Pressure 110/67 Pulse Oximetry 96 95 Oxygen Delivery Method 01/22/22 13:45 01/22/22 13:45 01/22/22 14:00 Temperature Pulse Rate 86 Respiratory Rate 16 Blood Pressure 97/64 96/62 Pulse Oximetry 95 Oxygen Delivery Method 01/22/22 14:00 01/22/22 14:15 01/22/22 14:15 Temperature Pulse Rate 89 90 Respiratory Rate 17 23 Blood Pressure 113/68 Pulse Oximetry 93 96 Oxygen Delivery Method 01/22/22 14:30 01/22/22 14:30 01/22/22 14:45 Temperature Pulse Rate 86 Respiratory Rate 15 Blood Pressure 105/64 101/64 Pulse Oximetry 93 Oxygen Delivery Method 01/22/22 14:45 01/22/22 15:00 01/22/22 15:00 Temperature Pulse Rate 88 84 Respiratory Rate 15 16 Blood Pressure 91/63 Pulse Oximetry 94 95 Oxygen Delivery Method 01/22/22 15:15 01/22/22 15:15 10/14/22 15:30 Temperature Pulse Rate 86 92 H Respiratory Rate 15 26 H Blood Pressure 90/61 Pulse Oximetry 95 95 Oxygen Delivery Method 01/22/22 15:31 01/22/22 15:31 01/22/22 15:45 Temperature Pulse Rate 87 Respiratory Rate 25 H Blood Pressure 105/77 112/65 Pulse Oximetry 96 Oxygen Delivery Method 01/22/22 15:45 01/22/22 16:00 01/22/22 16:00 Temperature Pulse Rate 81 89 Respiratory Rate 24 24 Blood Pressure 106/69 Pulse Oximetry 96 97 Oxygen Delivery Method 01/22/22 16:00 01/22/22 16:15 01/22/22 16:15 Temperature 98 F Pulse Rate 87 Respiratory Rate Blood Pressure 102/65 Pulse Oximetry 95 Oxygen Delivery Method Room Air 01/22/22 16:24 01/22/22 16:24 01/22/22 16:30 Temperature Pulse Rate 85 97 H Respiratory Rate 22 26 H Blood Pressure 92/52 L Pulse Oximetry 82 L 88 L Oxygen Delivery Method 01/22/22 16:31 01/22/22 16:31 01/22/22 16:45 Temperature Pulse Rate 94 H Respiratory Rate 27 H Blood Pressure 102/63 116/67 Pulse Oximetry 87 L Oxygen Delivery Method 01/22/22 16:45 01/22/22 17:00 01/22/22 17:00 Temperature Pulse Rate 86 84 Respiratory Rate 25 H 27 H Blood Pressure 100/64 Pulse Oximetry 96 96 Oxygen Delivery Method 01/22/22 17:15 01/22/22 17:15 01/22/22 17:30 Temperature Pulse Rate 87 Respiratory Rate 25 H Blood Pressure 103/69 100/67 Pulse Oximetry 93 Oxygen Delivery Method 01/22/22 17:30 01/22/22 17:45 01/22/22 17:45 Temperature Pulse Rate 83 87 Respiratory Rate 23 24 Blood Pressure 97/63 Pulse Oximetry 96 96 Oxygen Delivery Method 01/22/22 18:00 01/22/22 18:00 01/22/22 18:15 Temperature Pulse Rate 86 Respiratory Rate 24 Blood Pressure 100/73 94/56 L Pulse Oximetry 97 Oxygen Delivery Method 01/22/22 18:15 01/22/22 18:30 01/22/22 18:30 Temperature Pulse Rate 86 119 H Respiratory Rate 21 27 H Blood Pressure 98/72 Pulse Oximetry 95 97 Oxygen Delivery Method 01/22/22 18:45 01/22/22 18:45 Temperature Pulse Rate 85 Respiratory Rate 27 H Blood Pressure 97/66 Pulse Oximetry 96 Oxygen Delivery Method Oxygen Delivery Method Room Air Oxygen Flow Rate 4 Narrative Exam Narrative: Did not appreciate any obvious murmur on examination. Pedal edema positive. Basal crackles noted on pulmonary examination. Abdomen soft. Neuro, skin, cardiovascular, pulmonary examination done, negative other than as mentioned above. Objective Labs Result Diagrams: 01/22/22 06:06 01/22/22 06:06 Labs: Laboratory Results - last 24 hr 01/21/22 01/21/22 01/21/22 18:35 23:20 23:20 WBC 8.3 RBC 3.59 L Hgb 12.3 L Hct 36.3 L MCV 101.2 H MCH 34.2 H MCHC 33.8 RDW 14.4 Plt Count 62 L Neut % (Auto) Not Reportable Lymph % (Auto) Not Reportable [place] % (Auto) Not Reportable Eos % (Auto) Not Reportable Baso % (Auto) Not Reportable Neut # (Auto) Lymph # (Auto) Not Reportable [place] # (Auto) Not Reportable Eos # (Auto) Baso # (Auto) Not Reportable Total Counted 100 Seg Neutrophils % 75.0 H Band Neutrophils % 15.0 H Lymphocytes % (Manual) 3.0 L Monocytes % (Manual) 7.0 Neutrophils # (Manual) 7470 H RBC Morphology Normal morphology Sodium 128 L Potassium 3.6 Chloride 94 L Carbon Dioxide 19 L BUN 32 H Creatinine 1.69 H Estimated GFR 42 L BUN/Creatinine Ratio 18.9 Glucose 210 H Lactate Calcium 7.2 L Magnesium 2.1 Total Bilirubin 1.9 H GGT AST 1118 H ALT 536 H Alkaline Phosphatase 64 Ammonia Total Creatine Kinase CK-MB (CK-2) CK-MB (CK-2) Rel Index Troponin I 1.620 H* Total Protein 5.9 L Albumin 3.1 L Globulin 2.8 Albumin/Globulin Ratio 1.1 Amylase TSH A. baumannii (PCR) Chlamy pneumoniae PCR Not detected Adenovirus (PCR) Not detected B. pertussis DNA (PCR) Not detected B.parapertussis DNA PCR Not detected Hilda albicans (PCR) C. glabrata (PCR) C. krusei (PCR) C. parapsilosis (PCR) C. tropicalis (PCR) C. difficile Tox (PCR) Coronavirus OC43 (PCR) Not detected Coronavirus HKU1 (PCR) Not detected Coronavirus 229E (PCR) Not detected SARS-CoV-2 (PCR) Not detected Coronavirus NL63 (PCR) Not detected Enterobacteriac sp PCR E. cloacae complex PCR Enterococcus sp PCR E. coli (PCR) H. influenzae (PCR) Human Metapneumovir PCR Not detected Influenza Type A (PCR) Not detected Influenza Type B (PCR) Not detected Klebsiella oxytoca PCR Klebsiella pneumoniae List. monocytogenes PCR M. pneumoniae (PCR) Not detected N. meningitidis (PCR) Parainfluenza 1 (PCR) Not detected Parainfluenza 2 (PCR) Not detected Parainfluenza 3 (PCR) Not detected Parainfluenza 4 (PCR) Not detected Proteus species (PCR) RSV (PCR) Not detected Entero/Rhino (PCR) Not detected Serratia marcescens PCR Staphylococcus sp PCR Staph aureus (PCR) mecA-Methicil Res Gene Streptococcus sp PCR Group A Strep (PCR) Strep agalactiae (PCR) Strep pneumoniae (PCR) P. aeruginosa (PCR) Cody/B-Vanco Res Genes KPC-Carbap Res Gene PCR 01/21/22 01/21/22 01/21/22 23:20 23:30 23:30 WBC RBC Hgb Hct MCV MCH MCHC RDW Plt Count Neut % (Auto) Lymph % (Auto) [place] % (Auto) Eos % (Auto) Baso % (Auto) Neut # (Auto) Lymph # (Auto) [place] # (Auto) Eos # (Auto) Baso # (Auto) Total Counted Seg Neutrophils % Band Neutrophils % Lymphocytes % (Manual) Monocytes % (Manual) Neutrophils # (Manual) RBC Morphology Sodium Potassium Chloride Carbon Dioxide BUN Creatinine Estimated GFR BUN/Creatinine Ratio Glucose Lactate 4.3 H* Calcium Magnesium Total Bilirubin GGT 90 H AST ALT Alkaline Phosphatase Ammonia Total Creatine Kinase CK-MB (CK-2) CK-MB (CK-2) Rel Index Troponin I Total Protein Albumin Globulin Albumin/Globulin Ratio Amylase 40 TSH A. baumannii (PCR) Chlamy pneumoniae PCR Adenovirus (PCR) B. pertussis DNA (PCR) B.parapertussis DNA PCR Hilda albicans (PCR) C. glabrata (PCR) C. krusei (PCR) C. parapsilosis (PCR) C. tropicalis (PCR) C. difficile Tox (PCR) Coronavirus OC43 (PCR) Coronavirus HKU1 (PCR) Coronavirus 229E (PCR) SARS-CoV-2 (PCR) Coronavirus NL63 (PCR) Enterobacteriac sp PCR E. cloacae complex PCR Enterococcus sp PCR E. coli (PCR) H. influenzae (PCR) Human Metapneumovir PCR Influenza Type A (PCR) Influenza Type B (PCR) Klebsiella oxytoca PCR Klebsiella pneumoniae List. monocytogenes PCR M. pneumoniae (PCR) N. meningitidis (PCR) Parainfluenza 1 (PCR) Parainfluenza 2 (PCR) Parainfluenza 3 (PCR) Parainfluenza 4 (PCR) Proteus species (PCR) RSV (PCR) Entero/Rhino (PCR) Serratia marcescens PCR Staphylococcus sp PCR Staph aureus (PCR) mecA-Methicil Res Gene Streptococcus sp PCR Group A Strep (PCR) Strep agalactiae (PCR) Strep pneumoniae (PCR) P. aeruginosa (PCR) Cody/B-Vanco Res Genes KPC-Carbap Res Gene PCR 01/22/22 01/22/22 01/22/22 01:40 01:40 02:10 WBC RBC Hgb Hct MCV MCH MCHC RDW Plt Count Neut % (Auto) Lymph % (Auto) [place] % (Auto) Eos % (Auto) Baso % (Auto) Neut # (Auto) Lymph # (Auto) [place] # (Auto) Eos # (Auto) Baso # (Auto) Total Counted Seg Neutrophils % Band Neutrophils % Lymphocytes % (Manual) Monocytes % (Manual) Neutrophils # (Manual) RBC Morphology Sodium Potassium Chloride Carbon Dioxide BUN Creatinine Estimated GFR BUN/Creatinine Ratio Glucose Lactate 2.9 H Calcium Magnesium Total Bilirubin GGT AST ALT Alkaline Phosphatase Ammonia 16 Total Creatine Kinase CK-MB (CK-2) CK-MB (CK-2) Rel Index Troponin I Total Protein Albumin Globulin Albumin/Globulin Ratio Amylase TSH A. baumannii (PCR) Not detected Chlamy pneumoniae PCR Adenovirus (PCR) B. pertussis DNA (PCR) B.parapertussis DNA PCR Hilda albicans (PCR) Not detected C. glabrata (PCR) Not detected C. krusei (PCR) Not detected C. parapsilosis (PCR) Not detected C. tropicalis (PCR) Not detected C. difficile Tox (PCR) Coronavirus OC43 (PCR) Coronavirus HKU1 (PCR) Coronavirus 229E (PCR) SARS-CoV-2 (PCR) Coronavirus NL63 (PCR) Enterobacteriac sp PCR Not detected E. cloacae complex PCR Not detected Enterococcus sp PCR Not detected E. coli (PCR) Not detected H. influenzae (PCR) Not detected Human Metapneumovir PCR Influenza Type A (PCR) Influenza Type B (PCR) Klebsiella oxytoca PCR Not detected Klebsiella pneumoniae Not detected List. monocytogenes PCR Not detected M. pneumoniae (PCR) N. meningitidis (PCR) Not detected Parainfluenza 1 (PCR) Parainfluenza 2 (PCR) Parainfluenza 3 (PCR) Parainfluenza 4 (PCR) Proteus species (PCR) Not detected RSV (PCR) Entero/Rhino (PCR) Serratia marcescens PCR Not detected Staphylococcus sp PCR Not detected Staph aureus (PCR) Not detected mecA-Methicil Res Gene Not Reportable Streptococcus sp PCR Detected H Group A Strep (PCR) Not detected Strep agalactiae (PCR) Detected H Strep pneumoniae (PCR) Not detected P. aeruginosa (PCR) Not detected Cody/B-Vanco Res Genes Not Reportable KPC-Carbap Res Gene PCR Not Reportable 01/22/22 01/22/22 01/22/22 06:06 06:06 06:06 WBC 6.8 RBC 3.38 L Hgb 11.5 L Hct 33.6 L MCV 99.5 MCH 34.0 MCHC 34.1 RDW 14.4 Plt Count 59 L Neut % (Auto) 91.4 H Lymph % (Auto) 4.9 L [place] % (Auto) 3.3 Eos % (Auto) 0.3 L Baso % (Auto) 0.1 Neut # (Auto) 6200 Lymph # (Auto) 300 L [place] # (Auto) 200 Eos # (Auto) 0 Baso # (Auto) 0 Total Counted Seg Neutrophils % Band Neutrophils % Lymphocytes % (Manual) Monocytes % (Manual) Neutrophils # (Manual) RBC Morphology Sodium 131 L Potassium 3.4 Chloride 98 Carbon Dioxide 21 L BUN 34 H Creatinine 1.44 H Estimated GFR 51 L BUN/Creatinine Ratio 23.6 H Glucose 173 H Lactate Calcium 7.0 L Magnesium 2.1 Total Bilirubin 1.9 H GGT AST 1974 H ALT 801 H Alkaline Phosphatase 63 Ammonia Total Creatine Kinase CK-MB (CK-2) CK-MB (CK-2) Rel Index Troponin I Total Protein 5.7 L Albumin 2.9 L Globulin 2.8 Albumin/Globulin Ratio 1.0 Amylase TSH 0.99 A. baumannii (PCR) Chlamy pneumoniae PCR Adenovirus (PCR) B. pertussis DNA (PCR) B.parapertussis DNA PCR Hilda albicans (PCR) C. glabrata (PCR) C. krusei (PCR) C. parapsilosis (PCR) C. tropicalis (PCR) C. difficile Tox (PCR) Coronavirus OC43 (PCR) Coronavirus HKU1 (PCR) Coronavirus 229E (PCR) SARS-CoV-2 (PCR) Coronavirus NL63 (PCR) Enterobacteriac sp PCR E. cloacae complex PCR Enterococcus sp PCR E. coli (PCR) H. influenzae (PCR) Human Metapneumovir PCR Influenza Type A (PCR) Influenza Type B (PCR) Klebsiella oxytoca PCR Klebsiella pneumoniae List. monocytogenes PCR M. pneumoniae (PCR) N. meningitidis (PCR) Parainfluenza 1 (PCR) Parainfluenza 2 (PCR) Parainfluenza 3 (PCR) Parainfluenza 4 (PCR) Proteus species (PCR) RSV (PCR) Entero/Rhino (PCR) Serratia marcescens PCR Staphylococcus sp PCR Staph aureus (PCR) mecA-Methicil Res Gene Streptococcus sp PCR Group A Strep (PCR) Strep agalactiae (PCR) Strep pneumoniae (PCR) P. aeruginosa (PCR) Cody/B-Vanco Res Genes KPC-Carbap Res Gene PCR 01/22/22 01/22/22 01/22/22 06:06 09:35 14:00 WBC RBC Hgb Hct MCV MCH MCHC RDW Plt Count Neut % (Auto) Lymph % (Auto) [place] % (Auto) Eos % (Auto) Baso % (Auto) Neut # (Auto) Lymph # (Auto) [place] # (Auto) Eos # (Auto) Baso # (Auto) Total Counted Seg Neutrophils % Band Neutrophils % Lymphocytes % (Manual) Monocytes % (Manual) Neutrophils # (Manual) RBC Morphology Sodium Potassium Chloride Carbon Dioxide BUN Creatinine Estimated GFR BUN/Creatinine Ratio Glucose Lactate Calcium Magnesium Total Bilirubin GGT AST ALT Alkaline Phosphatase Ammonia < 9 L Total Creatine Kinase 881 H D CK-MB (CK-2) 12.60 H CK-MB (CK-2) Rel Index 1.4 L Troponin I 1.520 H* Total Protein Albumin Globulin Albumin/Globulin Ratio Amylase TSH A. baumannii (PCR) Chlamy pneumoniae PCR Adenovirus (PCR) B. pertussis DNA (PCR) B.parapertussis DNA PCR Hilda albicans (PCR) C. glabrata (PCR) C. krusei (PCR) C. parapsilosis (PCR) C. tropicalis (PCR) C. difficile Tox (PCR) Negative for c. diff Coronavirus OC43 (PCR) Coronavirus HKU1 (PCR) Coronavirus 229E (PCR) SARS-CoV-2 (PCR) Coronavirus NL63 (PCR) Enterobacteriac sp PCR E. cloacae complex PCR Enterococcus sp PCR E. coli (PCR) H. influenzae (PCR) Human Metapneumovir PCR Influenza Type A (PCR) Influenza Type B (PCR) Klebsiella oxytoca PCR Klebsiella pneumoniae List. monocytogenes PCR M. pneumoniae (PCR) N. meningitidis (PCR) Parainfluenza 1 (PCR) Parainfluenza 2 (PCR) Parainfluenza 3 (PCR) Parainfluenza 4 (PCR) Proteus species (PCR) RSV (PCR) Entero/Rhino (PCR) Serratia marcescens PCR Staphylococcus sp PCR Staph aureus (PCR) mecA-Methicil Res Gene Streptococcus sp PCR Group A Strep (PCR) Strep agalactiae (PCR) Strep pneumoniae (PCR) P. aeruginosa (PCR) Cody/B-Vanco Res Genes KPC-Carbap Res Gene PCR PFSH Medical History Alcohol use disorder BPH w urinary obs/LUTS Chronic anticoagulation 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 Enlarged prostate Essential hypertension Heart failure Mild cognitive impairment Mixed hyperlipidemia Paroxysmal atrial fibrillation Systolic CHF, chronic Wears glasses Surgical History S/P TAVR (transcatheter aortic valve replacement) Family History Mother CVA (cerebral vascular accident) Father Heart disease Social History household members: spouse Smoking Status: Never smoker alcohol intake: current Assessment & Plan Assessment & Plan narrative: Septic shock secondary to group B bacteremia in settings of TAVR -continue penicillin G antibody, repeat blood cultures, pending transfer to get further evaluation by [facility] Chronic atrial fibrillation with RVR Chronic systolic heart failure with mild exacerbation Abnormal LFTs, worsening, most likely secondary to sepsis - continue to monitor Acute on Chronic Hyponatremia -combination of alcohol abuse and dehydration - continue to monitor Type 2 diabetes mellitus Chronic alcohol use, with possible mild withdrawal?- [facility] protocol Hx Myocardial injury, known CAD with non-occlusive disease on [facility] in 2020. ?- discussed with cardiology given elevated troponin, EKG appears markedly different compared to prior after TAVR with ? ST depressions, but lack of chest pain. State this is in the setting of demand and does not indicate NSTEMI. EKG was not concerning to cardiology. ?- continue ASA, statin, and pradaxa. DVT and GI prophylaxis reviewed Overall prognosis is poor, explained to the patient family and patient. Pending transfer for [facility] Tele critical Care, Cardiology involved in the patient care Time Spent With Patient Critical Care time: I spent a total of [] minutes of critical care time on this patient's care today; this time is exclusive of procedural time.
[2022-01-22 19:19] LABS: Alanine Aminotransferase 724 IU/L (<50); Albumin 3.1 g/dL (3.5-5.0); Albumin Globulin Ratio 1.1 (1.0-2.8); Alkaline Phosphatase 78 U/L (38-126); BUN Creatinine Ratio 35.6 (6-22); Bilirubin Total 1.3 mg/dL (0.2-1.3); Blood Urea Nitrogen 36 mg/dL (9-20); Calcium 7.6 mg/dL (8.4-10.2); Carbon Dioxide 25 mmol/L (22-32); Chloride 99 mmol/L (98-107); Estimated Glomerular Filt Rate > 60 mL/min (>60); Globulin 2.9 g/dL (1.7-4.1); Glucose 186 mg/dL (80-110); HEMOLYSIS < 15 (0-50); Potassium 3.4 mmol/L (3.4-5.1); Sodium 132 mmol/L (137-145)
[2022-01-22 19:43] LABS: Aspartate Aminotransferase 976 IU/L (17-59)
--- NOTE | 2022-01-22 20:39 | PM.ICURNDS ---
- :: This patient was seen via real time interactive two-way audiovisual telecommunication. Paitent started on midrodrine - now off pressors. K repleted, map at goal. Rate currently controlled. Still pending trasnfer for [facility].
[2022-01-22] MEDS: POTASSIUM CHLORIDE 20 MEQ TAB 40 MEQ PO (21:07)
[2022-01-23] VITALS (31 sets, daily range): BP systolic 91–115; BP diastolic 56–74; PULSE 72–110; RESP 14–41; TEMP 36.1–36.8; O2SAT 93–99
[2022-01-23] MEDS: PENICILLIN G POTASSIUM 3,000,000 UNIT/50 ML FROZ.PIGGY 100 UNIT IV ×4 (03:32→15:36)
[2022-01-23 05:24] LABS: Add Manual Diff / Slide Review NO; Basophils Absolute Auto 0 /uL (0-100); Basophils Percent Auto 0.1 % (0-2); Eosinophils Absolute Auto 0 /uL (0-450); Eosinophils Percent Auto 0.4 % (2-4); Hematocrit 36.7 % (41-53); Hemoglobin 12.6 g/dL (13.5-17.5); Lymphocytes Absolute Auto 400 /uL (1100-4500); Lymphocytes Percent Auto 4.8 % (25-40); Mean Corpuscular HGB Conc 34.4 % (30-36); Mean Corpuscular Hemoglobin 34.6 PG (26-34); Mean Corpuscular Volume 100.6 fL (80-100); Monocytes Absolute Auto 600 /uL (0-900); Monocytes Percent Auto 7.3 % (3-14); Neutrophils Absolute Auto 6700 /uL (1500-7000); Neutrophils Percent Auto 87.4 % (50-75); Platelet Count 73 X10^3/uL (150-400); Red Blood Cell Count 3.65 X10^6/uL (4.5-5.9); Red Cell Distribution Width 14.6 % (11.6-14.8); White Blood Cell Count 7.7 X10^3/uL (4.5-11.0)
[2022-01-23 05:30] LABS: Alanine Aminotransferase 663 IU/L (<50); Albumin 2.9 g/dL (3.5-5.0); Alkaline Phosphatase 78 U/L (38-126); Aspartate Aminotransferase 613 IU/L (17-59); BUN Creatinine Ratio 43.5 (6-22); Bilirubin Total 1.4 mg/dL (0.2-1.3); Blood Urea Nitrogen 37 mg/dL (9-20); Calcium 7.7 mg/dL (8.4-10.2); Carbon Dioxide 23 mmol/L (22-32); Chloride 99 mmol/L (98-107); Estimated Glomerular Filt Rate > 60 mL/min (>60); Glucose 179 mg/dL (80-110); HEMOLYSIS 15 (0-50); Magnesium 2.7 mg/dL (1.6-2.3); Potassium 4.2 mmol/L (3.4-5.1); Sodium 132 mmol/L (137-145); Total Protein 5.9 g/dL (6.3-8.2)
[2022-01-23 05:42] LABS: NT-proBNP (BNP-Adult 18+) 7490 pg/mL (<125)
[2022-01-23 05:47] LABS: Troponin I 0.833 ng/mL (0.01-0.034)
[2022-01-23] MEDS: MIDODRINE HCL 5 MG TABLET 10 MG PO ×2 (06:18→13:52)
[2022-01-23] MEDS: HYDROCORTISONE 100 MG/2 ML VIAL 50 MG IV ×3 (06:19→17:14)
[2022-01-23 07:36] LABS: HBsAg Screen Negative (Negative); Hepatitis A Antibody IgM Negative (Negative); Hepatitis B Core Antibody IgM Negative (Negative); Hepatitis C Antibody <0.1 s/co ratio (0.0-0.9)
[2022-01-23] MEDS: INSULIN LISPRO 100 UNIT/ML 3ML VIAL SUBCUT ×3 (08:24→17:13)
[2022-01-23] MEDS: FOLIC ACID 1 MG TABLET PO (08:26)
[2022-01-23] MEDS: THIAMINE 100 MG TABLET PO (08:27)
[2022-01-23] MEDS: MULTIVITAMIN 1 TABLET 1 TAB PO (08:34)
[2022-01-23] MEDS: METOPROLOL ER 25 MG TABLET PO (09:51)
[2022-01-23] MEDS: DABIGATRAN 75 MG CAPSULE 150 MG PO (15:36)
--- NOTE | 2022-01-23 16:13 | PM.DS.1 ---
History of Present Illness History of Present Illness Date Patient Seen: 01/23/22 Chief complaint: Bladder control issues Narrative: This is a 76 year old male, PMH of paroxysmal atrial fribillation, Aortic stenosis S/p TAVR in 2019, non-occlusive CAD, CHFrEF (EF 35%) with R heart failure, mild cognitive impairment, DM, HTN, HLD, BPH who presents with generalized malaise over the past week. He also wet his bed overnight and soiled himself during his sleep. He has been having 2-3 episodes of diarrhea and hasn't eaten well in about 5 days he thinks. He denies any chest pain or shortness of breath. He denies palpitations, fever, chills, cough, nausea, vomiting, abdominal pain, shortness of breath more than normal, sick contacts. He denies melena or hematemesis.Drinks a few glasses of daily, will split a bottle with his , last drink was 5-6 days ago, no prior EtOH withdrawal symptoms reported. In the ER he was in afib with RVR, he had not taken his home medications this morning. Laboratory evaluation showed mild anemia and thrombocytopenia. INR slightly elevated at 1.5. He has a hyponatremia with Na of 128, has a history of hyponatremia, LA was elevated and increased to 4.4. Tbili was 1.7 with mild transaminitis. Trop 0.36 improved to 0.283. ProBNP was 9210. Procalcitonin was 25. UA had 1-5 WBC and RBC, ocassional bacterial and mucus and was sent for culture. EtOH was negative. Flu and COVID testing were negative. 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 Has provider been notified: Yes 01/22/22 01:16 Consult After Hours PICC Line RN Routine Comment: 01/22/22 03:35 Consult to Respiratory Therapy Routine Comment: Physician Instructions: Evaluate and treat Discharge provider: Oliva Dunlap MD Summary Hospital Course Discharge Diagnosis: Septic shock secondary to group B bacteremia strep agalactiae improving with penicillin G, pending NAYANA -transfer to [facility] Chronic atrial fibrillation with RVR -now rate controlled, resuming home medication Chronic systolic heart failure with mild exacerbation Transaminitis - Abnormal LFTs, worsening, most likely secondary to sepsis Acute on Chronic Hyponatremia -combination of alcohol abuse and dehydration Type 2 diabetes mellitus Chronic alcohol use, with possible mild withdrawal - [facility] protocol Chronic anticoagulation with Pradaxa-was held when platelets dropped, resumed on January 23 Hx Myocardial injury, known CAD with non-occlusive disease on [facility] in 2019 Demand ischemia in setting of severe sepsis -troponins improving Hospital Course: Patient initially admitted for severe sepsis and metabolic encephalopathy most likely related to urinary tract infection, quickly deteriorated requiring central line and Levophed to keep the blood pressure is stable. Patient was initially started on broad-spectrum antibiotics, IV fluids improved slowly during the hospitalization. Blood cultures came back positive for group B strep, antibiotics titrated down to penicillin G, stopped all other antibiotics. Cardiology was consulted on phone, recommended to transfer the patient to facility where they can do a NAYANA. Patient developed abnormal LFTs AST ALTs raising to 19 109 an 900 but improved today to 600s. Patient had episodes of AFib RVR during this hospitalization, after successful resuscitation, rate controlled. Platelets dropped during this hospitalization to 50s but improving now to 70, resumed anticoagulation. Patient transferred to [facility] for NAYANA. Initial prognosis during the admission was poor given patient's overall status but as the hospitalization continued patient showed improvement, downgraded to medical floor status at the time of the discharge. Status at Discharge Cognitive/behavioral status at discharge: at baseline, oriented Functional status at discharge: uses cane/walker Overall status at discharge: other (Significantly improved compared to the time of admission, still requiring support with midodrine to keep the blood pressure stable. Off of the pressors. Stabilized but need ongoing monitoring.) Exam Vital Signs (past 8 hours): - 01/23/22 08:30 01/23/22 09:00 01/23/22 09:01 Temperature Pulse Rate 97 H 88 Respiratory Rate 41 H 33 H Blood Pressure 115/73 Pulse Oximetry 93 94 Oxygen Delivery Method 01/23/22 09:01 01/23/22 09:51 01/23/22 09:00 Temperature 97.7 F Pulse Rate 84 76 Respiratory Rate 37 H Blood Pressure 112/74 Pulse Oximetry 97 Oxygen Delivery Method 01/23/22 10:41 01/23/22 09:30 01/23/22 09:52 Temperature Pulse Rate 81 81 79 Respiratory Rate 20 24 Blood Pressure 113/71 Pulse Oximetry 97 98 Oxygen Delivery Method 01/23/22 09:52 01/23/22 10:00 01/23/22 10:00 Temperature Pulse Rate 76 Respiratory Rate 19 Blood Pressure 112/74 108/73 Pulse Oximetry 97 Oxygen Delivery Method 01/23/22 10:38 01/23/22 10:38 01/23/22 11:00 Temperature Pulse Rate 92 H 76 Respiratory Rate 19 16 Blood Pressure 113/71 Pulse Oximetry 98 94 Oxygen Delivery Method 01/23/22 11:01 01/23/22 11:01 01/23/22 12:00 Temperature Pulse Rate 76 Respiratory Rate 15 Blood Pressure 110/68 Pulse Oximetry 98 Oxygen Delivery Method Room Air 01/23/22 11:30 01/23/22 12:03 01/23/22 12:03 Temperature Pulse Rate 72 86 Respiratory Rate 16 24 Blood Pressure 109/70 Pulse Oximetry 96 94 Oxygen Delivery Method 01/23/22 12:30 01/23/22 13:45 Temperature Pulse Rate 110 H Respiratory Rate 23 Blood Pressure 111/71 Pulse Oximetry 99 Oxygen Delivery Method Oxygen Delivery Method Room Air Oxygen Flow Rate 0 Narrative Exam Narrative: Did not appreciate any obvious murmur on examination. Pedal edema positive. Basal crackles noted on pulmonary examination. Abdomen soft. Neuro, skin, cardiovascular, pulmonary examination done, negative other than as mentioned above. Objective Labs Result Diagrams: 01/23/22 05:00 01/23/22 05:00 Labs: Laboratory Results - last 24 hr 01/22/22 01/22/22 01/23/22 01:40 18:45 05:00 WBC 7.7 RBC 3.65 L Hgb 12.6 L Hct 36.7 L MCV 100.6 H MCH 34.6 H MCHC 34.4 RDW 14.6 Plt Count 73 L Neut % (Auto) 87.4 H Lymph % (Auto) 4.8 L Hoke % (Auto) 7.3 Eos % (Auto) 0.4 L Baso % (Auto) 0.1 Neut # (Auto) 6700 Lymph # (Auto) 400 L Hoke # (Auto) 600 Eos # (Auto) 0 Baso # (Auto) 0 Sodium 132 L Potassium 3.4 Chloride 99 Carbon Dioxide 25 BUN 36 H Creatinine 1.01 Estimated GFR > 60 BUN/Creatinine Ratio 35.6 H Glucose 186 H Calcium 7.6 L Magnesium Total Bilirubin 1.3 AST 976 H ALT 724 H Alkaline Phosphatase 78 Troponin I NT-Pro-B Natriuret Pep Total Protein 6.0 L Albumin 3.1 L Globulin 2.9 Albumin/Globulin Ratio 1.1 Hepatitis A IgM Ab Negative Hep Bs Antigen Negative Hep B Core IgM Ab Negative Hepatitis C Antibody <0.1 Hep C Ab Signal/Cutoff Comment 01/23/22 01/23/22 05:00 05:00 WBC RBC Hgb Hct MCV MCH MCHC RDW Plt Count Neut % (Auto) Lymph % (Auto) Hoke % (Auto) Eos % (Auto) Baso % (Auto) Neut # (Auto) Lymph # (Auto) Hoke # (Auto) Eos # (Auto) Baso # (Auto) Sodium 132 L Potassium 4.2 Chloride 99 Carbon Dioxide 23 BUN 37 H Creatinine 0.85 Estimated GFR > 60 BUN/Creatinine Ratio 43.5 H Glucose 179 H Calcium 7.7 L Magnesium 2.7 H Total Bilirubin 1.4 H AST 613 H ALT 663 H Alkaline Phosphatase 78 Troponin I 0.833 H* NT-Pro-B Natriuret Pep 7490 H Total Protein 5.9 L Albumin 2.9 L Globulin 3.0 Albumin/Globulin Ratio 1.0 Hepatitis A IgM Ab Hep Bs Antigen Hep B Core IgM Ab Hepatitis C Antibody Hep C Ab Signal/Cutoff [facility] Medical History Alcohol use disorder BPH w urinary obs/LUTS Chronic anticoagulation 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 Enlarged prostate Essential hypertension Heart failure Mild cognitive impairment Mixed hyperlipidemia Paroxysmal atrial fibrillation Systolic CHF, chronic Wears glasses Surgical History S/P TAVR (transcatheter aortic valve replacement) Family History Mother CVA (cerebral vascular accident) Father Heart disease Social History household members: spouse Smoking Status: Never smoker alcohol intake: current Discharge Assessment & Plan Assessment and Plan Assessment: Assessment & Plan narrative: Septic shock secondary to group B bacteremia in settings of TAVR -continue penicillin G antibody, repeat blood cultures, pending transfer to get further evaluation by NAYANA Chronic atrial fibrillation with RVR Chronic systolic heart failure with mild exacerbation Abnormal LFTs, worsening, most likely secondary to sepsis - continue to monitor Acute on Chronic Hyponatremia -combination of alcohol abuse and dehydration -continue to monitor Type 2 diabetes mellitus Chronic alcohol use, with possible mild withdrawal - [facility] protocol Hx Myocardial injury, known CAD with non-occlusive disease on [facility] in 2020. DVT and GI prophylaxis reviewed Pending transfer for NAYANA Tele critical Care, Cardiology involved in the patient care. Plan of Treatment: Please refer to hospital course and assessment and plan Discharge Plan Discharge Plan Patient Disposition: [facility] Other facility: [facility] Under care of provider: Hospital Medicine Provider Discharge Comment: For NAYANA Discharge orders & Medications Medication counseling provided by Pharmacist: Yes Pharmacist Comment: Reviewed anticoagulation during this hospitalization, resumed Pradaxa today as the platelets continue to improve. Discharge Data Primary Care Provider: Stanton Louis V
[2022-01-25 15:28] LABS: H. Pylori Antigen Stool Negative (Negative)
== END 2022-01-23 18:17 | disposition short-term general hospital (02) | DRG 871 ==
LOC: ED 15:55 → AC 15:56 → ICU 01-22 01:12
PROVIDERS: Family Medicine; Nurse Practitioner Family; Admitting Provider Internal Medicine; Emergency Provider Emergency Medicine; PCP Internal Medicine; Referring Provider Emergency Medicine; Visit Provider Internal Medicine
DX: A40.1 Sepsis due to streptococcus, group B (principal); G93.41 Metabolic encephalopathy; I50.23 Acute on chronic systolic (congestive) heart failure; R65.21 Severe sepsis with septic shock; I48.20 Chronic atrial fibrillation, unspecified; N39.0 Urinary tract infection, site not specified; F10.930 Alcohol use, unspecified with withdrawal, uncomplicated; N17.9 Acute kidney failure, unspecified; I24.8 Other forms of acute ischemic heart disease; I11.0 Hypertensive heart disease with heart failure; R77.8 Other specified abnormalities of plasma proteins; N40.1 Benign prostatic hyperplasia with lower urinary tract symptoms; E11.9 Type 2 diabetes mellitus without complications; I25.10 Atherosclerotic heart disease of native coronary artery without angina pectoris; E86.0 Dehydration; E78.5 Hyperlipidemia, unspecified; Y90.0 Blood alcohol level of less than 20 mg/100 ml; Z20.822 Contact with and (suspected) exposure to COVID-19; Z79.84 Long term (current) use of oral hypoglycemic drugs; Z95.2 Presence of prosthetic heart valve; Z79.01 Long term (current) use of anticoagulants
CPT/HCPCS: 36415; 36592; 71045; 74174; 76705; 80053; 80074; 80320; 81003; 81015; 82140; 82150; 82550; 82553; 82962; 82977; 83605; 83690; 83735; 83880; 84145; 84443; 84484; 85007; 85025; 85610; 85730; 87040; 87086; 87150; 87338; 87493; 87502; 87633; 87635; 93005; 93010; 94762; 96361; 96365; 96366; 96367; 99284; 99291; C9803; G0378; C8929; J0696; J1720; J1815; J2060; J2250; J2540; Q9957; Q9967

== ENCOUNTER → 2022-02-05 10:30 | Outpatient (CLI) | payer MEDICARE, SELFPAY ==
[2022-01-21 17:13] VITALS: BMI 34.9
[2022-02-05 14:04] LABS: Add Manual Diff / Slide Review NO; Basophils Absolute Auto 100 /uL (0-100); Basophils Percent Auto 0.8 % (0-2); Eosinophils Absolute Auto 0 /uL (0-450); Eosinophils Percent Auto 0.3 % (2-4); Hematocrit 35.6 % (41-53); Hemoglobin 12.1 g/dL (13.5-17.5); Lymphocytes Absolute Auto 900 /uL (1100-4500); Lymphocytes Percent Auto 12.3 % (25-40); Mean Corpuscular Hemoglobin 33.8 PG (26-34); Mean Corpuscular Volume 99.2 fL (80-100); Monocytes Absolute Auto 700 /uL (0-900); Monocytes Percent Auto 9.1 % (3-14); Neutrophils Absolute Auto 6000 /uL (1500-7000); Neutrophils Percent Auto 77.5 % (50-75); Platelet Count 362 X10^3/uL (150-400); Red Blood Cell Count 3.59 X10^6/uL (4.5-5.9); Red Cell Distribution Width 14.5 % (11.6-14.8); White Blood Cell Count 7.7 X10^3/uL (4.5-11.0)
[2022-02-05 14:32] LABS: Alanine Aminotransferase 28 IU/L (<50); Albumin 3.6 g/dL (3.5-5.0); Alkaline Phosphatase 96 U/L (38-126); Aspartate Aminotransferase 18 IU/L (17-59); Bilirubin Total 0.5 mg/dL (0.2-1.3); Blood Urea Nitrogen 19 mg/dL (9-20); Calcium 8.4 mg/dL (8.4-10.2); Carbon Dioxide 30 mmol/L (22-32); Chloride 94 mmol/L (98-107); Estimated Glomerular Filt Rate > 60 mL/min (>60); Globulin 3.6 g/dL (1.7-4.1); Glucose 126 mg/dL (80-110); HEMOLYSIS < 15 (0-50); Potassium 3.7 mmol/L (3.4-5.1); Sodium 133 mmol/L (137-145); Total Protein 7.2 g/dL (6.3-8.2)
== END ==
PROVIDERS: PCP Internal Medicine; Referring Provider Internal Medicine Infectious Disease; Visit Provider Internal Medicine Infectious Disease
DX: R78.81 Bacteremia (principal)
CPT/HCPCS: 36415; 80053; 85025

== ENCOUNTER → 2022-02-11 15:11 | Outpatient (CLI) | payer MEDICARE, SELFPAY ==
[2022-01-21 17:13] VITALS: BMI 34.9
[2022-02-11 16:35] LABS: Add Manual Diff / Slide Review NO; Basophils Absolute Auto 0 /uL (0-100); Basophils Percent Auto 0.5 % (0-2); Eosinophils Absolute Auto 100 /uL (0-450); Eosinophils Percent Auto 1.1 % (2-4); Hematocrit 35.1 % (41-53); Hemoglobin 12.1 g/dL (13.5-17.5); Lymphocytes Absolute Auto 1000 /uL (1100-4500); Lymphocytes Percent Auto 13.2 % (25-40); Mean Corpuscular HGB Conc 34.5 % (30-36); Mean Corpuscular Hemoglobin 33.8 PG (26-34); Mean Corpuscular Volume 97.8 fL (80-100); Monocytes Absolute Auto 700 /uL (0-900); Monocytes Percent Auto 9.2 % (3-14); Neutrophils Absolute Auto 5500 /uL (1500-7000); Platelet Count 352 X10^3/uL (150-400); Red Blood Cell Count 3.59 X10^6/uL (4.5-5.9); Red Cell Distribution Width 14.5 % (11.6-14.8); White Blood Cell Count 7.3 X10^3/uL (4.5-11.0)
[2022-02-11 16:38] LABS: Alanine Aminotransferase 19 IU/L (<50); Albumin 3.8 g/dL (3.5-5.0); Alkaline Phosphatase 83 U/L (38-126); Aspartate Aminotransferase 17 IU/L (17-59); BUN Creatinine Ratio 25.3 (6-22); Bilirubin Total 0.4 mg/dL (0.2-1.3); Blood Urea Nitrogen 19 mg/dL (9-20); Calcium 8.8 mg/dL (8.4-10.2); Carbon Dioxide 32 mmol/L (22-32); Chloride 94 mmol/L (98-107); Estimated Glomerular Filt Rate > 60 mL/min (>60); Globulin 3.7 g/dL (1.7-4.1); Glucose 166 mg/dL (80-110); HEMOLYSIS < 15 (0-50); Potassium 3.7 mmol/L (3.4-5.1); Sodium 136 mmol/L (137-145); Total Protein 7.5 g/dL (6.3-8.2)
== END ==
PROVIDERS: PCP Internal Medicine; Referring Provider Internal Medicine Infectious Disease; Visit Provider Internal Medicine Infectious Disease
DX: R78.81 Bacteremia (principal)
CPT/HCPCS: 36415; 80053; 85025

== ENCOUNTER → 2022-02-18 16:02 | Outpatient (CLI) | payer MEDICARE, SELFPAY ==
[2022-01-21 17:13] VITALS: BMI 34.9
[2022-02-18 17:22] LABS: Add Manual Diff / Slide Review NO; Basophils Absolute Auto 0 /uL (0-100); Basophils Percent Auto 0.3 % (0-2); Eosinophils Absolute Auto 200 /uL (0-450); Eosinophils Percent Auto 1.8 % (2-4); Hematocrit 34.6 % (41-53); Hemoglobin 11.8 g/dL (13.5-17.5); Lymphocytes Absolute Auto 900 /uL (1100-4500); Lymphocytes Percent Auto 7.1 % (25-40); Mean Corpuscular Volume 97.1 fL (80-100); Monocytes Absolute Auto 700 /uL (0-900); Neutrophils Absolute Auto 10500 /uL (1500-7000); Neutrophils Percent Auto 84.8 % (50-75); Platelet Count 338 X10^3/uL (150-400); Red Blood Cell Count 3.56 X10^6/uL (4.5-5.9); White Blood Cell Count 12.3 X10^3/uL (4.5-11.0)
[2022-02-18 17:52] LABS: BUN Creatinine Ratio 17.7 (6-22); Blood Urea Nitrogen 17 mg/dL (9-20); Calcium 8.9 mg/dL (8.4-10.2); Carbon Dioxide 34 mmol/L (22-32); Chloride 88 mmol/L (98-107); Estimated Glomerular Filt Rate > 60 mL/min (>60); Glucose 146 mg/dL (80-110); HEMOLYSIS < 15 (0-50); Potassium 3.1 mmol/L (3.4-5.1); Sodium 134 mmol/L (137-145)
[2022-02-18 18:01] LABS: NT-proBNP (BNP-Adult 18+) 5050 pg/mL (<125)
== END ==
PROVIDERS: PCP Internal Medicine; Referring Provider Internal Medicine Infectious Disease; Visit Provider Internal Medicine Infectious Disease
DX: R78.81 Bacteremia (principal); I50.20 Unspecified systolic (congestive) heart failure
CPT/HCPCS: 36415; 80048; 83880; 85025

== ENCOUNTER → 2022-02-25 11:58 | Outpatient (CLI) | payer MEDICARE, SELFPAY ==
[2022-01-21 17:13] VITALS: BMI 34.9
[2022-02-25 12:48] LABS: Add Manual Diff / Slide Review NO; Basophils Absolute Auto 100 /uL (0-100); Basophils Percent Auto 0.4 % (0-2); Eosinophils Absolute Auto 100 /uL (0-450); Eosinophils Percent Auto 0.8 % (2-4); Hematocrit 33.2 % (41-53); Hemoglobin 11.1 g/dL (13.5-17.5); Lymphocytes Absolute Auto 1100 /uL (1100-4500); Lymphocytes Percent Auto 8.8 % (25-40); Mean Corpuscular HGB Conc 33.5 % (30-36); Mean Corpuscular Hemoglobin 32.8 PG (26-34); Mean Corpuscular Volume 97.7 fL (80-100); Monocytes Absolute Auto 1100 /uL (0-900); Monocytes Percent Auto 8.6 % (3-14); Neutrophils Absolute Auto 10400 /uL (1500-7000); Neutrophils Percent Auto 81.4 % (50-75); Platelet Count 380 X10^3/uL (150-400); Red Cell Distribution Width 14.7 % (11.6-14.8); White Blood Cell Count 12.8 X10^3/uL (4.5-11.0)
== END ==
PROVIDERS: PCP Internal Medicine; Referring Provider Internal Medicine Infectious Disease; Visit Provider Internal Medicine Infectious Disease
DX: R78.81 Bacteremia (principal)
CPT/HCPCS: 36415; 85025

== ENCOUNTER → 2022-03-08 15:07 | Outpatient (CLI) | payer MEDICARE, SELFPAY ==
[2022-01-21 17:13] VITALS: BMI 34.9
[2022-03-08 17:43] LABS: Add Manual Diff / Slide Review NO; Basophils Absolute Auto 100 /uL (0-100); Basophils Percent Auto 0.7 % (0-2); Eosinophils Absolute Auto 100 /uL (0-450); Hematocrit 31.6 % (41-53); Hemoglobin 10.6 g/dL (13.5-17.5); Lymphocytes Absolute Auto 1200 /uL (1100-4500); Lymphocytes Percent Auto 11.6 % (25-40); Mean Corpuscular HGB Conc 33.4 % (30-36); Mean Corpuscular Hemoglobin 32.5 PG (26-34); Mean Corpuscular Volume 97.4 fL (80-100); Monocytes Absolute Auto 800 /uL (0-900); Monocytes Percent Auto 8.1 % (3-14); Neutrophils Absolute Auto 8000 /uL (1500-7000); Neutrophils Percent Auto 78.6 % (50-75); Platelet Count 426 X10^3/uL (150-400); Red Blood Cell Count 3.24 X10^6/uL (4.5-5.9); Red Cell Distribution Width 14.6 % (11.6-14.8); White Blood Cell Count 10.2 X10^3/uL (4.5-11.0)
== END ==
PROVIDERS: PCP Internal Medicine; Referring Provider Internal Medicine Infectious Disease; Visit Provider Internal Medicine Infectious Disease
DX: I33.0 Acute and subacute infective endocarditis (principal)
CPT/HCPCS: 36415; 85025

== ENCOUNTER → 2022-03-15 14:06 | Outpatient (CLI) | payer MEDICARE, SELFPAY ==
[2022-01-21 17:13] VITALS: BMI 34.9
[2022-03-15 15:02] LABS: Add Manual Diff / Slide Review NO; Basophils Absolute Auto 100 /uL (0-100); Eosinophils Absolute Auto 100 /uL (0-450); Eosinophils Percent Auto 1.1 % (2-4); Hematocrit 37.4 % (41-53); Hemoglobin 12.3 g/dL (13.5-17.5); Lymphocytes Absolute Auto 1400 /uL (1100-4500); Lymphocytes Percent Auto 18.4 % (25-40); Mean Corpuscular HGB Conc 32.9 % (30-36); Mean Corpuscular Hemoglobin 32.1 PG (26-34); Mean Corpuscular Volume 97.7 fL (80-100); Monocytes Absolute Auto 500 /uL (0-900); Monocytes Percent Auto 6.5 % (3-14); Neutrophils Absolute Auto 5600 /uL (1500-7000); Platelet Count 474 X10^3/uL (150-400); Red Blood Cell Count 3.83 X10^6/uL (4.5-5.9); Red Cell Distribution Width 15.7 % (11.6-14.8); White Blood Cell Count 7.7 X10^3/uL (4.5-11.0)
== END ==
PROVIDERS: PCP Internal Medicine; Referring Provider Internal Medicine Infectious Disease; Visit Provider Internal Medicine Infectious Disease
DX: I33.0 Acute and subacute infective endocarditis (principal); D64.9 Anemia, unspecified
CPT/HCPCS: 36415; 85025

== ENCOUNTER → 2022-04-19 16:16 | Outpatient (CLI) | payer MEDICARE, SELFPAY ==
[2022-01-21 17:13] VITALS: BMI 34.9
--- NOTE | 2022-04-19 16:17 | DI.US.S_ITS ---
PROCEDURE: US PERIPH VENOUS LOW EXTREM LT INDICATIONS: SWELLING TECHNIQUE: Real-time imaging, as well as color and pulse Doppler interrogation, were performed of the lower extremity deep veins from the inguinal ligament to the popliteal fossa. COMPARISON: [facility], CT, CT ANGIO ABDOMEN PELVIS, 01/21/2022, 14:34. FINDINGS: The common femoral, femoral and popliteal veins are normally compressible, and free of intraluminal thrombus. Color and pulse Doppler demonstrate normal phasic intraluminal flow. There is normal augmentation response to distal compression maneuver. Note is made of edema in the proximal calf. A borderline enlarged left inguinal lymph node is noted measuring 0.8 x 1.2 cm. IMPRESSION: 1. No DVT in the left lower extremity. 2. A borderline enlarged left inguinal lymph node is noted. Recommend clinical follow-up. Dictated by: Edgar Lui M.D. on 04/19/2022 at 17:03 Approved by: Edgar Lui M.D. on 04/19/2022 at 17:05
== END ==
PROVIDERS: PCP Internal Medicine; Referring Provider Student in an Organized Health Care Education/Training Program; Visit Provider Student in an Organized Health Care Education/Training Program
DX: R60.0 Localized edema (principal)
CPT/HCPCS: 93971

== ENCOUNTER → 2022-04-23 14:44 | Outpatient (CLI) | payer MEDICARE, SELFPAY ==
[2022-01-21 17:13] VITALS: BMI 34.9
[2022-04-23 15:46] LABS: Alanine Aminotransferase 16 IU/L (<50); Alkaline Phosphatase 79 U/L (38-126); Aspartate Aminotransferase 22 IU/L (17-59); Bilirubin Total 0.4 mg/dL (0.2-1.3); Blood Urea Nitrogen 18 mg/dL (9-20); Calcium 8.8 mg/dL (8.4-10.2); Carbon Dioxide 27 mmol/L (22-32); Chloride 95 mmol/L (98-107); Estimated Glomerular Filt Rate > 60 mL/min (>60); Glucose 150 mg/dL (80-110); HEMOLYSIS < 15 (0-50); Potassium 4.2 mmol/L (3.4-5.1); Sodium 133 mmol/L (137-145); Total Protein 7.5 g/dL (6.3-8.2)
[2022-04-30 15:17] LABS: Albumin 3.9 g/dL (3.5-5.0); Albumin Globulin Ratio 1.1 (1.0-2.8); Globulin 3.6 g/dL (1.7-4.1)
== END ==
PROVIDERS: PCP Internal Medicine; Referring Provider Internal Medicine Infectious Disease; Visit Provider Internal Medicine Infectious Disease
DX: L03.116 Cellulitis of left lower limb (principal)
CPT/HCPCS: 36415; 80053

== ENCOUNTER → 2022-10-11 12:01 | Outpatient (CLI) | payer MEDICARE, SELFPAY ==
[2022-01-21 17:13] VITALS: BMI 34.9
[2022-10-11 15:04] LABS: Appearance Urine UA CLEAR; Bilirubin Urine UA NEGATIVE (NEGATIVE); Color Urine UA YELLOW; Glucose Urine UA 3+ g/dL (Negative); Ketones Urine UA TRACE (NEGATIVE); Leukocyte Esterase Urine UA NEGATIVE (NEGATIVE); Nitrite Urine UA NEGATIVE (Negative); Occult Blood Urine UA NEGATIVE (Negative); Protein Urine UA NEGATIVE (Negative)
[2022-10-11 15:16] LABS: Bacteria Urine None Seen; RBC Urine 0-1/HPF (0-5/HPF); Squamous Epithelial Cell Urine 0-1 /HPF (0-5/HPF); WBC Urine None Seen (0-5/HPF)
[2022-10-11 15:17] LABS: Culture Indicated Urine Cult Not Indicated
[2022-10-11 15:19] LABS: Hematocrit 43.5 % (41-53); Hemoglobin 14.8 g/dL (13.5-17.5); Mean Corpuscular HGB Conc 34.1 % (30-36); Mean Corpuscular Hemoglobin 35.2 PG (26-34); Mean Corpuscular Volume 103.4 fL (80-100); Platelet Count 246 X10^3/uL (150-400); Red Blood Cell Count 4.21 X10^6/uL (4.5-5.9); Red Cell Distribution Width 13.8 % (11.6-14.8); White Blood Cell Count 5.6 X10^3/uL (4.5-11.0)
[2022-10-11 15:41] LABS: Erythrocyte Sedimentation Rate 4 MM/HR (0-15)
[2022-10-11 15:46] LABS: Alanine Aminotransferase 23 IU/L (<50); Albumin 4.3 g/dL (3.5-5.0); Albumin Globulin Ratio 1.5 (1.0-2.8); Alkaline Phosphatase 70 U/L (38-126); Aspartate Aminotransferase 22 IU/L (17-59); BUN Creatinine Ratio 22.2 (6-22); Bilirubin Total 1.2 mg/dL (0.2-1.3); Blood Urea Nitrogen 16 mg/dL (9-20); C-Reactive Protein Quant < 0.5 mg/dL (<1.0); Calcium 9.3 mg/dL (8.4-10.2); Carbon Dioxide 32 mmol/L (22-32); Chloride 96 mmol/L (98-107); Cholesterol 134 mg/dL (140-199); Estimated Glomerular Filt Rate > 60 mL/min (>60); Globulin 2.9 g/dL (1.7-4.1); Glucose 100 mg/dL (80-110); HDL Cholesterol 37 mg/dL (40-60); HEMOLYSIS < 15 (0-50); LDL Cholesterol Calculated 82 mg/dL (<100); Potassium 4.6 mmol/L (3.4-5.1); Sodium 135 mmol/L (137-145); Total Protein 7.2 g/dL (6.3-8.2); Triglycerides 77 mg/dL (35-150)
[2022-10-11 16:11] LABS: Prostate Specific Antigen 1.81 ng/mL (0.10-4.00)
[2022-10-12 06:22] LABS: Labcorp Hemoglobin (Hb) A1c 6.1 % (4.8-5.6)
== END ==
PROVIDERS: PCP Internal Medicine; Referring Provider Internal Medicine; Visit Provider Internal Medicine
DX: N40.1 Benign prostatic hyperplasia with lower urinary tract symptoms; E11.69 Type 2 diabetes mellitus with other specified complication; E78.5 Hyperlipidemia, unspecified; I38 Endocarditis, valve unspecified; I48.0 Paroxysmal atrial fibrillation; E78.2 Mixed hyperlipidemia; R32 Unspecified urinary incontinence; N13.8 Other obstructive and reflux uropathy
CPT/HCPCS: 36415; 80053; 80061; 81001; 83036; 84153; 85027; 85651; 86140

== ENCOUNTER → 2022-10-28 12:19 | Outpatient (CLI) | payer MEDICARE, SELFPAY ==
[2022-01-21 17:13] VITALS: BMI 34.9
[2022-10-28 13:46] LABS: Alanine Aminotransferase 26 IU/L (<50); Albumin 4.3 g/dL (3.5-5.0); Albumin Globulin Ratio 1.7 (1.0-2.8); Alkaline Phosphatase 69 U/L (38-126); Aspartate Aminotransferase 25 IU/L (17-59); BUN Creatinine Ratio 19.7 (6-22); Blood Urea Nitrogen 15 mg/dL (9-20); Calcium 9.2 mg/dL (8.4-10.2); Carbon Dioxide 30 mmol/L (22-32); Chloride 98 mmol/L (98-107); Estimated Glomerular Filt Rate > 60 mL/min (>60); Globulin 2.5 g/dL (1.7-4.1); Glucose 107 mg/dL (80-110); HEMOLYSIS < 15 (0-50); Potassium 4.6 mmol/L (3.4-5.1); Sodium 136 mmol/L (137-145); Total Protein 6.8 g/dL (6.3-8.2)
== END ==
PROVIDERS: PCP Internal Medicine; Referring Provider Internal Medicine Infectious Disease; Visit Provider Internal Medicine Infectious Disease
DX: L03.116 Cellulitis of left lower limb (principal)
CPT/HCPCS: 36415; 80053

== ENCOUNTER → 2023-01-04 11:06 | Outpatient (CLI) | payer MEDICARE, SELFPAY ==
[2022-01-21 17:13] VITALS: BMI 34.9
--- NOTE | 2023-01-04 11:07 | DI.US.S_ITS ---
PROCEDURE: US PERIP VENOUS LOW EXTREM LT INDICATIONS: LEFT LOWER LEG EDEMA TECHNIQUE: Real-time imaging, as well as color and pulse Doppler interrogation, were performed of the lower extremity deep veins from the inguinal ligament to the popliteal fossa, with documentation of the visualized calf veins. COMPARISON: [facility], , [facility] VENOUS LOW EXTREM LT, 04/19/2022, 16:24. FINDINGS: The common femoral, femoral, popliteal, and the visualized calf veins are normally compressible, and free of intraluminal thrombus. Color and pulse Doppler demonstrate normal phasic intraluminal flow. There is normal augmentation response to distal compression maneuver. A prominent left groin lymph node is seen that measures 3.1 x 1 x 3.1 cm. IMPRESSION: No findings of lower extremity deep venous thrombosis. Dictated by: Nolan Moise M.D. on 01/04/2023 at 11:30 Approved by: Nolan Moise M.D. on 01/04/2023 at 11:31
== END ==
PROVIDERS: PCP Internal Medicine; Referring Provider Physician Assistant; Visit Provider Physician Assistant
DX: M79.89 Other specified soft tissue disorders (principal)
CPT/HCPCS: 93971

== ENCOUNTER → 2023-01-11 15:29 | Outpatient (CLI) | payer MEDICARE, SELFPAY ==
[2022-01-21 17:13] VITALS: BMI 34.9
[2023-01-11 16:30] LABS: Hemoglobin A1C% w Est Avg Glu 5.9 % (4.0-6.0)
[2023-01-11 16:37] LABS: BUN Creatinine Ratio 26.7 (6-22); Blood Urea Nitrogen 23 mg/dL (9-20); Calcium 9.6 mg/dL (8.4-10.2); Carbon Dioxide 29 mmol/L (22-32); Chloride 95 mmol/L (98-107); Estimated Glomerular Filt Rate > 60 mL/min (>60); Glucose 121 mg/dL (80-110); HEMOLYSIS < 15 (0-50); Potassium 4.4 mmol/L (3.4-5.1); Sodium 134 mmol/L (137-145)
== END ==
PROVIDERS: PCP Internal Medicine; Referring Provider Internal Medicine; Visit Provider Internal Medicine
DX: E11.69 Type 2 diabetes mellitus with other specified complication (principal); E78.5 Hyperlipidemia, unspecified
CPT/HCPCS: 36415; 80048; 83036

== ENCOUNTER 2023-08-11 20:38 | Observation (INO) | payer MEDICARE, SELFPAY ==
[2022-01-21 17:13] VITALS: BMI 34.9
[2023-08-11] VITALS (9 sets, daily range): BP systolic 148–151; BP diastolic 82–87; PULSE 71–88; RESP 15–26; TEMP 36.7; O2SAT 94–99; BMI 34.9
--- NOTE | 2023-08-11 20:41 | ED_ITS ---
HPI - Neuro Symptoms/Deficit General Chief Complaint: Neuro Symptoms/Deficit Stated Complaint: Stroke Time Seen by Provider: 08/11/23 20:39 History of Present Illness HPI Narrative: 78-year-old male with history of atrial fibrillation on Pradaxa presents by EMS from home for possible stroke. Patient states that he was finishing dinner and drinking glass of wine when he noticed right arm weakness. He subsequently called 911. EMS reported that patient did seem to have right upper extremity weakness compared to the left upper extremity during transport. Accu-Chek 103 EN route. Patient taken quickly to CT scanner on arrival. Related Data Home Medications Medication Instructions Recorded Confirmed aspirin 81 mg tablet,delayed 81 mg PO QAM 08/14/19 08/11/23 release metformin 750 mg tablet,extended 750 mg PO BID 08/14/19 08/11/23 release 24 hr atorvastatin 80 mg tablet 80 mg PO BEDTIME 01/10/20 08/11/23 dabigatran etexilate 150 mg 150 mg PO BID 01/12/20 08/11/23 capsule (Pradaxa) omega 2-oua-pop-fish oil 1,000 mg 1 cap PO TID 01/12/20 08/11/23 (120 mg-180 mg) capsule (Fish Oil) dapagliflozin propanediol 10 mg 10 mg PO DAILY 08/19/21 08/11/23 tablet (Farxiga) metoprolol succinate 25 mg 25 mg PO BID 08/19/21 08/11/23 tablet,extended release 24 hr (Toprol XL) sacubitril 24 mg-valsartan 26 mg 1 tab PO BID 08/19/21 08/11/23 tablet (Entresto) torsemide 20 mg tablet 20 mg PO DAILY 08/19/21 08/11/23 niacinamide 500 mg tablet (Niacin 500 mg PO BID 02/04/22 08/11/23 (niacinamide)) penicillin V potassium 250 mg 250 mg PO BID 10/11/22 08/11/23 tablet cholecalciferol (vitamin D3) 25 25 mcg PO DAILY 08/11/23 08/11/23 mcg (1,000 unit) tablet (Vitamin D3) spironolactone 25 mg tablet 25 mg PO BID 08/11/23 08/11/23 Previous Rx's Medication Instructions Recorded tamsulosin 0.4 mg capsule 0.4 mg PO BEDTIME #90 caps 03/09/23 mirabegron 50 mg tablet,extended 50 mg PO DAILY #30 tabs 04/16/23 release 24 hr Allergies Allergy/AdvReac Type Severity Reaction Status Date / Time No Known Drug Allergies Allergy Verified 03/17/23 09:55 Review of Systems Review of Systems Narrative: See HPI Patient History Medical History Feeling of incomplete bladder emptying Overactive bladder Inguinal adenopathy Bladder outlet obstruction History of sepsis DM type 2 with diabetic dyslipidemia Venous (peripheral) insufficiency History of colonic polyps Endocarditis Beta-hemolytic group B streptococcal sepsis Mild cognitive impairment Alcohol use disorder BPH w urinary obs/LUTS Mixed hyperlipidemia Systolic CHF, chronic Chronic anticoagulation Paroxysmal atrial fibrillation Wears glasses Enlarged prostate Heart failure Essential hypertension Surgical History H/O vasectomy Previous back surgery S/P TAVR (transcatheter aortic valve replacement) Family History Mother CVA (cerebral vascular accident) Father Heart disease Social History marital status: number of children: 0 household members: spouse Smoking Status: Never smoker alcohol intake: current caffeine: Yes Type(s) of exercise: walking frequency: 3-4 times per week duration: 60-90 minutes/day Smoking Status: Never smoker alcohol intake frequency: 0-2 drinks per day Substance Use Type: does not use Exam Initial Vital Signs Initial Vital Signs: Vital Signs Temperature 98.0 F 08/11/23 20:45 Pulse Rate 80 08/11/23 20:45 Respiratory Rate 16 08/11/23 20:45 Blood Pressure 148/87 H 08/11/23 20:45 Pulse Oximetry 95 08/11/23 20:45 Oxygen Delivery Method Room Air 08/11/23 20:45 Const: Awake, alert, no acute distress, nontoxic appearing Cardiac: Irregularly irregular rhythm RESP: unlabored, clear bilaterally, no wheezing GI: Soft, nontender, nondistended, no rebound, no guarding MSK: Atraumatic, full range of motion, pulses equal Skin: Warm, Dry, intact, no rashes Neuro: AO x3, CN II-XII grossly intact, right upper and right lower extremity 4/5 strength compared to left extremities, minor ataxia on [id number] on right-hand side Scores NIH Stroke Scale Level of Conciousness: Alert, keenly responsive Ask month/age: Answers both questions correctly. Open/close eyes, close hand: Performs both tasks correctly Best gaze horizontal: Normal Visual jackson: No visual loss Facial palsy: Normal symetrical movement Left arm drift: No drift for full 10 sec Right arm drift: Drifts down, not to bed Left leg drift: No drift for full 5 sec Right leg drift: Drifts down, not to bed Limb ataxia: Present in one limb Sensory on face/arms/legs: Normal, no sensory loss Best language: No aphasia, normal Dysarthria: Normal Extinction or inattention: No abnormality Total NIH Stroke scale score: 3 Course Orders Ordered: ED Orders 08/11/23 20:20 Complete Blood Count AUTO DIFF Stat Comprehensive Metabolic Panel Stat Ethanol (ETOH) Stat PTT Partial Thromboplastin Pantera Stat Prothrombin Time INR Stat Troponin & CK Cardiac Panel Stat 08/11/23 20:39 CT Stroke Stat EKG-12 Lead Stat 08/11/23 20:40 CT angio head and neck Stat 08/11/23 21:00 Urinalysis and Microscopic Stat Urine Drug Screen, Rapid Stat 08/11/23 23:21 COVID19 -Nasal RAPID Stat Acetaminophen (Acetaminophen 325 Mg Tablet) 650 mg PO Q6H PRN PRN Reason: Fever/Mild Pain (1-3) Albuterol (Albuterol 2.5 Mg/3 Ml Neb (Adult)) 2.5 mg INH [id number] PRN PRN Reason: Dyspnea Aspirin (Aspirin Ec 81 Mg Tablet) 81 mg PO DAILY [facility] Last Admin: 08/12/23 00:57 Dose: 81 mg Documented By: LETY Atorvastatin Calcium (Atorvastatin 20 Mg Tablet) 80 mg PO BEDTIME [facility] Last Admin: 08/12/23 00:58 Dose: 80 mg Documented By: LETY Dextrose (D10w) 100 mls @ 999 mls/hr IV PRN PRN PRN Reason: Hypoglycemia Sodium Chloride (Normal Saline 0.9%) 1,000 mls @ 100 mls/hr IV CONT [facility] Last Admin: 08/12/23 01:54 Dose: 100 mls/hr Documented By: LETY Insulin Human Lispro (Insulin Lispro 100 Unit/Ml 3ml Vial) 0 unit SUBCUT ACHS [facility]; Protocol Last Admin: 08/12/23 00:59 Dose: Not Given Documented By: LETY Metoprolol Succinate (Metoprolol Er 25 Mg Tablet) 25 mg PO BID [facility] Last Admin: 08/12/23 00:59 Dose: 25 mg Documented By: LETY Naloxone HCl (Naloxone 0.4 Mg/Ml Vial) 0.2 mg IV Q2MIN PRN PRN Reason: Opiate Reversal Non-Form: Farxiga ( Dapagliflozin Propanediol) 10 Mg Tab 10 mg PO DAILY [facility] Non-Form: Niacinamide 500 Mg Tab 500 mg PO BID [facility] Non-Form: Entresto ( Sacubitril-Valsartan ) 24-26 Mg Tab 1 tab PO BID [facility] Non-Form: Pradaxa ( Dabigatran Etexilate ) 150 Mg Cap 150 mg PO BID [facility] Ondansetron HCl (Ondansetron 4 Mg/2 Ml Inj) 4 mg IV Q8HR PRN PRN Reason: Nausea And Vomiting Oxybutynin Chloride (Oxybutynin 5 Mg Er Tab) 10 mg PO DAILY [facility] Spironolactone (Spironolactone 25 Mg Tablet) 25 mg PO DAILY [facility] Tamsulosin HCl (Tamsulosin 0.4 Mg Capsule) 0.4 mg PO BEDTIME [facility] Last Admin: 08/12/23 00:59 Dose: 0.4 mg Documented By: LETY Torsemide (Torsemide 10 Mg Tablet) 20 mg PO DAILY [facility] Discontinued Medications Aspirin (Aspirin 81 Mg Chew Tab) 324 mg PO NOW ONE Stop: 08/11/23 21:18 Last Admin: 08/12/23 01:00 Dose: Not Given Documented By: LETY Non-Formulary Medication (Mirabegron) 50 mg PO DAILY [facility] Vital Signs Vital signs: Vital Signs - 8 hr 08/11/23 20:45 08/11/23 21:00 08/11/23 21:02 Temperature 98.0 F Pulse Rate 80 86 Respiratory Rate 16 Blood Pressure 148/87 H 151/82 H Pulse Oximetry 95 95 Oxygen Delivery Method Room Air 08/11/23 21:02 08/11/23 21:30 Temperature Pulse Rate 82 81 Respiratory Rate 20 15 Blood Pressure Pulse Oximetry 95 95 Oxygen Delivery Method MDM - Neuro Symptoms/Deficit Differential Diagnosis Differential diagnosis: Likely convulsions, delirium and subarachnoid hemorrhage Lab Data 08/11/23 20:20 08/11/23 20:20 Labs: Lab Results 08/11/23 08/11/23 08/11/23 Range/Units 20:20 21:00 21:00 WBC 6.1 (4.5-11.0) X10^3/uL RBC 4.62 (4.5-5.9) X10^6/uL Hgb 15.7 (13.5-17.5) g/dL Hct 46.5 (41-53) % MCV 100.5 H (80-100) fL MCH 33.9 (26-34) PG MCHC 33.7 (30-36) % RDW 13.9 (11.6-14.8) % Plt Count 255 (150-400) X10^3/uL Neut % (Auto) 57.8 (50-75) % Lymph % (Auto) 26.2 (25-40) % [place] % (Auto) 12.1 (3-14) % Eos % (Auto) 3.3 (2-4) % Baso % (Auto) 0.6 (0-2) % Neut # (Auto) 3500 (2034-2618) /uL Lymph # (Auto) 1600 (5020-7642) /uL [place] # (Auto) 700 (0-900) /uL Eos # (Auto) 200 (0-450) /uL Baso # (Auto) 0 (0-100) /uL PT 11.7 (9.4-12.5) SECONDS INR 1.0 (0.9-1.3) APTT 58 H (25.1-36.5) SECONDS Sodium 141 (137-145) mmol/L Potassium 3.9 (3.4-5.1) mmol/L Chloride 103 (98-107) mmol/L Carbon Dioxide 28 (22-32) mmol/L BUN 17 (9-20) mg/dL Creatinine 0.70 (0.66-1.25) mg/dL Estimated GFR > 60 (>60) mL/min BUN/Creatinine Ratio 24.3 H (6-22) Glucose 126 H (80-110) mg/dL Hemoglobin A1c 6.3 H (4.0-6.0) % Calcium 9.7 (8.4-10.2) mg/dL Total Bilirubin 0.7 (0.2-1.3) mg/dL AST 21 (17-59) IU/L ALT 17 (<50) IU/L Alkaline Phosphatase 67 (38-126) U/L Total Creatine Kinase 58 (55-170) U/L Troponin I 0.030 (0.01-0.034) ng/mL Total Protein 7.9 (6.3-8.2) g/dL Albumin 5.1 H (3.5-5.0) g/dL Globulin 2.8 (1.7-4.1) g/dL Albumin/Globulin Ratio 1.8 (1.0-2.8) Urine Color Yellow Urine Appearance Clear Urine pH 6.0 Normal (4.5-8.0) Ur Specific [place] 1.010 (1.000-1.035) Urine Protein Negative (Negative) Urine Glucose (UA) 3+ H (Negative) g/dL Urine Ketones Negative (NEGATIVE) Urine Occult Blood Negative (Negative) Urine Nitrate Negative (Negative) Urine Bilirubin Negative (NEGATIVE) Urine Urobilinogen 0.2 (0.2) E.U./dL Ur Leukocyte Esterase Negative (NEGATIVE) Urine RBC None seen (0-5/HPF) Urine WBC None seen (0-5/HPF) Ur Squamous Epith Cells 0-1 /hpf (0-5/HPF) Urine Bacteria None seen (None) Ur Culture Indicated? Cult not indicated Vol Urine Centrifuged 10ml (spun) U Opiates 300ng/mL cut Negative (Negative) Ur Oxycodone Screen Negative (Negative) Urine Methadone Screen Negative (Negative) Ur Barbiturates Screen Negative (Negative) U Tricyclic Antidepress Negative (Negative) Ur Phencyclidine Scrn Negative (Negative) Ur Amphetamines Screen Negative (Negative) U Methamphetamines Scrn Negative (Negative) Ur MDMA Scrn (Ecstasy) Negative (Negative) U Benzodiazepines Scrn Negative (Negative) Urine Cocaine Screen Negative (Negative) U Marijuana (THC) Screen Negative (Negative) Urine Specific [place] Normal (Normal) Ethyl Alcohol 85 H ( - 10) mg/dL Ur Creatinine Normal (Normal) Point of Care Testing Glucose POC 115 Urine Dip Bedside Urine Glucose 1000 mg/dl Bedside Urine Bilirubin - Negative Bedside Urine Ketone - Negative Urine Specific [place] 1.01 Bedside Urine Occult Blood - Negative Bedside Urine pH 6 Bedside Urine Protein - Negative Bedside Urine Nitrite - Negative Bedside Urine Leukocytes - Negative Esterase Imaging Data CT scan - head: Radiologist's Impression: PROCEDURE: CT STROKE INDICATIONS: R SIDED WEAKNESS X 1 HR TECHNIQUE: Noncontrast 4.5 mm thick angled axial sections acquired from the foramen magnum to the vertex, with coronal reformats. For radiation dose reduction, the following was used: automated exposure control, adjustment of mA and/or kV according to patient size. COMPARISON: CT, CT HEAD/BRAIN WO CON, 01/31/2020, 0:33. FINDINGS: Image quality: Diagnostic. CSF spaces: Basal cisterns are patent. No extra-axial fluid collections. The ventricles are symmetric in size and shape. Brain: No intracranial bleeds or masses. There is cerebral volume loss for age, with resultant ventricular and sulcal prominence. There are periventricular and deep white matter chronic small vessel ischemic changes. There is intracranial internal carotid artery atherosclerosis. Skull and face: Calvarium and visualized facial bones appear intact, without suspicious lesions. Sinuses: Visualized sinuses and mastoids are clear. IMPRESSION: 1. No acute intracranial process. 2. Moderate atrophy and chronic microvascular ischemic changes. Above findings were discussed with Dr. Wendy Bui on 08/11/2023 8:57 p.m. This study fulfills neurological imaging criteria for inclusion or exclusion of acute stroke therapies based on available published neurological guidelines. Dictated by: Deepthi Trevizo M.D. on 08/11/2023 at 20:55 Approved by: Deepthi Trevizo M.D. on 08/11/2023 at 20:57 CTA - brain/neck: Radiologist's Impression: PROCEDURE: CT ANGIO HEAD AND NECK INDICATIONS: R SIDE WEAKNESS TECHNIQUE: After the administration of intravenous contrast, 1 mm thick sections acquired from the aortic arch through the [place] of [place]. 3-dimensional nuzhfdu-nfwlcztbd-uzfjgujfsx (MIP) and/or volume rendering reformats were acquired of the central intracranial vasculature and neck separately. For radiation dose reduction, the following was used: automated exposure control, adjustment of mA and/or kV according to patient size. COMPARISON: [facility], CT, CT STROKE, 08/11/2023, 20:45. [facility], MR, MR STROKE, 04/08/2020, 15:28. [facility], CT, CT HEAD/BRAIN WO CON, 01/31/2020, 0:33. FINDINGS: Image quality: Diagnostic. BRAIN: See separately dictated CT Brain report of 08/11/23.. HEAD CT ANGIOGRAPHY: Anterior circulation: Intracranial internal carotid arteries are normal in size and flow. The flow within the paired anterior cerebral arteries is normal and symmetric. The flow within the middle cerebral arteries is normal and symmetric. The anterior communicating artery is seen. No aneurysms are seen. Posterior circulation: Left vertebral artery dominance. Visualized portions of the vertebral arteries demonstrate normal caliber, and join to form a normal appearing basilar artery. Flow within the posterior cerebral arteries is normal and symmetric. No aneurysms are seen. NECK CT ANGIOGRAPHY: Carotid system: The great vessels demonstrate a conventional anatomy as they arise from the aortic arch. The origins of the common carotid arteries appear patent. The common carotid arteries demonstrate normal caliber and courses. The bifurcation regions are both widely patent. The internal carotid arteries demonstrate bilateral calcifications at the origin with than 30-40% narrowing bilaterally. Posterior circulation: The origins of the vertebral arteries both appear widely patent. The more superior extracranial portions of both vertebral arteries also demonstrate normal courses and calibers. They join to form a normal appearing basilar artery. Soft tissues: Visualized neck soft tissues demonstrate no suspicious abnormalities. Bones: No suspicious bony lesions. Visualized cervical spine appears normally aligned. IMPRESSION: No significant intracranial arterial abnormality is seen. No significant abnormality is seen within the arteries of the neck. Any quantitative measurements of stenosis were performed using NASCET criteria. Dictated by: Deepthi Trevizo M.D. on 08/11/2023 at 20:58 Approved by: Deepthi Trevizo M.D. on 08/11/2023 at 21:03 ECG Data Interpretation: Atrial fibrillation at 82 beats per minute. No ST T wave changes, normal axis MDM Narrative Medical decision making narrative: Possible stroke. NIH 3 on arrival due to right upper and lower limb weakness as well as ataxia in the right upper extremity. Taken quickly to CT scanner where no obvious intracranial bleed identified. Patient however is not a tPA or TNK candidate due to Pradaxa use. He was given full-dose aspirin on arrival. CT angio did not show any large vessel occlusion or stenosis. Laboratory work shows WBC count 6.1, hemoglobin 15.7, sodium 141, potassium 3.9, creatinine 0.7, normal liver enzymes. Troponin 0.030, however EKG is nonischemic and patient denies chest pain. Patient to be admitted for MRI and stroke evaluation. Critical Care Time Critical Care Time Critical Care Time: Yes Total Critical Care Time: 36 Attestation: Stroke alert requiring immediate intervention, neurologic assessments, frequent reassessments. Discharge Plan Departure Patient Disposition: Admitted as Observation Clinical Impression: Right sided weakness, Chronic anticoagulation Admit Date/Time: 08/11/23 21:35 Admit Provider: Jose Ramirez
[2023-08-11 20:51] LABS: Add Manual Diff / Slide Review NO; Basophils Absolute Auto 0 /uL (0-100); Basophils Percent Auto 0.6 % (0-2); Eosinophils Absolute Auto 200 /uL (0-450); Eosinophils Percent Auto 3.3 % (2-4); Hematocrit 46.5 % (41-53); Hemoglobin 15.7 g/dL (13.5-17.5); Lymphocytes Absolute Auto 1600 /uL (1100-4500); Lymphocytes Percent Auto 26.2 % (25-40); Mean Corpuscular HGB Conc 33.7 % (30-36); Mean Corpuscular Hemoglobin 33.9 PG (26-34); Mean Corpuscular Volume 100.5 fL (80-100); Monocytes Absolute Auto 700 /uL (0-900); Monocytes Percent Auto 12.1 % (3-14); Neutrophils Absolute Auto 3500 /uL (1500-7000); Neutrophils Percent Auto 57.8 % (50-75); Platelet Count 255 X10^3/uL (150-400); Red Blood Cell Count 4.62 X10^6/uL (4.5-5.9); Red Cell Distribution Width 13.9 % (11.6-14.8); White Blood Cell Count 6.1 X10^3/uL (4.5-11.0)
[2023-08-11 20:58] LABS: Prothrombin Time 11.7 SECONDS (9.4-12.5)
[2023-08-11 21:01] LABS: PTT Partial Thromboplastin Tim 58 SECONDS (25.1-36.5)
[2023-08-11 21:02] LABS: Alanine Aminotransferase 17 IU/L (<50); Albumin 5.1 g/dL (3.5-5.0); Albumin Globulin Ratio 1.8 (1.0-2.8); Alkaline Phosphatase 67 U/L (38-126); Aspartate Aminotransferase 21 IU/L (17-59); BUN Creatinine Ratio 24.3 (6-22); Bilirubin Total 0.7 mg/dL (0.2-1.3); Blood Urea Nitrogen 17 mg/dL (9-20); Calcium 9.7 mg/dL (8.4-10.2); Carbon Dioxide 28 mmol/L (22-32); Chloride 103 mmol/L (98-107); Creatine Kinase 58 U/L (55-170); Estimated Glomerular Filt Rate > 60 mL/min (>60); Ethanol (ETOH) 85 mg/dL; Globulin 2.8 g/dL (1.7-4.1); Glucose 126 mg/dL (80-110); HEMOLYSIS < 15 (0-50); Potassium 3.9 mmol/L (3.4-5.1); Sodium 141 mmol/L (137-145); Total Protein 7.9 g/dL (6.3-8.2)
[2023-08-11 21:19] LABS: Appearance Urine UA CLEAR; Bilirubin Urine UA NEGATIVE (NEGATIVE); Color Urine UA YELLOW; Glucose Urine UA 3+ g/dL (Negative); Ketones Urine UA NEGATIVE (NEGATIVE); Leukocyte Esterase Urine UA NEGATIVE (NEGATIVE); Nitrite Urine UA NEGATIVE (Negative); Occult Blood Urine UA NEGATIVE (Negative); Protein Urine UA NEGATIVE (Negative); Urobilinogen Urine UA 0.2 E.U./dL (0.2)
[2023-08-11 21:22] LABS: UR Morphine/Opiate cutoff 300 Negative (Negative); Ur Creatinine Normal (Normal); Ur Specific Gravity Normal (Normal); Urine Amphetamines Negative (Negative); Urine Barbiturates Negative (Negative); Urine Benzodiazepines Negative (Negative); Urine Cocaine Negative (Negative); Urine MDMA Negative (Negative); Urine Methadone Negative (Negative); Urine Methamphetamines Negative (Negative); Urine Oxycodone Negative (Negative); Urine Phencyclidine Negative (Negative); Urine Tetrahydrocannabinol Negative (Negative); Urine Tricyclic Antidepressant Negative (Negative); Urine pH Normal (Normal)
[2023-08-11 21:26] LABS: RBC Urine None Seen (0-5/HPF); Urine Volume 10mL (spun); WBC Urine None Seen (0-5/HPF)
[2023-08-11 21:27] LABS: Bacteria Urine None Seen; Culture Indicated Urine Cult Not Indicated; Squamous Epithelial Cell Urine 0-1 /HPF (0-5/HPF)
[2023-08-11 22:06] LABS: Hemoglobin A1C% w Est Avg Glu 6.3 % (4.0-6.0)
--- NOTE | 2023-08-11 22:53 | PC.NURSE ---
Tele provider Dr. Ramirez consult with nurse at bedside.
[2023-08-11 23:42] LABS: COVID19 -Nasal RAPID Negative (Negative)
[2023-08-12] VITALS (25 sets, daily range): BP systolic 136–171; BP diastolic 69–90; PULSE 70–96; RESP 12–47; TEMP 36.6; O2SAT 94–99; BMI 34.9
[2023-08-12] MEDS: ASPIRIN EC 81 MG TABLET PO ×2 (00:57→09:06)
[2023-08-12] MEDS: ATORVASTATIN 20 MG TABLET 80 MG PO (00:58)
[2023-08-12] MEDS: TAMSULOSIN 0.4 MG CAPSULE PO (00:59)
[2023-08-12] MEDS: METOPROLOL ER 25 MG TABLET PO ×2 (00:59→09:08)
--- NOTE | 2023-08-12 01:15 | PM.HP.1 ---
History of Present Illness History of Present Illness Chief complaint: Stroke Narrative: 78-year-old male with history of diabetes mellitus type II, mild cognitive impairment, hyperlipidemia, CHF, paroxysmal atrial fibrillation on Pradaxa, alcohol abuse, presented to the ER with right arm weakness started around 7:30 PM. Never had the symptoms before. Denies any headache, blurry vision, numbness, slurred speech or loss of balance. Compliant with his medications. Denies any chest pain, palpitations, loss of consciousness, nausea, vomiting or abdominal pain, diarrhea or dysuria. Initial laboratory shows WBC 6.1, hemoglobin 15.7, platelets 255, INR 1, sodium 141, potassium 3.9, creatinine 0.7, glucose 126, A1c 6 3, calcium 8.7, LFT normal, troponin 0.03, UA negative, U tox negative, alcohol level 85, COVID-19 negative, CT angiogram of head and neck negative. She was given aspirin 324 mg p.o. and was decided admitted for further evaluation management. [facility] Medical History (Updated 08/11/23 @ 21:45 by Wendy Bui MD) Feeling of incomplete bladder emptying Overactive bladder Inguinal adenopathy Bladder outlet obstruction History of sepsis DM type 2 with diabetic dyslipidemia Venous (peripheral) insufficiency History of colonic polyps Endocarditis Beta-hemolytic group B streptococcal sepsis Mild cognitive impairment Alcohol use disorder BPH w urinary obs/LUTS Mixed hyperlipidemia Systolic CHF, chronic Chronic anticoagulation Paroxysmal atrial fibrillation Wears glasses Enlarged prostate Heart failure Essential hypertension Surgical History H/O vasectomy Previous back surgery S/P TAVR (transcatheter aortic valve replacement) Family History Mother CVA (cerebral vascular accident) Father Heart disease Social History marital status: number of children: 0 household members: spouse Smoking Status: Never smoker alcohol intake: current caffeine: Yes Type(s) of exercise: walking frequency: 3-4 times per week duration: 60-90 minutes/day Meds Home Medications and Allergies Home Medications Medication Instructions Recorded Confirmed Type aspirin 81 mg tablet,delayed 81 mg PO QAM 08/14/19 08/11/23 History release metformin 750 mg tablet,extended 750 mg PO BID 08/14/19 08/11/23 History release 24 hr atorvastatin 80 mg tablet 80 mg PO BEDTIME 01/10/20 08/11/23 History dabigatran etexilate 150 mg 150 mg PO BID 01/12/20 08/11/23 History capsule (Pradaxa) omega 3-phi-ovv-fish oil 1,000 mg 1 cap PO TID 01/12/20 08/11/23 History (120 mg-180 mg) capsule (Fish Oil) dapagliflozin propanediol 10 mg 10 mg PO DAILY 08/19/21 08/11/23 History tablet (Farxiga) metoprolol succinate 25 mg 25 mg PO BID 08/19/21 08/11/23 History tablet,extended release 24 hr (Toprol XL) sacubitril 24 mg-valsartan 26 mg 1 tab PO BID 08/19/21 08/11/23 History tablet (Entresto) torsemide 20 mg tablet 20 mg PO DAILY 08/19/21 08/11/23 History niacinamide 500 mg tablet (Niacin 500 mg PO BID 02/04/22 08/11/23 History (niacinamide)) penicillin V potassium 250 mg 250 mg PO BID 10/11/22 08/11/23 History tablet tamsulosin 0.4 mg capsule 0.4 mg PO BEDTIME #90 caps 03/09/23 08/11/23 Rx mirabegron 50 mg tablet,extended 50 mg PO DAILY #30 tabs 04/16/23 08/11/23 Rx release 24 hr cholecalciferol (vitamin D3) 25 25 mcg PO DAILY 08/11/23 08/11/23 History mcg (1,000 unit) tablet (Vitamin D3) spironolactone 25 mg tablet 25 mg PO BID 08/11/23 08/11/23 History Allergies Allergy/AdvReac Type Severity Reaction Status Date / Time No Known Drug Allergies Allergy Verified 03/17/23 09:55 Review of Systems Review of Systems ROS: Yes All systems reviewed with the patient and are negative except as otherwise documented Constitutional Constitutional: Reports as per HPI and Reports system reviewed and no additional complaints, except as documented Eyes Eyes: Reports as per HPI and Reports system reviewed and no additional complaints, except as documented ENT Ears, Nose, Mouth, and Throat: Yes as per HPI and Yes system reviewed and no additional complaints, except as documented Cardiovascular Cardiovascular: Reports system reviewed and no additional complaints, except as documented Respiratory Respiratory: Reports system reviewed and no additional complaints, except as documented Gastrointestinal Gastrointestinal: Reports system reviewed and no additional complaints, except as documented Genitourinary Genitourinary: Reports system reviewed and no additional complaints, except as documented Musculoskeletal Musculoskeletal: Reports system reviewed and no additional complaints, except as documented, Reports abnormal gait and Reports numbness Neurologic Neurologic: Reports system reviewed and no additional complaints, except as documented, Reports abnormal gait, Reports confusion and Reports numbness Psychiatric Psychiatric: Reports system reviewed and no additional complaints, except as documented and Reports confusion Exam Vital Signs (past 8 hours): - 08/11/23 20:45 08/11/23 23:13 08/12/23 00:59 Temperature 98.0 F Pulse Rate 80 71 77 Respiratory Rate 16 18 Blood Pressure 148/87 H 151/82 H Blood Pressure [Right Arm] 151/82 H Pulse Oximetry 95 99 Oxygen Delivery Method Room Air Room Air Oxygen Delivery Method Room Air Const General: cooperative, comfortable and well developed Orientation: alert and oriented x3 HENID Head: normal to inspection, normocephalic and atraumatic Face and sinus: normal facial exam Mouth: oral mucosae normal and moist mucous membranes Throat: posterior oropharynx normal Eyes General: appearance normal, both eyes and all related structures Pupils: PERRL EOM: EOM intact bilaterally Neck Neck: normal visual inspection and full ROM Chest Chest: normal inspection of the chest Resp Effort & Inspection: normal respiratory effort and able to speak in complete sentences Auscultation: clear to auscultation bilaterally Cardio Palpation: normal PMI Rate: regular rate Rhythm: regular rhythm Heart Sounds: S1 normal and S2 normal GI Inspection: normal to inspection Palpation: soft and no hepatosplenomegaly Auscultation: normal bowel sounds Skin General: no rashes or lesions noted Lesions: no lesions Rashes: no rashes Trauma: no lacerations or abrasions Neuro General: patient alert, patient awake, patient oriented x3 and no focal motor deficits Cranial Nerves: CN's II-XI intact bilaterally Cognition: normal cognition Speech: speech normal Gait: normal gait Motor: muscle tone normal throughout Sensory Exam: no sensory deficits noted Extrem General: full ROM and no calf tenderness Psych Appearance: grossly normal Mental Status: mental status grossly normal Speech and Movement: speech and movement normal Objective Labs 08/11/23 20:20 05/02/24 20:20 Labs: Laboratory Results - last 24 hr 08/11/23 08/11/23 08/11/23 20:20 21:00 21:00 WBC 6.1 RBC 4.62 Hgb 15.7 Hct 46.5 MCV 100.5 H MCH 33.9 MCHC 33.7 RDW 13.9 Plt Count 255 Neut % (Auto) 57.8 Lymph % (Auto) 26.2 [place] % (Auto) 12.1 Eos % (Auto) 3.3 Baso % (Auto) 0.6 Neut # (Auto) 3500 Lymph # (Auto) 1600 [place] # (Auto) 700 Eos # (Auto) 200 Baso # (Auto) 0 PT 11.7 INR 1.0 APTT 58 H Sodium 141 Potassium 3.9 Chloride 103 Carbon Dioxide 28 BUN 17 Creatinine 0.70 Estimated GFR > 60 BUN/Creatinine Ratio 24.3 H Glucose 126 H Hemoglobin A1c 6.3 H Calcium 9.7 Total Bilirubin 0.7 AST 21 ALT 17 Alkaline Phosphatase 67 Total Creatine Kinase 58 Troponin I 0.030 Total Protein 7.9 Albumin 5.1 H Globulin 2.8 Albumin/Globulin Ratio 1.8 Urine Color Yellow Urine Appearance Clear Urine pH 6.0 Normal Ur Specific [place] 1.010 Urine Protein Negative Urine Glucose (UA) 3+ H Urine Ketones Negative Urine Occult Blood Negative Urine Nitrate Negative Urine Bilirubin Negative Urine Urobilinogen 0.2 Ur Leukocyte Esterase Negative Urine RBC None seen Urine WBC None seen Ur Squamous Epith Cells 0-1 /hpf Urine Bacteria None seen Ur Culture Indicated? Cult not indicated Vol Urine Centrifuged 10ml (spun) U Opiates 300ng/mL cut Negative Ur Oxycodone Screen Negative Urine Methadone Screen Negative Ur Barbiturates Screen Negative U Tricyclic Antidepress Negative Ur Phencyclidine Scrn Negative Ur Amphetamines Screen Negative U Methamphetamines Scrn Negative Ur MDMA Scrn (Ecstasy) Negative U Benzodiazepines Scrn Negative Urine Cocaine Screen Negative U Marijuana (THC) Screen Negative Urine Specific [place] Normal Ethyl Alcohol 85 H Ur Creatinine Normal SARS-CoV-2 (PCR) 08/11/23 23:21 WBC RBC Hgb Hct MCV MCH MCHC RDW Plt Count Neut % (Auto) Lymph % (Auto) [place] % (Auto) Eos % (Auto) Baso % (Auto) Neut # (Auto) Lymph # (Auto) [place] # (Auto) Eos # (Auto) Baso # (Auto) PT INR APTT Sodium Potassium Chloride Carbon Dioxide BUN Creatinine Estimated GFR BUN/Creatinine Ratio Glucose Hemoglobin A1c Calcium Total Bilirubin AST ALT Alkaline Phosphatase Total Creatine Kinase Troponin I Total Protein Albumin Globulin Albumin/Globulin Ratio Urine Color Urine Appearance Urine pH Ur Specific [place] Urine Protein Urine Glucose (UA) Urine Ketones Urine Occult Blood Urine Nitrate Urine Bilirubin Urine Urobilinogen Ur Leukocyte Esterase Urine RBC Urine WBC Ur Squamous Epith Cells Urine Bacteria Ur Culture Indicated? Vol Urine Centrifuged U Opiates 300ng/mL cut Ur Oxycodone Screen Urine Methadone Screen Ur Barbiturates Screen U Tricyclic Antidepress Ur Phencyclidine Scrn Ur Amphetamines Screen U Methamphetamines Scrn Ur MDMA Scrn (Ecstasy) U Benzodiazepines Scrn Urine Cocaine Screen U Marijuana (THC) Screen Urine Specific [place] Ethyl Alcohol Ur Creatinine SARS-CoV-2 (PCR) Negative Assessment & Plan Assessment & Plan narrative: TIA/CVA-patient seems to have recovering. Initial CT head and CT angiogram shows no obvious abnormality. -ASA, -Permissive hypertension, prn hydralazine for SBP>220. -ECHO, MRI head and neck with diffusion studies, -Telemetry monitoring, Serial neurochecks -Strict bedrest for now -Monitor hemodynamics -n.p.o. for now -Check lipid panel in a.m., thyroid function test, blood sugar monitoring, -PT/OT and swallowing evaluation in a.m. I would keep him n.p.o. for now -Sroke education -Euthermia, Euglycemia -fall precaution Diabetes mellitus, type II without long-term current use of insulin, uncontrolled with hyperglycemia, -check HbA1c. -Continue to monitor blood sugar. -hold Metformin during the hospital stay -sliding scale insulins with NovoLog sliding scale. -If patient is kept him n.p.o. long-acting insulins should be avoided during that period. -hypoglycemia protocol as needed Hyperlipidemia. Restart Lipitor and check lipids Paroxysmal atrial fibrillation. Restart Pradaxa and metoprolol Hypertension. Restart valsartan and Sacubitril CHF. Restart spironolactone, torsemide and metoprolol BPH. Restart Flomax Time Spent With Patient Time with patient: 50 to 69 minutes with 50% spent counseling/coordinating care Quality VTE Deep Vein Thrombosis/Pulmonary Embolism Present on Admission: No MIPS - Admit I confirm the patient?s Advance Care Plan is present, Code status is documented, Surrogate decision maker is in patient?s record [If Yes, STOP here]: Yes [facility] - Meds 'Current medications' to include all prescriptions, [id number] products, herbals, cannabis/cannabidiol products, and vitamin/mineral/dietary (nutritional) supplements. I have utilized all available resources to obtain, update, or review the patient?s current medications. [If Yes, STOP here]: Yes
[2023-08-12] MEDS: SODIUM CHLORIDE 0.9% 1,000 ML 100 ML IV (01:54)
--- NOTE | 2023-08-12 04:11 | PC.NURSE ---
Pt states feeling in right side has improved and no longer feels heavy and weak.
[2023-08-12] MEDS: ACETAMINOPHEN 325 MG TABLET 650 MG PO (06:06)
[2023-08-12 06:51] LABS: BUN Creatinine Ratio 25.9 (6-22); Blood Urea Nitrogen 15 mg/dL (9-20); Calcium 8.9 mg/dL (8.4-10.2); Carbon Dioxide 27 mmol/L (22-32); Chloride 108 mmol/L (98-107); Estimated Glomerular Filt Rate > 60 mL/min (>60); Glucose 117 mg/dL (80-110); HEMOLYSIS 16 (0-50); Magnesium 2.1 mg/dL (1.6-2.3); Potassium 4.2 mmol/L (3.4-5.1); Sodium 138 mmol/L (137-145)
[2023-08-12 07:21] LABS: Thyroid Stimulating Hormone 1.61 uIU/mL (0.47-4.68)
[2023-08-12] MEDS: OXYBUTYNIN 5 MG ER TAB 10 MG PO (09:07)
[2023-08-12] MEDS: DABIGATRAN 75 MG CAPSULE 150 MG PO (09:07)
[2023-08-12] MEDS: TORSEMIDE 10 MG TABLET 20 MG PO (09:07)
[2023-08-12] MEDS: SPIRONOLACTONE 25 MG TABLET PO (09:08)
--- NOTE | 2023-08-12 10:06 | PM.DS.1 ---
History of Present Illness History of Present Illness Date Patient Seen: 08/12/23 Time Patient Seen: 09:20 Chief complaint: Stroke Narrative: Chief complaint: Stroke Narrative: 78-year-old male with history of diabetes mellitus type II, mild cognitive impairment, hyperlipidemia, CHF, paroxysmal atrial fibrillation on Pradaxa, alcohol abuse, presented to the ER with right arm weakness started around 7:30 PM. Never had the symptoms before. Denies any headache, blurry vision, numbness, slurred speech or loss of balance. Compliant with his medications. Denies any chest pain, palpitations, loss of consciousness, nausea, vomiting or abdominal pain, diarrhea or dysuria. Initial laboratory shows WBC 6.1, hemoglobin 15.7, platelets 255, INR 1, sodium 141, potassium 3.9, creatinine 0.7, glucose 126, A1c 6 3, calcium 8.7, LFT normal, troponin 0.03, UA negative, U tox negative, alcohol level 85, COVID-19 negative, CT angiogram of head and neck negative. She was given aspirin 324 mg p.o. and was decided admitted for further evaluation management. Discharge Providers Provider Date of admission: 08/11/23 21:35 Discharge Date: 08/12/23 Primary care physician: Stanton Louis MD Consults: 08/11/23 21:47 Consult to Occupational Therapy Evaluate & Treat Comment: Physician Instructions: Evaluate and treat Consult to Physical Therapy Evaluate & Treat Comment: Physician Instructions: Evaluate and Treat Consult to Speech Therapy Evaluate & Treat Comment: Physician Instructions: Evaluate and treat Discharge provider: Stanton Louis MD Summary Hospital Course Discharge Diagnosis: 1. Transient ischemic attack 2. Paroxysmal atrial fibrillation 3. Chronic anticoagulation 4. Congestive heart failure, chronic systolic, 5. Diabetes mellitus, type 2 6. Hypertension 7. Hyperlipidemia 8. Aortic valve replacement, status post TAVR 02/2020 9. 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 No acute intracranial process. 2. Moderate atrophy and chronic microvascular ischemic changes. Head/neck CTA: No significant intracranial arterial abnormality is seen. No significant abnormality is seen within the arteries of the neck. The patient was admitted imported in the emergency department overnight. He remains clinically stable. Right arm weakness symptoms resolved within 2 hours, and did not recur. He had a history of group B strep endocarditis in January 2022, and remains on lifelong penicillin prophylaxis with good compliance. There were no fevers or other symptoms to suggest recurrence. He was stable throughout his hospital stay and felt appropriate for discharge home with outpatient follow-up. Pradaxa was changed to Eliquis. His other risk factors appeared optimized at this point. No other issues arose. Over 40 minutes is spent in coordinating discharge today. Exam Vital Signs (past 8 hours): - 08/12/23 02:30 08/12/23 02:52 08/12/23 03:00 Temperature Pulse Rate 78 76 78 Respiratory Rate 18 15 Blood Pressure Pulse Oximetry 97 96 Oxygen Delivery Method 08/12/23 03:30 08/12/23 04:00 08/12/23 04:07 Temperature Pulse Rate 82 77 Respiratory Rate 16 15 Blood Pressure 171/80 H Pulse Oximetry 98 99 Oxygen Delivery Method 08/12/23 04:07 08/12/23 04:30 08/12/23 05:00 Temperature Pulse Rate 77 74 81 Respiratory Rate 18 12 14 Blood Pressure Pulse Oximetry 99 96 97 Oxygen Delivery Method 08/12/23 05:30 08/12/23 06:00 08/12/23 06:26 Temperature 97.9 F Pulse Rate 79 77 70 Respiratory Rate 12 24 13 Blood Pressure 171/80 H Pulse Oximetry 99 99 97 Oxygen Delivery Method Room Air 08/12/23 06:30 08/12/23 06:31 08/12/23 06:31 Temperature Pulse Rate 79 79 Respiratory Rate 22 19 Blood Pressure 136/69 Pulse Oximetry 98 98 Oxygen Delivery Method 08/12/23 07:00 08/12/23 07:30 08/12/23 08:00 Temperature Pulse Rate 84 79 77 Respiratory Rate 39 H 26 H 14 Blood Pressure Pulse Oximetry 98 96 95 Oxygen Delivery Method 08/12/23 08:30 08/12/23 09:00 08/12/23 09:30 Temperature Pulse Rate 76 81 96 H Respiratory Rate 12 16 47 H Blood Pressure Pulse Oximetry 94 96 Oxygen Delivery Method 08/12/23 09:55 Temperature Pulse Rate Respiratory Rate Blood Pressure 159/90 H Pulse Oximetry Oxygen Delivery Method Oxygen Delivery Method Room Air Narrative Exam Narrative: GENERAL: This is a well-nourished, well-developed patient, in no apparent distress. HEAD: Atraumatic. Normocephalic. No temporal or scalp tenderness. EYES: Pupils equal round and reactive. Extraocular motions intact. No scleral icterus. No injection or drainage. ENT: Mucous membranes pink and moist. NECK: Trachea midline. No JVD, bruits or lymphadenopathy. Supple, nontender, no meningeal signs. CARDIOVASCULAR: Irregularly irregular rhythm without murmurs, gallops, or rubs. RESPIRATORY: Clear to auscultation. GASTROINTESTINAL: Abdomen soft, non-tender, nondistended. EXTREMITIES: No clubbing, cyanosis, or edema. BACK: Nontender without deformity or crepitance. No flank tenderness. NEUROLOGIC: Alert, oriented, speech fluent, full upper and lower motor strength, full right upper extremity motor strength, no discoordination, normal finger thumb opposition, normal sensation, no focal deficits evident. DERMATOLOGIC: No rashes or skin lesions. Objective Labs 08/11/23 20:20 08/12/23 05:58 Labs: Laboratory Results - last 24 hr 08/11/23 08/11/23 08/11/23 20:20 21:00 21:00 WBC 6.1 RBC 4.62 Hgb 15.7 Hct 46.5 MCV 100.5 H MCH 33.9 MCHC 33.7 RDW 13.9 Plt Count 255 Neut % (Auto) 57.8 Lymph % (Auto) 26.2 [place] % (Auto) 12.1 Eos % (Auto) 3.3 Baso % (Auto) 0.6 Neut # (Auto) 3500 Lymph # (Auto) 1600 [place] # (Auto) 700 Eos # (Auto) 200 Baso # (Auto) 0 PT 11.7 INR 1.0 APTT 58 H Sodium 141 Potassium 3.9 Chloride 103 Carbon Dioxide 28 BUN 17 Creatinine 0.70 Estimated GFR > 60 BUN/Creatinine Ratio 24.3 H Glucose 126 H Hemoglobin A1c 6.3 H Calcium 9.7 Magnesium Total Bilirubin 0.7 AST 21 ALT 17 Alkaline Phosphatase 67 Total Creatine Kinase 58 Troponin I 0.030 Total Protein 7.9 Albumin 5.1 H Globulin 2.8 Albumin/Globulin Ratio 1.8 TSH Urine Color Yellow Urine Appearance Clear Urine pH 6.0 Normal Ur Specific [place] 1.010 Urine Protein Negative Urine Glucose (UA) 3+ H Urine Ketones Negative Urine Occult Blood Negative Urine Nitrate Negative Urine Bilirubin Negative Urine Urobilinogen 0.2 Ur Leukocyte Esterase Negative Urine RBC None seen Urine WBC None seen Ur Squamous Epith Cells 0-1 /hpf Urine Bacteria None seen Ur Culture Indicated? Cult not indicated Vol Urine Centrifuged 10ml (spun) U Opiates 300ng/mL cut Negative Ur Oxycodone Screen Negative Urine Methadone Screen Negative Ur Barbiturates Screen Negative U Tricyclic Antidepress Negative Ur Phencyclidine Scrn Negative Ur Amphetamines Screen Negative U Methamphetamines Scrn Negative Ur MDMA Scrn (Ecstasy) Negative U Benzodiazepines Scrn Negative Urine Cocaine Screen Negative U Marijuana (THC) Screen Negative Urine Specific [place] Normal Ethyl Alcohol 85 H Ur Creatinine Normal SARS-CoV-2 (PCR) 08/11/23 08/12/23 23:21 05:58 WBC RBC Hgb Hct MCV MCH MCHC RDW Plt Count Neut % (Auto) Lymph % (Auto) [place] % (Auto) Eos % (Auto) Baso % (Auto) Neut # (Auto) Lymph # (Auto) [place] # (Auto) Eos # (Auto) Baso # (Auto) PT INR APTT Sodium 138 Potassium 4.2 Chloride 108 H Carbon Dioxide 27 BUN 15 Creatinine 0.58 L Estimated GFR > 60 BUN/Creatinine Ratio 25.9 H Glucose 117 H Hemoglobin A1c Calcium 8.9 Magnesium 2.1 Total Bilirubin AST ALT Alkaline Phosphatase Total Creatine Kinase Troponin I Total Protein Albumin Globulin Albumin/Globulin Ratio TSH 1.61 Urine Color Urine Appearance Urine pH Ur Specific [place] Urine Protein Urine Glucose (UA) Urine Ketones Urine Occult Blood Urine Nitrate Urine Bilirubin Urine Urobilinogen Ur Leukocyte Esterase Urine RBC Urine WBC Ur Squamous Epith Cells Urine Bacteria Ur Culture Indicated? Vol Urine Centrifuged U Opiates 300ng/mL cut Ur Oxycodone Screen Urine Methadone Screen Ur Barbiturates Screen U Tricyclic Antidepress Ur Phencyclidine Scrn Ur Amphetamines Screen U Methamphetamines Scrn Ur MDMA Scrn (Ecstasy) U Benzodiazepines Scrn Urine Cocaine Screen U Marijuana (THC) Screen Urine Specific [place] Ethyl Alcohol Ur Creatinine SARS-CoV-2 (PCR) Negative PFSH Medical History Feeling of incomplete bladder emptying Overactive bladder Inguinal adenopathy Bladder outlet obstruction History of sepsis DM type 2 with diabetic dyslipidemia Venous (peripheral) insufficiency History of colonic polyps Endocarditis Beta-hemolytic group B streptococcal sepsis Mild cognitive impairment Alcohol use disorder BPH w urinary obs/LUTS Mixed hyperlipidemia Systolic CHF, chronic Chronic anticoagulation Paroxysmal atrial fibrillation Wears glasses Enlarged prostate Heart failure Essential hypertension Surgical History H/O vasectomy Previous back surgery S/P TAVR (transcatheter aortic valve replacement) Family History Mother CVA (cerebral vascular accident) Father Heart disease Social History marital status: number of children: 0 household members: spouse Smoking Status: Never smoker alcohol intake: current caffeine: Yes Type(s) of exercise: walking frequency: 3-4 times per week duration: 60-90 minutes/day Discharge Plan Discharge Plan Patient Disposition: Home Provider Discharge Comment: Followup with PCP 1 week Discharge orders & Medications Prescriptions: New spironolactone 25 mg Tablet 25 mg PO DAILY Qty: 90 3RF Eliquis 5 mg tablet 5 mg PO BID Qty: 180 3RF Continued metformin 750 mg tablet extended release 24 hr 750 mg PO BID aspirin 81 mg tablet,delayed release (DR/EC) 81 mg PO QAM tamsulosin 0.4 mg capsule 0.4 mg PO BEDTIME Qty: 90 3RF mirabegron 50 mg tablet extended release 24 hr 50 mg PO DAILY Qty: 30 12RF penicillin V potassium 250 mg tablet 250 mg PO BID Entresto 24-26 mg tablet 1 tab PO BID metoprolol succinate [Toprol XL] 25 mg tablet extended release 24 hr 25 mg PO BID torsemide 20 mg tablet 20 mg PO DAILY Farxiga 10 mg tablet 10 mg PO DAILY niacinamide [Niacin (niacinamide)] 500 mg tablet 500 mg PO BID cholecalciferol (vitamin D3) [Vitamin D3] 25 mcg (1,000 unit) Tablet 25 mcg PO DAILY spironolactone 25 mg Tablet 25 mg PO BID atorvastatin 80 mg Tablet 80 mg PO BEDTIME omega 6-zpm-kwq-fish oil [Fish Oil] 1,000 mg (120 mg-180 mg) Capsule 1 cap PO TID Discontinued dabigatran etexilate [Pradaxa] 150 mg Capsule 150 mg PO BID Follow up/Referrals: Stanton Louis MD [Primary Care Provider] - Diet/Activity/Treatments Diet: Regular, Carb-consistent/Diabetic and Low-sodium Visit Report/Discharge Packet Stand Alone Forms: Patient Portal/API, Stroke Signs & Symptoms Discharge Data Primary Care Provider: Stanton Louis V Attending Provider: Jose Ramirez Admit Date/Time: 08/11/23 21:35 Quality VTE Deep Vein Thrombosis/Pulmonary Embolism Present on Admission: No MIPS - Admit I confirm the patient?s Advance Care Plan is present, Code status is documented, Surrogate decision maker is in patient?s record [If Yes, STOP here]: Yes MIPS - Meds 'Current medications' to include all prescriptions, [id number] products, herbals, cannabis/cannabidiol products, and vitamin/mineral/dietary (nutritional) supplements. I have utilized all available resources to obtain, update, or review the patient?s current medications. [If Yes, STOP here]: Yes [facility] Charge Codes Discharge inpatient/observation: [id number]
--- NOTE | 2023-08-12 13:10 | PT-IP ANOTE ---
PT eval received. EMR reviewed but pt dc'd before PT eval.
== END 2023-08-12 10:15 | disposition home or self-care (01) ==
LOC: ED 21:01 → AC 21:36
PROVIDERS: Admitting Provider Internal Medicine; Emergency Provider Emergency Medicine; PCP Internal Medicine; Visit Provider Internal Medicine
DX: G45.9 Transient cerebral ischemic attack, unspecified (principal); R29.703 NIHSS score 3; I11.0 Hypertensive heart disease with heart failure; I50.22 Chronic systolic (congestive) heart failure; E11.9 Type 2 diabetes mellitus without complications; I48.0 Paroxysmal atrial fibrillation; Z79.84 Long term (current) use of oral hypoglycemic drugs; Z79.01 Long term (current) use of anticoagulants; Z11.52 Encounter for screening for COVID-19; F10.10 Alcohol abuse, uncomplicated
CPT/HCPCS: 36415; 70450; 70496; 70498; 80048; 80053; 80305; 80320; 81001; 81003; 82550; 82962; 83036; 83735; 84443; 84484; 85025; 85610; 85730; 87635; 93005; 96360; 96361; 99285; G0378; Q9967

== ENCOUNTER → 2023-11-24 14:11 | Outpatient (CLI) | payer MEDICARE, SELFPAY ==
[2023-08-12 01:00] VITALS: BMI 34.9
[2023-11-24 15:34] LABS: Blood Urea Nitrogen 17 mg/dL (9-20); Calcium 9.4 mg/dL (8.4-10.2); Carbon Dioxide 26 mmol/L (22-32); Chloride 102 mmol/L (98-107); Estimated Glomerular Filt Rate > 60 mL/min (>60); Glucose 103 mg/dL (80-110); HEMOLYSIS < 15 (0-50); Potassium 4.7 mmol/L (3.4-5.1); Sodium 136 mmol/L (137-145)
== END ==
PROVIDERS: PCP Internal Medicine; Referring Provider Internal Medicine; Visit Provider Internal Medicine
DX: E11.69 Type 2 diabetes mellitus with other specified complication (principal); E78.5 Hyperlipidemia, unspecified
CPT/HCPCS: 36415; 80048; 83036

== ENCOUNTER 2023-11-27 16:50 | Observation (INO) | payer MEDICARE, SELFPAY ==
[2023-08-12 01:00] VITALS: BMI 34.9
[2023-11-27] VITALS (7 sets, daily range): BP systolic 138–182; BP diastolic 66–99; PULSE 87–132; RESP 14–23; TEMP 37.3; O2SAT 92–98; BMI 31.7
[2023-11-27 18:34] LABS: Add Manual Diff / Slide Review NO; Basophils Absolute Auto 100 /uL (0-100); Basophils Percent Auto 0.5 % (0-2); Eosinophils Absolute Auto 0 /uL (0-450); Eosinophils Percent Auto 0.2 % (2-4); Hematocrit 43.6 % (41-53); Hemoglobin 14.6 g/dL (13.5-17.5); INR 1.2 (0.9-1.3); Lymphocytes Absolute Auto 500 /uL (1100-4500); Lymphocytes Percent Auto 3.5 % (25-40); Mean Corpuscular HGB Conc 33.4 % (30-36); Mean Corpuscular Hemoglobin 33.8 PG (26-34); Mean Corpuscular Volume 101.1 fL (80-100); Monocytes Absolute Auto 700 /uL (0-900); Monocytes Percent Auto 5.2 % (3-14); Neutrophils Absolute Auto 12000 /uL (1500-7000); Neutrophils Percent Auto 90.6 % (50-75); Platelet Count 244 X10^3/uL (150-400); Prothrombin Time 14.1 SECONDS (9.4-12.5); Red Blood Cell Count 4.32 X10^6/uL (4.5-5.9); Red Cell Distribution Width 15.2 % (11.6-14.8); White Blood Cell Count 13.3 X10^3/uL (4.5-11.0)
[2023-11-27 18:36] LABS: PTT Partial Thromboplastin Tim 39 SECONDS (25.1-36.5)
[2023-11-27 18:38] LABS: Lactate (Lactic Acid) 1.6 mmol/L (0.7-2.1)
[2023-11-27 18:39] LABS: Alanine Aminotransferase 18 IU/L (<50); Albumin 4.5 g/dL (3.5-5.0); Albumin Globulin Ratio 1.7 (1.0-2.8); Alkaline Phosphatase 67 U/L (38-126); Aspartate Aminotransferase 22 IU/L (17-59); BUN Creatinine Ratio 27.3 (6-22); Bilirubin Total 2.2 mg/dL (0.2-1.3); Blood Urea Nitrogen 18 mg/dL (9-20); Calcium 9.3 mg/dL (8.4-10.2); Carbon Dioxide 26 mmol/L (22-32); Chloride 100 mmol/L (98-107); Estimated Glomerular Filt Rate > 60 mL/min (>60); Globulin 2.7 g/dL (1.7-4.1); Glucose 108 mg/dL (80-110); HEMOLYSIS < 15 (0-50); Lipase 25 U/L (23-300); Potassium 4.8 mmol/L (3.4-5.1); Sodium 134 mmol/L (137-145); Total Protein 7.2 g/dL (6.3-8.2)
[2023-11-27 18:55] LABS: Procalcitonin 0.054 ng/mL (<0.5)
--- NOTE | 2023-11-27 21:21 | ED.SKABFB ---
HPI - Skin/Abscess/Foreign Bdy General Chief complaint: Skin/Abscess/Foreign Body Stated complaint: states infected lt leg Time Seen by Provider: 11/27/23 21:20 Source: patient Mode of arrival: Ambulatory Limitations: no limitations History of Present Illness HPI narrative: Patient 78-year-old male history of arrhythmia congestive heart failure cognitive impairment diabetes hyperlipidemia hypertension presenting today with fever. 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 He does have a history of recurrent right lower extremity cellulitis he currently on cefadroxil presenting today with left lower extremity redness. He denies any fever chest pain palpitations or shortness of breath. He is followed with [facility] scheduled for an outpatient NAYANA in December. Finished IV antibiotics October 26. Related Data Home Medications Medication Instructions Recorded Confirmed aspirin 81 mg tablet,delayed 81 mg PO QAM 08/14/19 11/28/23 release metformin 750 mg tablet,extended 750 mg PO BID 08/14/19 11/28/23 release 24 hr atorvastatin 80 mg tablet 80 mg PO BEDTIME 01/10/20 11/28/23 omega 1-lci-byd-fish oil 1,000 mg 1 cap PO TID 01/12/20 11/28/23 (120 mg-180 mg) capsule (Fish Oil) dapagliflozin propanediol 10 mg 10 mg PO DAILY 08/19/21 11/28/23 tablet (Farxiga) metoprolol succinate 25 mg 25 mg PO BID 08/19/21 11/28/23 tablet,extended release 24 hr (Toprol XL) sacubitril 24 mg-valsartan 26 mg 1 tab PO BID 08/19/21 11/28/23 tablet (Entresto) torsemide 20 mg tablet 20 mg PO DAILY 08/19/21 11/28/23 niacinamide 500 mg tablet (Niacin 500 mg PO BID 02/04/22 11/28/23 (niacinamide)) cholecalciferol (vitamin D3) 25 25 mcg PO DAILY 08/11/23 11/28/23 mcg (1,000 unit) tablet (Vitamin D3) Previous Rx's Medication Instructions Recorded tamsulosin 0.4 mg capsule 0.4 mg PO BEDTIME #90 caps 03/09/23 mirabegron 50 mg tablet,extended 50 mg PO DAILY #30 tabs 04/16/23 release 24 hr spironolactone 25 mg tablet 25 mg PO DAILY #90 tabs 08/12/23 apixaban 5 mg tablet (Eliquis) 5 mg PO BID #180 tabs 08/18/23 Allergies Allergy/AdvReac Type Severity Reaction Status Date / Time No Known Drug Allergies Allergy Verified 11/24/23 13:21 Patient History Medical History Bacterial endocarditis Chronic low back pain Cerebrovascular disease Overactive bladder Inguinal adenopathy Bladder outlet obstruction History of sepsis DM type 2 with diabetic dyslipidemia Venous (peripheral) insufficiency History of colonic polyps Endocarditis Beta-hemolytic group B streptococcal sepsis Mild cognitive impairment Alcohol use disorder BPH w urinary obs/LUTS Mixed hyperlipidemia Systolic CHF, chronic Chronic anticoagulation Paroxysmal atrial fibrillation Wears glasses Enlarged prostate Heart failure Essential hypertension Surgical History H/O vasectomy Previous back surgery S/P TAVR (transcatheter aortic valve replacement) Family History Mother CVA (cerebral vascular accident) Father Heart disease Social History marital status: number of children: 0 household members: spouse Smoking Status: Never smoker alcohol intake: current caffeine: Yes Type(s) of exercise: walking frequency: 3-4 times per week duration: 60-90 minutes/day Smoking Status: Never smoker alcohol intake frequency: 0-2 drinks per day Substance Use Type: does not use Exam Initial Vital Signs Initial Vital Signs: Vital Signs Temperature 99.1 F 11/27/23 17:24 Pulse Rate 95 H 11/27/23 17:24 Respiratory Rate 14 11/27/23 17:24 Blood Pressure 182/79 H 11/27/23 17:24 Pulse Oximetry 98 11/27/23 17:24 Oxygen Delivery Method Room Air 11/27/23 17:24 GENERAL: Alert pleasant 78-year-old male and in no acute distress. HEENT: Head atraumatic,EOMI, pupils reactive, face symmetric, moist mucous membranes CARDIOVASCULAR: Regular rate and rhythm without murmurs, rubs or gallops. RESPIRATORY: Breath sounds equal bilaterally, no wheezes rales or rhonchi. ABDOMEN: Soft, nontender. Normoactive bowel sounds all 4 quadrants. No guarding or rebound. EXTREMITIES: Normal range of motion, no clubbing or edema. Neurovascularly intact NEUROLOGICAL: Alert and oriented x4.Normal gait and speech. Cranial nerves II through XII grossly intact. SKIN: Left lower extremity swollen anterior erythema to about mid tellez blanchable Course Orders Ordered: ED Orders 11/27/23 21:36 US periph venous low extrem lt Stat 11/27/23 21:40 Urine Microscopic Stat Acetaminophen (Acetaminophen 325 Mg Tablet) 650 mg PO Q6H PRN PRN Reason: Fever/Mild Pain (1-3) Naloxone HCl (Naloxone 0.4 Mg/Ml Vial) 0.2 mg IV Q2MIN PRN PRN Reason: Opiate Reversal Ondansetron HCl (Ondansetron 4 Mg/2 Ml Inj) 4 mg IV NOW PRN PRN Reason: Nausea And Vomiting Ondansetron HCl (Ondansetron 4 Mg Odt) 4 mg SL NOW PRN PRN Reason: Nausea And Vomiting Ondansetron HCl (Ondansetron 4 Mg/2 Ml Inj) 4 mg IV Q8HR PRN PRN Reason: Nausea And Vomiting Oxycodone HCl (Oxycodone Ir 5 Mg Tablet) 5 mg PO Q3H PRN PRN Reason: Pain, Moderate (4-6) Discontinued Medications Ceftriaxone Sodium 1,000 mg/ (Sodium Chloride) 100 mls @ 200 mls/hr IV NOW ONE Stop: 11/27/23 21:47 Last Infusion: 11/27/23 22:37 Dose: Infused Documented By: Admin: 11/27/23 21:56 Dose: 200 mls/hr Documented By: LOPEZ Vancomycin HCl/Dextrose (Vancomycin) 2,000 mg in 400 mls @ 200 mls/hr IV NOW ONE Stop: 11/27/23 23:46 Last Admin: 11/27/23 22:38 Dose: 200 mls/hr Documented By: LOPEZ Vital Signs Vital signs: Vital Signs - 8 hr 11/27/23 21:43 11/27/23 21:45 11/27/23 21:45 Pulse Rate 93 H 132 H Respiratory Rate Blood Pressure 164/99 H Pulse Oximetry 96 92 11/27/23 22:00 11/27/23 22:00 11/27/23 22:30 Pulse Rate 88 Respiratory Rate 22 Blood Pressure 162/73 H 154/75 H Pulse Oximetry 96 11/27/23 22:30 11/27/23 23:00 11/27/23 23:00 Pulse Rate 88 89 Respiratory Rate 23 21 Blood Pressure 138/67 Pulse Oximetry 97 97 MDM - Skin/Abscess/Foreign Bdy Lab Data 11/27/23 18:14 11/27/23 18:14 Labs: Lab Results 11/27/23 11/27/23 Range/Units 18:14 21:40 WBC 13.3 H (4.5-11.0) X10^3/uL RBC 4.32 L (4.5-5.9) X10^6/uL Hgb 14.6 (13.5-17.5) g/dL Hct 43.6 (41-53) % MCV 101.1 H (80-100) fL MCH 33.8 (26-34) PG MCHC 33.4 (30-36) % RDW 15.2 H (11.6-14.8) % Plt Count 244 (150-400) X10^3/uL Neut % (Auto) 90.6 H (50-75) % Lymph % (Auto) 3.5 L (25-40) % Patrick % (Auto) 5.2 (3-14) % Eos % (Auto) 0.2 L (2-4) % Baso % (Auto) 0.5 (0-2) % Neut # (Auto) 61137 H (9580-3552) /uL Lymph # (Auto) 500 L (1099-9899) /uL Patrick # (Auto) 700 (0-900) /uL Eos # (Auto) 0 (0-450) /uL Baso # (Auto) 100 (0-100) /uL PT 14.1 H (9.4-12.5) SECONDS INR 1.2 (0.9-1.3) APTT 39 H (25.1-36.5) SECONDS Sodium 134 L (137-145) mmol/L Potassium 4.8 (3.4-5.1) mmol/L Chloride 100 (98-107) mmol/L Carbon Dioxide 26 (22-32) mmol/L BUN 18 (9-20) mg/dL Creatinine 0.66 (0.66-1.25) mg/dL Estimated GFR > 60 (>60) mL/min BUN/Creatinine Ratio 27.3 H (6-22) Glucose 108 (80-110) mg/dL Lactate 1.6 (0.7-2.1) mmol/L Calcium 9.3 (8.4-10.2) mg/dL Total Bilirubin 2.2 H (0.2-1.3) mg/dL AST 22 (17-59) IU/L ALT 18 (<50) IU/L Alkaline Phosphatase 67 (38-126) U/L Total Protein 7.2 (6.3-8.2) g/dL Albumin 4.5 (3.5-5.0) g/dL Globulin 2.7 (1.7-4.1) g/dL Albumin/Globulin Ratio 1.7 (1.0-2.8) Lipase 25 (23-300) U/L Procalcitonin 0.054 (<0.5) ng/mL Urine RBC 0-1/hpf (0-5/HPF) Urine WBC 0-1/hpf (0-5/HPF) Ur Squamous Epith Cells 0-1 /hpf (0-5/HPF) Urine Bacteria Occasional (0-1) (None) Hyaline Casts 0-1/lpf (None) Ur Culture Indicated? Cult not indicated Vol Urine Centrifuged 10ml (spun) Urine Dip Bedside Urine Glucose 1000 mg/dl Bedside Urine Bilirubin - Negative Bedside Urine Ketone - Negative Urine Specific [place] 1.015 Bedside Urine Occult Blood - Negative Bedside Urine pH 6 Bedside Urine Protein ++ 100 Bedside Urine Urobilinogen - Negative Bedside Urine Nitrite - Negative Bedside Urine Leukocytes - Negative Esterase Imaging Data US - DVT: Radiologist's Impression: PROCEDURE: US [facility] VENOUS LOW EXTREM LT INDICATIONS: swelling TECHNIQUE: Real-time imaging, as well as color and pulse Doppler interrogation, were performed of the lower extremity deep veins from the inguinal ligament to the popliteal fossa, with documentation of the visualized calf veins. COMPARISON: [facility], US [facility] VENOUS LOW EXTREM LT, 01/04/2023, 11:24. FINDINGS: The common femoral, femoral, popliteal, and the visualized calf veins are normally compressible, and free of intraluminal thrombus. Color and pulse Doppler demonstrate normal phasic intraluminal flow. There is normal augmentation response to distal compression maneuver. IMPRESSION: No findings of lower extremity deep venous thrombosis. Dictated by: Jf Garcia M.D. on 11/27/2023 at 22:54 MDM Narrative Medical decision making narrative: MDM CC: Left leg lower extremity swelling and redness Complicating co-morbidities: Recent endocarditis, paroxysmal atrial fibrillation on Eliquis Medical records reviewed: Recent admission at [facility] Differential considered: Cellulitis DVT endocarditis bacteremia Exam documented above, pertinent findings include: Significant left lower leg swelling and erythema Lab Test results independently reviewed as above. Pertinent findings: WBC 13.3, lactic acid 1.6 bilirubin 2.2 creatinine 0.6 procalcitonin 0.054 Electrolytes stable no evidence of JANEL no anemia Imaging studies independently reviewed: Ultrasound does not show evidence of DVT Consultations: Dr. Jacki Irving infectious disease at [facility] has reviewed patient's nose updated on patient's current symptoms and test results agrees that patient needs to be admitted. Would start Rocephin and vancomycin for cellulitis. Does not think that his blood cultures are going to be positive no need to urgently transferred over to [facility] would wait for blood cultures. 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 Treatments: Rocephin vancomycin Re-evaluations: Patient overall remains stable he is able to stand and ambulate without issue Discussion: Patient is 78-year-old male with significant past medical history presenting today with sudden onset of left lower leg swelling and erythema despite being on outpatient antibiotics. Does have mild leukocytosis of 13 but no significant sign of sepsis. He has a normal lactic acid. No evidence of DVT also on Eliquis. Discussion with Infectious Disease who did recommend admission until blood cultures return along with Rocephin and vancomycin for MRSA coverage. Typically gets cellulitis of right leg but today it is the left Discharge Plan Departure Patient Disposition: Admitted as Observation Clinical Impression: Cellulitis of left leg Admit Date/Time: 11/27/23 23:17 Admit Provider: Agustin Moreno
--- NOTE | 2023-11-27 21:36 | DI.US.S_ITS ---
PROCEDURE: US [facility] VENOUS LOW EXTREM LT INDICATIONS: swelling TECHNIQUE: Real-time imaging, as well as color and pulse Doppler interrogation, were performed of the lower extremity deep veins from the inguinal ligament to the popliteal fossa, with documentation of the visualized calf veins. COMPARISON: [facility], , [facility] VENOUS LOW EXTREM LT, 01/04/2023, 11:24. FINDINGS: The common femoral, femoral, popliteal, and the visualized calf veins are normally compressible, and free of intraluminal thrombus. Color and pulse Doppler demonstrate normal phasic intraluminal flow. There is normal augmentation response to distal compression maneuver. IMPRESSION: No findings of lower extremity deep venous thrombosis. Dictated by: Jf Garcia M.D. on 11/27/2023 at 22:54 Approved by: Jf Garcia M.D. on 11/27/2023 at 22:54
[2023-11-27] MEDS: cefTRIAXone 1,000 MG in SODIUM CHLORIDE 0.9% 100 ML 200 MG IV (21:56)
[2023-11-27 22:03] LABS: Bacteria Urine Occasional (0-1); RBC Urine 0-1/HPF (0-5/HPF); Squamous Epithelial Cell Urine 0-1 /HPF (0-5/HPF); Urine Volume 10mL (spun); WBC Urine 0-1/HPF (0-5/HPF)
[2023-11-27 22:04] LABS: Culture Indicated Urine Cult Not Indicated; Hyaline Casts Urine 0-1/LPF
[2023-11-27] MEDS: VANCOMYCIN 2,000 MG/400 ML PIGGYBACK 200 MG IV (22:38)
[2023-11-28] VITALS (14 sets, daily range): BP systolic 115–155; BP diastolic 58–79; PULSE 70–112; RESP 8–35; TEMP 36.7–38.3; O2SAT 93–97; BMI 31.4
--- NOTE | 2023-11-28 00:31 | PC.NURSE ---
Report given to Gina STEARNS.
[2023-11-28 05:42] LABS: HEMOLYSIS < 15 (0-50)
[2023-11-28 05:49] LABS: Blood Urea Nitrogen 14 mg/dL (9-20); Calcium 9.1 mg/dL (8.4-10.2); Carbon Dioxide 24 mmol/L (22-32); Chloride 102 mmol/L (98-107); Estimated Glomerular Filt Rate > 60 mL/min (>60); Glucose 106 mg/dL (80-110); Magnesium 1.9 mg/dL (1.6-2.3); Potassium 3.8 mmol/L (3.4-5.1); Sodium 132 mmol/L (137-145)
[2023-11-28 05:53] LABS: Add Manual Diff / Slide Review NO; Basophils Absolute Auto 100 /uL (0-100); Basophils Percent Auto 0.5 % (0-2); Eosinophils Absolute Auto 0 /uL (0-450); Hematocrit 39.8 % (41-53); Hemoglobin 13.5 g/dL (13.5-17.5); Lymphocytes Absolute Auto 500 /uL (1100-4500); Lymphocytes Percent Auto 5.1 % (25-40); Mean Corpuscular Hemoglobin 34.3 PG (26-34); Mean Corpuscular Volume 100.7 fL (80-100); Monocytes Absolute Auto 400 /uL (0-900); Monocytes Percent Auto 4.2 % (3-14); Neutrophils Absolute Auto 8300 /uL (1500-7000); Neutrophils Percent Auto 90.2 % (50-75); Platelet Count 203 X10^3/uL (150-400); Red Blood Cell Count 3.95 X10^6/uL (4.5-5.9); Red Cell Distribution Width 14.9 % (11.6-14.8); White Blood Cell Count 9.2 X10^3/uL (4.5-11.0)
--- NOTE | 2023-11-28 06:02 | P.HP_ITS ---
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 Apparently appears more of a flareup from the previous infection. The symptoms started few days ago. No recent history of trauma or exposure to occupational hazards. Denies any chest pain or shortness of breath. Denies any palpitation dizziness or loss of consciousness. Had recently completed IV antibiotics on October 26 for the underlying strep endocarditis and currently on oral antibiotics. Subsequent workup in the emergency room showed a white count of 13.3 with a hemoglobin of 14.6. Sodium is 134 with a potassium of 4.8, BUN of 18 and a creatinine of 0.66. Urinalysis show no evidence of nitrates or leukocyte esterase. Venous Doppler is negative for DVT in the left lower extremity. Emergency room provider discussed with infectious disease?Dr. Irving at [facility]. Was advised IV Rocephin/vancomycin pending culture results and no need for transfer to higher level of care at this time. Patient was subsequently admitted for further evaluation [facility] Medical History Bacterial endocarditis Chronic low back pain Cerebrovascular disease Overactive bladder Inguinal adenopathy Bladder outlet obstruction History of sepsis DM type 2 with diabetic dyslipidemia Venous (peripheral) insufficiency History of colonic polyps Endocarditis Beta-hemolytic group B streptococcal sepsis Mild cognitive impairment Alcohol use disorder BPH w urinary obs/LUTS Mixed hyperlipidemia Systolic CHF, chronic Chronic anticoagulation Paroxysmal atrial fibrillation Wears glasses Enlarged prostate Heart failure Essential hypertension Surgical History H/O vasectomy Previous back surgery S/P TAVR (transcatheter aortic valve replacement) Family History Mother CVA (cerebral vascular accident) Father Heart disease Social History marital status: number of children: 0 household members: spouse Smoking Status: Never smoker alcohol intake: current caffeine: Yes Type(s) of exercise: walking frequency: 3-4 times per week duration: 60-90 minutes/day Meds Home Medications and Allergies Home Medications Medication Instructions Recorded Confirmed Type aspirin 81 mg tablet,delayed 81 mg PO QAM 08/14/19 11/28/23 History release metformin 750 mg tablet,extended 750 mg PO BID 08/14/19 11/28/23 History release 24 hr atorvastatin 80 mg tablet 80 mg PO BEDTIME 01/10/20 11/28/23 History omega 8-otf-gzl-fish oil 1,000 mg 1 cap PO TID 01/12/20 11/28/23 History (120 mg-180 mg) capsule (Fish Oil) dapagliflozin propanediol 10 mg 10 mg PO DAILY 08/19/21 11/28/23 History tablet (Farxiga) metoprolol succinate 25 mg 25 mg PO BID 08/19/21 11/28/23 History tablet,extended release 24 hr (Toprol XL) sacubitril 24 mg-valsartan 26 mg 1 tab PO BID 08/19/21 11/28/23 History tablet (Entresto) torsemide 20 mg tablet 20 mg PO DAILY 08/19/21 11/28/23 History niacinamide 500 mg tablet (Niacin 500 mg PO BID 02/04/22 11/28/23 History (niacinamide)) tamsulosin 0.4 mg capsule 0.4 mg PO BEDTIME #90 caps 03/09/23 11/28/23 Rx mirabegron 50 mg tablet,extended 50 mg PO DAILY #30 tabs 04/16/23 11/28/23 Rx release 24 hr cholecalciferol (vitamin D3) 25 25 mcg PO DAILY 08/11/23 11/28/23 History mcg (1,000 unit) tablet (Vitamin D3) spironolactone 25 mg tablet 25 mg PO DAILY #90 tabs 08/12/23 11/28/23 Rx apixaban 5 mg tablet (Eliquis) 5 mg PO BID #180 tabs 08/18/23 11/28/23 Rx Allergies Allergy/AdvReac Type Severity Reaction Status Date / Time No Known Drug Allergies Allergy Verified 11/24/23 13:21 Review of Systems Review of Systems Narrative: A 12 point review of system is negative unless otherwise stated in history of present illness Exam Vital Signs (past 8 hours): - 11/27/23 22:30 11/27/23 22:30 11/27/23 23:00 Temperature Pulse Rate 88 Respiratory Rate 23 Blood Pressure 154/75 H 138/67 Pulse Oximetry 97 Oxygen Delivery Method Oxygen Flow Rate 11/27/23 23:00 11/27/23 23:30 11/27/23 23:30 Temperature Pulse Rate 89 87 Respiratory Rate 21 21 Blood Pressure 147/66 H Pulse Oximetry 97 95 Oxygen Delivery Method Oxygen Flow Rate 11/28/23 00:00 11/28/23 00:00 11/28/23 00:00 Temperature 100.9 F H Pulse Rate 112 H 97 H Respiratory Rate 35 H 20 Blood Pressure 155/79 H 137/72 Pulse Oximetry 94 Oxygen Delivery Method Oxygen Flow Rate 0 11/28/23 00:30 11/28/23 00:30 11/28/23 00:40 Temperature Pulse Rate 97 H Respiratory Rate 25 H Blood Pressure 141/67 H Pulse Oximetry 94 Oxygen Delivery Method Room Air Oxygen Flow Rate 11/28/23 02:29 11/28/23 02:30 11/28/23 03:00 Temperature Pulse Rate 90 90 90 Respiratory Rate 8 L 10 L 18 Blood Pressure Pulse Oximetry 93 95 97 Oxygen Delivery Method Oxygen Flow Rate 11/28/23 03:30 11/28/23 05:15 Temperature 99.8 F H Pulse Rate 88 Respiratory Rate 22 Blood Pressure Pulse Oximetry Oxygen Delivery Method Oxygen Flow Rate Oxygen Delivery Method Room Air Oxygen Flow Rate 0 Narrative Exam Narrative: Patient is awake and able to give a decent history. Not in acute distress air entry equal bilaterally in the lungs. No wheezes Abdomen. Tenderness noted in the left flank region. Soft bowel sounds are heard Left lower extremity with edema extending from ankle up to the midshin Objective Labs 11/28/23 04:40 11/28/23 04:40 Labs: Laboratory Results - last 24 hr 11/27/23 11/27/23 11/28/23 18:14 21:40 04:40 WBC 13.3 H 9.2 RBC 4.32 L 3.95 L Hgb 14.6 13.5 Hct 43.6 39.8 L MCV 101.1 H 100.7 H MCH 33.8 34.3 H MCHC 33.4 34.0 RDW 15.2 H 14.9 H Plt Count 244 203 Neut % (Auto) 90.6 H 90.2 H Lymph % (Auto) 3.5 L 5.1 L Cotton % (Auto) 5.2 4.2 Eos % (Auto) 0.2 L 0.0 L Baso % (Auto) 0.5 0.5 Neut # (Auto) 42179 H 8300 H Lymph # (Auto) 500 L 500 L Cotton # (Auto) 700 400 Eos # (Auto) 0 0 Baso # (Auto) 100 100 PT 14.1 H INR 1.2 APTT 39 H Sodium 134 L 132 L Potassium 4.8 3.8 Chloride 100 102 Carbon Dioxide 26 24 BUN 18 14 Creatinine 0.66 0.61 L Estimated GFR > 60 > 60 BUN/Creatinine Ratio 27.3 H 23.0 H Glucose 108 106 Lactate 1.6 Calcium 9.3 9.1 Phosphorus 3.0 Magnesium 1.9 Total Bilirubin 2.2 H AST 22 ALT 18 Alkaline Phosphatase 67 Total Protein 7.2 Albumin 4.5 Globulin 2.7 Albumin/Globulin Ratio 1.7 Lipase 25 Procalcitonin 0.054 Urine RBC 0-1/hpf Urine WBC 0-1/hpf Ur Squamous Epith Cells 0-1 /hpf Urine Bacteria Occasional (0-1) Hyaline Casts 0-1/lpf Ur Culture Indicated? 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 Apparently appears more of a flareup from the previous infection. The symptoms started few days ago. No recent history of trauma or exposure to occupational hazards. Denies any chest pain or shortness of breath. Denies any palpitation dizziness or loss of consciousness. Had recently completed IV antibiotics on October 26 for the underlying strep endocarditis and currently on oral antibiotics. Subsequent workup in the emergency room showed a white count of 13.3 with a hemoglobin of 14.6. Sodium is 134 with a potassium of 4.8, BUN of 18 and a creatinine of 0.66. Urinalysis show no evidence of nitrates or leukocyte esterase. Venous Doppler is negative for DVT in the left lower extremity. Emergency room provider discussed with infectious disease?Dr. Irving at [facility]. Was advised IV Rocephin/vancomycin pending culture results and no need for transfer to higher level of care at this time. Patient was subsequently admitted for further evaluation 1. Lower extremity cellulitis on the left side recurrent. Lactic acid is normal and there is no evidence of DVT. Leukocytosis is mild. Continue IV Rocephin/vancomycin for now pending culture results. If the blood cultures turn positive, may need higher level of care with ID input 2. Hypertension. Monitor the blood pressures closely and verify the home meds before resumption including Entresto/metoprolol 3. Atrial fibrillation. Resume the home metoprolol/Eliquis once verified 4 diabetes mellitus type 2. Verify and resume the home meds including the ARB/diuretics while trending renal function closely 5. Alcohol use history. Denies now. Monitor for any withdrawal 6 DVT prophylaxis resume home Eliquis Patient will be admitted under observation status Location of patient is [facility]. Patient was examined with help of video communication device Time-Based Coding :: [TOTAL MINUTES] spent with patient and on the chart (including review of chart, obtaining history, exam, reviewing outside data, placing orders, documenting exam and treatment plan, and counseling patient) on [DATE]. Quality VTE Deep Vein Thrombosis/Pulmonary Embolism Present on Admission: No
[2023-11-28 06:13] LABS: NT-proBNP (BNP-Adult 18+) 1630 pg/mL (<450)
--- NOTE | 2023-11-28 06:59 | PC.NURSE ---
Rec'd pt from ED; left ankle/calf/tellez with edema and erythema; 0 drainage or broken skin noted; pt spoke w/ Dr Moreno via monitor and orders rec'd; pt reports that he feels like the swelling and tenderness have both decreased since he presented to the ED; med rec completed and Dr Moreno notified
--- NOTE | 2023-11-28 07:32 | PM.HP.1 ---
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 Apparently appears more of a flareup from the previous infection. The symptoms started few days ago. No recent history of trauma or exposure to occupational hazards. Denies any chest pain or shortness of breath. Denies any palpitation dizziness or loss of consciousness. Had recently completed IV antibiotics on October 26 for the underlying strep endocarditis and currently on oral antibiotics. Subsequent workup in the emergency room showed a white count of 13.3 with a hemoglobin of 14.6. Sodium is 134 with a potassium of 4.8, BUN of 18 and a creatinine of 0.66. Urinalysis show no evidence of nitrates or leukocyte esterase. Venous Doppler is negative for DVT in the left lower extremity. Emergency room provider discussed with infectious disease?Dr. Irving at [facility]. Was advised IV Rocephin/vancomycin pending culture results and no need for transfer to higher level of care at this time. Patient was subsequently admitted for further evaluation. Additional information: His leg has been red for several days. He feels much better and would like to go home. His leg is less red today. He denies any dyspnea, fevers or chills. He was recently treated for prosthetic valve endocarditis by Dr. Alex of [facility]. [facility] Medical History Bacterial endocarditis Chronic low back pain Cerebrovascular disease Overactive bladder Inguinal adenopathy Bladder outlet obstruction History of sepsis DM type 2 with diabetic dyslipidemia Venous (peripheral) insufficiency History of colonic polyps Endocarditis Beta-hemolytic group B streptococcal sepsis Mild cognitive impairment Alcohol use disorder BPH w urinary obs/LUTS Mixed hyperlipidemia Systolic CHF, chronic Chronic anticoagulation Paroxysmal atrial fibrillation Wears glasses Enlarged prostate Heart failure Essential hypertension Surgical History H/O vasectomy Previous back surgery S/P TAVR (transcatheter aortic valve replacement) Family History Mother CVA (cerebral vascular accident) Father Heart disease Social History marital status: number of children: 0 household members: spouse Smoking Status: Never smoker alcohol intake: current caffeine: Yes Type(s) of exercise: walking frequency: 3-4 times per week duration: 60-90 minutes/day Meds Home Medications and Allergies Home Medications Medication Instructions Recorded Confirmed Type aspirin 81 mg tablet,delayed 81 mg PO QAM 08/14/19 11/28/23 History release metformin 750 mg tablet,extended 750 mg PO BID 08/14/19 11/28/23 History release 24 hr atorvastatin 80 mg tablet 80 mg PO BEDTIME 01/10/20 11/28/23 History omega 9-jiv-osj-fish oil 1,000 mg 1 cap PO TID 01/12/20 11/28/23 History (120 mg-180 mg) capsule (Fish Oil) dapagliflozin propanediol 10 mg 10 mg PO DAILY 08/19/21 11/28/23 History tablet (Farxiga) metoprolol succinate 25 mg 25 mg PO BID 08/19/21 11/28/23 History tablet,extended release 24 hr (Toprol XL) sacubitril 24 mg-valsartan 26 mg 1 tab PO BID 08/19/21 11/28/23 History tablet (Entresto) torsemide 20 mg tablet 20 mg PO DAILY 08/19/21 11/28/23 History niacinamide 500 mg tablet (Niacin 500 mg PO BID 02/04/22 11/28/23 History (niacinamide)) tamsulosin 0.4 mg capsule 0.4 mg PO BEDTIME #90 caps 03/09/23 11/28/23 Rx mirabegron 50 mg tablet,extended 50 mg PO DAILY #30 tabs 04/16/23 11/28/23 Rx release 24 hr cholecalciferol (vitamin D3) 25 25 mcg PO DAILY 08/11/23 11/28/23 History mcg (1,000 unit) tablet (Vitamin D3) spironolactone 25 mg tablet 25 mg PO DAILY #90 tabs 08/12/23 11/28/23 Rx apixaban 5 mg tablet (Eliquis) 5 mg PO BID #180 tabs 08/18/23 11/28/23 Rx Allergies Allergy/AdvReac Type Severity Reaction Status Date / Time No Known Drug Allergies Allergy Verified 11/24/23 13:21 Review of Systems Review of Systems Narrative: All else reviewed and otherwise unremarkable except as noted in the history and physical. Exam Vital Signs (past 8 hours): - 11/28/23 00:00 11/28/23 00:00 11/28/23 00:00 Temperature 100.9 F H Pulse Rate 112 H 97 H Respiratory Rate 35 H 20 Blood Pressure 155/79 H 137/72 Pulse Oximetry 94 Oxygen Delivery Method Oxygen Flow Rate 0 11/28/23 00:30 11/28/23 00:30 11/28/23 00:40 Temperature Pulse Rate 97 H Respiratory Rate 25 H Blood Pressure 141/67 H Pulse Oximetry 94 Oxygen Delivery Method Room Air Oxygen Flow Rate 11/28/23 02:29 11/28/23 02:30 11/28/23 03:00 Temperature Pulse Rate 90 90 90 Respiratory Rate 8 L 10 L 18 Blood Pressure Pulse Oximetry 93 95 97 Oxygen Delivery Method Oxygen Flow Rate 11/28/23 03:30 11/28/23 05:15 Temperature 99.8 F H Pulse Rate 88 Respiratory Rate 22 Blood Pressure Pulse Oximetry Oxygen Delivery Method Oxygen Flow Rate Oxygen Delivery Method Room Air Oxygen Flow Rate 0 Narrative Exam Narrative: NAD, alert and oriented, fluent speech, calm. Normocephalic skull, EOMI, anicteric sclera, symmetric pupils. Oropharynx unremarkable, no droop. Neck supple, midline trachea, no adenopathy. Lungs clear, normal rate and effort. Heart regular, no murmur gallop or rub. Abdomen is soft, non distended and non tender. Extremities are free of edema. Skin is free of rash or lesions. Except left leg is red but not really swollen and slightly warm [id number] to above the ankle. There is no fluctuance pustules. Joints are not swollen or deformed. Judgment appears to be normal. Objective Imaging Venous US: Radiologist's impression: No findings of lower extremity deep venous thrombosis. Labs 11/28/23 04:40 11/28/23 04:40 Labs: Laboratory Results - last 24 hr 11/27/23 11/27/23 11/28/23 18:14 21:40 04:40 WBC 13.3 H 9.2 RBC 4.32 L 3.95 L Hgb 14.6 13.5 Hct 43.6 39.8 L MCV 101.1 H 100.7 H MCH 33.8 34.3 H MCHC 33.4 34.0 RDW 15.2 H 14.9 H Plt Count 244 203 Neut % (Auto) 90.6 H 90.2 H Lymph % (Auto) 3.5 L 5.1 L [place] % (Auto) 5.2 4.2 Eos % (Auto) 0.2 L 0.0 L Baso % (Auto) 0.5 0.5 Neut # (Auto) 52236 H 8300 H Lymph # (Auto) 500 L 500 L [place] # (Auto) 700 400 Eos # (Auto) 0 0 Baso # (Auto) 100 100 PT 14.1 H INR 1.2 APTT 39 H Sodium 134 L 132 L Potassium 4.8 3.8 Chloride 100 102 Carbon Dioxide 26 24 BUN 18 14 Creatinine 0.66 0.61 L Estimated GFR > 60 > 60 BUN/Creatinine Ratio 27.3 H 23.0 H Glucose 108 106 Lactate 1.6 Calcium 9.3 9.1 Phosphorus 3.0 Magnesium 1.9 Total Bilirubin 2.2 H AST 22 ALT 18 Alkaline Phosphatase 67 NT-Pro-B Natriuret Pep 1630 H Total Protein 7.2 Albumin 4.5 Globulin 2.7 Albumin/Globulin Ratio 1.7 Lipase 25 Procalcitonin 0.054 Urine RBC 0-1/hpf Urine WBC 0-1/hpf Ur Squamous Epith Cells 0-1 /hpf Urine Bacteria Occasional (0-1) Hyaline Casts 0-1/lpf Ur Culture Indicated? Cult not indicated Vol Urine Centrifuged 10ml (spun) Assessment & Plan Assessment & Plan narrative: 1. Lower extremity cellulitis (on the left side and recurrent), present on admission and active. Lactic acid is normal and there is no evidence of DVT. Leukocytosis is mild. Continue IV Rocephin/vancomycin for now pending culture results. If the blood cultures turn positive, may need higher level of care with ID input. 2. Hypertension, present on admission and active. Monitor the blood pressures closely and verify the home meds before resumption including Entresto/metoprolol 3. Atrial fibrillation, present on admission and active. Resume the home metoprolol/Eliquis once verified 4. Diabetes mellitus type 2, present on admission and active. Verify and resume the home meds including the ARB/diuretics while trending renal function closely 5. Alcohol use disorder, present on admission and active. Denies now. Monitor for any withdrawal DVT prophylaxis resume home Eliquis. PLAN: -continue antibiotics. -monitor leg redness. -will discuss with Dr Witt ([place] ID). Patient will be admitted under observation status, expect 1MN stay. Full code. Time-Based Coding :: 40 min spent with patient and on the chart (including review of chart, obtaining history, exam, reviewing outside data, placing orders, documenting exam and treatment plan, and counseling patient) on 11/27. Quality VTE Deep Vein Thrombosis/Pulmonary Embolism Present on Admission: No MIPS - Admit The patient?s Advance Care plan is not present because I confirmed today that the patient does not wish or was not able to name a surrogate decision maker or provide an Advance Care Plan.: Yes MIPS - Meds 'Current medications' to include all prescriptions, [id number] products, herbals, cannabis/cannabidiol products, and vitamin/mineral/dietary (nutritional) supplements. I have utilized all available resources to obtain, update, or review the patient?s current medications. [If Yes, STOP here]: Yes
[2023-11-28 09:09] LABS: Lactate (Lactic Acid) 1.3 mmol/L (0.7-2.1)
[2023-11-28] MEDS: METOPROLOL ER 25 MG TABLET PO ×2 (09:23→20:45)
[2023-11-28] MEDS: ASPIRIN EC 81 MG TABLET PO (09:23)
[2023-11-28] MEDS: APIXABAN 5 MG TABLET PO ×2 (09:23→20:46)
[2023-11-28] MEDS: CHOLECALCIFEROL (VITAMIN D3) 1,000 UNIT TABLET 1000 UNIT PO (09:23)
[2023-11-28] MEDS: TORSEMIDE 10 MG TABLET 20 MG PO (09:24)
[2023-11-28] MEDS: SPIRONOLACTONE 25 MG TABLET PO (09:24)
[2023-11-28] MEDS: OXYBUTYNIN 5 MG ER TAB 10 MG PO (09:24)
[2023-11-28] MEDS: FISH OIL 1,000 MG CAPSULE 1000 MG PO ×2 (09:24→20:45)
[2023-11-28 12:07] LABS: Hemoglobin 14.2 g/dL (13.5-17.5); Mean Corpuscular HGB Conc 33.8 % (30-36); Mean Corpuscular Hemoglobin 34.1 PG (26-34); Mean Corpuscular Volume 100.6 fL (80-100); Platelet Count 204 X10^3/uL (150-400); Red Blood Cell Count 4.17 X10^6/uL (4.5-5.9); Red Cell Distribution Width 14.6 % (11.6-14.8); White Blood Cell Count 7.3 X10^3/uL (4.5-11.0)
[2023-11-28 12:44] LABS: BUN Creatinine Ratio 20.8 (6-22); Blood Urea Nitrogen 15 mg/dL (9-20); Calcium 9.3 mg/dL (8.4-10.2); Carbon Dioxide 24 mmol/L (22-32); Chloride 100 mmol/L (98-107); Estimated Glomerular Filt Rate > 60 mL/min (>60); Glucose 127 mg/dL (80-110); HEMOLYSIS < 15 (0-50); Potassium 3.9 mmol/L (3.4-5.1); Sodium 133 mmol/L (137-145)
[2023-11-28] MEDS: SODIUM CHLORIDE 0.9% FLUSH 10 ML IV ×2 (13:15→20:46)
[2023-11-28] MEDS: cefTRIAXone 2,000 MG in SODIUM CHLORIDE 0.9% 100 ML 200 MG IV (13:20)
[2023-11-28] MEDS: SODIUM CHLORIDE 0.9% 250 ML 21 ML IV (13:36)
--- NOTE | 2023-11-28 15:27 | CM.DANOTE ---
Patient is a 78 yo male who was admitted OBS Status on 11/27/23 for Recurrent Leg Cellulitis. Pt has AARP MCR under [employer] and his PCP is Dr. Stanton Louis. EMR was reviewed. Per MD, pt with hx of diabetes, AFIB, CHF and admitted for recurrent cellulitis. Per MD, pt getting IV-Abx and wants to discharge home today but not yet medically stable. Per RN, pt has been ambulating independently in room and somewhat impulsive. Pt was last admitted in August 2023 a few months ago for similar and discharged home same day with PO abx and outpt f/u. SW met bedside with pt and explained role and pt confirms he lives at home in [place] with his and is independent at baseline with ADLs and does not use DME for ambulation and still drives. Pt brief in his answers and confirms he was hopeful to discharge home today but that if he can discharge home tomorrow his can provide transport. Pt denies any hx of HH or SNF and preference is home and does not anticipate any needs. Pt did not really recall his admission in August and that it was for similar medical needs, unclear if pt has memory issues at baseline. Plan: SW to follow for plan of discharge home via spouse POV and likely PO abx and any further identified discharge planning needs. RATNA Pelayo Discharge Planning/Care Management CM Discharge Assessment Start: 11/28/23 15:20 Freq: Status: Active Protocol: Document 11/28/23 15:20 BF (Rec: 11/28/23 15:27 BF [id number]) Discharge Planning Assessment Assigned Programmer Operator Numerical Control RATNA Garcia DPOA/Assigned Designee Name informally spouse Advance Directives? No Advance Directives on File No History Provided By Patient,Medical Record Has Patient been admitted in last 30 No days? Prior Living Arrangements House Household Members spouse Type of transporation used prior to Drives own vehicle admit Independent with ADL's Yes Is patient alert and oriented? Yes: mostly Needs Assistance With Managing Medications Caregiver for Another No Barriers to Discharge No Discharge Plan Home Transportation Arrangement spouse can transport Referrals Initiated None needed Whiteboard Updated in Patient Room with Yes name and ext. # of Programmer Operator Numerical Control Review Status In Process Please Provide Date Initial DC 11/28/23 Assessment Was Performed Next Review Type Continued Stay Review
[2023-11-28 15:29] LABS: MRSA (Nasal) PCR NOT DETECTED (Not Detect)
--- NOTE | 2023-11-28 18:39 | PC.NURSE ---
Patient resting in bed comfortably at this time, watching TV. Denies questions or concerns. Call light within reach. Patient denies pain and states his leg is better and not bothering him.
[2023-11-28] MEDS: Sacubitril-Valsartan [Entresto] 24-26 mg tablet 1 EACH PO (20:45)
[2023-11-28] MEDS: ATORVASTATIN 20 MG TABLET 80 MG PO (20:45)
[2023-11-28] MEDS: TAMSULOSIN 0.4 MG CAPSULE PO (20:46)
[2023-11-29] VITALS: BP 129/71; PULSE 81; RESP 16; TEMP 36.9; O2SAT 97
[2023-11-29 04:00] VITALS: BP 128/73; PULSE 77; RESP 17; TEMP 36.2; O2SAT 98
[2023-11-29] MEDS: ACETAMINOPHEN 325 MG TABLET 650 MG PO (04:23)
[2023-11-29 05:27] LABS: Hematocrit 41.4 % (41-53); Mean Corpuscular HGB Conc 33.8 % (30-36); Mean Corpuscular Hemoglobin 33.9 PG (26-34); Mean Corpuscular Volume 100.3 fL (80-100); Platelet Count 198 X10^3/uL (150-400); Red Blood Cell Count 4.13 X10^6/uL (4.5-5.9); Red Cell Distribution Width 14.8 % (11.6-14.8); White Blood Cell Count 4.7 X10^3/uL (4.5-11.0)
[2023-11-29 05:40] LABS: BUN Creatinine Ratio 28.6 (6-22); Blood Urea Nitrogen 18 mg/dL (9-20); Carbon Dioxide 26 mmol/L (22-32); Chloride 101 mmol/L (98-107); Estimated Glomerular Filt Rate > 60 mL/min (>60); Glucose 126 mg/dL (80-110); HEMOLYSIS < 15 (0-50); Potassium 3.5 mmol/L (3.4-5.1); Sodium 135 mmol/L (137-145)
[2023-11-29 08:00] VITALS: BP 112/59; PULSE 60; RESP 18; TEMP 36.7; O2SAT 96
--- NOTE | 2023-11-29 09:34 | P.DS_ITS ---
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 Apparently appears more of a flareup from the previous infection. The symptoms started few days ago. No recent history of trauma or exposure to occupational hazards. Denies any chest pain or shortness of breath. Denies any palpitation dizziness or loss of consciousness. Had recently completed IV antibiotics on October 26 for the underlying strep endocarditis and currently on oral antibiotics. Subsequent workup in the emergency room showed a white count of 13.3 with a hemoglobin of 14.6. Sodium is 134 with a potassium of 4.8, BUN of 18 and a creatinine of 0.66. Urinalysis show no evidence of nitrates or leukocyte esterase. Venous Doppler is negative for DVT in the left lower extremity. Emergency room provider discussed with infectious disease?Dr. Irving at [facility]. Was advised IV Rocephin/vancomycin pending culture results and no need for transfer to higher level of care at this time. Patient was subsequently admitted for further evaluation. Additional information: His leg has been red for several days. He feels much better and would like to go home. His leg is less red today. He denies any dyspnea, fevers or chills. He was recently treated for prosthetic valve endocarditis by Dr. Alex of [facility]. Discharge Providers Provider Date of admission: 11/27/23 23:17 Discharge Date: 11/29/23 Primary care physician: Stanton Louis MD Discharge provider: Jean Woody DO Summary Hospital Course Discharge Diagnosis: 1. Lower extremity cellulitis (on the left side and recurrent), present on admission and active. 2. Hypertension, present on admission and active. 3. Paroxysmal Atrial fibrillation, present on admission and active. 4. Diabetes mellitus type 2, present on admission and active. 5. Alcohol use disorder, present on admission and active. Hospital Course: This is a 78 year old male with PMH of endocarditis on chronic duracef, DM2, paroxysmal atrial fibrillation, alcohol use, HTN who prseented with left lower leg cellulitis. Blood cultures were negative at 24 hours and patient had resolution of his symptoms with ceftriaxone. He was discharged with another 5 days of cefdinir to replace ceftriaxone. He was instructed to hold chronic duracef while taking cefdinir, then resume previous duracef after completion of cefdinir. Time Spent with Patient Time spent: Less than 30 minutes Exam Vital Signs (past 8 hours): - 11/29/23 04:00 11/29/23 08:00 Temperature 97.1 F L 98.0 F Pulse Rate 77 60 Respiratory Rate 17 18 Blood Pressure 128/73 112/59 L Pulse Oximetry 98 96 Oxygen Flow Rate 0 0 Oxygen Delivery Method Room Air Oxygen Flow Rate 0 Narrative Exam Narrative: NAD, alert and oriented, fluent speech, calm. Extremities are free of edema. Legs today with no erythema, warmth, or tenderness. Joints are not swollen or deformed. Judgment appears to be normal. Objective Labs 11/29/23 04:10 11/29/23 04:10 Labs: Laboratory Results - last 24 hr 11/28/23 11/28/23 11/29/23 11:59 13:25 04:10 WBC 7.3 4.7 RBC 4.17 L 4.13 L Hgb 14.2 14.0 Hct 42.0 41.4 MCV 100.6 H 100.3 H MCH 34.1 H 33.9 MCHC 33.8 33.8 RDW 14.6 14.8 Plt Count 204 198 Sodium 133 L 135 L Potassium 3.9 3.5 Chloride 100 101 Carbon Dioxide 24 26 BUN 15 18 Creatinine 0.72 0.63 L Estimated GFR > 60 > 60 BUN/Creatinine Ratio 20.8 28.6 H Glucose 127 H 126 H Calcium 9.3 9.0 Nasal Screen MRSA (PCR) Not detected [facility] Medical History Bacterial endocarditis Chronic low back pain Cerebrovascular disease Overactive bladder Inguinal adenopathy Bladder outlet obstruction History of sepsis DM type 2 with diabetic dyslipidemia Venous (peripheral) insufficiency History of colonic polyps Endocarditis Beta-hemolytic group B streptococcal sepsis Mild cognitive impairment Alcohol use disorder BPH w urinary obs/LUTS Mixed hyperlipidemia Systolic CHF, chronic Chronic anticoagulation Paroxysmal atrial fibrillation Wears glasses Enlarged prostate Heart failure Essential hypertension Surgical History H/O vasectomy Previous back surgery S/P TAVR (transcatheter aortic valve replacement) Family History Mother CVA (cerebral vascular accident) Father Heart disease Social History marital status: number of children: 0 household members: spouse Smoking Status: Never smoker alcohol intake: current caffeine: Yes Type(s) of exercise: walking frequency: 3-4 times per week duration: 60-90 minutes/day Discharge Plan Discharge Plan Patient Disposition: Home Provider Discharge Comment: You were admitted to the hospital with a leg cellulitis. Discharge orders & Medications Prescriptions: New cefdinir 300 mg capsule 300 mg PO BID 5 Days Qty: 10 0RF Continued metformin 750 mg tablet extended release 24 hr 750 mg PO BID aspirin 81 mg tablet,delayed release (DR/EC) 81 mg PO QAM tamsulosin 0.4 mg capsule 0.4 mg PO BEDTIME Qty: 90 3RF mirabegron 50 mg tablet extended release 24 hr 50 mg PO DAILY Qty: 30 12RF Eliquis 5 mg tablet 5 mg PO BID Qty: 180 3RF Entresto 24-26 mg tablet 1 tab PO BID metoprolol succinate [Toprol XL] 25 mg tablet extended release 24 hr 25 mg PO BID torsemide 20 mg tablet 20 mg PO DAILY Farxiga 10 mg tablet 10 mg PO DAILY niacinamide [Niacin (niacinamide)] 500 mg tablet 500 mg PO BID cholecalciferol (vitamin D3) [Vitamin D3] 25 mcg (1,000 unit) Tablet 25 mcg PO DAILY spironolactone 25 mg Tablet 25 mg PO DAILY Qty: 90 3RF atorvastatin 80 mg Tablet 80 mg PO BEDTIME omega 3-xwk-jfj-fish oil [Fish Oil] 1,000 mg (120 mg-180 mg) Capsule 1 cap PO TID Discontinued cefadroxil 500 mg capsule 500 mg PO BID Follow up/Referrals: tSanton Louis MD [Primary Care Provider] - Visit Report/Discharge Packet Instructions: DI for Cellulitis -- Adult Stand Alone Forms: Patient Portal/API, Stroke Signs & Symptoms Discharge Data Primary Care Provider: Stanton Louis V Attending Provider: Agustin Moreno Admit Date/Time: 11/27/23 23:17 Quality VTE Deep Vein Thrombosis/Pulmonary Embolism Present on Admission: No
[2023-11-29] MEDS: ASPIRIN EC 81 MG TABLET PO (09:36)
[2023-11-29] MEDS: Dapagliflozin Propanediol [Farxiga] 10 mg tablet 10 EACH PO (09:36)
[2023-11-29] MEDS: Sacubitril-Valsartan [Entresto] 24-26 mg tablet 1 EACH PO (09:36)
[2023-11-29] MEDS: APIXABAN 5 MG TABLET PO (09:36)
[2023-11-29] MEDS: METOPROLOL ER 25 MG TABLET PO (09:37)
[2023-11-29] MEDS: SPIRONOLACTONE 25 MG TABLET PO (09:37)
[2023-11-29] MEDS: CHOLECALCIFEROL (VITAMIN D3) 1,000 UNIT TABLET 1000 UNIT PO (09:37)
[2023-11-29] MEDS: FISH OIL 1,000 MG CAPSULE 1000 MG PO (09:37)
--- NOTE | 2023-11-29 10:41 | CM.DPC ---
DCP Discharge Home Per MD, pt is medically stable to discharge home today on PO abx and outpt f/u and no barriers to discharge. Per RN, pt remains agreeable with discharge home today and no concerns noted. Pt was hopeful to discharge home yesterday and very agreeable with d/c today home with spouse and no ambulation concerns or needs. RATNA Pelayo
--- NOTE | 2024-01-25 11:13 | PC.NURSE ---
late entry- per RN the vanco dose started at 2238 on 11/26 was completed when patient was admitted upstairs at midnight.
== END 2023-11-29 11:45 | disposition home or self-care (01) ==
LOC: ED 23:17 → AC 23:18 → ICU 11-28 00:44
PROVIDERS: Emergency Medicine; Hospitalist; Admitting Provider Internal Medicine; Emergency Provider Emergency Medicine; PCP Internal Medicine; Visit Provider Internal Medicine
DX: L03.116 Cellulitis of left lower limb (principal); I10 Essential (primary) hypertension; I48.91 Unspecified atrial fibrillation; E11.9 Type 2 diabetes mellitus without complications; Z79.84 Long term (current) use of oral hypoglycemic drugs
CPT/HCPCS: 36415; 80048; 80053; 81003; 81015; 83605; 83690; 83735; 83880; 84100; 84145; 85025; 85027; 85610; 85730; 87040; 87797; 93971; 96365; 96366; 96367; 99284; G0378; A9270; J0696

== ENCOUNTER → 2024-06-26 09:53 | Outpatient (CLI) | payer MEDICARE, SELFPAY ==
[2023-11-28 01:09] VITALS: BMI 31.4
[2024-06-26 10:48] LABS: Hemoglobin A1C% w Est Avg Glu 5.8 % (4.0-6.0)
[2024-06-26 10:54] LABS: Aspartate Aminotransferase 23 IU/L (17-59); BUN Creatinine Ratio 23.2 (6-22); Blood Urea Nitrogen 19 mg/dL (9-20); Calcium 9.6 mg/dL (8.4-10.2); Carbon Dioxide 25 mmol/L (22-32); Chloride 101 mmol/L (98-107); Cholesterol 122 mg/dL (140-199); Estimated Glomerular Filt Rate > 60 mL/min (>60); Glucose 131 mg/dL (80-110); HDL Cholesterol 37 mg/dL (40-60); HEMOLYSIS < 15 (0-50); LDL Cholesterol Calculated 74 mg/dL (<100); Potassium 5.2 mmol/L (3.4-5.1); Sodium 135 mmol/L (137-145); Triglycerides 56 mg/dL (35-150)
[2024-06-26 11:48] LABS: Creatinine Urine Random 138.79 mg/dL
[2024-06-26 11:53] LABS: Microalbumin Urine Random 7.6 mg/dL (0-1.6)
== END ==
LOC: LAB 09:54
PROVIDERS: PCP Internal Medicine; Referring Provider Internal Medicine; Visit Provider Internal Medicine
DX: E11.69 Type 2 diabetes mellitus with other specified complication (principal); E78.5 Hyperlipidemia, unspecified; I50.22 Chronic systolic (congestive) heart failure; E78.2 Mixed hyperlipidemia
CPT/HCPCS: 36415; 80048; 80061; 82043; 82570; 83036; 84450

== ENCOUNTER → 2024-09-27 12:13 | Outpatient (CLI) | payer MEDICARE, SELFPAY ==
[2023-11-28 01:09] VITALS: BMI 31.4
[2024-09-27 13:13] LABS: Hemoglobin A1C% w Est Avg Glu 5.4 % (4.0-6.0)
[2024-09-27 13:20] LABS: BUN Creatinine Ratio 30.6 (6-22); Blood Urea Nitrogen 22 mg/dL (9-20); Calcium 9.9 mg/dL (8.4-10.2); Carbon Dioxide 25 mmol/L (22-32); Chloride 100 mmol/L (98-107); Estimated Glomerular Filt Rate > 60 mL/min (>60); Glucose 102 mg/dL (70-99); HEMOLYSIS < 15 (0-50); Potassium 5.1 mmol/L (3.4-5.1); Sodium 137 mmol/L (137-145)
== END ==
PROVIDERS: PCP Internal Medicine; Referring Provider Internal Medicine; Visit Provider Urology
DX: E11.69 Type 2 diabetes mellitus with other specified complication (principal); E78.5 Hyperlipidemia, unspecified
CPT/HCPCS: 36415; 80048; 83036

== ENCOUNTER → 2025-01-01 12:17 | Outpatient (CLI) | payer MEDICARE, SELFPAY ==
[2023-11-28 01:09] VITALS: BMI 31.4
--- NOTE | 2025-01-01 12:18 | DI.RAD.S_ITS ---
PROCEDURE: XR LUMBAR SPINE MIN 4V INDICATIONS: back pain TECHNIQUE: 5 views of the lumbar spine acquired, including flexion and extension views. COMPARISON: [facility], , XR LUMBAR SPINE 2-3V, 09/15/2020, 12:47. FINDINGS: Chronic 50 percent T12 vertebral body height loss with focal kyphosis, unchanged. Chronic grade 1 anterolisthesis at L4-L5, unchanged. No intersegmental hypermobility. Multilevel degenerative disc change and facet arthropathy similar prior examination. Atherosclerotic calcifications of the aorta. No acute fracture. IMPRESSION: Stable degenerative changes and stable T12 compression fracture. Dictated by: Manuel Calero M.D. on 01/01/2025 at 13:12 Approved by: Manuel Calero M.D. on 01/01/2025 at 13:14
== END ==
PROVIDERS: PCP Internal Medicine; Referring Provider Internal Medicine; Visit Provider Internal Medicine
DX: M47.816 Spondylosis without myelopathy or radiculopathy, lumbar region (principal); M48.54XA Collapsed vertebra, not elsewhere classified, thoracic region, initial encounter for fracture; M54.50 Low back pain, unspecified; G89.29 Other chronic pain
CPT/HCPCS: 72110

== ENCOUNTER → 2025-03-11 15:10 | Outpatient (CLI) | payer MEDICARE, SELFPAY ==
[2023-11-28 01:09] VITALS: BMI 31.4
== END ==
PROVIDERS: PCP Internal Medicine; Referring Provider Urology; Visit Provider Urology
DX: Z12.5 Encounter for screening for malignant neoplasm of prostate (principal)
CPT/HCPCS: 36415; G0103